=== PATIENT | male | born 1940 | race Caucasian/White ===

== ENCOUNTER 2017-10-05 03:00 | Observation (INO) ==
--- NOTE | 2017-10-05 03:25 | Emergency Department Note ---
Disposition Clinical Impression: Delirium due to general medical condition UTI (urinary tract infection) Qualifiers: Urinary tract infection type: site unspecified Hematuria presence: without hematuria Qualified Code(s): N39.0 - Urinary tract infection, site not specified Disposition: Still a Patient Condition: Fair Referrals: Andres Jensen MD [Primary Care Provider] - Forms: ED Satisfaction Letter Time of Disposition: 05:19 Altered Mental Status HPI - General Chief Complaint: ED Altered Mental Status Stated Complaint: Altered Mental Status Time Seen by Provider: 10/05/17 03:07 Source: EMS Limitations: no limitations Nursing Notes Reviewed: Yes Vital Signs Reviewed: Yes - History of Present Illness HPI Narrative: Mr. Jones, 77-year-old male, presents from scene via EMS. He was attempting to get into the apartment of a neighbor where she called police for suspected burglary. Patient was found walking in the parking lot of the power complex with a T-shirt, underwear, his stocking feet. Per EMS, he was verbally combative in route. Patient does not know what medications he takes. He denies any blood thinners stating he stopped taking them approximate 6 months ago. ROS: Positive: As above Negative: Fever, chills, confusion, nausea, vomiting, chest pain, palpitations, dyspnea, diaphoresis, unusual back pain, confusion, headache, trauma. - Related Data Home Medications Medication Instructions Recorded Confirmed Lisinopril [Zestril] 5 mg PO DAILY 12/06/14 04/13/16 Simvastatin [Zocor] 40 mg PO HS 12/06/14 04/13/16 Aspirin Enteric Coated [Aspirin EC] 81 mg PO DAILY #0 12/07/14 04/13/16 Metoprolol XL (24 HR) Succ [Toprol 50 mg PO DAILY #0 12/07/14 04/13/16 Xl] Citalopram Hydrobromide [Celexa] 20 mg PO DAILY 10/28/15 04/13/16 LORazepam [Ativan] 0.5 mg PO TID 10/28/15 04/13/16 Omeprazole [PriLOSEC] 20 mg PO DAILY 10/28/15 04/13/16 Previous Rx's Medication Instructions Recorded Ipratropium/Albuterol Neb [Duoneb] 3 ml IH [id number] #30 inhsol 08/04/15 Nitroglycerin 0.4 mg SL Q5MIN PRN #0 tab.subl 08/04/15 Spironolactone [Aldactone] 12.5 mg PO DAILY #30 tablet 08/04/15 traZODone [TraZODone] 50 mg PO HS PRN #10 tablet 08/04/15 Docusate [Colace] 100 mg PO BID #60 capsule 10/28/15 Oxycodone HCl/Acetaminophen 1 each PO Q4H PRN #20 tablet 10/28/15 [Percocet 5-325 mg Tablet] HYDROcodone/Acet 5/325 mg [[place] 1 tab PO Q4H PRN #10 tab 04/13/16 5-325 mg] Allergies Allergy/AdvReac Type Severity Reaction Status Date / Time No Known Allergies Allergy Verified 04/13/16 12:48 All systems ED: reviewed and negative except as stated. Review of Systems: As Per HPI Past Medical History - Past Medical History Medical history: Reports: cancer, cardiomyopathy, CHF, COPD, coronary artery disease, hepatitis, hyperlipidemia, liver disease, other Surgical history: Reports: pacemaker/AICD Psychiatric history: Reports: anxiety, depression, prior suicide attempt - Social History Smoking Status: Current every day smoker Smokeless Tobacco Status: No Alcohol use: Reports: none Drug use: Reports: none Physical Exam Vital Signs Reviewed General: Patient is alert, oriented, and in no acute distress. Head: atraumatic, normocephalic Eye: normal appearance, no scleral icterus, no conjunctival injection ENT: mucous membranes moist, normal external ear exam Neck: normal inspection, trachea midline, full ROM Chest: normal inspection, symmetric chest rise Respiratory: Good respiratory effort. Bilateral breath sounds are clear without wheezing, crackles, or rhonchi. Cardiovascular: Regular rate and rhythm. No clicks, rubs, gallops, or murmors. Normal heart sounds. Abdomen: Scaphoid. Bowel sounds present normoactive x-4 quadrants. Abdomen is soft, nondistended, and nontender. No guarding or rebound. No organomegaly noted. Musculoskeletal: Spontaneously moving all extremities. Skin: warm, dry, intact. Neuro: Alert and oriented x4. Sensation light touch intact. Psych: Patient's affect is appropriate for situation. - General Limitations: no limitations General appearance: alert, in no apparent distress Course Course Narrative: Patient agrees that is not normal 3 walking around outside in your underwear. He agrees to allow me to do a medical workup to see how we can help him. He was to make sure that, "I am not a shrink." He repeatedly states that he is not crazy. Patient's lab work is concerning for urinary tract infection. We will begin IV Rocephin. I discussed in detail with the patient my concern for him and his safety given that he was recently running around in his underwear. He agrees that is not normal. Initially he insisted on going home however, with much convincing, he agreed to stay for IV antibiotics. He will be asking to leave as soon as feasible. Vital Signs Temperature 97.6 F 10/05/17 03:06 Pulse Rate 83 10/05/17 03:06 Respiratory Rate 18 10/05/17 03:06 Blood Pressure 162/92 10/05/17 03:06 O2 Sat by Pulse Oximetry 92 10/05/17 03:06 Temperature 97.6 F 10/05/17 03:06 Pulse Rate 83 10/05/17 03:06 Respiratory Rate 18 10/05/17 03:06 Blood Pressure 162/92 10/05/17 03:06 O2 Sat by Pulse Oximetry 92 10/05/17 03:06 Oxygen Delivery Oxygen Delivery Room Air Altered Mental Status - Lab Data Result diagrams: 10/05/17 03:35 10/05/17 03:35 Lab Results 10/05/17 10/05/17 10/05/17 Range/Units 03:30 03:30 03:35 WBC 11.5 H (4.3-11.1) K/mcL RBC 4.55 (4.19-5.50) M/mcL Hgb 13.9 (12.9-16.9) g/dL Hct 44.3 (37.5-50.1) % MCV 97.4 (83.0-100.0) fL MCH 30.5 (28.0-33.3) pg MCHC 31.4 L (31.6-35.5) g/dL RDW 13.1 (11.5-14.5) % Plt Count 383 (140-400) K/mcL MPV 9.4 (9.4-12.4) fL Immature Gran % 0.5 (0-4) % Seg Neutrophils % 80.4 % Lymphocytes % 11.4 % Monocytes % 5.6 % Eosinophils % 1.3 % Basophils % 0.8 % Neutrophils # 9.3 H (1.6-8.9) K/mcL Lymphocytes # 1.3 (0.6-4.6) K/mcL Monocytes # 0.7 (0.0-1.3) K/mcL Eosinophils # 0.2 (0.0-0.6) K/mcL Basophils # 0.1 (0.0-0.2) K/mcL Sodium (136-145) mEq/L Potassium (3.5-5.1) mEq/L Chloride (98-107) mEq/L Carbon Dioxide (23-29) mEq/L BUN (8-23) mg/dL Creatinine (0.70-1.30) mg/dL Est GFR ( Amer) (> 60) Est GFR (Non-Af Amer) (> 60) BUN/Creatinine Ratio (6-26) Glucose (70-105) mg/dL Calculated Osmolality (280-300) Calcium (8.6-10.3) mg/dL Total Bilirubin (0.3-1.0) mg/dL Direct Bilirubin (0.0-0.2) mg/dL Indirect Bilirubin (0.0-1.2) mg/dL AST (13-39) Units/L ALT (7-52) Units/L Alkaline Phosphatase (34-104) Units/L Ammonia (16-53) mcmol/L Troponin I (< 0.04) ng/mL Serum Total Protein (6.4-8.9) g/dL Albumin (3.5-5.7) g/dL Globulin (2.4-3.5) g/dL Albumin/Globulin Ratio (1.1-2.2) Urine Color Yellow (Yellow) Urine Clarity Cloudy A (Clear) Urine pH 7.0 (5.0-8.0) pH Units Ur Specific [place] 1.020 (1.010-1.025) Urine Protein Trace (Neg-Trace) mg/dL Urine Glucose (UA) Normal (Normal) mg/dL Urine Ketones 40 H (Negative) mg/dL Urine Blood Negative (Negative) Urine Nitrite Negative (Negative) Urine Bilirubin Small H (Negative) Urine Urobilinogen Normal (Normal) mg/dL Ur Leukocyte Esterase Large H (Negative) Urine Microscopic RBC 0-3 (0-3) per hpf Urine Microscopic WBC 50-100 H (0-3) per hpf Ur Squamous Epith Cells Many H (None-Few) per lpf Urine Bacteria Many H (None-Few) per hpf Hyaline Casts Few (None-Few) per lpf Ur Culture Indicated? NO. A (NO) Urine Opiates Screen Negative (Axihqk=990) ng/mL Ur Barbiturates Screen Positive H (Ognxti=188) ng/mL Ur Phencyclidine Scrn Negative (Cutoff=25) ng/mL Ur Amphetamines Screen Negative (Ybqjge=9840) ng/mL U Benzodiazepines Scrn Negative (Xarlmr=234) ng/mL Urine Cocaine Screen Negative (Cutoff= 300) ng/mL U Marijuana (THC) Screen Negative (Cutoff = 50) ng/mL Ethyl Alcohol (Less than 10) mg/dL 10/05/17 10/05/17 Range/Units 03:35 03:35 WBC (4.3-11.1) K/mcL RBC (4.19-5.50) M/mcL Hgb (12.9-16.9) g/dL Hct (37.5-50.1) % MCV (83.0-100.0) fL MCH (28.0-33.3) pg MCHC (31.6-35.5) g/dL RDW (11.5-14.5) % Plt Count (140-400) K/mcL MPV (9.4-12.4) fL Immature Gran % (0-4) % Seg Neutrophils % % Lymphocytes % % Monocytes % % Eosinophils % % Basophils % % Neutrophils # (1.6-8.9) K/mcL Lymphocytes # (0.6-4.6) K/mcL Monocytes # (0.0-1.3) K/mcL Eosinophils # (0.0-0.6) K/mcL Basophils # (0.0-0.2) K/mcL Sodium 143 (136-145) mEq/L Potassium 3.8 (3.5-5.1) mEq/L Chloride 101 (98-107) mEq/L Carbon Dioxide 25 (23-29) mEq/L BUN 20 (8-23) mg/dL Creatinine 0.83 (0.70-1.30) mg/dL Est GFR ( Amer) > 60 (> 60) Est GFR (Non-Af Amer) > 60 (> 60) BUN/Creatinine Ratio 24 (6-26) Glucose 98 (70-105) mg/dL Calculated Osmolality 299 (280-300) Calcium 9.7 (8.6-10.3) mg/dL Total Bilirubin 0.5 (0.3-1.0) mg/dL Direct Bilirubin 0.3 H (0.0-0.2) mg/dL Indirect Bilirubin 0.2 (0.0-1.2) mg/dL AST 21 (13-39) Units/L ALT 17 (7-52) Units/L Alkaline Phosphatase 86 (34-104) Units/L Ammonia 31 (16-53) mcmol/L Troponin I < 0.03 (< 0.04) ng/mL Serum Total Protein 8.2 (6.4-8.9) g/dL Albumin 4.0 (3.5-5.7) g/dL Globulin 4.2 H (2.4-3.5) g/dL Albumin/Globulin Ratio 1.0 L (1.1-2.2) Urine Color (Yellow) Urine Clarity (Clear) Urine pH (5.0-8.0) pH Units Ur Specific [place] (1.010-1.025) Urine Protein (Neg-Trace) mg/dL Urine Glucose (UA) (Normal) mg/dL Urine Ketones (Negative) mg/dL Urine Blood (Negative) Urine Nitrite (Negative) Urine Bilirubin (Negative) Urine Urobilinogen (Normal) mg/dL Ur Leukocyte Esterase (Negative) Urine Microscopic RBC (0-3) per hpf Urine Microscopic WBC (0-3) per hpf Ur Squamous Epith Cells (None-Few) per lpf Urine Bacteria (None-Few) per hpf Hyaline Casts (None-Few) per lpf Ur Culture Indicated? (NO) Urine Opiates Screen (Mtalkm=659) ng/mL Ur Barbiturates Screen (Zlfqns=188) ng/mL Ur Phencyclidine Scrn (Cutoff=25) ng/mL Ur Amphetamines Screen (Cjzapz=9895) ng/mL U Benzodiazepines Scrn (Yixcev=138) ng/mL Urine Cocaine Screen (Cutoff= 300) ng/mL U Marijuana (THC) Screen (Cutoff = 50) ng/mL Ethyl Alcohol < 10 (Less than 10) mg/dL TPA Checklist - LKW: 3-4.5 hrs Add. Warnings/Precautions Patient/family understanding: The patient/family members have been counseled and understood the risk, benefit , and alternatives of treatment.
--- NOTE | 2017-10-05 03:30 | Emergency Department Note ---
Disposition Clinical Impression: Delirium due to general medical condition Disposition: Still a Patient Referrals: Andres Jensen MD [Primary Care Provider] - Forms: ED Satisfaction Letter General Adult HPI - General Chief complaint: ED Altered Mental Status Stated complaint: Altered Mental Status Time Seen by Provider: 10/05/17 03:07 Source: EMS Limitations: no limitations - History of Present Illness Pain Scale: 0 - Related Data Home Medications Medication Instructions Recorded Confirmed Lisinopril [Zestril] 5 mg PO DAILY 12/06/14 04/13/16 Simvastatin [Zocor] 40 mg PO HS 12/06/14 04/13/16 Aspirin Enteric Coated [Aspirin EC] 81 mg PO DAILY #0 12/07/14 04/13/16 Metoprolol XL (24 HR) Succ [Toprol 50 mg PO DAILY #0 12/07/14 04/13/16 Xl] Citalopram Hydrobromide [Celexa] 20 mg PO DAILY 10/28/15 04/13/16 LORazepam [Ativan] 0.5 mg PO TID 10/28/15 04/13/16 Omeprazole [PriLOSEC] 20 mg PO DAILY 10/28/15 04/13/16 Previous Rx's Medication Instructions Recorded Ipratropium/Albuterol Neb [Duoneb] 3 ml IH [id number] #30 inhsol 08/04/15 Nitroglycerin 0.4 mg SL Q5MIN PRN #0 tab.subl 08/04/15 Spironolactone [Aldactone] 12.5 mg PO DAILY #30 tablet 08/04/15 traZODone [TraZODone] 50 mg PO HS PRN #10 tablet 08/04/15 Docusate [Colace] 100 mg PO BID #60 capsule 10/28/15 Oxycodone HCl/Acetaminophen 1 each PO Q4H PRN #20 tablet 10/28/15 [Percocet 5-325 mg Tablet] HYDROcodone/Acet 5/325 mg [[place] 1 tab PO Q4H PRN #10 tab 04/13/16 5-325 mg] Allergies Allergy/AdvReac Type Severity Reaction Status Date / Time No Known Allergies Allergy Verified 04/13/16 12:48 Past Medical History - Past Medical History Medical history: Reports: cancer, cardiomyopathy, CHF, COPD, coronary artery disease, hepatitis, hyperlipidemia, liver disease, other Surgical history: Reports: pacemaker/AICD Psychiatric history: Reports: anxiety, depression, prior suicide attempt - Social History Smoking Status: Current every day smoker Smokeless Tobacco Status: No Alcohol use: Reports: none Drug use: Reports: none Physical Exam - General Limitations: no limitations General appearance: alert, in no apparent distress Course - Reevaluation(s) Reevaluation #1: Attestation note I examined this patient and my medical decision-making was reviewed with the emergency medicine resident. I agree with the documented findings, disposition and treatment plan as described except to the extent set forth below. Patient seen with emergency medicine resident Dustin Thomas, Please see a copy of his note for details of the H&P, ED evaluation, management and disposition. I have independently evaluated the patient and confirmed appropriate portions of the history and physical exam. Briefly: 77-year-old male by EMS looking around underwear and socks disoriented. He will try to get some feels his apartment. Police name is called patient became argumentative patient is no no mental health illness this does say that his urine is burning. No external signs of trauma patient will get a medical workup and evaluation with likely admission. Disposition pending. Time: 03:29 Vital Signs Temperature 97.6 F 10/05/17 03:06 Pulse Rate 83 10/05/17 03:06 Respiratory Rate 18 10/05/17 03:06 Blood Pressure 162/92 10/05/17 03:06 O2 Sat by Pulse Oximetry 92 10/05/17 03:06 Temperature 97.6 F 10/05/17 03:06 Pulse Rate 83 10/05/17 03:06 Respiratory Rate 18 10/05/17 03:06 Blood Pressure 162/92 10/05/17 03:06 O2 Sat by Pulse Oximetry 92 10/05/17 03:06 Oxygen Delivery Oxygen Delivery Room Air
[2017-10-05 03:52] LABS: Basophils # 0.1 K/mcL (0.0-0.2); Basophils % 0.8 %; Eosinophils # 0.2 K/mcL (0.0-0.6); Eosinophils % 1.3 %; Hematocrit 44.3 % (37.5-50.1); Hemoglobin 13.9 g/dL (12.9-16.9); Immature Granulocytes % 0.5 % (0-4); Lymphocytes # 1.3 K/mcL (0.6-4.6); Lymphocytes % 11.4 %; Mean Corpuscular HGB Conc 31.4 g/dL (31.6-35.5); Mean Corpuscular Hemoglobin 30.5 pg (28.0-33.3); Mean Corpuscular Volume 97.4 fL (83.0-100.0); Mean Platelet Volume 9.4 fL (9.4-12.4); Monocytes # 0.7 K/mcL (0.0-1.3); Monocytes % 5.6 %; Neutrophils # 9.3 K/mcL (1.6-8.9); Platelet Count 383 K/mcL (140-400); Red Blood Count 4.55 M/mcL (4.19-5.50); Red Cell Distribution Width 13.1 % (11.5-14.5); Segmented Neutrophils % 80.4 %
[2017-10-05 03:52] LABS: Bilirubin,Urine Small (Negative); Blood,Urine Negative (Negative); Clarity,Urine Cloudy (Clear); Color,Urine Yellow (Yellow); Glucose,Urine (UA) Normal (Normal); Ketones,Urine 40 mg/dL (Negative); Leukocyte Esterase,Urine Large (Negative); Nitrite,Urine Negative (Negative); Protein,Urine Trace mg/dL (Neg-Trace); Urobilinogen,Urine Normal (Normal)
[2017-10-05 03:55] LABS: Bacteria,Urine Many per hpf (None-Few); Hyaline Casts,Urine Few per lpf (None-Few); Squamous Epithelial Cell,Urine Many per lpf (None-Few); WBC,Urine 50-100 per hpf (0-3)
[2017-10-05 04:09] LABS: RBC,Urine 0-3 per hpf (0-3)
[2017-10-05 04:15] LABS: Alanine Aminotransferase 17 Units/L (7-52); Alkaline Phosphatase 86 Units/L (34-104); Aspartate Amino Transferase 21 Units/L (13-39); BUN/Creatinine Ratio 24 (6-26); Bilirubin,Direct 0.3 mg/dL (0.0-0.2); Bilirubin,Indirect 0.2 mg/dL (0.0-1.2); Bilirubin,Total 0.5 mg/dL (0.3-1.0); Blood Urea Nitrogen 20 mg/dL (8-23); Calcium 9.7 mg/dL (8.6-10.3); Carbon Dioxide 25 mEq/L (23-29); Chloride 101 mEq/L (98-107); Ethanol < 10 mg/dL (Less than 10); Globulin 4.2 g/dL (2.4-3.5); Glucose 98 mg/dL (70-105); Osmolality,Calculated 299 (280-300); Potassium 3.8 mEq/L (3.5-5.1); Sodium 143 mEq/L (136-145); Total Protein 8.2 g/dL (6.4-8.9); Troponin I < 0.03 ng/mL (< 0.04); eGFR For African Americans > 60 (> 60); eGFR For Non-African Americans > 60 (> 60)
[2017-10-05 04:19] LABS: Amphetamine Screen,Urine Negative ng/mL (Cutoff=1000); Barbiturate Screen,Urine Positive ng/mL (Cutoff=200); Benzodiazepines Screen,Urine Negative ng/mL (Cutoff=200); Cannabinoid Screen,Urine Negative ng/mL (Cutoff = 50); Cocaine Screen,Urine Negative ng/mL (Cutoff= 300); Opiate Screen,Urine Negative ng/mL (Cutoff=300); Phencyclidine Screen,Urine Negative ng/mL (Cutoff=25)
[2017-10-05] MEDS ORDERED: cefTRIAXone 2,000 MG in Water for inj. (sterile) 20 ML 20 ML IVP ONE (04:53)
[2017-10-05] MEDS ORDERED: Albuterol 2.5 MG/3 ML NEBULIZER IH PRN (08:44)
[2017-10-05] MEDS ORDERED: *HR* LORazepam 2 MG/ML VIAL IVP STA (08:50)
[2017-10-05] MEDS ORDERED: Ipratropium/Albuterol Neb 3 ML IH PRN (08:50)
[2017-10-05] MEDS ORDERED: Acetaminophen 325 MG TABLET PO PRN (08:51)
[2017-10-05] MEDS ORDERED: Naloxone 0.4 MG/ML INJ IVP PRN (08:51)
[2017-10-05] MEDS ORDERED: *HR* HYDROcodone/Acet 5/325 mg TABLET PO PRN (08:51)
--- NOTE | 2017-10-05 08:57 | Internal Med History&Physical ---
Date of Encounter: 10/05/17 Time of Encounter: 08:27 Internal Medicine - H&P: HPI Chief complaint: "My neighbor called the bulk sealer operator" Admitted From: Emergency Dept Plans for Post Hospital Care: Home History of present illness: Mr. Jones is a 77 year old male who presented to ED by EMS for altered mental status. Patient states "that neighbor ru Omer called the bulk sealer operator." Per review of ED records, patient was found walking around the neighborhood in his underwear. Patient seems mildly agitated, but I am able to redirect him and calm him down by listening to his story. He states "I want to go home and my son is on his way to pick me up." In the ED, he was found to have a UTI. Patient states "I already knew that I had a UTI." We discussed short course of IV antibiotics with likely discharge on PO antibiotics to complete course. I advised him that we will only keep him here as long as we need to treat infection. He is alert and oriented x 3. He is agitated, but not confused on my examination. He has a history of depression and anxiety per chart review. He is tremulous and seems anxious, which may in part be due to not having his TID ativan this AM. I advised him that I will speak to his son when he gets here. For now, he is agreeable to staying. Urine culture is pending. He was give one dose of IV rocephin in the ED. At this time, he denies fever, chills, chest pain, SOB, nausea, vomiting, abdominal pain, or changes in bowels. He does have some dysuria per his own account. Past Med Surg Social Fam HX - Past Medical History Attestation: Yes The following information was validated with the patient. Source: patient Medical history: cancer, cardiomyopathy, CHF, COPD, coronary artery disease, hepatitis, hyperlipidemia, liver disease, other Additional medical history: pt unable to provide accurate medical history. Psychiatric history: anxiety, depression, prior suicide attempt - Past Surgical History Surgical History: pacemaker/AICD - Social History Smoking Status: Current every day smoker Smokeless Tobacco Status: No Alcohol use: none Drug use: none - Family History Mother Living Status: Hx Family Cardiac Disorders: Yes ( FROM HEART ATTACK,) Hx Family Neurologic Disorders: Yes (STROKES) - Additional Family History Additional family history: Family history reviewed with patient. Internal Medicine - H&P: Meds Lisinopril [Zestril] 5 mg PO DAILY 12/06/14 [History] Simvastatin [Zocor] 40 mg PO HS 12/06/14 [History] Aspirin Enteric Coated [Aspirin EC] 81 mg PO DAILY #0 12/07/14 [History] Metoprolol XL (24 HR) Succ [Toprol Xl] 50 mg PO DAILY #0 12/07/14 [History] Ipratropium/Albuterol Neb [Duoneb] 3 ml IH [id number] #30 inhsol 08/04/15 [Rx] Nitroglycerin 0.4 mg SL Q5MIN PRN #0 tab.subl 08/04/15 [Rx] Spironolactone [Aldactone] 12.5 mg PO DAILY #30 tablet 08/04/15 [Rx] traZODone [TraZODone] 50 mg PO HS PRN #10 tablet 08/04/15 [Rx] Citalopram Hydrobromide [Celexa] 20 mg PO DAILY 10/28/15 [History] Docusate [Colace] 100 mg PO BID #60 capsule 10/28/15 [Rx] LORazepam [Ativan] 0.5 mg PO TID 10/28/15 [History] Omeprazole [PriLOSEC] 20 mg PO DAILY 10/28/15 [History] Oxycodone HCl/Acetaminophen [Percocet 5-325 mg Tablet] 1 each PO Q4H PRN #20 tablet 10/28/15 [Rx] HYDROcodone/Acet 5/325 mg [[place] 5-325 mg] 1 tab PO Q4H PRN #10 tab 04/13/16 [Rx ] 3 Allergy/AdvReac Type Severity Reaction Status Date / Time No Known Allergies Allergy Verified 04/13/16 12:48 All Systems PM: A 10-system review of systems was performed and is negative for pertinent findings except as documented above in the HPI. - Constitutional Vitals: Temp Pulse Resp BP Pulse Ox 98.1 F 67 14 168/90 100 10/05/17 08:06 10/05/17 08:06 10/05/17 08:06 10/05/17 08:06 10/05/17 08:06 General appearance: Present: cooperative, mild distress (Anxiety), A&O X 3, answers questions appropriately. Absent: pleasant - Head Head exam: Present: atraumatic, normal inspection, normocephalic - Eye Eye exam: Present: EOMI, PERRL. Absent: conjunctival injection, nystagmus, scleral icterus - ENT ENT exam: Present: mucous membranes moist, normal external ear exam, normal oropharynx - Neck Neck exam general surgery: Present: supple, trachea midline. Absent: lymphadenopathy, tenderness, thyromegaly - Respiratory Respiratory exam: Present: CTAB. Absent: accessory muscle use, rales, rhonchi, wheezes Additional comments: Normal WOB - Cardiovascular Cardiovascular exam: Present: RRR, +S1, +S2. Absent: diastolic murmur, gallop, rubs, systolic murmur Additional comments: No BLE edema - GI/Abdominal GI/Abdominal exam: Present: normal bowel sounds, soft. Absent: distended, hepatomegaly, mass, splenomegaly, tenderness - Neurological Exam Neurological exam: Present: alert, CN II-XII intact, oriented X3, no focal deficits, strengths equal and symetr throughout. Absent: motor sensory deficit , facial droop, speech deficit - Psychiatric Psychiatric exam: Present: agitated, anxious. Absent: depressed - Skin Skin exam: Present: dry, intact, warm. Absent: cyanosis, rash Internal Med - H&P Results - Labs CBC & Chem 7: 10/05/17 03:35 10/05/17 03:35 - Assessment and plan (1) Acute encephalopathy Current Visit: Yes Status: Acute Assessment and plan: Likely secondary to UTI. Treat UTI as per below. Has history of depression and anxiety. Will resume home medications. Patient agreeable for time being to staying for treatment. He is high risk to leave AMA. He is A&O x 3, and does not seem confused at this time. He is capable of making his own medical decisions; however, I will speak with son when he gets here. (2) Acute cystitis without hematuria Current Visit: Yes Status: Acute Assessment and plan: Continue IV rocephin. Follow up on urine culture. (3) Anxiety Current Visit: Yes Status: Chronic Assessment and plan: Continue home medications. (4) CHF (congestive heart failure), NYHA class III Current Visit: Yes Status: Chronic Assessment and plan: Continue home medications. Qualifiers: Congestive heart failure type: unspecified Qualified Code(s): I50.9 - Heart failure, unspecified (5) Depression Current Visit: Yes Status: Chronic Assessment and plan: Continue home medications. Past history of SI. No SI or signs of depression at this time. Qualifiers: Depression Type: major depressive disorder Major depression recurrence: recurrent Active/Remission status: currently active Major depression episode severity: severe Psychotic features: without psychotic features Qualified Code(s): F33.2 - Major depressive disorder, recurrent severe without psychotic features (6) COPD (chronic obstructive pulmonary disease) Current Visit: Yes Status: Chronic Assessment and plan: Duonebs PRN SOB. Qualifiers: COPD type: emphysema Emphysema type: panlobular Qualified Code(s): J43.1 - Panlobular emphysema (7) DVT prophylaxis Current Visit: Yes Status: Acute Assessment and plan: Start lovenox 40 mg SQ QD and SCDs. - Time Spent With Patient Total time spent is greater than 50% in coordination of care (as documented) at patient's floor/unit and/or counseling patient: less than 15 minutes
[2017-10-05] MEDS ORDERED: *HR* Enoxaparin 40 MG/0.4 ML SYRINGE SQ SCH (09:00)
[2017-10-05] MEDS ORDERED: Nitroglycerin 0.4 MG TAB.SUBL SL PRN (12:04)
[2017-10-05] MEDS: Nicotine 21 MG PATCH.TD24 TD SCH (15:28)
[2017-10-05] MEDS: Metoprolol XL (24 HR) Succ 25 MG TAB.ER.24H PO SCH (17:45)
[2017-10-05] MEDS: Spironolactone 25 MG TABLET PO SCH (17:45)
[2017-10-05] MEDS: Aspirin Enteric Coated 81 MG Tablet PO SCH (17:45)
[2017-10-05] MEDS ORDERED: Primidone 50 MG TABLET PO SCH (21:00)
[2017-10-05] MEDS ORDERED: Mirtazapine 15 MG TABLET PO SCH (21:00)
[2017-10-06 05:21] LABS: Basophils # 0.1 K/mcL (0.0-0.2); Basophils % 0.5 %; Eosinophils # 0.3 K/mcL (0.0-0.6); Eosinophils % 2.9 %; Hematocrit 34.6 % (37.5-50.1); Immature Granulocytes % 0.4 % (0-4); Lymphocytes # 1.5 K/mcL (0.6-4.6); Lymphocytes % 12.7 %; Mean Corpuscular HGB Conc 31.5 g/dL (31.6-35.5); Mean Corpuscular Hemoglobin 30.7 pg (28.0-33.3); Mean Corpuscular Volume 97.5 fL (83.0-100.0); Mean Platelet Volume 9.8 fL (9.4-12.4); Monocytes # 1.2 K/mcL (0.0-1.3); Monocytes % 10.7 %; Neutrophils # 8.4 K/mcL (1.6-8.9); Platelet Count 308 K/mcL (140-400); Red Blood Count 3.55 M/mcL (4.19-5.50); Red Cell Distribution Width 13.2 % (11.5-14.5); Segmented Neutrophils % 72.8 %
[2017-10-06 05:30] LABS: Hemoglobin 10.9 g/dL (12.9-16.9)
[2017-10-06 05:41] LABS: BUN/Creatinine Ratio 19 (6-26); Blood Urea Nitrogen 20 mg/dL (8-23); Calcium 8.5 mg/dL (8.6-10.3); Carbon Dioxide 32 mEq/L (23-29); Chloride 105 mEq/L (98-107); Glucose 115 mg/dL (70-105); Osmolality,Calculated 298 (280-300); Sodium 142 mEq/L (136-145); eGFR For African Americans > 60 (> 60); eGFR For Non-African Americans > 60 (> 60)
[2017-10-06] MEDS ORDERED: *HR* Enoxaparin 40 MG/0.4 ML SYRINGE SQ SCH (06:00)
[2017-10-06] MEDS ORDERED: cefTRIAXone 1,000 MG in 0.9 % Sodium Chloride Mini Bag 100 ML IVPB SCH (06:00)
[2017-10-06] MEDS ORDERED: 0.9 % Sodium Chloride Mini Bag 100 ML ONE (06:06)
[2017-10-06] MEDS ORDERED: cefTRIAXone 1,000 MG in Water for inj. (sterile) 20 ML 10 ML IVPB SCH (06:15)
[2017-10-06] MEDS: Nicotine 21 MG PATCH.TD24 TD SCH (09:47)
[2017-10-06] MEDS: Spironolactone 25 MG TABLET PO SCH (09:47)
[2017-10-06] MEDS: Metoprolol XL (24 HR) Succ 25 MG TAB.ER.24H PO SCH (09:47)
[2017-10-06] MEDS: Aspirin Enteric Coated 81 MG Tablet PO SCH (09:47)
[2017-10-06 11:21] VITALS: BP 116/73
--- NOTE | 2017-10-06 11:54 | Discharge Summary ---
- NOTES TO OUTPATIENT PROVIDER Notes to Outpatient Provider: Recommend routine hospital follow-up within one week Date of Encounter: 10/06/17 Time of Encounter: 11:54 - Discharge Diagnosis (1) Acute encephalopathy Priority: Primary Status: Acute (2) Acute cystitis without hematuria Priority: Primary Status: Acute (3) CHF (congestive heart failure), NYHA class III Priority: Secondary Status: Chronic Qualifiers: Congestive heart failure type: unspecified Qualified Code(s): I50.9 - Heart failure, unspecified (4) Depression Priority: Secondary Status: Chronic Qualifiers: Depression Type: major depressive disorder Major depression recurrence: recurrent Active/Remission status: currently active Major depression episode severity: severe Psychotic features: without psychotic features Qualified Code(s): F33.2 - Major depressive disorder, recurrent severe without psychotic features (5) COPD (chronic obstructive pulmonary disease) Priority: Secondary Status: Chronic Qualifiers: COPD type: emphysema Emphysema type: panlobular Qualified Code(s): J43.1 - Panlobular emphysema (6) Anxiety Priority: Secondary Status: Chronic Hospital course: Mr. Jones is a 77 year old male with PMH COPD, retention, BPH, hyperlipidemia and depression presented to [facility] on 10/05/2017 after he was found confused and walking around his neighborhood and only his underwear. His was admitted for further workup and treatment. Per chart review, mentation returned to baseline in ED. Head CT in ED was unremarkable. UA indicative of UTI however urine culture was negative. However he remained symptomatic with complaints of frequency and dysuria. He was treated with 2 doses of IV ceftriaxone while in the hospital and discharge home on Cipro. Of note, urine drug screen was positive for barbiturates. Patient adamantly denied taking any illegal/recreational substances. On my exam he is alert and oriented 4, neurologically intact. He requested discharge home. He was advised to return to ER if confusion or changes in mental status recur. He verbalizes understanding. Discharge discussed with: patient - Time Spent with Patient Total time spent providing and/or coordinating discharge services: - Discharge Medications Prescriptions: Ciprofloxacin HCl [Cipro] 250 mg PO BID #6 tab Home Medications: Simvastatin [Zocor] 40 mg PO HS 12/06/14 [History] Aspirin Enteric Coated [Aspirin EC] 81 mg PO DAILY #0 12/07/14 [History] Ipratropium/Albuterol Neb [Duoneb] 3 ml IH [id number] #30 inhsol 08/04/15 [Rx] Nitroglycerin 0.4 mg SL Q5MIN PRN #0 tab.subl 08/04/15 [Rx] Spironolactone [Aldactone] 12.5 mg PO DAILY #30 tablet 08/04/15 [Rx] Omeprazole [PriLOSEC] 20 mg PO DAILY 10/28/15 [History] Losartan [Cozaar] 25 mg PO DAILY 10/05/17 [History] Metoprolol Succinate [Toprol Xl] 25 mg PO DAILY 10/05/17 [History] Mirtazapine [Remeron] 30 mg PO HS 10/05/17 [History] Paroxetine HCl [Paxil] 20 mg PO DAILY 10/05/17 [History] Primidone [Mysoline] 50 mg PO HS 10/05/17 [History] Tamsulosin [Flomax] 0.4 mg PO DAILY 10/05/17 [History] Ciprofloxacin HCl [Cipro] 250 mg PO BID #6 tab 10/06/17 [Rx] Allergies/Adverse Reactions: 3 Allergy/AdvReac Type Severity Reaction Status Date / Time No Known Allergies Allergy Verified 04/13/16 12:48 Date of admission: 10/05/17 05:35 Primary care physician: Andres Jensen MD Consults: 10/05/17 08:47 Consult to [employer] [CONS] Routine Reason for SW Consult: Discharge planning. Home situation. 10/05/17 08:51 Consult for Pharmacy Education [CONS] Stat Reason for Consult: Please verify home medications. Thanks. Call Completed: Yes Discharging clinician: Yesica Sun Anticipated date of discharge: 10/06/17 - Constitutional Vitals: Temp Pulse Resp BP Pulse Ox 98.0 F 79 17 116/73 90 10/06/17 11:20 10/06/17 11:20 10/06/17 11:20 10/06/17 11:20 10/06/17 11:20 General appearance: Present: cooperative, disheveled, A&O X 3, answers questions appropriately. Absent: pleasant - Head Head exam: Present: atraumatic, normocephalic - Eye Eye exam: Present: PERRL, conjuntiva pink, sclera anicteric Pupils: Present: PERRL - Neck Neck exam general surgery: Present: supple, trachea midline. Absent: lymphadenopathy - Respiratory Respiratory exam: Present: CTAB. Absent: accessory muscle use, rales, rhonchi, wheezes - Cardiovascular Cardiovascular exam: Present: RRR, +S1, +S2. Absent: diastolic murmur, gallop, rubs, systolic murmur - GI/Abdominal GI/Abdominal exam: Present: normal bowel sounds, soft, no peritoneal signs. Absent: distended, tenderness - Extremities Exam Extremities exam: Present: warm, radial pulses palpable and symmetrical. Absent : calf tenderness, cyanotic, pedal edema - Neurological Exam Neurological exam: Present: CN II-XII intact, oriented X3, no focal deficits. Absent: pronater drift, facial droop, speech deficit - Skin Skin exam: Present: dry, intact - Patient Status Disposition: Home, Self-Care Condition: Good Functional capacity at discharge: independent ambulation Overall status at discharge: patient is back to baseline - Discharge Instructions Instructions: Urinary Tract Infection in Men (DC), Ciprofloxacin (By mouth), Acute Delirium (DC) Follow Up With: Andres Jensen MD [Primary Care Provider] - (Please call for follow-up appt within 1 week ) - Diet and Activity Activity: increase activity as tolerated Diet: advance to your usual diet
--- NOTE | 2017-10-07 09:39 | Electrocardiograph Report ---
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
== END 2017-10-06 13:34 | disposition home or self-care (01) ==
LOC: 3BNU 03:00 → EMEROO 03:00 → 3BNU 06:50
PROVIDERS: ADMIT Family Medicine; ATTEND Pediatrics

== ENCOUNTER 2018-02-03 19:08 | Inpatient (IN) ==
[2018-02-03] MEDS ORDERED: methylPREDNISolone 125 MG/2 ML VIAL IVP ONE (19:17)
[2018-02-03] MEDS ORDERED: Ipratropium/Albuterol Neb 3 ML IH ONE (19:17)
--- NOTE | 2018-02-03 19:22 | Emergency Department Note ---
Disposition Clinical Impression: Acute exacerbation of chronic obstructive airways disease, Community acquired pneumonia, Hypoxia Disposition: Admitted As Inpatient Condition: Fair General Adult HPI - General Chief complaint: ED Shortness of Breath/Dyspnea Stated complaint: Morgan Time Seen by Provider: 02/03/18 19:22 Source: patient Mode of arrival: ambulatory Limitations: no limitations Nursing Notes Reviewed: Yes Vital Signs Reviewed: Yes - Related Data Home Medications Medication Instructions Recorded Confirmed Aspirin Enteric Coated [Aspirin EC] 81 mg PO DAILY #0 12/07/14 10/05/17 Omeprazole [PriLOSEC] 20 mg PO DAILY 10/28/15 02/03/18 Losartan [Cozaar] 25 mg PO DAILY 10/05/17 02/03/18 Metoprolol Succinate [Toprol Xl] 25 mg PO DAILY 10/05/17 02/03/18 Mirtazapine [Remeron] 30 mg PO HS 10/05/17 02/03/18 Paroxetine HCl [Paxil] 20 mg PO DAILY 10/05/17 02/03/18 Primidone [Mysoline] 50 mg PO HS 10/05/17 02/03/18 Tamsulosin [Flomax] 0.4 mg PO DAILY 10/05/17 02/03/18 LORazepam [Ativan] 1 mg PO TID PRN 02/03/18 02/03/18 Megestrol Acetate mg PO 02/03/18 Simvastatin [Zocor] 40 mg PO DAILY 02/03/18 02/03/18 traZODone [TraZODone] 50 mg PO HS 02/03/18 02/03/18 Previous Rx's Medication Instructions Recorded Ipratropium/Albuterol Neb [Duoneb] 3 ml IH [id number] #30 inhsol 08/04/15 Nitroglycerin 0.4 mg SL Q5MIN PRN #0 tab.subl 08/04/15 Spironolactone [Aldactone] 12.5 mg PO DAILY #30 tablet 08/04/15 Ciprofloxacin HCl [Cipro] 250 mg PO BID #6 tab 10/06/17 Allergies Allergy/AdvReac Type Severity Reaction Status Date / Time No Known Allergies Allergy Verified 02/03/18 19:21 Past Medical History - Past Medical History Medical history: Reports: cancer, cardiomyopathy, CHF, COPD, coronary artery disease, hepatitis, hyperlipidemia, liver disease, other Surgical history: Reports: pacemaker/AICD Psychiatric history: Reports: anxiety, depression, prior suicide attempt - Social History Smoking Status: Current every day smoker Smokeless Tobacco Status: No Alcohol use: Reports: none Drug use: Reports: none Course Vital Signs Temperature 98.2 F 02/03/18 19:13 Pulse Rate 112 02/03/18 19:13 Respiratory Rate 26 02/03/18 19:13 Blood Pressure 126/70 02/03/18 19:13 O2 Sat by Pulse Oximetry 91 02/03/18 19:13 Temperature 98.6 F 02/04/18 00:23 Pulse Rate 93 02/04/18 00:23 Respiratory Rate 25 02/04/18 00:23 Blood Pressure 101/56 02/04/18 00:23 O2 Sat by Pulse Oximetry 100 02/04/18 00:23 Oxygen Delivery Oxygen Delivery Non Rebreather Mask Medical Decision Making - Lab Data Result diagrams: 02/03/18 19:20 02/03/18 19:20 Lab Results 02/03/18 02/03/18 02/03/18 Range/Units 19:20 19:20 19:20 WBC 18.4 H (4.3-11.1) K/mcL RBC 4.10 L (4.19-5.50) M/mcL Hgb 12.2 L (12.9-16.9) g/dL Hct 39.4 (37.5-50.1) % MCV 96.1 (83.0-100.0) fL MCH 29.8 (28.0-33.3) pg MCHC 31.0 L (31.6-35.5) g/dL RDW 13.3 (11.5-14.5) % Plt Count 240 (140-400) K/mcL MPV 9.7 (9.4-12.4) fL Immature Gran % 0.5 (0-4) % Seg Neutrophils % 81.6 % Lymphocytes % 9.7 % Monocytes % 7.0 % Eosinophils % 0.8 % Basophils % 0.4 % Neutrophils # 15.0 H (1.6-8.9) K/mcL Lymphocytes # 1.8 (0.6-4.6) K/mcL Monocytes # 1.3 (0.0-1.3) K/mcL Eosinophils # 0.2 (0.0-0.6) K/mcL Basophils # 0.1 (0.0-0.2) K/mcL Sodium 144 (136-145) mEq/L Potassium 3.7 (3.5-5.1) mEq/L Chloride 99 (98-107) mEq/L Carbon Dioxide 37 H (23-29) mEq/L BUN 21 (8-23) mg/dL Creatinine 0.76 (0.70-1.30) mg/dL Est GFR ( Amer) > 60 (> 60) Est GFR (Non-Af Amer) > 60 (> 60) BUN/Creatinine Ratio 28 H (6-26) Glucose 124 H (70-105) mg/dL Calculated Osmolality 302 H (280-300) Calcium 9.5 (8.6-10.3) mg/dL Total Bilirubin (0.3-1.0) mg/dL Direct Bilirubin (0.0-0.2) mg/dL Indirect Bilirubin (0.0-1.2) mg/dL AST (13-39) Units/L ALT (7-52) Units/L Alkaline Phosphatase (34-104) Units/L Troponin I < 0.03 (< 0.04) ng/mL B-Natriuretic Peptide 65 (Less than 100) pg/mL Serum Total Protein (6.4-8.9) g/dL Albumin (3.5-5.7) g/dL Globulin (2.4-3.5) g/dL Albumin/Globulin Ratio (1.1-2.2) Lipase (11-82) Units/L /15/18 Range/Units 19:20 WBC (4.3-11.1) K/mcL RBC (4.19-5.50) M/mcL Hgb (12.9-16.9) g/dL Hct (37.5-50.1) % MCV (83.0-100.0) fL MCH (28.0-33.3) pg MCHC (31.6-35.5) g/dL RDW (11.5-14.5) % Plt Count (140-400) K/mcL MPV (9.4-12.4) fL Immature Gran % (0-4) % Seg Neutrophils % % Lymphocytes % % Monocytes % % Eosinophils % % Basophils % % Neutrophils # (1.6-8.9) K/mcL Lymphocytes # (0.6-4.6) K/mcL Monocytes # (0.0-1.3) K/mcL Eosinophils # (0.0-0.6) K/mcL Basophils # (0.0-0.2) K/mcL Sodium (136-145) mEq/L Potassium (3.5-5.1) mEq/L Chloride (98-107) mEq/L Carbon Dioxide (23-29) mEq/L BUN (8-23) mg/dL Creatinine (0.70-1.30) mg/dL Est GFR ( Amer) (> 60) Est GFR (Non-Af Amer) (> 60) BUN/Creatinine Ratio (6-26) Glucose (70-105) mg/dL Calculated Osmolality (280-300) Calcium (8.6-10.3) mg/dL Total Bilirubin 0.5 (0.3-1.0) mg/dL Direct Bilirubin 0.0 (0.0-0.2) mg/dL Indirect Bilirubin 0.5 (0.0-1.2) mg/dL AST 13 (13-39) Units/L ALT 8 (7-52) Units/L Alkaline Phosphatase 75 (34-104) Units/L Troponin I (< 0.04) ng/mL B-Natriuretic Peptide (Less than 100) pg/mL Serum Total Protein 7.1 (6.4-8.9) g/dL Albumin 3.5 (3.5-5.7) g/dL Globulin 3.6 H (2.4-3.5) g/dL Albumin/Globulin Ratio 1.0 L (1.1-2.2) Lipase < 3 L (11-82) Units/L Attestation Statement - Attestation Attestation: Resident Attestation: I examined this patient and my medical decision making was reviewed with the Resident Physician. I agree with the documented findings, disposition and treatment plan as described except to the extent set forth below. We independently had [id number] contact with the patient. Resident Kevin Wakefield The patient with significant COPD history including 3 L oxygen requirement at home. Presents today for evaluation of dyspnea. Initially worse earlier today. Patient has had associated productive sputum. He unfortunately does not use his inhalers for breathing treatments as prescribed. He continues to smoke on a regular basis. The patient states that he does not want to be intubated. He is rather reluctant to stay in the hospital but secondary to his dyspnea he knows that he will require admission. Awake alert and oriented, in moderate respiratory distress, generalized shaking of the upper extremities which she states is chronic. Abdomen with mild left lower and umbilical tenderness. No significant swelling of the lower extremities. Lungs with wheezing at the left upper lobe and otherwise decreased to minimal air movement throughout. X-ray radiology read is not significant for pneumonia however when comparing his x-ray to previous x-ray does appear that he has concern for a right lower lobe infiltrate is why as well as a left middle lobe infiltrate. CT scan of the abdomen and pelvis show peribronchial thickening concerning for bronchopneumonia. Patient has not had hospitalizations in the last 3 months. Given ceftriaxone and azithromycin. Steroids and triple DuoNeb. Please see resident note for further details and disposition.
[2018-02-03] MEDS ORDERED: 0.9 % Sodium Chloride 500 ML IVC ONE (19:31)
--- NOTE | 2018-02-03 19:32 | Emergency Department Note ---
Disposition Clinical Impression: Acute exacerbation of chronic obstructive airways disease, Hypoxia Community acquired pneumonia Qualifiers: Laterality: unspecified laterality Qualified Code(s): J18.9 - Pneumonia, unspecified organism Disposition: Admitted As Inpatient Condition: Fair Referrals: Andres Jensen MD [Primary Care Provider] - Forms: ED Satisfaction Letter General Adult HPI - General Chief complaint: ED Shortness of Breath/Dyspnea Stated complaint: Morgan Time Seen by Provider: 02/03/18 19:22 Source: patient, EMS Mode of arrival: EMS Limitations: no limitations Nursing Notes Reviewed: Yes Vital Signs Reviewed: Yes - History of Present Illness HPI Narrative: 77-year-old male with significant past medical history of COPD currently on 3 L nasal cannula at home presenting to the emergency department chief complaint shortness of breath. According to home health nurse today patient was sitting at home when he started having increasing shortness of breath and oxygen desaturations to 88%. He place the patient on 4 L nasal cannula but healing got up to 90% therefore they called EMS. Patient denies any chest pain, dizziness, headache during this time. Patient does state he has a chronic abdominal pain for the past 2-3 months that is currently being worked up as an outpatient. Patient denies any nausea, vomiting or diarrhea. Patient does state he has an issue of constipation and currently takes a daily stool softener. - Related Data Home Medications Medication Instructions Recorded Confirmed Aspirin Enteric Coated [Aspirin EC] 81 mg PO DAILY #0 12/07/14 10/05/17 Omeprazole [PriLOSEC] 20 mg PO DAILY 10/28/15 10/05/17 Losartan [Cozaar] 25 mg PO DAILY 10/05/17 10/05/17 Metoprolol Succinate [Toprol Xl] 25 mg PO DAILY 10/05/17 10/05/17 Mirtazapine [Remeron] 30 mg PO HS 10/05/17 10/05/17 Paroxetine HCl [Paxil] 20 mg PO DAILY 10/05/17 10/05/17 Primidone [Mysoline] 50 mg PO HS 10/05/17 10/05/17 Tamsulosin [Flomax] 0.4 mg PO DAILY 10/05/17 10/05/17 LORazepam [Ativan] 02/03/18 Megestrol Acetate 20 mg PO 02/03/18 02/03/18 Simvastatin [Zocor] 02/03/18 traZODone [TraZODone] 50 mg PO 02/03/18 Previous Rx's Medication Instructions Recorded Ipratropium/Albuterol Neb [Duoneb] 3 ml IH [id number] #30 inhsol 08/04/15 Nitroglycerin 0.4 mg SL Q5MIN PRN #0 tab.subl 08/04/15 Spironolactone [Aldactone] 12.5 mg PO DAILY #30 tablet 08/04/15 Ciprofloxacin HCl [Cipro] 250 mg PO BID #6 tab 10/06/17 Allergies Allergy/AdvReac Type Severity Reaction Status Date / Time No Known Allergies Allergy Verified 02/03/18 19:21 All systems ED: reviewed and negative except as stated. Constitutional: Denies: fever, weakness Eyes: Reports: as per HPI ENT ED: Reports: as per HPI Cardiovascular: Reports: dyspnea on exertion. Denies: chest pain, palpitations Respiratory: Reports: cough, dyspnea, wheezes. Denies: hemoptysis, stridor Gastrointestinal: Reports: abdominal pain, constipation. Denies: nausea, vomiting, diarrhea Genitourinary: Reports: as per HPI Musculoskeletal: Reports: as per HPI Integumentary: Reports: as per HPI Neurological: Denies: weakness, numbness, paresthesias Psychiatric: Reports: as per HPI Endocrine: Reports: as per HPI Hematological/Lymphatic: Reports: as per HPI Allergic/Immunologic: Reports: as per HPI Past Medical History - Past Medical History Attestation: Yes The following information was validated with the patient. Medical history: Reports: cancer, cardiomyopathy, CHF, COPD, coronary artery disease, hepatitis, hyperlipidemia, liver disease, other Surgical history: Reports: pacemaker/AICD Psychiatric history: Reports: anxiety, depression, prior suicide attempt - Social History Smoking Status: Current every day smoker Smokeless Tobacco Status: No Alcohol use: Reports: none Drug use: Reports: none Physical Exam - General Limitations: no limitations General appearance: alert, in no apparent distress - Head Head exam: atraumatic, normocephalic, normal inspection - Eye Eye exam: Present: normal appearance. Absent: scleral icterus, conjunctival injection - ENT ENT exam: mucous membranes dry - Neck Neck exam: Present: normal inspection, full ROM. Absent: tenderness, meningismus - Chest Chest inspection: Present: normal inspection, symmetric chest wall rise. Absent : tenderness, rash - Respiratory Respiratory exam: Present: other (Coarse breath sounds, decreased breath sounds in the bilateral bases, expiratory wheezing) - Cardiovascular Cardiovascular exam: Present: normal rhythm, tachycardia, normal heart sounds - Abdominal Exam Abdominal exam: Present: soft, tenderness. Absent: distention, guarding, rebound, rigidity Abdominal tenderness: Present: diffuse, mild - Extremities Exam Extremities exam: Present: normal inspection, full ROM - Neurological Exam Neurological exam: Present: alert, oriented X3 - Psychiatric Psychiatric exam: Present: normal affect, normal mood - Skin Skin exam: Present: warm, intact Course Course Narrative: 77-year-old male presenting for shortness of breath. On physical exam patient is tachycardic and has inspiratory next Ettore wheezing. Otherwise hemodynamically stable. He is alert and oriented 3. Patient's abdomen is diffusely mildly tender. Patient states he is currently being worked up as an outpatient for this issue. At this time will team basic laboratory analysis provide him 3 [id number] DuoNeb, steroids, chest x-ray and a CT of the abdomen and pelvis. Disposition most likely admission pending results. Patient agrees with this plan. - Reevaluation(s) Reevaluation #1: Patient's laboratory analysis as come back and shows leukocytosis otherwise unchanged from baseline. Patient had multiple episodes of desaturations in the room therefore BiPAP was started. Chest x-ray does show infiltrate on the right side mostly in the lower lobe. We will start the patient on ceftriaxone and azithromycin. Patient CT of the abdomen and pelvis does not show any acute abnormality. Due to patient's hypoxia and difficulty in breathing will plan to admit him for further treatment on BiPAP. I spoke with the hospitalist on-call who agrees to accept the patient at this time. Patient remains alert and oriented 3 in the room and hemodynamically stable. Patient agrees with this plan. Vital Signs Temperature 98.2 F 02/03/18 19:13 Pulse Rate 112 02/03/18 19:13 Respiratory Rate 26 02/03/18 19:13 Blood Pressure 126/70 02/03/18 19:13 O2 Sat by Pulse Oximetry 91 02/03/18 19:13 Temperature 98.2 F 02/03/18 19:13 Pulse Rate 118 02/03/18 19:50 Respiratory Rate 32 02/03/18 19:50 Blood Pressure 148/113 02/03/18 19:50 O2 Sat by Pulse Oximetry 93 02/03/18 19:50 Oxygen Delivery Oxygen Delivery Non Rebreather Mask Medical Decision Making - Lab Data Result diagrams: 02/03/18 19:20 02/03/18 19:20 Lab Results 02/03/18 02/03/18 02/03/18 Range/Units 19:20 19:20 19:20 WBC 18.4 H (4.3-11.1) K/mcL RBC 4.10 L (4.19-5.50) M/mcL Hgb 12.2 L (12.9-16.9) g/dL Hct 39.4 (37.5-50.1) % MCV 96.1 (83.0-100.0) fL MCH 29.8 (28.0-33.3) pg MCHC 31.0 L (31.6-35.5) g/dL RDW 13.3 (11.5-14.5) % Plt Count 240 (140-400) K/mcL MPV 9.7 (9.4-12.4) fL Immature Gran % 0.5 (0-4) % Seg Neutrophils % 81.6 % Lymphocytes % 9.7 % Monocytes % 7.0 % Eosinophils % 0.8 % Basophils % 0.4 % Neutrophils # 15.0 H (1.6-8.9) K/mcL Lymphocytes # 1.8 (0.6-4.6) K/mcL Monocytes # 1.3 (0.0-1.3) K/mcL Eosinophils # 0.2 (0.0-0.6) K/mcL Basophils # 0.1 (0.0-0.2) K/mcL Sodium 144 (136-145) mEq/L Potassium 3.7 (3.5-5.1) mEq/L Chloride 99 (98-107) mEq/L Carbon Dioxide 37 H (23-29) mEq/L BUN 21 (8-23) mg/dL Creatinine 0.76 (0.70-1.30) mg/dL Est GFR ( Amer) > 60 (> 60) Est GFR (Non-Af Amer) > 60 (> 60) BUN/Creatinine Ratio 28 H (6-26) Glucose 124 H (70-105) mg/dL Calculated Osmolality 302 H (280-300) Calcium 9.5 (8.6-10.3) mg/dL Total Bilirubin (0.3-1.0) mg/dL Direct Bilirubin (0.0-0.2) mg/dL Indirect Bilirubin (0.0-1.2) mg/dL AST (13-39) Units/L ALT (7-52) Units/L Alkaline Phosphatase (34-104) Units/L Troponin I < 0.03 (< 0.04) ng/mL B-Natriuretic Peptide 65 (Less than 100) pg/mL Serum Total Protein (6.4-8.9) g/dL Albumin (3.5-5.7) g/dL Globulin (2.4-3.5) g/dL Albumin/Globulin Ratio (1.1-2.2) Lipase (11-82) Units/L /15/18 Range/Units 19:20 WBC (4.3-11.1) K/mcL RBC (4.19-5.50) M/mcL Hgb (12.9-16.9) g/dL Hct (37.5-50.1) % MCV (83.0-100.0) fL MCH (28.0-33.3) pg MCHC (31.6-35.5) g/dL RDW (11.5-14.5) % Plt Count (140-400) K/mcL MPV (9.4-12.4) fL Immature Gran % (0-4) % Seg Neutrophils % % Lymphocytes % % Monocytes % % Eosinophils % % Basophils % % Neutrophils # (1.6-8.9) K/mcL Lymphocytes # (0.6-4.6) K/mcL Monocytes # (0.0-1.3) K/mcL Eosinophils # (0.0-0.6) K/mcL Basophils # (0.0-0.2) K/mcL Sodium (136-145) mEq/L Potassium (3.5-5.1) mEq/L Chloride (98-107) mEq/L Carbon Dioxide (23-29) mEq/L BUN (8-23) mg/dL Creatinine (0.70-1.30) mg/dL Est GFR ( Amer) (> 60) Est GFR (Non-Af Amer) (> 60) BUN/Creatinine Ratio (6-26) Glucose (70-105) mg/dL Calculated Osmolality (280-300) Calcium (8.6-10.3) mg/dL Total Bilirubin 0.5 (0.3-1.0) mg/dL Direct Bilirubin 0.0 (0.0-0.2) mg/dL Indirect Bilirubin 0.5 (0.0-1.2) mg/dL AST 13 (13-39) Units/L ALT 8 (7-52) Units/L Alkaline Phosphatase 75 (34-104) Units/L Troponin I (< 0.04) ng/mL B-Natriuretic Peptide (Less than 100) pg/mL Serum Total Protein 7.1 (6.4-8.9) g/dL Albumin 3.5 (3.5-5.7) g/dL Globulin 3.6 H (2.4-3.5) g/dL Albumin/Globulin Ratio 1.0 L (1.1-2.2) Lipase < 3 L (11-82) Units/L - EKG Data EKG #1 EKG attestation: Yes I reviewed and interpreted this EKG. EKG results narrative: Ventricularly paced. 115 bpm. QRS 119, QTC 469. Significant artifact but no sign of acute ST segment elevation or ischemia. Compared to previous EKG completed on 12/20/2017 no significant changes.
[2018-02-03 19:34] LABS: Basophils # 0.1 K/mcL (0.0-0.2); Basophils % 0.4 %; Eosinophils # 0.2 K/mcL (0.0-0.6); Eosinophils % 0.8 %; Hematocrit 39.4 % (37.5-50.1); Hemoglobin 12.2 g/dL (12.9-16.9); Immature Granulocytes % 0.5 % (0-4); Lymphocytes # 1.8 K/mcL (0.6-4.6); Lymphocytes % 9.7 %; Mean Corpuscular Hemoglobin 29.8 pg (28.0-33.3); Mean Corpuscular Volume 96.1 fL (83.0-100.0); Mean Platelet Volume 9.7 fL (9.4-12.4); Monocytes # 1.3 K/mcL (0.0-1.3); Platelet Count 240 K/mcL (140-400); Red Cell Distribution Width 13.3 % (11.5-14.5); Segmented Neutrophils % 81.6 %
[2018-02-03 19:54] LABS: BUN/Creatinine Ratio 28 (6-26); Blood Urea Nitrogen 21 mg/dL (8-23); Calcium 9.5 mg/dL (8.6-10.3); Carbon Dioxide 37 mEq/L (23-29); Chloride 99 mEq/L (98-107); Glucose 124 mg/dL (70-105); Osmolality,Calculated 302 (280-300); Potassium 3.7 mEq/L (3.5-5.1); Sodium 144 mEq/L (136-145); eGFR For Non-African Americans > 60 (> 60)
[2018-02-03 19:55] LABS: Troponin I < 0.03 ng/mL (< 0.04)
[2018-02-03] MEDS ORDERED: cefTRIAXone 1,000 MG in Water for inj. (sterile) 20 ML 10 ML IVP ONE (20:02)
[2018-02-03] MEDS ORDERED: Azithromycin 500 MG in D5% in Water 250 ML IVPB ONE (20:02)
[2018-02-03 20:09] LABS: Alanine Aminotransferase 8 Units/L (7-52); Albumin 3.5 g/dL (3.5-5.7); Alkaline Phosphatase 75 Units/L (34-104); Aspartate Amino Transferase 13 Units/L (13-39); Bilirubin,Indirect 0.5 mg/dL (0.0-1.2); Bilirubin,Total 0.5 mg/dL (0.3-1.0); Globulin 3.6 g/dL (2.4-3.5); Lipase < 3 Units/L (11-82); Total Protein 7.1 g/dL (6.4-8.9)
[2018-02-03] MEDS ORDERED: *HR* LORazepam 2 MG/ML VIAL IVP ONE (20:19)
[2018-02-03] MEDS ORDERED: *HR* Metoprolol 5 MG/5 ML VIAL IVP ONE (21:33)
[2018-02-03] MEDS ORDERED: Naloxone 0.4 MG/ML INJ IVP PRN (21:33)
--- NOTE | 2018-02-03 21:35 | Internal Med History&Physical ---
<Mary AnnOli - Last Filed: 02/03/18 21:54> Date of Encounter: 02/03/18 Internal Medicine - H&P: Meds Aspirin Enteric Coated [Aspirin EC] 81 mg PO DAILY #0 12/07/14 [History] Ipratropium/Albuterol Neb [Duoneb] 3 ml IH [id number] #30 inhsol 08/04/15 [Rx] Nitroglycerin 0.4 mg SL Q5MIN PRN #0 tab.subl 08/04/15 [Rx] Spironolactone [Aldactone] 12.5 mg PO DAILY #30 tablet 08/04/15 [Rx] Omeprazole [PriLOSEC] 20 mg PO DAILY 10/28/15 [History] Losartan [Cozaar] 25 mg PO DAILY 10/05/17 [History] Metoprolol Succinate [Toprol Xl] 25 mg PO DAILY 10/05/17 [History] Mirtazapine [Remeron] 30 mg PO HS 10/05/17 [History] Paroxetine HCl [Paxil] 20 mg PO DAILY 10/05/17 [History] Primidone [Mysoline] 50 mg PO HS 10/05/17 [History] Tamsulosin [Flomax] 0.4 mg PO DAILY 10/05/17 [History] Ciprofloxacin HCl [Cipro] 250 mg PO BID #6 tab 10/06/17 [Rx] LORazepam [Ativan] 1 mg PO TID PRN 02/03/18 [History] Megestrol Acetate mg PO 02/03/18 [History] Simvastatin [Zocor] 40 mg PO DAILY 02/03/18 [History] traZODone [TraZODone] 50 mg PO HS 02/03/18 [History] 3 Allergy/AdvReac Type Severity Reaction Status Date / Time No Known Allergies Allergy Verified 02/03/18 19:21 All Systems PM: A 10-system review of systems was performed and is negative for pertinent findings except as documented above in the HPI. - Constitutional Vitals: Temp Pulse Resp BP Pulse Ox 98.2 F 135 32 151/134 100 02/03/18 19:13 02/03/18 20:57 02/03/18 20:57 02/03/18 20:57 02/03/18 20:57 Internal Med - H&P Results - Labs CBC & Chem 7: 02/03/18 19:20 02/03/18 19:20 - Time Spent With Patient Total time spent is greater than 50% in coordination of care (as documented) at patient's floor/unit and/or counseling patient: - Attending Attestation Kristian Jones is a 77 year old man with severe COPD on 3L home O2 who is brought in to the ER w/ the c/o SOB after being seen by his [employer] in significant respiratory distress and desaturation to 88%. With an increase to 4L he peg up to 90% prior to EMS arrival. While here it is reported to me by nursing staff that he had significantly poor air movements. He has been tachycardic since arrival. He received nebulizer, steroids and imaging studies. On my assessment he was sitting up in bed on Bipap. He denied having chest pain and stated that he felt better than at the time of arrival. He does complain of lower abdominal pain which on review of old records seems to be a chronic issue and is noted that he is being evaluated in the outpatient. He did get a CT abdomen which showed severe diverticulosis but no acute inflammation. CXR reviewed independently by me showed hyper-inflated lung mcmanus and bilateral interstitial markings which have been present from before but a bit more notable on the left. Family history is non-contributory. Physical exam remarkable for a cachectic white man with coarse tremors, pale, thin skin, dry mucous membranes, diminished breath sounds bilaterally, tachycardic, packemaker in situ, non-distended abdomen and no peritoneal reaction on palpation, no peripheral cyanosis or edema, awake and alert. Oriented to person and situation. Affect appropriate. Labs remarkable for wbc 18.4. BMP parameters wnl. Will admit for acute on chronic hypoxic respiratory failure secondary to COPD exacerbation. Possible confounding heart failure as well and will need to check a BNP; clinically though appears more fluid-behind rather than overloaded and seems may actually need fluids at a low rate. Obtain ABG and monitor on NIPPV w / continuous oximetry. Control heart rate. Continue IV steroids for now and abx. Monitor on telemetry. Resume home meds. DVT prophylaxis w/ heparin subQ. JUAN CARLOS PIÑA. <Claudy Diggs - Last Filed: 02/03/18 23:05> Date of Encounter: 02/03/18 Time of Encounter: 21:35 Internal Medicine - H&P: HPI Chief complaint: Shortness of Breath Admitted From: Emergency Dept Plans for Post Hospital Care: Home History of present illness: Mr. Jones is a 77 year old male with past medical history of prostate cancer, cardiomyopathy, CHF, COPD, CAD, hepatitis, HLD, pacemaker/AICD. He presented to the emergency department with the chief complaint of shortness of breath. He normally uses 3 L of oxygen at home all the time and he was feeling short of breath regardless. He also complains of increased sputum production recently. Of note he does not appear to be compliant with his bronchodilator therapy at home and continues to smoke a half pack per day. In the emergency department he was found to be slightly hypoxic and was started on methylprednisolone and DuoNeb's with improvement in his shortness of breath and hypoxia. Chest x-ray demonstrated findings of chronic pulmonary disease however CT demonstrated bronchial wall thickening that could demonstrate impending bronchopneumonia. For that reason he was also started on Rocephin and azithromycin. He denied fever or chills, chest pain. He did admit to left lower quadrant abdominal pain that appears to be chronic. He denies alcohol or drug use. Past Med Surg Social Fam HX - Past Medical History Medical history: cancer, cardiomyopathy, CHF, COPD, coronary artery disease, hepatitis, hyperlipidemia, liver disease, other Additional medical history: pt unable to provide accurate medical history. Psychiatric history: anxiety, depression, prior suicide attempt - Past Surgical History Surgical History: pacemaker/AICD - Social History Smoking Status: Current every day smoker Smokeless Tobacco Status: No Alcohol use: none Drug use: none - Family History Mother Living Status: Hx Family Cardiac Disorders: Yes ( FROM HEART ATTACK,) Hx Family Neurologic Disorders: Yes (STROKES) - Additional Family History Additional family history: Family History otherwise non-contributory All Systems PM: A 10-system review of systems was performed and is negative for pertinent findings except as documented above in the HPI. - Constitutional Vitals: Temp Pulse Resp BP Pulse Ox 98.2 F 135 32 151/134 100 02/03/18 19:13 02/03/18 20:57 02/03/18 20:57 02/03/18 20:57 02/03/18 20:57 Exam: Patient in mild distress Alert and oriented 3 Normal affect Cranial nerves II through XII intact Mucous membranes slightly dry Heart tachycardic, rhythm difficult to auscultate secondary to CPAP and tremor Lung sounds difficult to auscultate secondary to CPAP, no obvious wheeze or rhonchi auscultated, lung sounds diminished in bilateral bases Abdomen soft and nontender, normal bowel sounds present All 4 extremities significantly tremulous, worse with exertion, better with rest Skin warm and dry Internal Med - H&P Results - Labs CBC & Chem 7: 02/03/18 19:20 02/03/18 19:20 - Assessment and plan (1) Acute and chronic respiratory failure with hypoxia Current Visit: Yes Status: Acute Assessment and plan: Patient was found to be hypoxic at home on 3 L by his home health nurse On presentation to the emergency department patient was still slightly hypoxic but improved with high flow oxygen and CPAP Patient also improved secondary to DuoNeb's and methylprednisolone Acute respiratory failure likely secondary to COPD exacerbation Patient is known to have poor compliance bronchodilator therapy at home and also continues to smoke Differential includes heart failure exacerbation and community-acquired pneumonia BNP within normal range and patient actually appears dry White count elevated at 18.4 with possible correlation on lung imaging Plan Supplemental oxygen/CPAP/BiPAP Continuous cardiac monitoring and pulse oximetry DuoNeb's and methylprednisolone Ceftriaxone and azithromycin Gentle hydration with 75 mL/HR MIVF NS (2) Acute exacerbation of chronic obstructive airways disease Current Visit: Yes Status: Acute Assessment and plan: Plan as seen above (3) Community acquired pneumonia Current Visit: Yes Status: Suspected Assessment and plan: CT imaging of lung concerning for impending bronchopneumonia Patient does have elevated white count Patient is afebrile and does not appear septic Patient is tachycardic but that appears to be secondary to arrhythmia and not sepsis Azithromycin and ceftriaxone started in the ED and continuing Lactic acid and blood cultures pending We will continue to monitor Qualifiers: Laterality: right Lung location: lower lobe of lung Qualified Code(s): J18.1 - Lobar pneumonia, unspecified organism (4) Tachycardia Current Visit: Yes Status: Acute Assessment and plan: Patient tachycardic on presentation to emergency department and continues to have elevated heart rate Likely secondary to not receiving home metoprolol today secondary to shortness of breath Cardiac monitoring demonstrates paced rhythm Patient is not having active chest pain 5 mg IV Lopressor given in the emergency department Home dose of metoprolol continued Patient on continuous cardiac monitoring (5) UTI (urinary tract infection) Current Visit: Yes Status: Suspected Assessment and plan: Patient is having difficulty urinating and complaining of abdominal pain Abdominal CT demonstrated diverticulosis which could be source of abdominal pain UTI is also a possibility and could explain elevated white count UA with reflex culture pending, patient has already been started on ceftriaxone and azithromycin We will continue monitor Qualifiers: Urinary tract infection type: site unspecified Hematuria presence: without hematuria Qualified Code(s): N39.0 - Urinary tract infection, site not specified (6) Systolic and diastolic CHF, chronic Current Visit: No Status: Chronic Assessment and plan: Patient has history of systolic and diastolic heart failure Last echocardiogram performed in July 2015 demonstrated ejection fraction of 35 -40% Patient does not appear to be in acute exacerbation in fact he appears dry BNP 69, we will continue to monitor (7) History of pacemaker Current Visit: No Status: Chronic Assessment and plan: History of cardiac pacemaker, evidence seen on cardiac monitoring We are attempting to control heart rate medically Patient currently hemodynamically stable and without chest pain Patient on continuous cardiac monitoring (8) Tremor Current Visit: No Status: Chronic Assessment and plan: Patient has significant tremor in all 4 extremities on exam He does not appear to know the etiology for his tremor He states he has had approximately 2 years but does not know the cause This appears to be his baseline and no focal deficits were noted (9) History of prostate cancer Current Visit: No Status: Chronic Assessment and plan: History of prostate cancer, not currently active or undergoing treatment (10) Tobacco abuse Current Visit: Yes Status: Chronic Assessment and plan: Patient has extensive smoking history and continues to smoke a half pack per day Patient has been counseled on tobacco cessation and we will continue to discuss it - Time Spent With Patient Total time spent is greater than 50% in coordination of care (as documented) at patient's floor/unit and/or counseling patient:
[2018-02-03] MEDS ORDERED: *HR* LORazepam 1 MG TABLET PO PRN (21:38)
[2018-02-03] MEDS ORDERED: 0.9 % Sodium Chloride 1,000 ML IVC SCH (22:00)
[2018-02-03 22:15] LABS: ABG Base Excess 6 mEq/L (-2 to 3); ABG HCO3 34 mEq/L (21-27); ABG Oxygen Saturation 100 % (95-98); ABG PCO2 66 mmHg (35-45); ABG PH 7.32 pH Units (7.32-7.45); ABG PO2 355 mmHg (85-104); ABG TCO2 36 mEq/L (20-26)
[2018-02-03] MEDS ORDERED: Acetaminophen 325 MG TABLET PO PRN (22:53)
[2018-02-03 23:29] LABS: Bilirubin,Urine Small (Negative); Blood,Urine Negative (Negative); Clarity,Urine Clear (Clear); Color,Urine Dark Yellow (Yellow); Glucose,Urine (UA) Normal (Normal); Ketones,Urine Negative (Negative); Leukocyte Esterase,Urine Negative (Negative); Nitrite,Urine Negative (Negative); Protein,Urine 30 mg/dL (Neg-Trace); Specific Gravity,Urine 1.021 (1.010-1.025); Urobilinogen,Urine Normal (Normal)
[2018-02-03 23:34] LABS: Bacteria,Urine None Seen per hpf (None-Few); Hyaline Casts,Urine None Seen per lpf (None-Few); RBC,Urine 0-3 per hpf (0-3); Squamous Epithelial Cell,Urine Many per lpf (None-Few); WBC,Urine 0-3 per hpf (0-3)
[2018-02-03] MEDS: Ipratropium/Albuterol Neb 3 ML IH SCH (23:55)
[2018-02-04 03:22] LABS: Basophils % 0.1 %; Hematocrit 35.5 % (37.5-50.1); Hemoglobin 10.9 g/dL (12.9-16.9); Immature Granulocytes % 0.5 % (0-4); Lymphocytes # 0.7 K/mcL (0.6-4.6); Lymphocytes % 3.9 %; Mean Corpuscular HGB Conc 30.7 g/dL (31.6-35.5); Mean Corpuscular Hemoglobin 30.2 pg (28.0-33.3); Mean Corpuscular Volume 98.3 fL (83.0-100.0); Mean Platelet Volume 9.9 fL (9.4-12.4); Monocytes # 0.2 K/mcL (0.0-1.3); Monocytes % 0.8 %; Neutrophils # 16.9 K/mcL (1.6-8.9); Platelet Count 208 K/mcL (140-400); Red Blood Count 3.61 M/mcL (4.19-5.50); Red Cell Distribution Width 13.2 % (11.5-14.5); Segmented Neutrophils % 94.7 %
[2018-02-04 03:41] LABS: BUN/Creatinine Ratio 31 (6-26); Blood Urea Nitrogen 25 mg/dL (8-23); Calcium 8.9 mg/dL (8.6-10.3); Carbon Dioxide 30 mEq/L (23-29); Chloride 102 mEq/L (98-107); Glucose 159 mg/dL (70-105); Osmolality,Calculated 298 (280-300); Potassium 4.4 mEq/L (3.5-5.1); Sodium 140 mEq/L (136-145); eGFR For Non-African Americans > 60 (> 60)
[2018-02-04] MEDS: Ipratropium/Albuterol Neb 3 ML IH SCH ×6 (03:41→23:46)
[2018-02-04] MEDS ORDERED: MethylPREDNISolone 40 MG/ML VIAL IVP SCH (06:00)
[2018-02-04] MEDS: *HR* Heparin 5,000 UNIT/ML VIAL SQ SCH ×3 (06:00→21:23)
[2018-02-04 08:09] LABS: ABG Base Excess 8 mEq/L (-2 to 3); ABG HCO3 35 mEq/L (21-27); ABG Oxygen Saturation 94 % (95-98); ABG PCO2 58 mmHg (35-45); ABG PH 7.39 pH Units (7.32-7.45); ABG PO2 75 mmHg (85-104); ABG TCO2 36 mEq/L (20-26)
[2018-02-04] MEDS: MethylPREDNISolone 40 MG/ML VIAL IVP SCH ×2 (08:40→16:51)
[2018-02-04] MEDS: cefTRIAXone 2,000 MG in Water for inj. (sterile) 20 ML 20 ML IVPB SCH (08:40)
--- NOTE | 2018-02-04 08:40 | Internal Med Progress Note ---
<Gabriela Norman - Last Filed: 02/04/18 14:11> Hospitalist Progress Note - Encounter Date of Encounter: 02/04/18 - Exam Vitals: Temp Pulse Resp BP Pulse Ox 98.4 F 98 20 108/61 98 02/04/18 11:45 02/04/18 13:00 02/04/18 13:00 02/04/18 11:45 02/04/18 13:00 - Assessment and Plan (1) Acute exacerbation of chronic obstructive airways disease Current Visit: Yes Status: Acute (2) Community acquired pneumonia Current Visit: Yes Status: Suspected (3) Acute and chronic respiratory failure with hypoxia Current Visit: Yes Status: Acute (4) Systolic and diastolic CHF, chronic Current Visit: No Status: Chronic (5) History of pacemaker Current Visit: No Status: Chronic (6) Tachycardia Current Visit: Yes Status: Acute (7) Tremor Current Visit: No Status: Chronic (8) History of prostate cancer Current Visit: No Status: Chronic (9) Tobacco abuse Current Visit: Yes Status: Chronic (10) Lactic acidosis Current Visit: Yes Status: Acute - Time Spent with Patient Total time spent is greater than 50% in coordination of care (as documented) at patient's floor/unit and/or counseling patient: Internal Medicine: Result - Labs CBC & Chem 7: 02/04/18 03:10 02/04/18 03:10 Labs: Short CBC 02/04/18 Range/Units 03:10 WBC 17.8 H (4.3-11.1) K/mcL Hgb 10.9 L (12.9-16.9) g/dL Hct 35.5 L (37.5-50.1) % Plt Count 208 (140-400) K/mcL Neutrophils # 16.9 H (1.6-8.9) K/mcL BMP 02/04/18 03:10 Sodium 140 Potassium 4.4 Chloride 102 Carbon Dioxide 30 H BUN 25 H Creatinine 0.80 Glucose 159 H Calcium 8.9 Urine 02/03/18 Range/Units 23:09 Urine Color Dark Yellow (Yellow) Urine Clarity Clear (Clear) Urine pH 7.0 (5.0-8.0) pH Units Ur Specific [place] 1.021 (1.010-1.025) Urine Protein 30 H (Neg-Trace) mg/dL Urine Glucose (UA) Normal (Normal) mg/dL - ABG Interpretation ABG results: ABG ABG pH 7.39 pH Units (7.32-7.45) 02/04/18 08:05 ABG pCO2 58 mmHg (35-45) H 02/04/18 08:05 ABG pO2 75 mmHg (85-104) L 02/04/18 08:05 ABG O2 Saturation 94 % (95-98) L 02/04/18 08:05 Consult Discharge Plan - Plan Referrals: Andres Jensen MD [Primary Care Provider] - 02/14/18 3:00 pm - Attending Attestation I examined this patient and my medical decision-making was reviewed with the Resident Physician Dr Ellis. I agree with the documented findings, disposition and treatment plan as described except to the extent set forth below/addl details below. Mr Jones was admitted with acute on chronic resp failure as witnessed by his HH aide and is being treated for COPD exacerbation. He has pmhx of systolic CHF with most recent echo EF 35-40%, CAD, anxiety, depression and history of prostate Ca with urinary retention. Awake, sitting upright in bed. Has fine tremor sitting there and notes that he has that always and for years. He denies chills, rigors, fevers. He is sitting with O2 nc off and denies sob at this time, + chest tightness/wheezing. + cough and unable to clear sputum. Previously green sputum at home. Dnies calf pain, swelling or chest pain or pressure. Admits to cont to smoking. gen- alert, awake,appears stated age eyes- pupils equal round cv- reg rate and rhythm, normal s1,s2, no murmurs appreciated, no le edema lungs- diminished throughout all lung mcmanus with poor air movement, no accessory muscle use or resp distress on ra currently abd- soft, non tender, non distended, + bs msk- equal calf size bl, negative navneet neuro- AAOx3, fine trunk, ext tremors that he notes are at baseline Acute on Chronic Resp Failure as evidenced by O2 NC requirement greater than home baseline O2, O2 sat 88% on home O2 NC as witnessed by home health staff -suspect 2/2 COPD exacerbation given increased sputum production and sob at home , cont daily smoking and non compliance with home inhalers, not at this time c/ w ACS with neg trop and ekg without acute ischemic changes or changes from prior , although he had tachycardia, tachypnea and hypoxia yesterday he had missed his BB dose with tachycardia now resolved and has had no le edema/calf pain and denies immobilization, bnp not elevated and clinically euvolemic, not suggestive of chf exacerbation -if not improving or tachycardia returns will check d dimer Sepsis with tachycardia, elevated RR, suspected source pulmonary, lactate 3.1- 3.5 -given gentle IVFs given chf hx, cont and cont to trend lactate -given his abd pain ct a/p obtained and negative, ua neg, bl cxs pending -copd exacerbation treatment as below COPD Exacerbation with CXR unremarkable and CT a/p findings c/w developing bronchopneumonia -cont supplemental o2, bipap prn, nebs, IV steroids, rocephin + azithro Hx Prostate cancer and urinary retention- check bladder scan, straight cath if > 250 cc urine as he is noting hesitancy and concern for retention, cont flomax Abd PAin, appears chronic in nature, outpt work up is in progress -ct a/p here negative for acute etiology of pain, cont to monitor Chronic combined CHF, stable- cont home meds, may have to hold spironolactone and give further ivfs pending repeat lactate, i/os, held BB today for low normotensive bps <Jessica Ellis - Last Filed: 02/04/18 16:57> Hospitalist Progress Note - Encounter Date of Encounter: 02/04/18 Time of Encounter: 08:30 - Subjective Interval History: Patient seen and examined. No acute events overnight. Patient is resting comfortably in bed eating breakfast. He does not have his nasal cannula on. He says he doesnt need it. Denies any difficulty breathing. States he feels much better than when he came in. Denies chest pain. Denies cough and sputum production. Denies abdominal pain at this time. Denies urinary symptoms. Denies bowel changes. Denies swelling. - Exam Vitals: Temp Pulse Resp BP Pulse Ox 99.2 F 93 20 89/69 97 02/04/18 03:16 02/04/18 03:16 02/04/18 03:41 02/04/18 03:16 02/04/18 03:41 Exam: General: Cachetic. Alert and oriented x3. No acute distress. Head: atraumatic, normocephalic. Eye: pupils equal and round. Sclera anicteric. EOMI. Mouth: oral mucosa moist. Normal oropharynx. Neck: supple. Trachea midline. Lungs: CTAB. No rhonchi, rales, or wheezing. No respiratory distress. No accessory muscle use. Cardiovascular: Normal S1 & S2. No rubs or gallops. No JVD. Pulse regular. Abdomen: Normal bowel sounds. Nontender. No guarding, no rigidity, no rebound. Extremities: No joint swelling, edema, or clubbing. Nontender. Skin: warm, dry, and intact. - Assessment and Plan (1) Acute and chronic respiratory failure with hypoxia Current Visit: Yes Status: Acute Assessment and Plan: Patient was found to be hypoxic at home on 3L by his home health nurse On presentation to ED, patient was still slightly hypoxic but improved with high flow oxygen and CPAP. Patient also improved secondary to DuoNebs and methylprednisolone. Acute respiratory failure likely secondary to COPD exacerbation. Patient is known to have poor compliance with bronchodilator therapy at home and continues to smoke. Differential includes heart failure exacerbation and community-acquired pneumonia. BNP within normal range and patient actually appears dry. White count elevated at 18.4 with possible correlation on lung imaging Plan Supplemental oxygen/CPAP/BiPAP Continuous cardiac monitoring and pulse oximetry DuoNeb's and methylprednisolone Ceftriaxone and azithromycin Gentle hydration with 75 mL/HR MIVF NS (2) Acute exacerbation of chronic obstructive airways disease Current Visit: Yes Status: Acute Assessment and Plan: Plan as seen above (3) Community acquired pneumonia Current Visit: Yes Status: Suspected Assessment and Plan: CT abd/pelvis concerning for developing bronchopneumonia. On admission, patient had leukocytosis and lactic acidosis. Patient is afebrile and does not appear septic. Patient was tachycardic, but appears to be secondary to arrhythmia and not sepsis. Azithromycin and ceftriaxone started in the ED and continuing (Day 1). Blood cultures drawn 02/04 x2 sets are NGTD. We will continue to monitor (4) Tachycardia Current Visit: Yes Status: Acute Assessment and Plan: Patient was tachycardic on presentation to emergency department. Likely secondary to not receiving home metoprolol secondary to shortness of breath. Cardiac monitoring demonstrates paced rhythm. Patient is not having active chest pain. 5 mg IV Lopressor given in the emergency department. Home dose of metoprolol continued. Tachycardia resolved. Patient on continuous cardiac monitoring. (5) Lactic acidosis Current Visit: Yes Status: Acute Assessment and Plan: Possibly secondary to bronchopneumonia. On admission, lactic acid was elevated at 3.6. Was downtrending. Now, elevated again at 3.5. Continue IVF. Repeat lactic in afternoon. (6) Systolic and diastolic CHF, chronic Current Visit: No Status: Chronic Assessment and Plan: Patient has history of systolic and diastolic heart failure Last echocardiogram performed in July 2015 demonstrated ejection fraction of 35 -40% Patient does not appear to be in acute exacerbation in fact he appears dry BNP 69, we will continue to monitor (7) History of pacemaker Current Visit: No Status: Chronic Assessment and Plan: History of cardiac pacemaker, evidence seen on cardiac monitoring We are attempting to control heart rate medically Patient currently hemodynamically stable and without chest pain Patient on continuous cardiac monitoring (8) Tremor Current Visit: No Status: Chronic Assessment and Plan: Patient has significant tremor in all 4 extremities on exam He does not appear to know the etiology for his tremor He states he has had approximately 2 years but does not know the cause This appears to be his baseline and no focal deficits were noted (9) History of prostate cancer Current Visit: No Status: Chronic Assessment and Plan: History of prostate cancer, not currently active or undergoing treatment (10) Tobacco abuse Current Visit: Yes Status: Chronic Assessment and Plan: Patient has extensive smoking history and continues to smoke a half pack per day Patient has been counseled on tobacco cessation and we will continue to discuss it DVT Prophylaxis: Heparin SQ - Time Spent with Patient Total time spent is greater than 50% in coordination of care (as documented) at patient's floor/unit and/or counseling patient: Internal Medicine: Result - Labs CBC & Chem 7: 02/04/18 03:10 02/04/18 03:10 Labs: Short CBC 02/04/18 Range/Units 03:10 WBC 17.8 H (4.3-11.1) K/mcL Hgb 10.9 L (12.9-16.9) g/dL Hct 35.5 L (37.5-50.1) % Plt Count 208 (140-400) K/mcL Neutrophils # 16.9 H (1.6-8.9) K/mcL BMP 02/04/18 03:10 Sodium 140 Potassium 4.4 Chloride 102 Carbon Dioxide 30 H BUN 25 H Creatinine 0.80 Glucose 159 H Calcium 8.9 Urine 02/03/18 Range/Units 23:09 Urine Color Dark Yellow (Yellow) Urine Clarity Clear (Clear) Urine pH 7.0 (5.0-8.0) pH Units Ur Specific [place] 1.021 (1.010-1.025) Urine Protein 30 H (Neg-Trace) mg/dL Urine Glucose (UA) Normal (Normal) mg/dL - ABG Interpretation ABG results: ABG ABG pH 7.39 pH Units (7.32-7.45) 02/04/18 08:05 ABG pCO2 58 mmHg (35-45) H 02/04/18 08:05 ABG pO2 75 mmHg (85-104) L 02/04/18 08:05 ABG O2 Saturation 94 % (95-98) L 02/04/18 08:05 <Gabriela Norman - Last Filed: 02/04/18 14:11> (2) Community acquired pneumonia Qualifiers: Laterality: right Lung location: lower lobe of lung Qualified Code(s): J18.1 - Lobar pneumonia, unspecified organism <Jessica Ellis - Last Filed: 02/04/18 16:57> (3) Community acquired pneumonia Qualifiers: Laterality: right Lung location: lower lobe of lung Qualified Code(s): J18.1 - Lobar pneumonia, unspecified organism
[2018-02-04] MEDS: Azithromycin 500 MG in D5% in Water 250 ML IVPB SCH (08:41)
[2018-02-04] MEDS: Metoprolol XL (24 HR) Succ 25 MG TAB.ER.24H PO SCH (08:43)
[2018-02-04] MEDS: Nicotine 7 MG PATCH.TD24 TD SCH (08:48)
[2018-02-04] MEDS ORDERED: Spironolactone 25 MG TABLET PO SCH (09:00)
[2018-02-04] MEDS ORDERED: predniSONE 20 MG TABLET PO SCH (09:00)
[2018-02-04] MEDS ORDERED: 0.9 % Sodium Chloride 1,000 ML IVC SCH (16:30)
[2018-02-04] MEDS: Primidone 50 MG TABLET PO SCH (21:23)
[2018-02-04] MEDS: traZODone 50 MG TABLET PO SCH (21:23)
[2018-02-05] MEDS: MethylPREDNISolone 40 MG/ML VIAL IVP SCH ×2 (00:22→18:52)
[2018-02-05] MEDS: Ipratropium/Albuterol Neb 3 ML IH SCH ×6 (03:18→23:42)
[2018-02-05 04:35] LABS: Basophils % 0.1 %; Hematocrit 28.8 % (37.5-50.1); Immature Granulocytes % 0.5 % (0-4); Lymphocytes # 0.7 K/mcL (0.6-4.6); Lymphocytes % 4.7 %; Mean Corpuscular HGB Conc 30.9 g/dL (31.6-35.5); Mean Corpuscular Hemoglobin 29.5 pg (28.0-33.3); Mean Corpuscular Volume 95.4 fL (83.0-100.0); Mean Platelet Volume 10.2 fL (9.4-12.4); Monocytes # 0.3 K/mcL (0.0-1.3); Monocytes % 2.2 %; Neutrophils # 14.4 K/mcL (1.6-8.9); Platelet Count 201 K/mcL (140-400); Red Blood Count 3.02 M/mcL (4.19-5.50); Red Cell Distribution Width 13.5 % (11.5-14.5); Segmented Neutrophils % 92.5 %
[2018-02-05 04:36] LABS: Hemoglobin 8.9 g/dL (12.9-16.9)
[2018-02-05 04:43] LABS: ABG Base Excess 6 mEq/L (-2 to 3); ABG HCO3 32 mEq/L (21-27); ABG Oxygen Saturation 92 % (95-98); ABG PCO2 50 mmHg (35-45); ABG PH 7.41 pH Units (7.32-7.45); ABG PO2 64 mmHg (85-104); ABG TCO2 33 mEq/L (20-26)
[2018-02-05 04:54] LABS: BUN/Creatinine Ratio 47 (6-26); Blood Urea Nitrogen 36 mg/dL (8-23); Calcium 8.8 mg/dL (8.6-10.3); Carbon Dioxide 30 mEq/L (23-29); Chloride 103 mEq/L (98-107); Glucose 163 mg/dL (70-105); Osmolality,Calculated 304 (280-300); Potassium 4.3 mEq/L (3.5-5.1); Sodium 141 mEq/L (136-145); eGFR For Non-African Americans > 60 (> 60)
[2018-02-05] MEDS: *HR* Heparin 5,000 UNIT/ML VIAL SQ SCH (05:34)
--- NOTE | 2018-02-05 06:50 | Electrocardiograph Report ---
[place] [facility] 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
[2018-02-05] MEDS: cefTRIAXone 2,000 MG in Water for inj. (sterile) 20 ML 20 ML IVPB SCH (07:53)
[2018-02-05] MEDS: Azithromycin 500 MG in D5% in Water 250 ML IVPB SCH (07:55)
[2018-02-05] MEDS: Nicotine 7 MG PATCH.TD24 TD SCH (07:56)
--- NOTE | 2018-02-05 08:27 | Internal Med Progress Note ---
<Gabriela Norman - Last Filed: 02/05/18 13:13> Hospitalist Progress Note - Encounter Date of Encounter: 02/05/18 - Exam Vitals: Temp Pulse Resp BP Pulse Ox 98.3 F 88 20 107/59 94 02/05/18 10:56 02/05/18 11:00 02/05/18 11:00 02/05/18 10:56 02/05/18 11:00 - Assessment and Plan (1) Abdominal pain Current Visit: No Status: Resolved (2) Acute exacerbation of chronic obstructive airways disease Current Visit: Yes Status: Acute (3) Community acquired pneumonia Current Visit: Yes Status: Suspected (4) Acute and chronic respiratory failure with hypoxia Current Visit: Yes Status: Acute (5) Systolic and diastolic CHF, chronic Current Visit: No Status: Chronic (6) History of pacemaker Current Visit: No Status: Chronic (7) Tachycardia Current Visit: Yes Status: Resolved (8) Tremor Current Visit: No Status: Chronic (9) History of prostate cancer Current Visit: No Status: Chronic (10) Tobacco abuse Current Visit: Yes Status: Chronic (11) Lactic acidosis Current Visit: Yes Status: Resolved - Time Spent with Patient Total time spent is greater than 50% in coordination of care (as documented) at patient's floor/unit and/or counseling patient: Internal Medicine: Result - Labs CBC & Chem 7: 02/05/18 11:05 02/05/18 04:22 Labs: Short CBC 02/05/18 02/05/18 Range/Units 04:22 11:05 WBC 15.5 H (4.3-11.1) K/mcL Hgb 8.9 L D 9.1 L (12.9-16.9) g/dL Hct 28.8 L 29.2 L (37.5-50.1) % Plt Count 201 (140-400) K/mcL Neutrophils # 14.4 H (1.6-8.9) K/mcL BMP 02/05/18 04:22 Sodium 141 Potassium 4.3 Chloride 103 Carbon Dioxide 30 H BUN 36 H Creatinine 0.76 Glucose 163 H Calcium 8.8 Urine 02/05/18 Range/Units 08:42 Urine Color Yellow (Yellow) Urine Clarity Clear (Clear) Urine pH 6.0 (5.0-8.0) pH Units Ur Specific [place] > 1.030 H (1.010-1.025) Urine Protein Trace (Neg-Trace) mg/dL Urine Glucose (UA) Normal (Normal) mg/dL - ABG Interpretation ABG results: ABG ABG pH 7.41 pH Units (7.32-7.45) 02/05/18 04:40 ABG pCO2 50 mmHg (35-45) H 02/05/18 04:40 ABG pO2 64 mmHg (85-104) L 02/05/18 04:40 ABG O2 Saturation 92 % (95-98) L 02/05/18 04:40 Consult Discharge Plan - Plan Referrals: Andres Jensen MD [Primary Care Provider] - 02/14/18 3:00 pm - Attending Attestation I examined this patient and my medical decision-making was reviewed with the Resident Physician Dr Ellis. I agree with the documented findings, disposition and treatment plan as described except to the extent set forth below/addl details below. Mr Jones was admitted with acute on chronic resp failure as witnessed by his HH aide and is being treated for COPD exacerbation. He has pmhx of systolic CHF with most recent echo EF 35-40%, CAD, anxiety, depression and history of prostate Ca. Awake, o2 off, sitting in bed, comfortable appearing. Sob is improving, easier to take big breaths. + dry hacking cough, can't clear sputum. Denies wheezing or orthopnea. Denies fevers or chills. Whiel conversing on room air o2 sat dropped to 87% nd he placed 3L NC on and o2 sat to mid 90s%. Discussed hgb drop. Denies melena, hematochezia, brbpr. Notes he ate oreos a few weeks ago and had dark stool once. Has had cscopes in past. Denies any history of gi bleeding or anemia. Denies hematuria. No cp, pressure, palpitations, or presyncope. gen- alert, awake,appears stated age eyes- pupils equal round , no conjunctival pallor cv- reg rate and rhythm, normal s1,s2, no murmurs appreciated, no le edema, no jvd lungs- diminished throughout all lung mcmanus with improved aeration upper posterior lobes and anteriorly, no accessory muscle use or resp distress on o2 nc abd- soft, non tender, non distended, + bs neuro- AAOx3, fine trunk, ext tremors that he notes are at baseline Acute on Chronic Resp Failure as evidenced by O2 NC requirement greater than home baseline O2, O2 sat 88% on home O2 NC as witnessed by home health staff, improved -suspect 2/2 COPD exacerbation given increased sputum production and sob at home , cont daily smoking and non compliance with home inhalers, not at this time c/ w ACS with neg trop and ekg without acute ischemic changes or changes from prior , tachycardia, tachypnea and hypoxia from baseline have all resolved withtreatment and do not suspect PE, bnp not elevated and clinically euvolemic, not suggestive of chf exacerbation -cont home O2 Sepsis with tachycardia, elevated RR, suspected source pulmonary, lactate 3.1- 3.5 now wnl, resolved -given his abd pain ct a/p obtained and negative, ua neg, bl cxs ngtd -copd exacerbation treatment as below COPD Exacerbation with CXR unremarkable and CT a/p findings c/w developing bronchopneumonia -cont supplemental o2, bipap prn, nebs, IV steroids and taper, rocephin + azithro, mucinex,legionella/strep/rapid flu negative, send sputum sample if pt able Acute on Chronic Anemia, hgb baseline appears about 11-13, hgb 12.2 on admit and now 8.9, asx and no overt bleeding -check ua for blood and fobt -repeat hgb uptrended into 9s -hold hep sq and scds in place -cont to monitor Hx Prostate cancer and urinary retention- pvr normal, cont flomax Abd PAin, appears chronic in nature, outpt work up is in progress, resolved and eating without difficulty here -ct a/p here negative for acute etiology of pain, cont to monitor Chronic combined CHF, stable- hold spironolactone today given required ivfs as appeared hypovolemic, likely resume tomorrow HTN, low normal bps here- holding BB and arb, cont to monitor dispo - when dc's need [facility] referral for RN and aide transfer to [facility]/tele <Jessica Ellis - Last Filed: 02/05/18 15:27> Hospitalist Progress Note - Encounter Date of Encounter: 02/05/18 Time of Encounter: 08:15 - Subjective Interval History: Patient seen and examined. No acute events overnight. Patient is resting comfortably in bed. He states he feels better than yesterday. States his breathing is better and he doesnt have any abdominal pain with eating. Denies chest pain. Denies cough and sputum production. Denies abdominal pain at this time. Denies urinary symptoms. Denies bowel changes. Denies swelling. Denies blood in stool. Denies black tarry stools. - Exam Vitals: Temp Pulse Resp BP Pulse Ox 98.7 F 82 16 118/73 98 02/05/18 06:43 02/05/18 06:43 02/05/18 07:37 02/05/18 06:43 02/05/18 07:37 Exam: General: Cachetic. Alert and oriented x3. No acute distress. Head: atraumatic, normocephalic. Eye: pupils equal and round. Sclera anicteric. EOMI. Mouth: oral mucosa moist. Normal oropharynx. Neck: supple. Trachea midline. Lungs: Mild diffuse rhonchi in right lung with expiration. Left lung clear. No rales or wheezing. No respiratory distress. No accessory muscle use. Cardiovascular: Normal S1 & S2. No rubs or gallops. No JVD. Pulse regular. Abdomen: Normal bowel sounds. Nontender. No guarding, no rigidity, no rebound. Extremities: No joint swelling, edema, or clubbing. Nontender. Tremor in upper extremities. Skin: warm, dry, and intact. - Assessment and Plan (1) Acute and chronic respiratory failure with hypoxia Current Visit: Yes Status: Acute Assessment and Plan: Patient was found to be hypoxic at home on 3L by his home health nurse On presentation to ED, patient was still slightly hypoxic but improved with high flow oxygen and CPAP. Patient also improved secondary to DuoNebs and methylprednisolone. Acute respiratory failure likely secondary to COPD exacerbation. Patient is known to have poor compliance with bronchodilator therapy at home and continues to smoke. Differential includes heart failure exacerbation and community-acquired pneumonia. BNP within normal range and patient actually appears dry. White count elevated at 18.4 with possible correlation on lung imaging Plan Supplemental oxygen/CPAP/BiPAP Continuous cardiac monitoring and pulse oximetry DuoNeb's and methylprednisolone. Methylprednisolone titrated down today from 40mg q8h to q12h. Day 2 of ceftriaxone and azithromycin. Discontinued gentle hydration with 75 mL/HR MIVF NS. (2) Acute exacerbation of chronic obstructive airways disease Current Visit: Yes Status: Acute Assessment and Plan: Plan as seen above (3) Community acquired pneumonia Current Visit: Yes Status: Suspected Assessment and Plan: CT abd/pelvis concerning for developing bronchopneumonia. On admission, patient had leukocytosis and lactic acidosis. Patient is afebrile and does not appear septic. Patient was tachycardic, but appears to be secondary to arrhythmia and not sepsis. Rapid flu was negative. Legionella and Strep pneumoniae antigens pending. Blood cultures drawn 02/04 x2 sets are NGTD. Azithromycin and ceftriaxone started in the ED and continuing (Day 2). We will continue to monitor (4) Lactic acidosis Current Visit: Yes Status: Resolved Assessment and Plan: Possibly secondary to bronchopneumonia. On admission, lactic acid was elevated at 3.6. Received gentle hydration. Today, lactic acid normal. Resolved. Discontinued IVF. (5) Tachycardia Current Visit: Yes Status: Resolved Assessment and Plan: Patient was tachycardic on presentation to emergency department. Likely secondary to not receiving home metoprolol secondary to shortness of breath. Cardiac monitoring demonstrates paced rhythm. Patient is not having active chest pain. 5 mg IV Lopressor given in the emergency department. Tachycardia resolved. Patient on continuous cardiac monitoring. (6) Abdominal pain Current Visit: No Status: Resolved Assessment and Plan: Patient complaining of abdominal pain. Chronic. Abdominal CT demonstrated diverticulosis which could be source of abdominal pain. Abdominal pain resolved. We will continue monitor. (7) Normocytic anemia Current Visit: Yes Status: Acute Assessment and Plan: On admission, Hb of 12.2. Next day, Hb of 10.9. Today, Hb of 8.9. No hematochezia or melena. Check hemoccult. Repeat UA showed no urine blood. Discontinued heparin SQ. Repeat Hb is stable at 9.1. Continue to monitor H&H. If remain stable, patient to followup with PCP. (8) Systolic and diastolic CHF, chronic Current Visit: No Status: Chronic Assessment and Plan: Patient has history of systolic and diastolic heart failure Last echocardiogram performed in July 2015 demonstrated ejection fraction of 35 -40% Patient does not appear to be in acute exacerbation, in fact he appears dry. BNP 69. (9) History of pacemaker Current Visit: No Status: Chronic Assessment and Plan: History of cardiac pacemaker, evidence seen on cardiac monitoring We are attempting to control heart rate medically Patient currently hemodynamically stable and without chest pain Patient on continuous cardiac monitoring (10) Tremor Current Visit: No Status: Chronic Assessment and Plan: Patient has significant tremor in upper extremities on exam He does not appear to know the etiology for his tremor He states he has had approximately 2 years but does not know the cause This appears to be his baseline and no focal deficits were noted (11) History of prostate cancer Current Visit: No Status: Chronic Assessment and Plan: History of prostate cancer, not currently active or undergoing treatment. Patient complaining of difficulty urinating. History of difficulty urinating ever since prostate cancer. UA is negative for UTI. Bladder scan showed residual volume of 111cc. Straight cath not necessary. (12) Tobacco abuse Current Visit: Yes Status: Chronic Assessment and Plan: Patient has extensive smoking history and continues to smoke a half pack per day Patient has been counseled on tobacco cessation and we will continue to discuss it DVT Prophylaxis: heparin SQ - Time Spent with Patient Total time spent is greater than 50% in coordination of care (as documented) at patient's floor/unit and/or counseling patient: Internal Medicine: Result - Labs CBC & Chem 7: 02/05/18 11:05 02/05/18 04:22 Labs: Short CBC 02/05/18 Range/Units 04:22 WBC 15.5 H (4.3-11.1) K/mcL Hgb 8.9 L D (12.9-16.9) g/dL Hct 28.8 L (37.5-50.1) % Plt Count 201 (140-400) K/mcL Neutrophils # 14.4 H (1.6-8.9) K/mcL BMP 02/05/18 04:22 Sodium 141 Potassium 4.3 Chloride 103 Carbon Dioxide 30 H BUN 36 H Creatinine 0.76 Glucose 163 H Calcium 8.8 - ABG Interpretation ABG results: ABG ABG pH 7.41 pH Units (7.32-7.45) 02/05/18 04:40 ABG pCO2 50 mmHg (35-45) H 02/05/18 04:40 ABG pO2 64 mmHg (85-104) L 02/05/18 04:40 ABG O2 Saturation 92 % (95-98) L 02/05/18 04:40 <Gabriela Norman - Last Filed: 02/05/18 13:13> (1) Abdominal pain Qualifiers: Abdominal location: generalized Qualified Code(s): R10.84 - Generalized abdominal pain (3) Community acquired pneumonia Qualifiers: Laterality: right Lung location: lower lobe of lung Qualified Code(s): J18.1 - Lobar pneumonia, unspecified organism <Jessica Ellis - Last Filed: 02/05/18 15:27> (3) Community acquired pneumonia Qualifiers: Laterality: right Lung location: lower lobe of lung Qualified Code(s): J18.1 - Lobar pneumonia, unspecified organism (6) Abdominal pain Qualifiers: Abdominal location: generalized Qualified Code(s): R10.84 - Generalized abdominal pain
[2018-02-05 08:50] LABS: Bilirubin,Urine Negative (Negative); Blood,Urine Negative (Negative); Clarity,Urine Clear (Clear); Color,Urine Yellow (Yellow); Glucose,Urine (UA) Normal (Normal); Ketones,Urine Negative (Negative); Leukocyte Esterase,Urine Small (Negative); Nitrite,Urine Negative (Negative); Protein,Urine Trace mg/dL (Neg-Trace); Specific Gravity,Urine > 1.030 (1.010-1.025); Urobilinogen,Urine Normal (Normal)
[2018-02-05] MEDS: Metoprolol XL (24 HR) Succ 25 MG TAB.ER.24H PO SCH (09:07)
[2018-02-05] MEDS ORDERED: MOM Conc 10 ML UD.LIQ PO PRN (11:07)
[2018-02-05 11:29] LABS: Hematocrit 29.2 % (37.5-50.1); Hemoglobin 9.1 g/dL (12.9-16.9)
[2018-02-05] MEDS: traZODone 50 MG TABLET PO SCH (20:32)
[2018-02-05] MEDS: Primidone 50 MG TABLET PO SCH (20:32)
[2018-02-06] MEDS: Ipratropium/Albuterol Neb 3 ML IH SCH ×6 (07:33→23:11)
[2018-02-06 11:29] LABS: Basophils % 0.1 %; Hematocrit 29.8 % (37.5-50.1); Immature Granulocytes % 1.2 % (0-4); Immature Platelets 5.3 % (1.1-6.1); Lymphocytes # 1.1 K/mcL (0.6-4.6); Mean Corpuscular HGB Conc 30.2 g/dL (31.6-35.5); Mean Corpuscular Hemoglobin 29.3 pg (28.0-33.3); Mean Corpuscular Volume 97.1 fL (83.0-100.0); Mean Platelet Volume 10.5 fL (9.4-12.4); Monocytes # 0.7 K/mcL (0.0-1.3); Monocytes % 5.6 %; Neutrophils # 9.9 K/mcL (1.6-8.9); Platelet Count 207 K/mcL (140-400); Red Blood Count 3.07 M/mcL (4.19-5.50); Red Cell Distribution Width 13.8 % (11.5-14.5); Segmented Neutrophils % 84.1 %
--- NOTE | 2018-02-06 12:05 | Discharge Summary ---
<Jessica Ellis - Last Filed: 02/06/18 13:03> - NOTES TO OUTPATIENT PROVIDER Notes to Outpatient Provider: Developed normocytic anemia during hospitalization. Hemoccult negative. UA negative for urine blood. Hb has remained stable at ~9.0. Please followup. Orders not resulted at time of discharge: Pending orders 02/03/18 22:43 Culture,Blood [BC] Stat Date of Encounter: 02/06/18 Time of Encounter: 08:15 - Discharge Diagnosis (1) Abdominal pain Priority: Secondary Status: Resolved Qualifiers: Abdominal location: generalized Qualified Code(s): R10.84 - Generalized abdominal pain (2) Acute exacerbation of chronic obstructive airways disease Priority: Primary Status: Acute (3) Community acquired pneumonia Priority: Primary Status: Suspected Qualifiers: Laterality: right Lung location: lower lobe of lung Qualified Code(s): J18.1 - Lobar pneumonia, unspecified organism (4) Acute and chronic respiratory failure with hypoxia Priority: Primary Status: Acute (5) Systolic and diastolic CHF, chronic Priority: Secondary Status: Chronic (6) History of pacemaker Priority: Secondary Status: Chronic (7) Tachycardia Priority: Primary Status: Resolved (8) Tremor Priority: Secondary Status: Chronic (9) History of prostate cancer Priority: Secondary Status: Chronic (10) Tobacco abuse Priority: Secondary Status: Chronic (11) Lactic acidosis Priority: Primary Status: Resolved Hospital course: He presented to the emergency department with the chief complaint of shortness of breath. He normally uses 3 L of oxygen at home all the time and he was feeling short of breath regardless. He also complained of increased sputum production. Of note he is not compliant with his bronchodilator therapy at home and continues to smoke a half pack per day. In the emergency department he was found to be slightly hypoxic and was started on methylprednisolone and DuoNeb's with improvement in his shortness of breath and hypoxia. Chest x-ray demonstrated findings of chronic pulmonary disease however CT demonstrated bronchial wall thickening that could demonstrate impending bronchopneumonia. For that reason he was also started on Rocephin and azithromycin. He denied fever or chills, chest pain. He did admit to left lower quadrant abdominal pain that appears to be chronic. He denied alcohol or drug use. Other lab results included leukocytosis and lactic acidosis. ABG showed elevated pCO2. BMP and hepatic panel were unremarkable. Troponin and BNP were WNL. Lipase was normal. Influenza was negative. Legionella and Strep pneumonia were negative. CT abd/pelvis found no acute cause of abdominal pain. Patient continued to receive breathing treatments, IV steroids, antibiotics, and supplemental oxygen for COPD exacerbation and bronchopneumonia with improvement of symptoms. Abdominal pain resolved. Lactic acidosis resolved. Leukocytosis resolved. Patient did develop normocytic anemia while admitted. Hb was 12.2 on admission, and next day, dropped to 8.9. Hemoccult was negative. UA was negative for urine blood. Heparin SQ was discontinued. Hb has remained stable. Blood pressure was on low side, and home BB, losartan, and aldactone were held. He states he feels better and ready to go home. Denies any complaints. Denies difficulty breathing. Denies abdominal pain. Denies chest pain. Denies cough and sputum production. Denies urinary symptoms. Denies bowel changes. Denies swelling. Denies blood in stool. Denies black tarry stools. States he will use his bronchodilators at home. - Time Spent with Patient Total time spent providing and/or coordinating discharge services: Greater than 30 minutes (42 minutes) - Discharge Medications Prescriptions: Levofloxacin [Levaquin] 500 mg PO DAILY 7 Days #7 tablet methylPREDNISolone [Medrol] 4 mg PO DAILY #21 tablet Home Medications: Aspirin Enteric Coated [Aspirin EC] 81 mg PO DAILY #0 12/07/14 [History] Ipratropium/Albuterol Neb [Duoneb] 3 ml IH [id number] #30 inhsol 08/04/15 [Rx] Nitroglycerin 0.4 mg SL Q5MIN PRN #0 tab.subl 08/04/15 [Rx] Spironolactone [Aldactone] 12.5 mg PO DAILY #30 tablet 08/04/15 [Rx] Omeprazole [PriLOSEC] 20 mg PO DAILY 10/28/15 [History] Losartan [Cozaar] 25 mg PO DAILY 10/05/17 [History] Metoprolol Succinate [Toprol Xl] 25 mg PO DAILY 10/05/17 [History] Mirtazapine [Remeron] 30 mg PO HS 10/05/17 [History] Paroxetine HCl [Paxil] 20 mg PO DAILY 10/05/17 [History] Primidone [Mysoline] 50 mg PO HS 10/05/17 [History] Tamsulosin [Flomax] 0.4 mg PO DAILY 10/05/17 [History] LORazepam [Ativan] 1 mg PO TID PRN 02/03/18 [History] Megestrol Acetate mg PO 02/03/18 [History] Simvastatin [Zocor] 40 mg PO DAILY 02/03/18 [History] traZODone [TraZODone] 50 mg PO HS 02/03/18 [History] Levofloxacin [Levaquin] 500 mg PO DAILY 7 Days #7 tablet 02/06/18 [Rx] methylPREDNISolone [Medrol] 4 mg PO DAILY #21 tablet 02/06/18 [Rx] Allergies/Adverse Reactions: Allergy/AdvReac Type Severity Reaction Status Date / Time No Known Allergies Allergy Verified 02/03/18 19:21 Date of admission: 02/03/18 21:05 Primary care physician: Andres Jensen MD Consults: 02/03/18 22:36 Consult to Nutrition [CONS] Routine Comment: Consulting Provider: NUTRITION Reason for Dietary Consult: MST Score Consult to Ply Splicer [CONS] Routine Reason for SW Consult: Home health follow up Discharging clinician: Jessica Ellis Anticipated date of discharge: 02/06/18 - Constitutional Vitals: Temp Pulse Resp BP Pulse Ox 98.5 F 89 16 143/78 91 02/05/18 23:33 02/05/18 23:33 02/05/18 23:42 02/05/18 23:33 02/06/18 01:13 Exam: General: Cachetic. Alert and oriented x3. No acute distress. Head: atraumatic, normocephalic. Eye: pupils equal and round. Sclera anicteric. EOMI. Mouth: oral mucosa moist. Normal oropharynx. Neck: supple. Trachea midline. Lungs: CTAB. No rhonchi, rales or wheezing. No respiratory distress. No accessory muscle use. Cardiovascular: Normal S1 & S2. No rubs or gallops. No JVD. Pulse regular. Abdomen: Normal bowel sounds. Nontender. No guarding, no rigidity, no rebound. Extremities: No joint swelling, edema, or clubbing. Nontender. Tremor in upper extremities. Skin: warm, dry, and intact. - Patient Status Disposition: Home Health Service Condition: Fair - Discharge Instructions Follow Up With: Andres Jensen MD [Primary Care Provider] - 02/14/18 3:00 pm - Diet and Activity Activity: increase activity as tolerated Diet: low fat, low cholesterol, low salt diet <Gabriela Norman - Last Filed: 02/06/18 13:52> - NOTES TO OUTPATIENT PROVIDER Notes to Outpatient Provider: acute on chronic anemia this admission, please obtain cbc in next 3-5 days and further outpt work up/monitoring of anemia recommended Orders not resulted at time of discharge: Pending orders 02/03/18 22:43 Culture,Blood [BC] Stat 02/07/18 04:00 Basic Metabolic Panel AM 0400 Complete Blood Count [HEME] AM 0400 02/08/18 04:00 Basic Metabolic Panel AM 0400 Complete Blood Count [HEME] AM 0400 02/09/18 04:00 Basic Metabolic Panel AM 0400 Complete Blood Count [HEME] AM 0400 02/10/18 04:00 Basic Metabolic Panel AM 0400 Complete Blood Count [HEME] AM 0400 - Discharge Diagnosis (1) Abdominal pain Status: Resolved Qualifiers: Abdominal location: generalized Qualified Code(s): R10.84 - Generalized abdominal pain (2) Acute exacerbation of chronic obstructive airways disease Status: Acute (3) Community acquired pneumonia Status: Suspected Qualifiers: Laterality: right Lung location: lower lobe of lung Qualified Code(s): J18.1 - Lobar pneumonia, unspecified organism (4) Acute and chronic respiratory failure with hypoxia Status: Acute (5) Systolic and diastolic CHF, chronic Status: Chronic (6) History of pacemaker Status: Chronic (7) Tachycardia Status: Resolved (8) Tremor Status: Chronic (9) History of prostate cancer Status: Chronic (10) Tobacco abuse Status: Chronic (11) Lactic acidosis Status: Resolved Hospital course: Mr. Jones is a 77 year old male - Time Spent with Patient Total time spent providing and/or coordinating discharge services: Date of admission: 02/03/18 21:05 Primary care physician: Andres Jensen MD Consults: 02/03/18 22:36 Consult to Nutrition [CONS] Routine Comment: Consulting Provider: NUTRITION Reason for Dietary Consult: MST Score Consult to Ply Splicer [CONS] Routine Reason for SW Consult: Home health follow up - Constitutional Vitals: Temp Pulse Resp BP Pulse Ox 97.8 F 87 28 141/90 100 02/06/18 11:00 02/06/18 11:00 02/06/18 11:00 02/06/18 11:00 02/06/18 11:00 - Attending Attestation I examined this patient and my medical decision-making was reviewed with the Resident Physician Dr Ellis. I agree with the documented findings, disposition and treatment plan as described except to the extent set forth below/addl details below. Mr Jones was admitted with acute on chronic resp failure as witnessed by his HH aide and is being treated for COPD exacerbation. He has pmhx of systolic CHF with most recent echo EF 35-40%, CAD, anxiety, depression and history of prostate Ca. Awake, alert, feeling overall greatly improved and back to baseline. No sob at rest or with exertion. Cont cough but no sputum, no fevers, chills, wheezing or orthopnea. No fatigue, presyncope, signs of bleeding. Happy to dc to home today. Discussed dc plan and answered all questions. gen- alert, awake,appears stated age eyes- pupils equal round , no conjunctival pallor cv- reg rate and rhythm, normal s1,s2, no murmurs appreciated, no le edema, no jvd lungs- diminished throughout all lung mcmanus with improved aeration anteriorly and posteriorly today, no wheezing, rhonchi or crackles, no accessory muscle use or resp distress on o2 nc abd- soft, non tender, non distended, + bs neuro- AAOx3 Acute on Chronic Resp Failure as evidenced by O2 NC requirement greater than home baseline O2, O2 sat 88% on home O2 NC as witnessed by home health staff,resolved -suspect 2/2 COPD exacerbation given increased sputum production and sob at home, cont daily smoking and non compliance with home inhalers,ruled out ACS with neg trop and ekg without acute ischemic changes or changes from prior; tachycardia, tachypnea and hypoxia from baseline have all resolved with treatment and do not suspect PE; bnp not elevated and clinically hypovolemic to euvolemic this admit, not suggestive of chf exacerbation -cont home O2 on dc Sepsis with tachycardia, elevated RR, suspected source pulmonary, lactate 3.1- 3.5 now wnl, resolved -given his abd pain ct a/p obtained and negative, ua neg, bl cxs ngtd -copd exacerbation treatment as below COPD Exacerbation with CXR unremarkable and CT a/p findings c/w developing bronchopneumonia, no causative organism identified -rocephin + azitho inpt--> complete course with levaquin on dc and medrol dose pack, encouraged use of home inhalers/nebs on dc/tobacco cessation, declined need for patch Acute on Chronic Anemia, hgb baseline appears about 11-13, hgb 12.2 on admit and dropped to 8.9, asx and no overt bleeding, uptrending and stable -fobt and ua were negative for blood -repeat hgb uptrended into 9s and reminaed stable off hep sq for vte ppx -rec ofr pcp to repeat cbc in next 5 days further work up outpt, as he is currently undergoing a gi work up outpt Abd PAin, appears chronic in nature, outpt work up is in progress, resolved and eating without difficulty here -ct a/p here negative for acute etiology of pain, cont to monitor Chronic combined CHF, stable- held spironolactone tand received IVFS as appeared hypovolemic, now appears euvolemic, may resume on dc HTN, low normal bps here- held BB and arb, BP began to uptrend and he may resume home meds on dc and fu with pcp for further management dc to home in stable condition with pcp fu Addendum entered and electronically signed by Gabriela Norman DO 02/06/18 13:54: time spent facilitating discharge less than 30 minutes
[2018-02-06 12:21] LABS: BUN/Creatinine Ratio 42 (6-26); Blood Urea Nitrogen 31 mg/dL (8-23); Calcium 8.8 mg/dL (8.6-10.3); Carbon Dioxide 32 mEq/L (23-29); Chloride 103 mEq/L (98-107); Glucose 138 mg/dL (70-105); Osmolality,Calculated 297 (280-300); Potassium 4.8 mEq/L (3.5-5.1); Sodium 139 mEq/L (136-145); eGFR For Non-African Americans > 60 (> 60)
[2018-02-06] MEDS: MethylPREDNISolone 40 MG/ML VIAL IVP SCH (12:34)
[2018-02-06] MEDS: cefTRIAXone 2,000 MG in Water for inj. (sterile) 20 ML 20 ML IVPB SCH (12:36)
[2018-02-06] MEDS: Nicotine 7 MG PATCH.TD24 TD SCH (12:40)
[2018-02-06 12:57] VITALS: BP 141/90
--- NOTE | 2018-02-06 13:39 | Physician Discharge Referral ---
<Jessica Ellis - Last Filed: 02/06/18 13:38> Home Health/Hosp Referral Info Transfer to: Home Health Attending Provider: Dr. Norman Provider in Charge Post Discharge: PCP - Diagnosis (1) Abdominal pain Priority: Secondary Status: Resolved (2) Acute exacerbation of chronic obstructive airways disease Priority: Primary Status: Acute (3) Community acquired pneumonia Priority: Primary Status: Suspected (4) Acute and chronic respiratory failure with hypoxia Priority: Primary Status: Acute (5) Systolic and diastolic CHF, chronic Priority: Secondary Status: Chronic (6) History of pacemaker Priority: Secondary Status: Chronic (7) Tachycardia Priority: Primary Status: Resolved (8) Tremor Priority: Secondary Status: Chronic (9) History of prostate cancer Priority: Secondary Status: Chronic (10) Tobacco abuse Priority: Secondary Status: Chronic (11) Lactic acidosis Priority: Primary Status: Resolved - Respiratory Orders Smoking Cessation: Smoking cessation has been advised. For more information, call the [place] Tobacco Quit Line at 3-501-XFCV-NOW. - Services Needed Following services are medically necessary services: Nursing, Home Health Aide - Transfer Medications Prescriptions: Levofloxacin [Levaquin] 500 mg PO DAILY 7 Days #7 tablet methylPREDNISolone [Medrol] 4 mg PO DAILY #21 tablet Home Medications: Aspirin Enteric Coated [Aspirin EC] 81 mg PO DAILY #0 12/07/14 [History] Ipratropium/Albuterol Neb [Duoneb] 3 ml IH [id number] #30 inhsol 08/04/15 [Rx] Nitroglycerin 0.4 mg SL Q5MIN PRN #0 tab.subl 08/04/15 [Rx] Spironolactone [Aldactone] 12.5 mg PO DAILY #30 tablet 08/04/15 [Rx] Omeprazole [PriLOSEC] 20 mg PO DAILY 10/28/15 [History] Losartan [Cozaar] 25 mg PO DAILY 10/05/17 [History] Metoprolol Succinate [Toprol Xl] 25 mg PO DAILY 10/05/17 [History] Mirtazapine [Remeron] 30 mg PO HS 10/05/17 [History] Paroxetine HCl [Paxil] 20 mg PO DAILY 10/05/17 [History] Primidone [Mysoline] 50 mg PO HS 10/05/17 [History] Tamsulosin [Flomax] 0.4 mg PO DAILY 10/05/17 [History] LORazepam [Ativan] 1 mg PO TID PRN 02/03/18 [History] Megestrol Acetate mg PO 02/03/18 [History] Simvastatin [Zocor] 40 mg PO DAILY 02/03/18 [History] traZODone [TraZODone] 50 mg PO HS 02/03/18 [History] Levofloxacin [Levaquin] 500 mg PO DAILY 7 Days #7 tablet 02/06/18 [Rx] methylPREDNISolone [Medrol] 4 mg PO DAILY #21 tablet 02/06/18 [Rx] Allergies/Adverse Reactions: Allergy/AdvReac Type Severity Reaction Status Date / Time No Known Allergies Allergy Verified 02/03/18 19:21 Certification: Further, I certify that my clinical findings support that this patient is homebound (i.e. absences from home require considerable and taxing effort and are for medical reasons or anglican services or infrequently or short duration when for other reasons) because: Homebound Reason: Patient requires assistance of a person or device to safely leave home Attestation: My signature below is to certify that this patient is under my care and that I, or nurse practitioner, or a physician's high school assistant principal working with me, has a [id number] encounter with this patient. <Gabriela Norman - Last Filed: 02/06/18 13:42> - Diagnosis (1) Abdominal pain Status: Resolved (2) Acute exacerbation of chronic obstructive airways disease Status: Acute (3) Community acquired pneumonia Status: Suspected (4) Acute and chronic respiratory failure with hypoxia Status: Acute (5) Systolic and diastolic CHF, chronic Status: Chronic (6) History of pacemaker Status: Chronic (7) Tachycardia Status: Resolved (8) Tremor Status: Chronic (9) History of prostate cancer Status: Chronic (10) Tobacco abuse Status: Chronic (11) Lactic acidosis Status: Resolved - Respiratory Orders Oxygen / L per min Smoking Cessation: Smoking cessation has been advised. For more information, call the [place] Tobacco Quit Line at 6-697-KRVO-NOW. - Diet/Nutrition Diet/Nutrition Orders: No Added Salt (DAVID), Cardiac - Activity Activity Orders: Up ad hanna Certification: Further, I certify that my clinical findings support that this patient is homebound (i.e. absences from home require considerable and taxing effort and are for medical reasons or anglican services or infrequently or short duration when for other reasons) because: Attestation: My signature below is to certify that this patient is under my care and that I, or nurse practitioner, or a physician's high school assistant principal working with me, has a [id number] encounter with this patient.
[2018-02-06] MEDS ORDERED: MethylPREDNISolone 40 MG/ML VIAL IVP ONE (15:14)
[2018-02-06] MEDS ORDERED: Nicotine 7 MG PATCH.TD24 TD ONE (15:14)
[2018-02-06] MEDS ORDERED: Ipratropium/Albuterol Neb 3 ML IH ONE ×3 (15:14)
[2018-02-06] MEDS ORDERED: *HR* Water for inj. (Sterile) 20 ML VIAL IV ONE (15:14)
[2018-02-06] MEDS ORDERED: CefTRIAXone 2,000 MG VIAL IVP ONE (15:14)
--- NOTE | 2018-02-06 16:15 | Electrocardiograph Report ---
[place] [id number] Test Date: 2018-02-03 Pat Name: Kristian Jones Department: [id number] Room: 08 Gender: M Staffing Assistant: : [id number] Requested By: Denise Wakefield Order Number: [id number] Reading MD: Martita Fernando Measurements Intervals [place] Rate: 115 P: NC: QRS: 72 QRSD: 119 T: 84 QT: 339 QTc: 469 Interpretive Statements Probably V-paced rhythm Baseline artifact Electronically Signed On 02-06-2018 16:13:26 EDT by Martita Fernando
== END 2018-02-06 15:15 | disposition home health service (06) | DRG 189 ==
LOC: 2NNU 19:08 → EMEROOARM 19:08 → SUATTDRO 21:05 → 2NNU 21:41
PROVIDERS: ADMIT Internal Medicine; ATTEND Internal Medicine

== ENCOUNTER 2018-02-11 12:46 | Inpatient (IN) ==
[2018-02-11] MEDS ORDERED: Ipratropium/Albuterol Neb 3 ML IH ONE (12:53)
[2018-02-11] MEDS ORDERED: methylPREDNISolone 125 MG/2 ML VIAL IVP ONE (12:53)
--- NOTE | 2018-02-11 12:59 | Emergency Department Note ---
Disposition Clinical Impression: COPD exacerbation Rib fracture Qualifiers: Encounter type: subsequent encounter Rib fracture type: single rib Fracture typ e: closed Laterality: right Fracture healing: with routine healing Qualified Code(s): S22.31XD - Fracture of one rib, right side, subsequent encounter for fracture with routine healing Pneumonia Qualifiers: Pneumonia type: due to unspecified organism Laterality: unspecified laterality Lung location: unspecified part of lung Qualified Code(s): J18.9 - Pneumonia, unspecified organism Disposition: Admitted As Inpatient Condition: Fair General Adult HPI - General Chief complaint: ED Shortness of Breath/Dyspnea Stated complaint: SOB Time Seen by Provider: 02/11/18 12:52 Source: EMS Limitations: no limitations Nursing Notes Reviewed: Yes Vital Signs Reviewed: Yes - History of Present Illness HPI Narrative: Patient with history of cardio myopathy, CHF, COPD, pacemaker, history of t remor, history of prostate cancer presenting today for evaluation of shortness of breath. Patient had a fall yesterday and was evaluated in the emergency department. He was diagnosed with rib fractures. Squad returned him to his house where he was sat on the couch. The patient was unable to leave the couch secondary to the amount of pain that he was in in order to get up. Patient did try to get between the couch in the coffee table but still was unable to raise himself. He remained here until his test lab technician evaluated him earlier in the day. Patient has been short of breath with inability to take deep breaths. He will undergo further evaluation for pneumothorax versus other etiology. Patient likely has COPD exacerbation complicated by rib fracture. Patient unable to return home at this point. Patient will undergo admission for further treatment and evaluation. Pain Scale: 0 - Related Data Home Medications Medication Instructions Recorded Confirmed RX: Aspirin Enteric Coated 81 mg PO DAILY #0 12/07/14 02/11/18 [Aspirin EC] RX: Omeprazole [PriLOSEC] 20 mg PO DAILY 10/28/15 02/11/18 RX: Losartan [Cozaar] 25 mg PO DAILY 10/05/17 02/11/18 RX: Metoprolol Succinate [Toprol 25 mg PO DAILY 10/05/17 02/11/18 Xl] RX: Mirtazapine [Remeron] 30 mg PO HS 10/05/17 02/11/18 RX: Paroxetine HCl [Paxil] 20 mg PO DAILY 10/05/17 02/11/18 RX: Primidone [Mysoline] 50 mg PO HS 10/05/17 02/11/18 RX: Tamsulosin [Flomax] 0.4 mg PO DAILY 10/05/17 02/11/18 RX: LORazepam [Ativan] 1 mg PO TID PRN 02/03/18 02/11/18 RX: Megestrol Acetate 20 mg PO BID 02/03/18 02/11/18 RX: Simvastatin [Zocor] 40 mg PO DAILY 02/03/18 02/11/18 RX: traZODone [TraZODone] 50 mg PO HS 02/03/18 02/11/18 Previous Rx's Medication Instructions Recorded RX: Nitroglycerin 0.4 mg SL Q5MIN PRN #0 tab.subl 08/04/15 RX: Spironolactone [Aldactone] 12.5 mg PO DAILY #30 tablet 08/04/15 OxyCODONE/APAP 5/325 [Percocet 1 each PO Q6HR PRN 3 Days #12 02/09/18 5/325 MG] tablet Allergies Allergy/AdvReac Type Severity Reaction Status Date / Time No Known Allergies Allergy Verified 02/09/18 10:02 All systems ED: reviewed and negative except as stated. Review of Systems: As Per HPI Constitutional: Denies: fever, chills ENT ED: Denies: congestion Cardiovascular: Reports: chest pain, dyspnea on exertion Respiratory: Reports: cough, dyspnea, wheezes Gastrointestinal: Reports: abdominal pain (RUQ). Denies: nausea Musculoskeletal: Reports: back pain Integumentary: Denies: rash, abrasion Neurological: Reports: weakness (generalized). Denies: headache Psychiatric: Reports: anxiety Past Medical History - Past Medical History Medical history: Reports: cancer, cardiomyopathy, CHF, COPD, coronary artery d isease, hepatitis, hyperlipidemia, liver disease, other Surgical history: Reports: pacemaker/AICD Psychiatric history: Reports: anxiety, depression, prior suicide attempt - Social History Smoking Status: Current every day smoker Smokeless Tobacco Status: No Alcohol use: Reports: none Drug use: Reports: none Physical Exam General: moderate pain with inspiration and mild dyspnea. Head: Normocephalic Atraumatic Eyes: PERRL ENT: Airway patent, no stridor Neck: supple Chest: Diffuse wheezing with decreased breath sounds at the bases. Cardiac: Regular rhythm Abdomen: soft, nontender, nondistended; no guarding, rebound, or tenderness to percussion Musculoskeletal: Calves symmetric, nontender, Skin: No rash, normal skin tone Neuro: Awake alert and oriented and answers questions apropriatley; No focal deficit - General Limitations: no limitations General appearance: alert Course - Reevaluation(s) Reevaluation #1: Patient playing a pain. Pain medication ordered. The patient had a chest CT which shows concern for chronic aspiration. Given his long symptoms and stress we will cover the patient for possible aspiration pneumonia. Patient has not had any recent hospital stays. The patient's CT scan of the chest did not show any rib fractures. He does have a CT scan from 2 days ago showing transverse process fractures as well as a lower rib fracture. Patient is artery filled outpatient management. Will admit to the hospitalist service. Reevaluation #2: Patient had runs of V. tach. Discussed with cardiology as below. Patient was placed on increased oxygen requirement and has no longer had further episodes. - Consultations Consultation #1: Discussed with cardiology, Dr. Lorenzo, patient has a history of nonsustained V. tach. He states there is no other needs or recommendations at this time. He has no further recommendations. Consultation #2: Patient discussed with hospitalist. Patient accepted for admission. Vital Signs Temperature 98.2 F 02/11/18 12:54 Pulse Rate 74 02/11/18 12:54 Respiratory Rate 18 02/11/18 12:54 Blood Pressure 144/117 02/11/18 12:54 O2 Sat by Pulse Oximetry 90 02/11/18 12:54 Temperature 97.5 F L 02/11/18 18:15 Pulse Rate 89 02/11/18 18:15 Respiratory Rate 14 02/11/18 18:15 Blood Pressure 129/72 02/11/18 18:15 O2 Sat by Pulse Oximetry 95 02/11/18 18:15 Oxygen Delivery Oxygen Delivery Nasal Cannula Medical Decision Making - Lab Data Result diagrams: 02/11/18 13:13 02/11/18 13:13 Lab Results 02/11/18 02/11/18 02/11/18 Range/Units 13:13 13:13 13:13 WBC 15.1 H (4.3-11.1) K/mcL RBC 3.89 L (4.19-5.50) M/mcL Hgb 11.4 L (12.9-16.9) g/dL Hct 37.4 L (37.5-50.1) % MCV 96.1 (83.0-100.0) fL MCH 29.3 (28.0-33.3) pg MCHC 30.5 L (31.6-35.5) g/dL RDW 13.9 (11.5-14.5) % Plt Count 265 (140-400) K/mcL MPV 9.8 (9.4-12.4) fL Immature Gran % 0.5 (0-4) % Seg Neutrophils % 80.8 % Lymphocytes % 10.2 % Monocytes % 7.6 % Eosinophils % 0.7 % Basophils % 0.2 % Neutrophils # 12.2 H (1.6-8.9) K/mcL Lymphocytes # 1.6 (0.6-4.6) K/mcL Monocytes # 1.2 (0.0-1.3) K/mcL Eosinophils # 0.1 (0.0-0.6) K/mcL Basophils # 0.0 (0.0-0.2) K/mcL Sodium 145 (136-145) mEq/L Potassium 3.3 L (3.5-5.1) mEq/L Chloride 105 (98-107) mEq/L Carbon Dioxide 30 H (23-29) mEq/L BUN 33 H (8-23) mg/dL Creatinine 0.82 (0.70-1.30) mg/dL Est GFR ( Amer) > 60 (> 60) Est GFR (Non-Af Amer) > 60 (> 60) BUN/Creatinine Ratio 40 H (6-26) Glucose 139 H (70-105) mg/dL Calculated Osmolality 310 H (280-300) Lactic Acid 2.8 H (0.5-2.2) mmol/L Calcium 9.0 (8.6-10.3) mg/dL Creatine Kinase 76 (30-223) Units/L Troponin I < 0.03 (< 0.04) ng/mL B-Natriuretic Peptide (Less than 100) pg/mL 02/11/18 02/11/18 02/11/18 Range/Units 13:13 15:32 17:06 WBC (4.3-11.1) K/mcL RBC (4.19-5.50) M/mcL Hgb (12.9-16.9) g/dL Hct (37.5-50.1) % MCV (83.0-100.0) fL MCH (28.0-33.3) pg MCHC (31.6-35.5) g/dL RDW (11.5-14.5) % Plt Count (140-400) K/mcL MPV (9.4-12.4) fL Immature Gran % (0-4) % Seg Neutrophils % % Lymphocytes % % Monocytes % % Eosinophils % % Basophils % % Neutrophils # (1.6-8.9) K/mcL Lymphocytes # (0.6-4.6) K/mcL Monocytes # (0.0-1.3) K/mcL Eosinophils # (0.0-0.6) K/mcL Basophils # (0.0-0.2) K/mcL Sodium (136-145) mEq/L Potassium (3.5-5.1) mEq/L Chloride (98-107) mEq/L Carbon Dioxide (23-29) mEq/L BUN (8-23) mg/dL Creatinine (0.70-1.30) mg/dL Est GFR ( Amer) (> 60) Est GFR (Non-Af Amer) (> 60) BUN/Creatinine Ratio (6-26) Glucose (70-105) mg/dL Calculated Osmolality (280-300) Lactic Acid 1.8 1.5 (0.5-2.2) mmol/L Calcium (8.6-10.3) mg/dL Creatine Kinase (30-223) Units/L Troponin I (< 0.04) ng/mL B-Natriuretic Peptide 60 (Less than 100) pg/mL
[2018-02-11 13:34] LABS: Basophils % 0.2 %; Eosinophils # 0.1 K/mcL (0.0-0.6); Eosinophils % 0.7 %; Hematocrit 37.4 % (37.5-50.1); Hemoglobin 11.4 g/dL (12.9-16.9); Immature Granulocytes % 0.5 % (0-4); Lymphocytes # 1.6 K/mcL (0.6-4.6); Lymphocytes % 10.2 %; Mean Corpuscular HGB Conc 30.5 g/dL (31.6-35.5); Mean Corpuscular Hemoglobin 29.3 pg (28.0-33.3); Mean Corpuscular Volume 96.1 fL (83.0-100.0); Mean Platelet Volume 9.8 fL (9.4-12.4); Monocytes # 1.2 K/mcL (0.0-1.3); Monocytes % 7.6 %; Neutrophils # 12.2 K/mcL (1.6-8.9); Platelet Count 265 K/mcL (140-400); Red Blood Count 3.89 M/mcL (4.19-5.50); Red Cell Distribution Width 13.9 % (11.5-14.5); Segmented Neutrophils % 80.8 %
[2018-02-11 13:48] LABS: Troponin I < 0.03 ng/mL (< 0.04)
[2018-02-11] MEDS ORDERED: *HR* FentaNYL (PF) 100 MCG/2 ML VIAL IVP ONE (14:01)
[2018-02-11] MEDS ORDERED: 0.9 % Sodium Chloride 1,000 ML IVC ONE (14:01)
[2018-02-11] MEDS ORDERED: Ondansetron 4 MG/2 ML VIAL IVP ONE (14:01)
[2018-02-11] MEDS ORDERED: *HR* OxyCODONE Immed Rel 5 MG TABLET PO STA (14:01)
[2018-02-11 14:03] LABS: BUN/Creatinine Ratio 40 (6-26); Blood Urea Nitrogen 33 mg/dL (8-23); Carbon Dioxide 30 mEq/L (23-29); Chloride 105 mEq/L (98-107); Creatine Kinase 76 Units/L (30-223); Glucose 139 mg/dL (70-105); Osmolality,Calculated 310 (280-300); Potassium 3.3 mEq/L (3.5-5.1); Sodium 145 mEq/L (136-145); eGFR For Non-African Americans > 60 (> 60)
[2018-02-11] MEDS ORDERED: Ampicillin/Sulbactam 3,000 MG in 0.9 % Sodium Chloride Mini Bag 100 ML IVPB STA (14:40)
[2018-02-11] MEDS ORDERED: Naloxone 0.4 MG/ML INJ IVP PRN (15:12)
[2018-02-11] MEDS ORDERED: Acetaminophen 325 MG TABLET PO PRN (15:12)
[2018-02-11] MEDS ORDERED: Albuterol 2.5 MG/3 ML NEBULIZER IH PRN (15:17)
--- NOTE | 2018-02-11 17:50 | Internal Med History&Physical ---
Date of Encounter: 02/11/18 Time of Encounter: 17:40 Internal Medicine - H&P: HPI Chief complaint: Short of breath Admitted From: Emergency Dept Plans for Post Hospital Care: Home History of present illness: Mr. Jones is a 77 year old male with hx of CHF, COPD and tremor presented to ED with complaints of worsening dyspnea. Pt was just discharged from here last week. He had a fall in the last 1-2 days and was seen in ED and discharged with presumed fracture of ribs. He has been unable to move due to pain and had worsening dypnea. No fever or chills. He was evaluated and is being admitted. Mr Jones stated he has had progressive dyspnea since discharge but has been worse after the fall. He has increased pain with breathing and was sharp in nature. No fever. No diarrhea or other GI issues. He has not been able to move due to pain and has not taken some meds. He couldn't stand it today and came in. Nothing made it better and moving made it worse. At this time he is comfortable resting on cart in ED. Past Med Surg Social Fam HX - Past Medical History Source: patient, old records reviewed Medical history: cancer, cardiomyopathy, CHF, COPD, coronary artery disease, hepatitis, hyperlipidemia, liver disease, other Additional medical history: pt unable to provide accurate medical history. Psychiatric history: anxiety, depression, prior suicide attempt - Past Surgical History Surgical History: pacemaker/AICD - Social History Smoking Status: Current every day smoker Smokeless Tobacco Status: No Alcohol use: none Drug use: none Current living situation: Home - Family History Mother Living Status: Hx Family Cardiac Disorders: Yes ( FROM HEART ATTACK,) Hx Family Neurologic Disorders: Yes (STROKES) Internal Medicine - H&P: Meds Aspirin Enteric Coated [Aspirin EC] 81 mg PO DAILY #0 12/07/14 [History] Nitroglycerin 0.4 mg SL Q5MIN PRN #0 tab.subl 08/04/15 [Rx] Spironolactone [Aldactone] 12.5 mg PO DAILY #30 tablet 08/04/15 [Rx] Omeprazole [PriLOSEC] 20 mg PO DAILY 10/28/15 [History] Losartan [Cozaar] 25 mg PO DAILY 10/05/17 [History] Metoprolol Succinate [Toprol Xl] 25 mg PO DAILY 10/05/17 [History] Mirtazapine [Remeron] 30 mg PO HS 10/05/17 [History] Paroxetine HCl [Paxil] 20 mg PO DAILY 10/05/17 [History] Primidone [Mysoline] 50 mg PO HS 10/05/17 [History] Tamsulosin [Flomax] 0.4 mg PO DAILY 10/05/17 [History] LORazepam [Ativan] 1 mg PO TID PRN 02/03/18 [History] Megestrol Acetate 20 mg PO BID 02/03/18 [History] Simvastatin [Zocor] 40 mg PO DAILY 02/03/18 [History] traZODone [TraZODone] 50 mg PO HS 02/03/18 [History] OxyCODONE/APAP 5/325 [Percocet 5/325 MG] 1 each PO Q6HR PRN 3 Days #12 tablet 02/09/18 [Rx] Allergy/AdvReac Type Severity Reaction Status Date / Time No Known Allergies Allergy Verified 02/09/18 10:02 All Systems PM: A 10-system review of systems was performed and is negative for pertinent findings except as documented above in the HPI. - Constitutional Constitutional: anorexia, fatigue, lethargy, malaise, weight loss - EENT Eyes: no change in vision, no pain Ears: no decreased hearing Nose, mouth and throat: no dry mouth, no mouth pain, no nasal discharge - Cardiovascular Cardiovascular ROS IM: chest pain (Due to fall), dyspnea, dyspnea on exertion, no edema, no palpitations - Respiratory Respiratory: cough, dyspnea, dyspnea on exertion, pain on inspiration, chest congestion - Gastrointestinal Gastrointestinal: no abdominal pain, no diarrhea, no loose stools, no melena - Genitourinary Genitourinary ROS male: no difficulty urinating, no nocturia - Musculoskeletal Musculoskeletal ROS IM: back pain, other (Rib pain) - Integumentary Integumentary IM: no erythema, no rash - Neurological Neurological ROS: tremor(s), no abnormal hearing, no convulsions, no numbness - Endocrine Endocrine IM: no excessive sweating, no flushing - Hematologic/Lymphatic Hematologic/Lymphatic: no easy bleeding - Allergic/Immunologic Allergic/Immunologic: no throat swelling - Constitutional Vitals: Temp Pulse Resp BP Pulse Ox 98.2 F 74 26 144/117 91 02/11/18 12:54 02/11/18 12:54 02/11/18 13:13 02/11/18 12:54 02/11/18 13:13 General appearance: Present: cachectic, cooperative, A&O X 3, underweight Exam: See below - Head Head exam: Present: atraumatic, normocephalic - Eye Eye exam: Present: EOMI, conjuntiva pink - ENT ENT exam: Present: mucous membranes dry - Respiratory Respiratory exam: Present: decreased breath sounds. Absent: rhonchi, wheezes - Cardiovascular Cardiovascular exam: Present: irregular rhythm, +S4, tachycardia - GI/Abdominal GI/Abdominal exam: Present: soft. Absent: mass, tenderness - Extremities Exam Extremities exam: Present: warm. Absent: tenderness - Neurological Exam Neurological exam: Present: alert, oriented X3 Additional comments: Significant resting tremor when awake. - Skin Skin exam: Present: dry, warm. Absent: rash Internal Med - H&P Results - Labs CBC & Chem 7: 02/11/18 13:13 02/11/18 13:13 Labs: Short CBC 02/11/18 Range/Units 13:13 WBC 15.1 H (4.3-11.1) K/mcL Hgb 11.4 L (12.9-16.9) g/dL Hct 37.4 L (37.5-50.1) % Plt Count 265 (140-400) K/mcL Neutrophils # 12.2 H (1.6-8.9) K/mcL BMP 02/11/18 13:13 Sodium 145 Potassium 3.3 L Chloride 105 Carbon Dioxide 30 H BUN 33 H Creatinine 0.82 Glucose 139 H Calcium 9.0 Cardiac Enzymes 02/11/18 Range/Units 13:13 Troponin I < 0.03 (< 0.04) ng/mL - Impressions ITS Impressions Chest CT 02/11/18 12:57 IMPRESSION: Features of chronic recurrent aspiration when compared with prior exam given somewhat similar pattern of basilar predominant tree-in-bud opacity with small airway mucoid impaction, tracheobronchial secretions and esophageal features suggesting dysmotility and reflux. No rib fracture, spinal compression deformity or chest wall soft tissue contusion. D/ / Misha Candelaria / Misha Candelaria Interpreting Provider: Misha Candelaria - Assessment and plan (1) Acute exacerbation of chronic obstructive airways disease Current Visit: No Status: Acute Assessment and plan: Pt with worsening dyspnea at home. Recently discharged following stay for COPD exac. Admit. Oxygen, IV steroids, abx to cover aspiration, aerosols. Will ask PT/OT to see patient prior to discharge. (2) Pneumonia Current Visit: No Status: Suspected Assessment and plan: Pt has CT evidence of significant secretions consistent with acute and/or chronic aspiration. Will continue Unasyn to cover aspiration pneumonia Speech eval to assess swallowing. 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 Qualifiers: Heart failure type: systolic Heart failure chronicity: chronic Qualified Code(s): I50.22 - Chronic systolic (congestive) heart failure (4) Rib fracture Current Visit: No Status: Acute Assessment and plan: Pt recently fell and was diagnosed with rib fractures. He has had significant pain related to this at home. Continue pain management here. Qualifiers: Encounter type: subsequent encounter Rib fracture type: single rib Fracture type: closed Laterality: right Fracture healing: with routine he aling Qualified Code(s): S22.31XD - Fracture of one rib, right side, subs equent encounter for fracture with routine healing (5) Hypokalemia Current Visit: No Status: Acute Assessment and plan: Replace on admission. Recheck tomorrow with magnesium. (6) History of pacemaker Current Visit: No Status: Chronic Assessment and plan: Chronic issue (7) Depression Current Visit: No Status: Chronic Assessment and plan: Supportive care. Qualifiers: Depression Type: major depressive disorder Major depression recurrence: recurrent Active/Remission status: currently active Major depression episode severity: severe Psychotic features: without psychotic features Qualified Code(s): F33.2 - Major depressive disorder, recurrent severe without psychotic features (8) Protein-calorie malnutrition, severe Current Visit: Yes Status: Suspected Assessment and plan: Pt appears significantly malnourished. He is on appetite stimulant which we will continue. (9) Anemia Current Visit: Yes Status: Chronic Assessment and plan: Pt has chronic anemia that appears related to chronic disease (normocytic normochromic). Qualifiers: Anemia type: other cause Other causes of anemia: chronic disease, other Qualified Code(s): D63.8 - Anemia in other chronic diseases classified elsewhere (10) Chronic respiratory failure with hypoxia and hypercapnia Current Visit: Yes Status: Chronic Assessment and plan: On oxygen supplementation. (11) Essential tremor Current Visit: Yes Status: Chronic Assessment and plan: Continue home medications. (12) Tobacco abuse Current Visit: No Status: Chronic Assessment and plan: Continues to smoke. - Time Spent With Patient Total time spent is greater than 50% in coordination of care (as documented) at patient's floor/unit and/or counseling patient:
[2018-02-11] MEDS: Ipratropium/Albuterol Neb 3 ML IH SCH ×2 (18:06→20:30)
[2018-02-11] MEDS: *HR* Heparin 5,000 UNIT/ML VIAL SQ SCH (20:50)
[2018-02-11] MEDS: Ampicillin/Sulbactam 3,000 MG in 0.9 % Sodium Chloride Mini Bag 100 ML IVPB SCH (21:05)
[2018-02-11] MEDS: MethylPREDNISolone 40 MG/ML VIAL IVP SCH (21:05)
[2018-02-12] MEDS: *HR* Heparin 5,000 UNIT/ML VIAL SQ SCH ×4 (00:01→23:25)
[2018-02-12] MEDS: Ampicillin/Sulbactam 3,000 MG in 0.9 % Sodium Chloride Mini Bag 100 ML IVPB SCH ×5 (00:01→23:25)
[2018-02-12] MEDS ORDERED: Potassium Chloride Elixir 20 MEQ/15 ML UDC PO ONE (00:09)
[2018-02-12] MEDS: MethylPREDNISolone 40 MG/ML VIAL IVP SCH ×5 (01:14→23:25)
[2018-02-12] MEDS: Ipratropium/Albuterol Neb 3 ML IH SCH ×4 (04:57→21:57)
[2018-02-12 06:12] LABS: Hematocrit 32.4 % (37.5-50.1); Hemoglobin 9.9 g/dL (12.9-16.9); Mean Corpuscular HGB Conc 30.6 g/dL (31.6-35.5); Mean Corpuscular Hemoglobin 29.8 pg (28.0-33.3); Mean Corpuscular Volume 97.6 fL (83.0-100.0); Mean Platelet Volume 9.9 fL (9.4-12.4); Platelet Count 218 K/mcL (140-400); Red Blood Count 3.32 M/mcL (4.19-5.50)
[2018-02-12 06:49] LABS: BUN/Creatinine Ratio 38 (6-26); Blood Urea Nitrogen 28 mg/dL (8-23); Carbon Dioxide 32 mEq/L (23-29); Chloride 107 mEq/L (98-107); Glucose 160 mg/dL (70-105); Magnesium 2.5 mg/dL (1.6-2.6); Osmolality,Calculated 307 (280-300); Potassium 5.3 mEq/L (3.5-5.1); Sodium 144 mEq/L (136-145); eGFR For Non-African Americans > 60 (> 60)
--- NOTE | 2018-02-12 09:15 | Electrocardiograph Report ---
[employer] Test Date: 2018-02-11 Pat Name: Kristian Jones Department: [id number] Room: [id number] Gender: M [employer]: : [id number] Requested By: Claudy Crowder Order Number: [id number] Reading MD: Jean Palmer Measurements Intervals [place] Rate: 108 P: 58 [place]: 128 QRS: -90 QRSD: 144 T: 20 QT: 378 QTc: 483 Interpretive Statements Atrial-sensed ventricular-paced complexes No further analysis attempted due to paced rhythm Electronically Signed On 02-12-2018 9:14:04 EDT by Jean Palmer
--- NOTE | 2018-02-12 11:29 | Internal Med Progress Note ---
<Nj Dickerson - Last Filed: 02/12/18 16:33> Hospitalist Progress Note - Exam Vitals: Temp Pulse Resp BP Pulse Ox 98.5 F 87 16 108/58 97 02/12/18 11:03 02/12/18 11:03 02/12/18 16:27 02/12/18 11:03 02/12/18 16:27 - Assessment and Plan (1) Acute exacerbation of chronic obstructive airways disease Current Visit: No Status: Acute (2) Pneumonia Current Visit: No Status: Suspected (3) CHF (congestive heart failure) Current Visit: No Status: Chronic (4) Rib fracture Current Visit: Yes Status: Acute (5) Hypokalemia Current Visit: No Status: Resolved (6) History of pacemaker Current Visit: No Status: Chronic (7) Depression Current Visit: No Status: Chronic (8) Protein-calorie malnutrition, severe Current Visit: Yes Status: Chronic (9) Anemia Current Visit: Yes Status: Chronic (10) Chronic respiratory failure with hypoxia and hypercapnia Current Visit: Yes Status: Chronic (11) Essential tremor Current Visit: Yes Status: Chronic (12) Tobacco abuse Current Visit: No Status: Chronic - Time Spent with Patient Total time spent is greater than 50% in coordination of care (as documented) at patient's floor/unit and/or counseling patient: Internal Medicine: Result - Labs CBC & Chem 7: 02/12/18 05:55 02/12/18 05:55 Labs: Short CBC 02/12/18 Range/Units 05:55 WBC 14.9 H (4.3-11.1) K/mcL Hgb 9.9 L D (12.9-16.9) g/dL Hct 32.4 L (37.5-50.1) % Plt Count 218 (140-400) K/mcL BMP 02/12/18 05:55 Sodium 144 Potassium 5.3 H D Chloride 107 Carbon Dioxide 32 H BUN 28 H Creatinine 0.74 Glucose 160 H Calcium 9.0 Consult Discharge Plan - Plan Referrals: NONE,PCP [Primary Care Provider] - - Attending Attestation I examined this patient and my medical decision-making was reviewed with the Resident Physician on 02/12/18. I agree with the documented findings, disposition and treatment plan as described except to the extent set forth below. Mr Jones is currently admitted for acute exac COPD. He remains moderate to high risk due to potential for worsening clinical status. Mr Jones is having some back and hip pain. No fever or chills. Feels he is breathing somewhat better just has some pain. No GI issues. Exam alert Comfortable in bed Mucus membranes dry Heart reg Scattered end exp wheeze noted Abd soft and nontender Tremor present No edema I/P 1. Exac COPD 2. Tremor Further diagnoses and plan as above. <Evgeny Jerez - Last Filed: 02/12/18 18:44> Hospitalist Progress Note - Encounter Date of Encounter: 02/12/18 Time of Encounter: 09:00 - Subjective Interval History: Mr. Jones is a pleasant 77-year-old male with a past medical history of CHF, COPD and essential tremor who presented to the ED with complaints of shortness of breath. Patient had a fall a few days ago and was seen in the ED. CT of the abdomen showed advanced centrilobular and paraseptal emphysema. There were also evidence of scattered tree-in-bud opacities in the right greater than left mid and lower lung zones. acute minimally displaced fracture of the right 11th rib. CT also showed mildly displaced fractures involving the tips of the right L1, L3 and L2 transverse processes. Patient was in no acute distress when I met him this morning. He had some hip pain and was given Tylenol for pain control and felt better. - Exam Vitals: Temp Pulse Resp BP Pulse Ox 98.5 F 87 16 108/58 99 02/12/18 11:03 02/12/18 11:03 02/12/18 11:03 02/12/18 11:03 02/12/18 11:03 Exam: Gen: A&O*3, no acute distress Resp:decreased breath sound b/l Card:RRR, no gallops, murmurs or rubs Abdomen: soft, non-tender, non-distended , no guarding Neuro: tremulous Extremities: no clubbing, cyanosis or edema - Assessment and Plan (1) Chronic respiratory failure with hypoxia and hypercapnia Current Visit: Yes Status: Chronic Assessment and Plan: -likely due to his history of COPD. Patient's most recent chest CT showed evidence of extreme emphysema. Continues to be a smoker. - Physical exam he had decreased breath sounds. No wheezing rales or rhonchi appreciated. - Currently on DuoNeb, supplemental oxygen - Continue to use spirometry to rectify the VQ mismatch secondary to atelectasis. - (2) Acute exacerbation of chronic obstructive airways disease Current Visit: No Status: Acute Assessment and Plan: - Patient has a history of COPD. He is on 3 L of oxygen. endorses he takes albuterol as rescue inhaler. - On physical exam I did not appreciate any bilateral wheezing. He had decreased breath sounds. - Supplemental Oxygen, solumedrol. Titrate oxygen for SPO2 between 80-90%. (3) Pneumonia Current Visit: No Status: Suspected Assessment and Plan: -Agent such chest CT showed features of chronic recurrent aspiration when compared with prior exam -on physical exam patient had some decreased breath sounds bilaterally. WBC tending down 15.1-> 14.9 . No wheezing was appreciated. On speech evaluation patient had no difficulty swallowing thin liquids and regular textured breakfast -Currently on Unasyn for aspiration pneumonia (4) Depression Current Visit: No Status: Chronic Assessment and Plan: -Patient has a history of depression. -Continue home meds. (5) CHF (congestive heart failure) Current Visit: No Status: Chronic Assessment and Plan: Has a history of CHF. His last echocardiogram was done in 2016 which showed an EF of 35-40%. Patient has a pacemaker in place -On physical exam, does not seem to be in CHF exacerbation during his admission. on physical exam, no rales - no evidence of S3 or JVD. -Patient currently on Cozaar and metoprolol (6) Tobacco abuse Current Visit: No Status: Chronic Assessment and Plan: Patient has a history of tobacco abuse. He continues to smoke. -Discussed cessation. (7) Rib fracture Current Visit: Yes Status: Acute Assessment and Plan: Pt recently fell and was diagnosed with rib fractures. CT of the abdomen showed acute minimally displaced fracture of the 11th rib He has had significant pain related to this at home. Pain control PRN. (8) Protein-calorie malnutrition, severe Current Visit: Yes Status: Chronic Assessment and Plan: -Patient has a BMI of 15.5. Patient appears to be significantly malnourished . Curently patient is on Megasterol Acetate to help with appetite stimulation. (9) Anemia Current Visit: Yes Status: Chronic Assessment and Plan: -She has a history of anemia. Likely anemia of chronic disease. - Transfuse packed RBCs if hemoglobin drops down below 7. (10) Essential tremor Current Visit: Yes Status: Chronic Assessment and Plan: Patient has a history of essential tremor. - Continue home medications. (11) Hypokalemia Current Visit: No Status: Resolved Assessment and Plan: -Resolved.. - Time Spent with Patient Total time spent is greater than 50% in coordination of care (as documented) at patient's floor/unit and/or counseling patient: Internal Medicine: Result - Labs CBC & Chem 7: 02/12/18 05:55 02/12/18 05:55 Labs: Short CBC 02/11/18 02/12/18 Range/Units 13:13 05:55 WBC 15.1 H 14.9 H (4.3-11.1) K/mcL Hgb 11.4 L 9.9 L D (12.9-16.9) g/dL Hct 37.4 L 32.4 L (37.5-50.1) % Plt Count 265 218 (140-400) K/mcL Neutrophils # 12.2 H (1.6-8.9) K/mcL BMP 02/11/18 02/12/18 13:13 05:55 Sodium 145 144 Potassium 3.3 L 5.3 H D Chloride 105 107 Carbon Dioxide 30 H 32 H BUN 33 H 28 H Creatinine 0.82 0.74 Glucose 139 H 160 H Calcium 9.0 9.0 Cardiac Enzymes 02/11/18 Range/Units 13:13 Troponin I < 0.03 (< 0.04) ng/mL - Impressions Impressions Chest CT 02/11/18 12:57 IMPRESSION: Features of chronic recurrent aspiration when compared with prior exam given somewhat similar pattern of basilar predominant tree-in-bud opacity with small airway mucoid impaction, tracheobronchial secretions and esophageal features suggesting dysmotility and reflux. No rib fracture, spinal compression deformity or chest wall soft tissue contusion. D/ / Misha Candelaria / Misha Candelaria Interpreting Provider: Misha Candelaria <Nj Dickerson - Last Filed: 02/12/18 16:33> (2) Pneumonia Qualifiers: Pneumonia type: aspiration pneumonia Aspiration pneumonia type: due to gastric secretions Laterality: bilateral Lung location: lower lobe of lung Qualified Code(s): J69.0 - Pneumonitis due to inhalation of food and vomit (3) CHF (congestive heart failure) Qualifiers: Heart failure type: systolic Heart failure chronicity: chronic Qualified Code(s): I50.22 - Chronic systolic (congestive) heart failure (4) Rib fracture Qualifiers: Encounter type: subsequent encounter Rib fracture type: single rib Fracture type: closed Laterality: right Fracture healing: with routine healing Qualified Code(s): S22.31XD - Fracture of one rib, right side, subsequent encounter for fracture with routine healing (7) Depression Qualifiers: Depression Type: major depressive disorder Major depression recurrence: recurrent Active/Remission status: currently active Major depression episode severity: severe Psychotic features: without psychotic features Qualified Code(s): F33.2 - Major depressive disorder, recurrent severe without psychotic features (9) Anemia Qualifiers: Anemia type: other cause Other causes of anemia: chronic disease, other Qualified Code(s): D63.8 - Anemia in other chronic diseases classified elsewhere <Evgeny Jerez - Last Filed: 02/12/18 18:44> (3) Pneumonia Qualifiers: Pneumonia type: aspiration pneumonia Aspiration pneumonia type: due to gastric secretions Laterality: bilateral Lung location: lower lobe of lung Qualified Code(s): J69.0 - Pneumonitis due to inhalation of food and vomit (4) Depression Qualifiers: Depression Type: major depressive disorder Major depression recurrence: recurrent Active/Remission status: currently active Major depression episode severity: severe Psychotic features: without psychotic features Qualified Code(s): F33.2 - Major depressive disorder, recurrent severe without psychotic features (5) CHF (congestive heart failure) Qualifiers: Heart failure type: systolic Heart failure chronicity: chronic Qualified Code(s): I50.22 - Chronic systolic (congestive) heart failure (7) Rib fracture Qualifiers: Encounter type: subsequent encounter Rib fracture type: single rib Fracture type: closed Laterality: right Fracture healing: with routine healing Qualified Code(s): S22.31XD - Fracture of one rib, right side, subsequent encounter for fracture with routine healing (9) Anemia Qualifiers: Anemia type: other cause Other causes of anemia: chronic disease, other Qualified Code(s): D63.8 - Anemia in other chronic diseases classified elsewhere
[2018-02-12] MEDS ORDERED: *HR* LORazepam 1 MG TABLET PO PRN (13:54)
[2018-02-12] MEDS ORDERED: Nitroglycerin 0.4 MG TAB.SUBL SL PRN (13:54)
[2018-02-12] MEDS: *HR* HYDROcodone/Acet 5/325 mg TABLET PO PRN (16:38)
[2018-02-12] MEDS: traZODone 50 MG TABLET PO SCH (20:12)
[2018-02-12] MEDS: *HR* OxyCODONE Immed Rel 5 MG TABLET PO PRN (20:12)
[2018-02-12] MEDS: Primidone 50 MG TABLET PO SCH (20:12)
[2018-02-12] MEDS: Mirtazapine 15 MG TABLET PO SCH (20:12)
[2018-02-12] MEDS: Melatonin 3 MG TABLET PO PRN (23:25)
[2018-02-13] MEDS: Ipratropium/Albuterol Neb 3 ML IH SCH ×4 (03:49→22:02)
[2018-02-13 04:10] LABS: Basophils % 0.1 %; Hematocrit 27.4 % (37.5-50.1); Hemoglobin 8.4 g/dL (12.9-16.9); Immature Granulocytes % 0.6 % (0-4); Lymphocytes # 0.5 K/mcL (0.6-4.6); Lymphocytes % 2.9 %; Mean Corpuscular HGB Conc 30.7 g/dL (31.6-35.5); Mean Corpuscular Hemoglobin 29.5 pg (28.0-33.3); Mean Corpuscular Volume 96.1 fL (83.0-100.0); Mean Platelet Volume 10.5 fL (9.4-12.4); Monocytes # 0.4 K/mcL (0.0-1.3); Monocytes % 2.3 %; Neutrophils # 17.4 K/mcL (1.6-8.9); Platelet Count 212 K/mcL (140-400); Red Blood Count 2.85 M/mcL (4.19-5.50); Segmented Neutrophils % 94.1 %
[2018-02-13 04:28] LABS: BUN/Creatinine Ratio 38 (6-26); Blood Urea Nitrogen 33 mg/dL (8-23); Calcium 8.6 mg/dL (8.6-10.3); Carbon Dioxide 33 mEq/L (23-29); Chloride 102 mEq/L (98-107); Glucose 183 mg/dL (70-105); Osmolality,Calculated 300 (280-300); Potassium 4.4 mEq/L (3.5-5.1); Sodium 139 mEq/L (136-145); eGFR For Non-African Americans > 60 (> 60)
[2018-02-13] MEDS: Ampicillin/Sulbactam 3,000 MG in 0.9 % Sodium Chloride Mini Bag 100 ML IVPB SCH ×3 (05:49→16:59)
[2018-02-13] MEDS: MethylPREDNISolone 40 MG/ML VIAL IVP SCH ×2 (05:49→13:35)
[2018-02-13] MEDS: Metoprolol XL (24 HR) Succ 25 MG TAB.ER.24H PO SCH (09:59)
[2018-02-13] MEDS: *HR* Heparin 5,000 UNIT/ML VIAL SQ SCH ×2 (09:59→16:59)
[2018-02-13] MEDS: Spironolactone 25 MG TABLET PO SCH (09:59)
[2018-02-13] MEDS: Aspirin Enteric Coated 81 MG Tablet PO SCH (09:59)
[2018-02-13] MEDS: Nicotine 21 MG PATCH.TD24 TD SCH (10:00)
--- NOTE | 2018-02-13 10:43 | Internal Med Progress Note ---
<Nj Dickerson - Last Filed: 02/13/18 14:13> Hospitalist Progress Note - Exam Vitals: Temp Pulse Resp BP Pulse Ox 98.3 F 82 16 109/60 98 02/13/18 07:08 02/13/18 07:08 02/13/18 10:48 02/13/18 07:08 02/13/18 10:48 - Assessment and Plan (1) Depression Current Visit: No Status: Chronic (2) Hypokalemia Current Visit: No Status: Resolved (3) Pneumonia Current Visit: No Status: Suspected (4) CHF (congestive heart failure) Current Visit: No Status: Chronic (5) Acute exacerbation of chronic obstructive airways disease Current Visit: No Status: Acute (6) Tobacco abuse Current Visit: No Status: Chronic (7) Rib fracture Current Visit: Yes Status: Acute (8) Protein-calorie malnutrition, severe Current Visit: Yes Status: Chronic (9) Anemia Current Visit: Yes Status: Chronic (10) Chronic respiratory failure with hypoxia and hypercapnia Current Visit: Yes Status: Chronic (11) Essential tremor Current Visit: Yes Status: Chronic - Time Spent with Patient Total time spent is greater than 50% in coordination of care (as documented) at patient's floor/unit and/or counseling patient: Internal Medicine: Result - Labs CBC & Chem 7: 02/13/18 03:15 02/13/18 03:15 Labs: Short CBC 02/13/18 Range/Units 03:15 WBC 18.5 H (4.3-11.1) K/mcL Hgb 8.4 L D (12.9-16.9) g/dL Hct 27.4 L (37.5-50.1) % Plt Count 212 (140-400) K/mcL Neutrophils # 17.4 H (1.6-8.9) K/mcL BMP 02/13/18 03:15 Sodium 139 Potassium 4.4 Chloride 102 Carbon Dioxide 33 H BUN 33 H Creatinine 0.87 Glucose 183 H Calcium 8.6 - Impressions Impressions Hip X-Ray 02/12/18 20:23 IMPRESSION: No acute fracture or dislocation. D/ / Parmjit Camarillo MD / Parmjit Camarillo MD Interpreting Provider: Parmjit Camarillo MD Consult Discharge Plan - Plan Referrals: NONE,PCP [Primary Care Provider] - - Attending Attestation I examined this patient and my medical decision-making was reviewed with the Resident Physician on 02/13/18. I agree with the documented findings, disposition and treatment plan as described except to the extent set forth below. Mr Jones is currently admitted for acute exac COPD. He remains moderate to high risk due to potential for worsening clinical status. Mr Jones was very upset last night. He was talking about a gun. He then said he was just mad. No fever or chills. No CP. Breathing about the same. No GI issues. Working on discharge arrangements Exam Alert Mod resp distress but seems to be chronic Mucus membranes dry Heart not tachy Scant wheeze heard Abd soft No edema Moves all extremities I/P 1. Acute exac COPD 2. Rib fracture Further diagnoses and plan as above. Discharge planning. <Evgeny Jerez - Last Filed: 02/13/18 17:15> Hospitalist Progress Note - Encounter Date of Encounter: 02/13/18 Time of Encounter: 08:30 - Subjective Interval History: 02/13/18 I saw Mr. Jones at the bedside this morning. He was eating his breakfast and endorses no acute distress. Denies any chest pain or worsening shortness of breath, productive cough or sputum. He continues to be on 3 L of home oxygen satting at 98%. Denies any episodes of dysuria. He did endorse constipation and I ordered some Colace and Miralax PRN. Patient is back on his home medications right now. From the nurses I learnt that patient was endorsing signs of suicidality and mentioned that he would commit one if he had the gun. 02/12/18 Mr. Jones is a pleasant 77-year-old male with a past medical history of CHF, COPD and essential tremor who presented to the ED with complaints of shortness of breath. Patient had a fall a few days ago and was seen in the ED. CT of the abdomen showed advanced centrilobular and paraseptal emphysema. There were also evidence of scattered tree-in-bud opacities in the right greater than left mid and lower lung zones. acute minimally displaced fracture of the right 11th rib. CT also showed mildly displaced fractures involving the tips of the right L1, L3 and L2 transverse processes. Patient was in no acute distress when I met him this morning. He had some hip pain and was given Tylenol for pain control a nd felt better. - Exam Vitals: Temp Pulse Resp BP Pulse Ox 98.3 F 82 18 109/60 98 02/13/18 07:08 02/13/18 07:08 02/13/18 07:08 02/13/18 07:08 02/13/18 07:08 Exam: Gen: A&O*3, no acute distress Resp:decreased breath sound b/l , no wheezing Card:RRR, no gallops, murmurs or rubs Abdomen: soft, non-tender, non-distended , no guarding Neuro: tremulous Extremities: no clubbing, cyanosis or edema - Assessment and Plan (1) Chronic respiratory failure with hypoxia and hypercapnia Current Visit: Yes Status: Chronic Assessment and Plan: -likely due to his history of COPD. Patient's most recent chest CT showed evidence of extreme emphysema. Continues to be a smoker. - Physical exam he had decreased breath sounds. No wheezing rales or rhonchi appreciated. - Currently on DuoNeb, supplemental oxygen, currently on 20 mg PO prednisone. - Continue to use spirometry to rectify the VQ mismatch secondary to atelectasis. - (2) Acute exacerbation of chronic obstructive airways disease Current Visit: No Status: Acute Assessment and Plan: - Patient has a history of COPD. He is on 3 L of oxygen. endorses he takes albuterol as rescue inhaler. - On physical exam I did not appreciate any bilateral wheezing. He had decreased breath sounds. - Supplemental Oxygen, solumedrol transitioned to 20 mg prednisone Titrate oxygen for SPO2 between 88-90%. (3) Goals of care, counseling/discussion Current Visit: Yes Status: Acute Assessment and Plan: Patient has a history of chronic COPD with extensive emphysema, BMI of 15.5, essential tremor. Has history of depression and was endorsing some suicidal ideations yesterday thoughts of harming himself if he had a gun. Palliative team had a discussion with him at length about goals of care and patient endorses that if he had a cardiac arrest, he would like to comfortably and denied any intervention like chest compressions or intubation. (4) Pneumonia Current Visit: No Status: Suspected Assessment and Plan: -Patient's chest CT showed features of chronic recurrent aspiration when compared with prior exam. -on physical exam patient had some decreased breath sounds bilaterally. Continues to be leukocytotic with a WBC of 18.5. No wheezing was appreciated. On speech evaluation patient had no difficulty swallowing thin liquids and regular textured breakfast -Currently on Unasyn day 3 for aspiration pneumonia (5) Depression Current Visit: No Status: Chronic Assessment and Plan: -Patient has a history of depression. Was endorsing some suicidal thoughts overnight. -Continue home meds. (6) CHF (congestive heart failure) Current Visit: No Status: Chronic Assessment and Plan: Has a history of CHF. His last echocardiogram was done in 2016 which showed an EF of 35-40%. Patient has a pacemaker in place -On physical exam, does not seem to be in CHF exacerbation during his admission. on physical exam, no rales - no evidence of S3 or JVD. -Patient currently on Cozaar and metoprolol (7) Tobacco abuse Current Visit: No Status: Chronic Assessment and Plan: Patient has a history of tobacco abuse. He continues to smoke. -Discussed cessation. (8) Rib fracture Current Visit: Yes Status: Acute Assessment and Plan: Pt recently fell and was diagnosed with rib fractures. CT of the abdomen showed acute minimally displaced fracture of the 11th rib He has had significant pain related to this at home. Pain control PRN. (9) Protein-calorie malnutrition, severe Current Visit: Yes Status: Chronic Assessment and Plan: -Patient has a BMI of 15.5. Patient appears to be significantly malnourished . Curently patient is on Megasterol Acetate to help with appetite stimulation. (10) Anemia Current Visit: Yes Status: Chronic Assessment and Plan: -He has a history of anemia. Likely anemia of chronic disease. Current hemoglobin is 8.4 - Transfuse packed RBCs if hemoglobin drops down below 7. (11) Essential tremor Current Visit: Yes Status: Chronic Assessment and Plan: Patient has a history of essential tremor. - Continue home medications. (12) Hypokalemia Current Visit: No Status: Resolved Assessment and Plan: -Resolved.. - Time Spent with Patient Total time spent is greater than 50% in coordination of care (as documented) at patient's floor/unit and/or counseling patient: Internal Medicine: Result - Labs CBC & Chem 7: 02/13/18 03:15 02/13/18 03:15 Labs: Short CBC 02/13/18 Range/Units 03:15 WBC 18.5 H (4.3-11.1) K/mcL Hgb 8.4 L D (12.9-16.9) g/dL Hct 27.4 L (37.5-50.1) % Plt Count 212 (140-400) K/mcL Neutrophils # 17.4 H (1.6-8.9) K/mcL BMP 02/13/18 03:15 Sodium 139 Potassium 4.4 Chloride 102 Carbon Dioxide 33 H BUN 33 H Creatinine 0.87 Glucose 183 H Calcium 8.6 - Impressions Impressions Hip X-Ray 02/12/18 20:23 IMPRESSION: No acute fracture or dislocation. D/ / Parmjit Camarillo MD / Parmjit Camarillo MD Interpreting Provider: Parmjit Camarillo MD <Nj Dickerson - Last Filed: 02/13/18 14:13> (1) Depression Qualifiers: Depression Type: major depressive disorder Major depression recurrence: recurrent Active/Remission status: currently active Major depression episode severity: severe Psychotic features: without psychotic features Qualified Code(s): F33.2 - Major depressive disorder, recurrent severe without psychotic features (3) Pneumonia Qualifiers: Pneumonia type: aspiration pneumonia Aspiration pneumonia type: due to gastric secretions Laterality: bilateral Lung location: lower lobe of lung Qualified Code(s): J69.0 - Pneumonitis due to inhalation of food and vomit (4) CHF (congestive heart failure) Qualifiers: Heart failure type: systolic Heart failure chronicity: chronic Qualified Code(s): I50.22 - Chronic systolic (congestive) heart failure (7) Rib fracture Qualifiers: Encounter type: subsequent encounter Rib fracture type: single rib Fracture type: closed Laterality: right Fracture healing: with routine healing Qualified Code(s): S22.31XD - Fracture of one rib, right side, subsequent encounter for fracture with routine healing (9) Anemia Qualifiers: Anemia type: other cause Other causes of anemia: chronic disease, other Qualified Code(s): D63.8 - Anemia in other chronic diseases classified elsewhere <Evgeny Jerez - Last Filed: 02/13/18 17:15> (4) Pneumonia Qualifiers: Pneumonia type: aspiration pneumonia Aspiration pneumonia type: due to gastric secretions Laterality: bilateral Lung location: lower lobe of lung Qualified Code(s): J69.0 - Pneumonitis due to inhalation of food and vomit (5) Depression Qualifiers: Depression Type: major depressive disorder Major depression recurrence: recurrent Active/Remission status: currently active Major depression episode severity: severe Psychotic features: without psychotic features Qualified Code(s): F33.2 - Major depressive disorder, recurrent severe without psychotic features (6) CHF (congestive heart failure) Qualifiers: Heart failure type: systolic Heart failure chronicity: chronic Qualified Code(s): I50.22 - Chronic systolic (congestive) heart failure (8) Rib fracture Qualifiers: Encounter type: subsequent encounter Rib fracture type: single rib Fracture type: closed Laterality: right Fracture healing: with routine healing Qualified Code(s): S22.31XD - Fracture of one rib, right side, subsequent encounter for fracture with routine healing (10) Anemia Qualifiers: Anemia type: other cause Other causes of anemia: chronic disease, other Qualified Code(s): D63.8 - Anemia in other chronic diseases classified elsewhere
--- NOTE | 2018-02-13 16:00 | Palliative - Consult Note ---
<Elizabeth Morgan - Last Filed: 02/13/18 16:21> Date of Encounter: 02/13/18 Time of Encounter: 13:00 - Assessment and Plan (1) Goals of care, counseling/discussion Current Visit: Yes Status: Acute Assessment and plan: Had a discussion with Mr. Jones about goals of care. First he was asked how he currently feels with his health and what his expectations are. He noted he understands that he has presented to the hospital twice recently and feels he is able to take care of himself with the help of home aids. He stated because he likes to smoke he would have a difficult time at a facility and would be more comfortable if he can rather go home with more help. We also discussed that if that does not happen as he may still require more assistance than he currently has, would be be agreeable to going to a facility. He stated that for a short term period he would be open to a facility but his end goal would be to return home where he is most comfortable. He would like to have his pneumonia treated and stay comfortable. We also discussed in case of a cardiac arrest what he would want as resuscitation measures and he stated to let him comfortable. He does not want chest compressions or intubation. (2) Protein-calorie malnutrition, severe Current Visit: Yes Status: Acute Assessment and plan: His BMI 15.5. Likely low weight due to unable to take care of himself at home. He noted he goes a corner store for cookies, milk and bread. His BMI is likely low due to chronic poor nutrition intake. Primary team has megace ordered and he is intaking all of his meals. (3) Depression Current Visit: Yes Status: Acute Assessment and plan: He noted history of hopelessness. Today he denied any current depressive episodes. He stated his mood is stable and he understands his current social situations as he is unable to take care of himself at home. He mentioned the aids help him and he is comfortable at home. He has no current plans of hurting himself. Currently on trazadone, mirtazapine and paroxetine. Qualifiers: Depression Type: unspecified Qualified Code(s): F32.9 - Major depressive disorder, single episode, unspecified (4) COPD (chronic obstructive pulmonary disease) Current Visit: Yes Status: Acute Assessment and plan: History of centrilobular and parasptal emphysema. Currently on 3 liters of oxygen and is also on 3 liters of oxygen. Being managed by primary team. Qualifiers: COPD type: emphysema Emphysema type: centrilobular Qualified Code(s): J43.2 - Centrilobular emphysema (5) Rib fracture Current Visit: Yes Status: Acute Assessment and plan: On 02/09 he was note to have rib fracture of his right 11th rib after he sustained a fall at home. Currently on pain regimen, receiving roxicodone. He is comfortable in bed today, not complaining of any pain. Continue pain management. Qualifiers: Rib fracture type: single rib Laterality: right Fracture healing: with nonunion Qualified Code(s): S22.31XK - Fracture of one rib, right side, subsequent encounter for fracture with nonunion (6) Tobacco abuse Current Visit: Yes Status: Acute Assessment and plan: He is a current smoker and is on home oxygen. Discussed the danger of continuing to smoke. Currently on a nicotine patch. Palliative-CN HPI - Data of Consult Patient: new to practice Requesting Physician: Nj Dickerson DO Primary Care Provider: PCP NONE - Consult Narrative Palliative Care/Comfort Measures: Palliative care History of present illness: Mr. Jones is a 77 year old male who was presented to the hospital for worsening dyspnea. He has history of COPD on home 3 liters of oxygen. He also has history of CHF with EF of 35 to 40% 2 years ago, and tremors. He had recently presented to the ED on 02/09 due to a fall in his bathroom and his vp home health found him. He required assistance at that time to get up from the floor; EMS was called and he was brought to the ED. In the ED he was noted to have sustained a displaced rib fracture to the 11th rib. He was discharged home after that ED presentation. On 02/11 he noted more difficulty with breathing at home even on his home oxygen. He continues to have difficulty with mobility and noted several episodes of urinary accidents on his couch due to lack of mobility. He also stated that he has an aid that comes to work for him but noted one of the aid is not reliable and does not always show up. Today he is comfortable in bed and not complaining of anything. He asked when he could be discharged home and we discussed goals of care. He denied any symptoms of suicide ideation. He denied having a plan to hurt himself. He stated he understands his prognosis and just wants to be comfortable, preferrably at home. He denied worsening shortness of breath, f ever, chills, nausea, emesis, chest pain or abdominal pain. CC: Nj Dickerson, DO - Time Spent with Patient Time: Total time spent is greater than 50% in coordination of care (as documented) at patient's floor/unit and/or counseling patient: 25 - 35 minutes Past Med Surg Social Fam HX - Past Medical History Medical history: cancer, cardiomyopathy, CHF, COPD, coronary artery disease, h epatitis, hyperlipidemia, liver disease, other Additional medical history: pt unable to provide accurate medical history. Psychiatric history: anxiety, depression, prior suicide attempt - Past Surgical History Surgical History: pacemaker/AICD - Social History Smoking Status: Current every day smoker Smokeless Tobacco Status: No Alcohol use: none Drug use: none - Family History Mother Living Status: Hx Family Cardiac Disorders: Yes ( FROM HEART ATTACK,) Hx Family Neurologic Disorders: Yes (STROKES) Medications and Allergies Aspirin Enteric Coated [Aspirin EC] 81 mg PO DAILY #0 12/07/14 [History] Nitroglycerin 0.4 mg SL Q5MIN PRN #0 tab.subl 08/04/15 [Rx] Spironolactone [Aldactone] 12.5 mg PO DAILY #30 tablet 08/04/15 [Rx] Omeprazole [PriLOSEC] 20 mg PO DAILY 10/28/15 [History] Losartan [Cozaar] 25 mg PO DAILY 10/05/17 [History] Metoprolol Succinate [Toprol Xl] 25 mg PO DAILY 10/05/17 [History] Mirtazapine [Remeron] 30 mg PO HS 10/05/17 [History] Paroxetine HCl [Paxil] 20 mg PO DAILY 10/05/17 [History] Primidone [Mysoline] 50 mg PO HS 10/05/17 [History] Tamsulosin [Flomax] 0.4 mg PO DAILY 10/05/17 [History] LORazepam [Ativan] 1 mg PO TID PRN 02/03/18 [History] Megestrol Acetate 20 mg PO BID 02/03/18 [History] Simvastatin [Zocor] 40 mg PO DAILY 02/03/18 [History] traZODone [TraZODone] 50 mg PO HS 02/03/18 [History] Allergy/AdvReac Type Severity Reaction Status Date / Time No Known Allergies Allergy Verified 02/09/18 10:02 - Constitutional Constitutional ROS PAL: no chills, no fever(s) - EENT Eyes: no change in vision, no loss of vision Ears, nose, mouth, throat: no dysphagia - Cardiovascular Cardiovascular ROS: no chest pain, no diaphoresis, no edema - Respiratory Respiratory: dyspnea (chronic and unchaged today, comfortable on 3 liters of oxygen), no cough, no wheezing, no stridor, no pain on inspiration - Gastrointestinal Gastrointestinal: no abdominal pain, no diarrhea, no nausea, no vomiting - Musculoskeletal Musculoskeletal ROS IM: no muscle weakness - Integumentary ROS Integumentary: no dry skin, no erythema - Neurological Neurological ROS: frequent falls, tremor(s), no abnormal speech - Psychiatric Psychiatric general PM: no behavioral changes, no depression, no hopelessness Palliative Care-Exam - Constitutional Vitals: Temp Pulse Resp BP Pulse Ox 98.3 F 82 16 109/60 98 02/13/18 07:08 02/13/18 07:08 02/13/18 10:48 02/13/18 07:08 02/13/18 10:48 General appearance: Present: no acute distress - Head Head Exam: Present: atraumatic, normocephalic - Eye Eye exam: Present: sclera anicteric. Absent: conjunctival injection - ENT ENT exam: Present: mucous membranes moist - Neck Neck exam: Present: full ROM, normal inspection. Absent: tenderness - Respiratory Respiratory exam: Present: CTAB. Absent: rhonchi, stridor, wheezes - Cardiovascular Cardiovascular exam: Present: RRR, +S1, +S2 - GI/Abdominal Exam GI/Abdominal exam: Present: normal bowel sounds, soft. Absent: firm, mass, te nderness - Extremities Exam Extremities exam: Present: normal inspection. Absent: calf tenderness, pedal edema, tenderness Additional comments: pulses 2/4 bilateral lower extremities - Neurological Exam Neurological exam: Present: alert, oriented X3. Absent: speech deficit Additional comments: resting tremors - Psychiatric Psychiatric exam: Present: normal affect, normal mood. Absent: agitated - Skin Skin exam: Present: dry, warm. Absent: diaphoretic, erythema - Expanded Skin Exam Type of lesion: Absent: rash Internal Medicine - CN: Reslt - Labs CBC & Chem 7: 02/13/18 03:15 02/13/18 03:15 Labs: Short CBC 02/13/18 Range/Units 03:15 WBC 18.5 H (4.3-11.1) K/mcL Hgb 8.4 L D (12.9-16.9) g/dL Hct 27.4 L (37.5-50.1) % Plt Count 212 (140-400) K/mcL Neutrophils # 17.4 H (1.6-8.9) K/mcL BMP 02/13/18 03:15 Sodium 139 Potassium 4.4 Chloride 102 Carbon Dioxide 33 H BUN 33 H Creatinine 0.87 Glucose 183 H Calcium 8.6 - Impressions Impressions Hip X-Ray 02/12/18 20:23 IMPRESSION: No acute fracture or dislocation. D/ / Parmjit Camarillo MD / Parmjit Camarillo MD Interpreting Provider: Parmjit Camarillo MD Consult Discharge Plan - Plan Referrals: NONE,PCP [Primary Care Provider] - Palliative Quality Palliative Quality: Screen for Code Status: Yes, Screen for Goals of Care: Yes, Screen for Pain: Yes, If Pain Regimen Started, Initiate Bowel Regimen: Yes, Screen for Nausea/Vomitting: Yes Code Status: 02/11/18 15:12 Resuscitation Status: Active [RES] Routine Comment: Resuscitation Status: Full Code Resuscitation Status: Active [RES] Routine Comment: From recent admission Resuscitation Status: [id number] <Abby Fregoso - Last Filed: 02/14/18 09:54> Palliative-CN HPI - Data of Consult Requesting Physician: Nj Dickerson DO Primary Care Provider: PCP NONE - Consult Narrative History of present illness: Mr. Jones is a 77 year old male CC: Nj Dickerson DO - Time Spent with Patient Time: Total time spent is greater than 50% in coordination of care (as documented) at patient's floor/unit and/or counseling patient: Palliative Care-Exam - Constitutional Vitals: Temp Pulse Resp BP Pulse Ox 98.0 F 84 24 111/58 97 02/14/18 08:31 02/14/18 08:31 02/14/18 08:31 02/14/18 08:31 02/14/18 08:31 Internal Medicine - CN: Reslt - Labs CBC & Chem 7: 02/14/18 04:22 02/13/18 03:15 Labs: Short CBC 02/14/18 Range/Units 04:22 WBC 15.3 H (4.3-11.1) K/mcL Hgb 8.8 L (12.9-16.9) g/dL Hct 28.5 L (37.5-50.1) % Plt Count 216 (140-400) K/mcL Neutrophils # 12.7 H (1.6-8.9) K/mcL - Attending Attestation I performed a history and physical examination of the patient and discussed his management with the resident. I reviewed the residents note and agree with the documented findings and plan of care, except as follow: Pt at the time of exam stated to be comfortable, on oxygen, but notice a drop in saturation with movement. Discussed with pt his current medical conditions, trajectory of illness, overall poor prognosis and treatment option. Pt is aware that he has been declining, and that it has been increasingly harder for him to care for himself at home. Patient stated that the most important things for him at this time are to go home, and to be allowed to smoke. discussed that he may not be able to improve enough and that it is unsafe for him to return home. Pt stated that he is still hopeful that with short term rehab he will improve enough to return home on his previous level of care. When asked about suicidal ideation, pt states he does feel sad that he is sick and that he does not have any family left, but denies any suicidal ideation. Pt has no social support, and relies heavily on his home care associate, even for management of his finances. Palliative care will follow. Palliative Quality Code Status: 02/11/18 15:12 Resuscitation Status: Active [RES] Routine Comment: Resuscitation Status: Full Code Resuscitation Status: Active [RES] Routine Comment: From recent admission Resuscitation Status: [id number]
[2018-02-13] MEDS: Mirtazapine 15 MG TABLET PO SCH (20:31)
[2018-02-13] MEDS: traZODone 50 MG TABLET PO SCH (20:31)
[2018-02-13] MEDS: Primidone 50 MG TABLET PO SCH (20:31)
[2018-02-14] MEDS: Ampicillin/Sulbactam 3,000 MG in 0.9 % Sodium Chloride Mini Bag 100 ML IVPB SCH ×4 (01:08→18:00)
[2018-02-14] MEDS: *HR* Heparin 5,000 UNIT/ML VIAL SQ SCH ×3 (01:09→16:13)
[2018-02-14] MEDS: Ipratropium/Albuterol Neb 3 ML IH SCH ×2 (04:26→11:06)
[2018-02-14 05:14] LABS: Basophils % 0.1 %; Hematocrit 28.5 % (37.5-50.1); Hemoglobin 8.8 g/dL (12.9-16.9); Immature Granulocytes % 0.7 % (0-4); Lymphocytes # 1.3 K/mcL (0.6-4.6); Lymphocytes % 8.8 %; Mean Corpuscular HGB Conc 30.9 g/dL (31.6-35.5); Mean Corpuscular Hemoglobin 29.6 pg (28.0-33.3); Mean Platelet Volume 10.4 fL (9.4-12.4); Monocytes # 1.2 K/mcL (0.0-1.3); Monocytes % 7.7 %; Neutrophils # 12.7 K/mcL (1.6-8.9); Platelet Count 216 K/mcL (140-400); Red Blood Count 2.97 M/mcL (4.19-5.50); Red Cell Distribution Width 14.4 % (11.5-14.5); Segmented Neutrophils % 82.7 %
[2018-02-14] MEDS: Aspirin Enteric Coated 81 MG Tablet PO SCH (08:33)
[2018-02-14] MEDS: predniSONE 20 MG TABLET PO SCH (08:34)
[2018-02-14] MEDS: Metoprolol XL (24 HR) Succ 25 MG TAB.ER.24H PO SCH (08:34)
[2018-02-14] MEDS: Spironolactone 25 MG TABLET PO SCH (08:34)
[2018-02-14] MEDS: Nicotine 21 MG PATCH.TD24 TD SCH (08:35)
--- NOTE | 2018-02-14 10:12 | Palliative Progress Note ---
<Elizabeth Morgan - Last Filed: 02/14/18 11:44> Date of Encounter: 02/14/18 Time of Encounter: 09:15 - Assessment and plan (1) Goals of care, counseling/discussion Current Visit: Yes Status: Acute Assessment and plan: Goals of care are more clear today. He still only want symptomatic management. He does not want any extensive medical treatment other than necessary to make him comfortable. We had a long discussion about goals of care and what he expects from his current health and his hospital stay. We also discussed where we go from here in terms of rn long term care care. Initially he stated he would like to go home because he has lived in his apartment for a long time and feels comfortable. But then I discussed with him the risk of living home alone as he recently fell and is unable to provide for himself. He also noted that he is sometimes unsteady on his feet and is at risk of falling again. He realizes that he is unable to take care of himself at home without assistance. I also discussed with him his current health. He realizes that his health is not improving. He is afraid of because of all the people he has lost in his life and recently lost a who he was to for 36 years last May. But he is finally starting to understand that he is not going to fully recover from his worsening health. He is now looking forward going to a facility as he may be able to make friends as currently he has no body at home and no visitors except his aid. He also understands he is not strong enough to be active but states that he wants to work towards regaining his strength. (2) Protein-calorie malnutrition, severe Current Visit: Yes Status: Acute Assessment and plan: His BMI was 15.5 yesterday and improved today to 15.7. Likely low weight due to unable to take care of himself at home. He noted he goes a corner store for cookies, milk and bread. His BMI is likely low due to chronic poor nutrition intake. Primary team has redce ordered and he is consuming all of his meals. (3) Depression Current Visit: Yes Status: Acute Assessment and plan: He noted history of hopelessness yesterday. Today he is was able to open up more and talk. He continues to deny any current depressive episodes. His mood is affected by his inability to care for himself at home. Additionally he has no one as all his loved ones have passed and that saddens him. He has no current plans of hurting himself. He continues to have difficulty sleeping. Currently on trazadone, mirtazapine and paroxetine. (4) COPD (chronic obstructive pulmonary disease) Current Visit: Yes Status: Acute Assessment and plan: History of centrilobular and parasptal emphysema. Currently on 3 liters of oxygen and is also on 3 liters of oxygen. Being managed by primary team. (5) Rib fracture Current Visit: Yes Status: Acute Assessment and plan: On 02/09 he was note to have rib fracture of his right 11th rib after he sustained a fall at home. Currently on pain regimen, receiving roxicodone. He is comfortable in bed today, not complaining of any pain. Continue pain management. (6) Tobacco abuse Current Visit: Yes Status: Acute Assessment and plan: He is a current smoker and is on home oxygen. Discussed the danger of continuing to smoke. Currently on a nicotine patch. - Time Spent With Patient Total time spent is greater than 50% in coordination of care (as documented) at patient's floor/unit and/or counseling patient: - Subjective Interval history: Mr. Jones was seen at bedside this morning. He was comfortable in bed and had just finished his breakfast. He had no complaints this morning. He noted he was unable to sleep last night but is unsure why as it is not usual for him. He denied fever, chills, nausea, emesis, shortness of breath, chest pain or abdominal pain. - Constitutional Vitals: Abnormal lab results WBC 15.3 K/mcL (4.3-11.1) H 02/14/18 04:22 RBC 2.97 M/mcL (4.19-5.50) L 02/14/18 04:22 Hgb 8.8 g/dL (12.9-16.9) L 02/14/18 04:22 Hct 28.5 % (37.5-50.1) L 02/14/18 04:22 MCHC 30.9 g/dL (31.6-35.5) L 02/14/18 04:22 Neutrophils # 12.7 K/mcL (1.6-8.9) H 02/14/18 04:22 Carbon Dioxide 33 mEq/L (23-29) H 02/13/18 03:15 BUN 33 mg/dL (8-23) H 02/13/18 03:15 BUN/Creatinine Ratio 38 (6-26) H 02/13/18 03:15 Glucose 183 mg/dL (70-105) H 02/13/18 03:15 General appearance: Present: no acute distress - Head Head exam: Present: atraumatic, normocephalic - Eye Eye exam: Present: conjunctival injection, EOMI, sclera anicteric - ENT ENT exam: Present: mucous membranes moist - Neck Neck exam: Present: full ROM - Respiratory Respiratory exam: Absent: rales, stridor, wheezes Additional comments: diminished breath sounds at bilateral lower lobes - Cardiovascular Cardiovascular exam: Present: RRR, +S1, +S2. Absent: clicks - GI/Abdominal GI/Abdominal exam: Present: normal bowel sounds, soft. Absent: firm, tenderness - Extremities Exam Extremities exam: Present: normal inspection. Absent: pedal edema, tenderness - Neurological Exam Neurological exam: Present: alert, oriented X3. Absent: speech deficit - Psychiatric Psychiatric exam: Present: normal affect, normal mood - Skin Skin exam: Present: dry, intact, warm Palliative Quality Palliative Quality: Screen for Code Status: Yes, Screen for Goals of Care: Yes, Screen for Pain: Yes, If Pain Regimen Started, Initiate Bowel Regimen: Yes, Scr een for Nausea/Vomitting: Yes Code Status: 02/11/18 15:12 Resuscitation Status: Active [RES] Routine Comment: Resuscitation Status: Full Code Resuscitation Status: Active [RES] Routine Comment: From recent admission Resuscitation Status: [id number] - Labs CBC & Chem 7: 02/14/18 04:22 02/13/18 03:15 Labs: Laboratory Results - last 24 hr 02/14/18 04:22 WBC 15.3 H RBC 2.97 L Hgb 8.8 L Hct 28.5 L MCV 96.0 MCH 29.6 MCHC 30.9 L RDW 14.4 Plt Count 216 MPV 10.4 Immature Gran % 0.7 Seg Neutrophils % 82.7 Lymphocytes % 8.8 Monocytes % 7.7 Eosinophils % 0.0 Basophils % 0.1 Neutrophils # 12.7 H Lymphocytes # 1.3 Monocytes # 1.2 Eosinophils # 0.0 Basophils # 0.0 Consult Discharge Plan - Plan Referrals: NONE,PCP [Primary Care Provider] - Prescriptions: Albuterol Sulfate [Ventolin Hfa] 18 gm IH PRN PRN #1 [email or web address] PRN Reason: COPD <NgalAbby mirza - Last Filed: 02/14/18 12:23> - Time Spent With Patient Total time spent is greater than 50% in coordination of care (as documented) at patient's floor/unit and/or counseling patient: Greater than 35 minutes - Constitutional Vitals: Abnormal lab results WBC 15.3 K/mcL (4.3-11.1) H 02/14/18 04:22 RBC 2.97 M/mcL (4.19-5.50) L 02/14/18 04:22 Hgb 8.8 g/dL (12.9-16.9) L 02/14/18 04:22 Hct 28.5 % (37.5-50.1) L 02/14/18 04:22 MCHC 30.9 g/dL (31.6-35.5) L 02/14/18 04:22 Neutrophils # 12.7 K/mcL (1.6-8.9) H 02/14/18 04:22 Carbon Dioxide 33 mEq/L (23-29) H 02/13/18 03:15 BUN 33 mg/dL (8-23) H 02/13/18 03:15 BUN/Creatinine Ratio 38 (6-26) H 02/13/18 03:15 Glucose 183 mg/dL (70-105) H 02/13/18 03:15 - Attending Attestation I performed a history and physical examination of the patient and discussed his management with the resident. I reviewed the residents note and agree with the documented findings and plan of care 40 minutes goals of care discussion with patient as documented in resident's note, patient is now more understanding of the fact that he is unsafe to be discharged home, and that he is hospice eligible. He would be agreeable to discharge to SNF as a skilled pt, with transition to hospice later on. Discussed with HALIE Kuhn, he states because of pt's mental health history and financial reasons, there may be some difficulties. Process will be started. Palliative Quality Code Status: 02/11/18 15:12 Resuscitation Status: Active [RES] Routine Comment: Resuscitation Status: Full Code Resuscitation Status: Active [RES] Routine Comment: From recent admission Resuscitation Status: [id number] - Labs CBC & Chem 7: 02/14/18 04:22 02/13/18 03:15 Labs: Laboratory Results - last 24 hr 02/14/18 04:22 WBC 15.3 H RBC 2.97 L Hgb 8.8 L Hct 28.5 L MCV 96.0 MCH 29.6 MCHC 30.9 L RDW 14.4 Plt Count 216 MPV 10.4 Immature Gran % 0.7 Seg Neutrophils % 82.7 Lymphocytes % 8.8 Monocytes % 7.7 Eosinophils % 0.0 Basophils % 0.1 Neutrophils # 12.7 H Lymphocytes # 1.3 Monocytes # 1.2 Eosinophils # 0.0 Basophils # 0.0
--- NOTE | 2018-02-14 10:23 | Internal Med Progress Note ---
Addendum entered and electronically signed by Nj Dickerson DO 02/16/18 12:39: Original Note: <Nj Dickerson - Last Filed: 02/14/18 14:31> Hospitalist Progress Note - Exam Vitals: Temp Pulse Resp BP Pulse Ox 98.0 F 77 18 123/70 97 02/14/18 08:31 02/14/18 12:06 02/14/18 12:06 02/14/18 12:06 02/14/18 12:06 - Assessment and Plan (1) Depression Current Visit: No Status: Chronic (2) Hypokalemia Current Visit: No Status: Resolved (3) Pneumonia Current Visit: No Status: Suspected (4) CHF (congestive heart failure) Current Visit: No Status: Chronic (5) Acute exacerbation of chronic obstructive airways disease Current Visit: No Status: Acute (6) Tobacco abuse Current Visit: No Status: Chronic (7) Rib fracture Current Visit: Yes Status: Acute (8) Protein-calorie malnutrition, severe Current Visit: Yes Status: Chronic (9) Anemia Current Visit: Yes Status: Chronic (10) Chronic respiratory failure with hypoxia and hypercapnia Current Visit: Yes Status: Chronic (11) Essential tremor Current Visit: Yes Status: Chronic (12) Goals of care, counseling/discussion Current Visit: Yes Status: Acute - Time Spent with Patient Total time spent is greater than 50% in coordination of care (as documented) at patient's floor/unit and/or counseling patient: Internal Medicine: Result - Labs CBC & Chem 7: 02/14/18 04:22 02/13/18 03:15 Labs: Short CBC 02/14/18 Range/Units 04:22 WBC 15.3 H (4.3-11.1) K/mcL Hgb 8.8 L (12.9-16.9) g/dL Hct 28.5 L (37.5-50.1) % Plt Count 216 (140-400) K/mcL Neutrophils # 12.7 H (1.6-8.9) K/mcL Consult Discharge Plan - Plan Referrals: NONE,PCP [Primary Care Provider] - Prescriptions: Albuterol Sulfate [Ventolin Hfa] 18 gm IH PRN PRN #1 [email or web address] PRN Reason: COPD - Attending Attestation I examined this patient and my medical decision-making was reviewed with the Resident Physician on 02/14/18. I agree with the documented findings, disposition and treatment plan as described except to the extent set forth below. Mr Jones is currently admitted for respiratory distress/COPD. We are working on discharge planning. He remains moderate to high risk due to potential for worsening clinical status. Mr Jones is doing about the same. No fever or chills. Breathing about the same. No CP. Working on d/c planning with social work and palliative. Exam alert Comfortable Mucus membranes dry Heart reg No wheeze at this time. Abd soft No edema I/P 1. Exac COPD 2. Malnutrition Further diagnoses and plan as above Working on d/c <Evgeny Jerez - Last Filed: 02/14/18 15:01> Hospitalist Progress Note - Encounter Date of Encounter: 02/14/18 Time of Encounter: 09:00 - Subjective Interval History: 02/14/18 Saw Mr Jones at the bedside. He endorses no acute distress. Continues to be on unasyn for his aspiration pneumonia. Patient does not qualify for a geratric psych facility because he is currently not endorsing active suicidal ideation. Palliative team is on board trying to help him make decision about hospice. It sounds like patient is in agreement with it and social work is on board trying to facilitate the process. 02/13/18 I saw Mr. Jones at the bedside this morning. He was eating his breakfast and endorses no acute distress. Denies any chest pain or worsening shortness of breath, productive cough or sputum. He continues to be on 3 L of home oxygen satting at 98%. Denies any episodes of dysuria. He did endorse constipation and I ordered some Colace and Miralax PRN. Patient is back on his home medications right now. From the nurses I learnt that patient was endorsing signs of suicidality and mentioned that he would commit one if he had the gun. 02/12/18 Mr. Jones is a pleasant 77-year-old male with a past medical history of CHF, COPD and essential tremor who presented to the ED with complaints of shortness of breath. Patient had a fall a few days ago and was seen in the ED. CT of the abdomen showed advanced centrilobular and paraseptal emphysema. There were also evidence of scattered tree-in-bud opacities in the right greater than left mid and lower lung zones. acute minimally displaced fracture of the right 11th rib. CT also showed mildly displaced fractures involving the tips of the right L1, L3 and L2 transverse processes. Patient was in no acute distress when I met him this morning. He had some hip pain and was given Tylenol for pain control and felt better. - Exam Vitals: Temp Pulse Resp BP Pulse Ox 98.0 F 84 24 111/58 97 02/14/18 08:31 02/14/18 08:31 02/14/18 08:31 02/14/18 08:31 02/14/18 08:31 Exam: Gen: A&O*3, no acute distress Resp:decreased breath sound b/l , no wheezing Card:RRR, no gallops, murmurs or rubs Abdomen: soft, non-tender, non-distended , no guarding Neuro: tremulous Extremities: no clubbing, cyanosis or edema - Assessment and Plan (1) Chronic respiratory failure with hypoxia and hypercapnia Current Visit: Yes Status: Chronic Assessment and Plan: -likely due to his history of COPD. Patient's most recent chest CT showed evidence of extreme emphysema. Continues to be a smoker. - Physical exam he had decreased breath sounds. No wheezing rales or rhonchi appreciated. - Currently on DuoNeb, supplemental oxygen, currently on 20 mg PO prednisone. - Continue to use spirometry to rectify the VQ mismatch secondary to atelectasis. - (2) Acute exacerbation of chronic obstructive airways disease Current Visit: No Status: Acute Assessment and Plan: - Patient has a history of COPD. He is on 3 L of oxygen. endorses he takes albuterol as rescue inhaler. - On physical exam I did not appreciate any bilateral wheezing. He had decreased breath sounds. - Supplemental Oxygen, solumedrol transitioned to 20 mg prednisone Titrate oxygen for SPO2 between 88-90%. (3) Goals of care, counseling/discussion Current Visit: Yes Status: Acute Assessment and Plan: Patient has a history of chronic COPD with extensive emphysema, BMI of 15.5, essential tremor. Has history of depression and was endorsing some suicidal ideations yesterday thoughts of harming himself if he had a gun. Palliative team had a discussion with him at length about goals of care and patient endorses that if he had a cardiac arrest, he would like to comfortably and denied any intervention like chest compressions or intubation. They also discuss about the possibility of his goinf to home hospice and sounds like patient is in agreement with it. (4) Pneumonia Current Visit: No Status: Suspected Assessment and Plan: -Patient's chest CT showed features of chronic recurrent aspiration when compared with prior exam. -on physical exam patient had some decreased breath sounds bilaterally. Continues to be leukocytotic with a WBC of 18.5. No wheezing was appreciated. On speech evaluation patient had no difficulty swallowing thin liquids and regular textured breakfast -Currently on Unasyn day 4 for aspiration pneumonia (5) Depression Current Visit: No Status: Chronic Assessment and Plan: -Patient has a history of depression. -Continue home meds. (6) CHF (congestive heart failure) Current Visit: No Status: Chronic Assessment and Plan: Has a history of CHF. His last echocardiogram was done in 2015 which showed an EF of 35-40%. Patient has a pacemaker in place -On physical exam, does not seem to be in CHF exacerbation during his admission. on physical exam, no rales - no evidence of S3 or JVD. -Patient currently on Cozaar and metoprolol (7) Tobacco abuse Current Visit: No Status: Chronic Assessment and Plan: Patient has a history of tobacco abuse. He continues to smoke. -Discussed cessation. (8) Rib fracture Current Visit: Yes Status: Acute Assessment and Plan: Pt recently fell and was diagnosed with rib fractures. CT of the abdomen showed acute minimally displaced fracture of the 11th rib He has had significant pain related to this at home. Pain control PRN. (9) Protein-calorie malnutrition, severe Current Visit: Yes Status: Chronic Assessment and Plan: -Patient has a BMI of 15.5. Patient appears to be significantly malnourished . Curently patient is on Megasterol Acetate to help with appetite stimulation. (10) Anemia Current Visit: Yes Status: Chronic Assessment and Plan: -He has a history of anemia. Likely anemia of chronic disease. Current hemoglobin is 8.4 - Transfuse packed RBCs if hemoglobin drops down below 7. (11) Essential tremor Current Visit: Yes Status: Chronic (12) Hypokalemia Current Visit: No Status: Resolved Assessment and Plan: -Resolved.. - Time Spent with Patient Total time spent is greater than 50% in coordination of care (as documented) at patient's floor/unit and/or counseling patient: Internal Medicine: Result - Labs CBC & Chem 7: 02/14/18 04:22 02/13/18 03:15 Labs: Short CBC 02/14/18 Range/Units 04:22 WBC 15.3 H (4.3-11.1) K/mcL Hgb 8.8 L (12.9-16.9) g/dL Hct 28.5 L (37.5-50.1) % Plt Count 216 (140-400) K/mcL Neutrophils # 12.7 H (1.6-8.9) K/mcL <Nj Dickerson - Last Filed: 02/14/18 14:31> (1) Depression Qualifiers: Depression Type: major depressive disorder Major depression recurrence: recurrent Active/Remission status: currently active Major depression episode severity: severe Psychotic features: without psychotic features Qualified Code(s): F33.2 - Major depressive disorder, recurrent severe without psychotic features (3) Pneumonia Qualifiers: Pneumonia type: aspiration pneumonia Aspiration pneumonia type: due to gastric secretions Laterality: bilateral Lung location: lower lobe of lung Qualified Code(s): J69.0 - Pneumonitis due to inhalation of food and vomit (4) CHF (congestive heart failure) Qualifiers: Heart failure type: systolic Heart failure chronicity: chronic Qualified Code(s): I50.22 - Chronic systolic (congestive) heart failure (7) Rib fracture Qualifiers: Encounter type: subsequent encounter Rib fracture type: single rib Fracture type: closed Laterality: right Fracture healing: with routine healing Qualified Code(s): S22.31XD - Fracture of one rib, right side, subsequent encounter for fracture with routine healing (9) Anemia Qualifiers: Anemia type: other cause Other causes of anemia: chronic disease, other Qualified Code(s): D63.8 - Anemia in other chronic diseases classified elsewhere <JerezEvgeny - Last Filed: 02/14/18 15:01> (4) Pneumonia Qualifiers: Pneumonia type: aspiration pneumonia Aspiration pneumonia type: due to gastric secretions Laterality: bilateral Lung location: lower lobe of lung Qualified Code(s): J69.0 - Pneumonitis due to inhalation of food and vomit (5) Depression Qualifiers: Depression Type: major depressive disorder Major depression recurrence: recurrent Active/Remission status: currently active Major depression episode severity: severe Psychotic features: without psychotic features Qualified Code(s): F33.2 - Major depressive disorder, recurrent severe without psychotic f eatures (6) CHF (congestive heart failure) Qualifiers: Heart failure type: systolic Heart failure chronicity: chronic Qualified C ode(s): I50.22 - Chronic systolic (congestive) heart failure (8) Rib fracture Qualifiers: Encounter type: subsequent encounter Rib fracture type: single rib Fracture type: closed Laterality: right Fracture healing: with routine healing [place]ley lified Code(s): S22.31XD - Fracture of one rib, right side, subsequent encounter for fracture with routine healing (10) Anemia Qualifiers: Anemia type: other cause Other causes of anemia: chronic disease, other Qualified Code(s): D63.8 - Anemia in other chronic diseases classified elsewhere
[2018-02-14] MEDS: *HR* OxyCODONE Immed Rel 5 MG TABLET PO PRN (12:54)
[2018-02-14] MEDS: traZODone 50 MG TABLET PO SCH (20:38)
[2018-02-14] MEDS: Primidone 50 MG TABLET PO SCH (20:38)
[2018-02-14] MEDS: Mirtazapine 15 MG TABLET PO SCH (20:38)
[2018-02-15] MEDS: Ampicillin/Sulbactam 3,000 MG in 0.9 % Sodium Chloride Mini Bag 100 ML IVPB SCH ×5 (00:36→23:38)
[2018-02-15] MEDS: *HR* Heparin 5,000 UNIT/ML VIAL SQ SCH ×4 (00:37→23:38)
[2018-02-15 03:26] LABS: Basophils % 0.2 %; Eosinophils % 0.1 %; Hematocrit 30.5 % (37.5-50.1); Hemoglobin 9.4 g/dL (12.9-16.9); Immature Granulocytes % 1.1 % (0-4); Lymphocytes # 1.4 K/mcL (0.6-4.6); Lymphocytes % 11.4 %; Mean Corpuscular HGB Conc 30.8 g/dL (31.6-35.5); Mean Corpuscular Hemoglobin 29.7 pg (28.0-33.3); Mean Corpuscular Volume 96.2 fL (83.0-100.0); Mean Platelet Volume 10.1 fL (9.4-12.4); Monocytes # 0.9 K/mcL (0.0-1.3); Monocytes % 7.1 %; Neutrophils # 9.9 K/mcL (1.6-8.9); Platelet Count 228 K/mcL (140-400); Red Blood Count 3.17 M/mcL (4.19-5.50); Red Cell Distribution Width 14.4 % (11.5-14.5); Segmented Neutrophils % 80.1 %
[2018-02-15 03:45] LABS: BUN/Creatinine Ratio 36 (6-26); Blood Urea Nitrogen 36 mg/dL (8-23); Calcium 8.4 mg/dL (8.6-10.3); Carbon Dioxide 37 mEq/L (23-29); Chloride 102 mEq/L (98-107); Glucose 106 mg/dL (70-105); Osmolality,Calculated 303 (280-300); Potassium 4.7 mEq/L (3.5-5.1); Sodium 142 mEq/L (136-145); eGFR For Non-African Americans > 60 (> 60)
[2018-02-15] MEDS: Metoprolol XL (24 HR) Succ 25 MG TAB.ER.24H PO SCH (08:23)
[2018-02-15] MEDS: Aspirin Enteric Coated 81 MG Tablet PO SCH (08:23)
[2018-02-15] MEDS: predniSONE 20 MG TABLET PO SCH (08:24)
[2018-02-15] MEDS: Nicotine 21 MG PATCH.TD24 TD SCH (08:24)
[2018-02-15] MEDS: Spironolactone 25 MG TABLET PO SCH (08:24)
[2018-02-15] MEDS: *HR* OxyCODONE Immed Rel 5 MG TABLET PO PRN (09:08)
--- NOTE | 2018-02-15 19:11 | Internal Med Progress Note ---
Hospitalist Progress Note - Encounter Date of Encounter: 02/15/18 Time of Encounter: 11:00 - Subjective Interval History: Mr Jones is currently admitted for acute exac COPD. He remains moderate to high risk due to potential for worsening clinical status. Mr Jones is breathing OK at this time. No fever or chills. He is frustrated because he can't do things for himself due to weakness. He is OK with going to rehab and knows this may happen on Saturday. No CP. No GI issues. - Exam Vitals: Temp Pulse Resp BP Pulse Ox 98.1 F 82 19 104/62 94 02/15/18 14:40 02/15/18 14:40 02/15/18 14:40 02/15/18 14:40 02/15/18 14:40 Exam: General: Alert and oriented. Comfortable at this time. Cachetic. Skin: Normal color, no rash, no lesions. H: Normocephalic. EENT: EOMI. Mucus membranes moist. No lesion. Cardiovascular: Normal S1 & S2, no rubs, murmurs or gallops. No JVD. Pulse regular. Distant heart sounds. Lungs: Diminished breath sounds. No wheeze. Abdomen: Soft, non-tender, no rigidity. Normal bowel sounds. Extremities: No deformity, no edema or tenderness, no joint swelling or clubbing. OA noted. Neurological: Normal cognition and motor skills. Significant tremor. Pulses: Carotid and radial pulses normal +2. Rest of the physical exam is non contributory - Assessment and Plan (1) Pneumonia Current Visit: No Status: Suspected Assessment and Plan: -Has CT evidence of secretions consistent with recurrent aspiration. Currently on IV Unasyn. (2) Acute exacerbation of chronic obstructive airways disease Current Visit: No Status: Acute Assessment and Plan: - Seems to be approaching chronic state at this time. Currently on aerosols and PO steroids. (3) Depression Current Visit: No Status: Chronic Assessment and Plan: -Not actively suicidal at this time. He is controlled. (4) Hypokalemia Current Visit: No Status: Resolved Assessment and Plan: -Resolved.. (5) CHF (congestive heart failure) Current Visit: No Status: Chronic Assessment and Plan: Has a history of CHF. His last echocardiogram was done in 2016 which showed an EF of 35-40%. Patient has a pacemaker in place -On physical exam, does not seem to be in CHF exacerbation during his admission. on physical exam, no rales - no evidence of S3 or JVD. -Patient currently on Cozaar and metoprolol No acute symptoms at this time. (6) Tobacco abuse Current Visit: No Status: Chronic Assessment and Plan: Patient has a history of tobacco abuse. He continues to smoke. -Discussed cessation. (7) Rib fracture Current Visit: Yes Status: Acute Assessment and Plan: Pt recently fell and was diagnosed with rib fractures. CT of the abdomen showed acute minimally displaced fracture of the 11th rib He has had significant pain related to this at home. Pain control PRN. (8) Protein-calorie malnutrition, severe Current Visit: Yes Status: Chronic Assessment and Plan: -Patient has a BMI of 15.5. Patient appears to be significantly malnourished . Curently patient is on Megasterol Acetate to help with appetite stimulation. (9) Anemia Current Visit: Yes Status: Chronic Assessment and Plan: -He has a history of anemia. Likely anemia of chronic disease. Current hem oglobin is 8.4 - Transfuse packed RBCs if hemoglobin drops down below 7. (10) Chronic respiratory failure with hypoxia and hypercapnia Current Visit: Yes Status: Chronic Assessment and Plan: -likely due to his history of COPD. Patient's most recent chest CT showed evidence of extreme emphysema. Continues to be a smoker. - Physical exam he had decreased breath sounds. No wheezing rales or rhonchi appreciated. - Currently on DuoNeb, supplemental oxygen, currently on 20 mg PO prednisone. - Continue to use spirometry to rectify the VQ mismatch secondary to atelectasis. - (11) Essential tremor Current Visit: Yes Status: Chronic Assessment and Plan: Patient has a history of essential tremor. - Continue home medications. - Time Spent with Patient Total time spent is greater than 50% in coordination of care (as documented) at patient's floor/unit and/or counseling patient: Internal Medicine: Result - Labs CBC & Chem 7: 02/15/18 02:52 02/15/18 02:52 Labs: Short CBC 02/15/18 Range/Units 02:52 WBC 12.4 H (4.3-11.1) K/mcL Hgb 9.4 L (12.9-16.9) g/dL Hct 30.5 L (37.5-50.1) % Plt Count 228 (140-400) K/mcL Neutrophils # 9.9 H (1.6-8.9) K/mcL BMP 02/15/18 02:52 Sodium 142 Potassium 4.7 Chloride 102 Carbon Dioxide 37 H BUN 36 H Creatinine 1.00 Glucose 106 H Calcium 8.4 L Consult Discharge Plan - Plan Referrals: NONE,PCP [Primary Care Provider] - Prescriptions: Albuterol Sulfate [Ventolin Hfa] 18 gm IH PRN PRN #1 [email or web address] PRN Reason: COPD _ (1) Pneumonia Qualifiers: Pneumonia type: aspiration pneumonia Aspiration pneumonia type: due to gastric secretions Laterality: bilateral Lung location: lower lobe of lung Qualified Code(s): J69.0 - Pneumonitis due to inhalation of food and vomit (3) Depression Qualifiers: Depression Type: major depressive disorder Major depression recurrence: recurrent Active/Remission status: currently active Major depression episode severity: severe Psychotic features: without psychotic features Qualified Code(s): F33.2 - Major depressive disorder, recurrent severe without psychotic features (5) CHF (congestive heart failure) Qualifiers: Heart failure type: systolic Heart failure chronicity: chronic Qualified Code(s): I50.22 - Chronic systolic (congestive) heart failure (7) Rib fracture Qualifiers: Encounter type: subsequent encounter Rib fracture type: single rib Fracture type: closed Laterality: right Fracture healing: with routine healing Qualified Code(s): S22.31XD - Fracture of one rib, right side, subsequent encounter for fracture with routine healing (9) Anemia Qualifiers: Anemia type: other cause Other causes of anemia: chronic disease, other Qualified Code(s): D63.8 - Anemia in other chronic diseases classified elsewhere
[2018-02-15] MEDS: Mirtazapine 15 MG TABLET PO SCH (20:10)
[2018-02-15] MEDS: traZODone 50 MG TABLET PO SCH (20:10)
[2018-02-15] MEDS: Primidone 50 MG TABLET PO SCH (20:10)
[2018-02-16 03:20] LABS: Hematocrit 29.9 % (37.5-50.1); Mean Corpuscular HGB Conc 30.1 g/dL (31.6-35.5); Mean Corpuscular Volume 96.5 fL (83.0-100.0); Platelet Count 228 K/mcL (140-400); Red Cell Distribution Width 14.6 % (11.5-14.5)
[2018-02-16 03:39] LABS: BUN/Creatinine Ratio 37 (6-26); Blood Urea Nitrogen 32 mg/dL (8-23); Calcium 8.1 mg/dL (8.6-10.3); Carbon Dioxide 38 mEq/L (23-29); Chloride 102 mEq/L (98-107); Glucose 98 mg/dL (70-105); Osmolality,Calculated 299 (280-300); Potassium 4.2 mEq/L (3.5-5.1); Sodium 141 mEq/L (136-145); eGFR For Non-African Americans > 60 (> 60)
[2018-02-16] MEDS: Ampicillin/Sulbactam 3,000 MG in 0.9 % Sodium Chloride Mini Bag 100 ML IVPB SCH ×4 (06:04→23:46)
--- NOTE | 2018-02-16 08:07 | Internal Med Progress Note ---
Hospitalist Progress Note - Encounter Date of Encounter: 02/16/18 Time of Encounter: 10:15 - Subjective Interval History: Mr Jones is currently admitted for acute exac COPD. He remains moderate to high risk due to potential for worsening clinical status. Mr Jones is more dyspneic at this time. No fever or chills. Not eating much. No appetite. Feels more tired at this time. No other acute issues. Hopefully will be able to go to SNF tomorrow. - Exam Vitals: Temp Pulse Resp BP Pulse Ox 98.1 F 64 18 132/74 98 02/16/18 07:02 02/16/18 07:02 02/16/18 07:02 02/16/18 07:02 02/16/18 07:02 Exam: General: Alert and oriented. Comfortable at this time. Cachetic. Seems more fatigued today. Skin: Normal color, no rash, no lesions. H: Normocephalic. EENT: EOMI. Mucus membranes dry. No lesion. Cardiovascular: Normal S1 & S2, no rubs, murmurs or gallops. No JVD. Distant. Not tachy. Lungs: Diminished breath sounds. No wheeze. Few rhonchi noted. Abdomen: Soft, non-tender, no rigidity. Normal bowel sounds. Extremities: No deformity, no edema or tenderness, no joint swelling or clubbing. OA noted. Neurological: Normal cognition and motor skills. Significant tremor noted. Pulses: radial pulses normal +2. Rest of the physical exam is non contributory - Assessment and Plan (1) Anorexia Current Visit: Yes Status: Chronic Assessment and Plan: Megace changed to Marinol. (2) Pneumonia Current Visit: No Status: Suspected Assessment and Plan: -Will complete a course of abx (7 days). Continue supportive care. Upright for meals. (3) Acute exacerbation of chronic obstructive airways disease Current Visit: No Status: Acute Assessment and Plan: - Respiratory up and down. Continue steroids, aerosols and abx. (4) Depression Current Visit: No Status: Chronic Assessment and Plan: -Not actively suicidal at this time. (5) CHF (congestive heart failure) Current Visit: No Status: Chronic Assessment and Plan: Has a history of CHF. His last echocardiogram was done in 2016 which showed an EF of 35-40%. Patient has a pacemaker in place -On physical exam, does not seem to be in CHF exacerbation during his admission. on physical exam, no rales - no evidence of S3 or JVD. -Patient currently on Cozaar and metoprolol Does not appear to be in acute exacerbation at this time. (6) Tobacco abuse Current Visit: No Status: Chronic Assessment and Plan: Patient has a history of tobacco abuse. He continues to smoke. -Discussed cessation. (7) Rib fracture Current Visit: Yes Status: Acute Assessment and Plan: Pt recently fell and was diagnosed with rib fractures. CT of the abdomen showed acute minimally displaced fracture of the 11th rib He has had significant pain related to this at home. Pain control PRN. (8) Protein-calorie malnutrition, severe Current Visit: Yes Status: Chronic Assessment and Plan: -Patient has a BMI of 15.5. Patient appears to be significantly malnourished . Still not eating. Will change Megace to Marinol. (9) Anemia Current Visit: Yes Status: Chronic Assessment and Plan: -He has a history of anemia. Likely anemia of chronic disease. Current hemoglobin is 8.4 - Transfuse packed RBCs if hemoglobin drops down below 7. No acute issues at this time. (10) Chronic respiratory failure with hypoxia and hypercapnia Current Visit: Yes Status: Chronic Assessment and Plan: -likely due to his history of COPD. Patient's most recent chest CT showed evidence of extreme emphysema. Continues to be a smoker. - Physical exam he had decreased breath sounds. No wheezing rales or rhonchi appreciated. - Currently on DuoNeb, supplemental oxygen, currently on 20 mg PO prednisone. - Continue to use spirometry to rectify the VQ mismatch secondary to atelectasis. - (11) Essential tremor Current Visit: Yes Status: Chronic Assessment and Plan: Patient has a history of essential tremor. - Continue home medications. - Time Spent with Patient Total time spent is greater than 50% in coordination of care (as documented) at patient's floor/unit and/or counseling patient: Internal Medicine: Result - Labs CBC & Chem 7: 02/16/18 02:59 02/16/18 02:59 Labs: Short CBC 02/16/18 Range/Units 02:59 WBC 14.4 H (4.3-11.1) K/mcL Hgb 9.0 L (12.9-16.9) g/dL Hct 29.9 L (37.5-50.1) % Plt Count 228 (140-400) K/mcL BMP 02/16/18 02:59 Sodium 141 Potassium 4.2 Chloride 102 Carbon Dioxide 38 H BUN 32 H Creatinine 0.86 Glucose 98 Calcium 8.1 L Consult Discharge Plan - Plan Referrals: NONE,PCP [Primary Care Provider] - Prescriptions: Albuterol Sulfate [Ventolin Hfa] 18 gm IH PRN PRN #1 [email or web address] PRN Reason: COPD (2) Pneumonia Qualifiers: Pneumonia type: aspiration pneumonia Aspiration pneumonia type: due to gastric secretions Laterality: bilateral Lung location: lower lobe of lung Qualified Code(s): J69.0 - Pneumonitis due to inhalation of food and vomit (4) Depression Qualifiers: Depression Type: major depressive disorder Major depression recurrence: recurrent Active/Remission status: currently active Major depression episode severity: severe Psychotic features: without psychotic features Qualified Code(s): F33.2 - Major depressive disorder, recurrent severe without psychotic features (5) CHF (congestive heart failure) Qualifiers: Heart failure type: systolic Heart failure chronicity: chronic Qualified Code(s): I50.22 - Chronic systolic (congestive) heart failure (7) Rib fracture Qualifiers: Encounter type: subsequent encounter Rib fracture type: single rib Fracture type: closed Laterality: right Fracture healing: with routine healing Qualified Code(s): S22.31XD - Fracture of one rib, right side, subsequent encounter for fracture with routine healing (9) Anemia Qualifiers: Anemia type: other cause Other causes of anemia: chronic disease, other Qualified Code(s): D63.8 - Anemia in other chronic diseases classified elsewhere
[2018-02-16] MEDS: Nicotine 21 MG PATCH.TD24 TD SCH (08:15)
[2018-02-16] MEDS: *HR* Heparin 5,000 UNIT/ML VIAL SQ SCH ×3 (08:15→23:46)
[2018-02-16] MEDS: Spironolactone 25 MG TABLET PO SCH (08:16)
[2018-02-16] MEDS: Aspirin Enteric Coated 81 MG Tablet PO SCH (08:17)
[2018-02-16] MEDS: predniSONE 20 MG TABLET PO SCH (08:17)
[2018-02-16] MEDS: Metoprolol XL (24 HR) Succ 25 MG TAB.ER.24H PO SCH (08:17)
[2018-02-16] MEDS: *HR* OxyCODONE Immed Rel 5 MG TABLET PO PRN (12:43)
[2018-02-16] MEDS: Primidone 50 MG TABLET PO SCH (21:17)
[2018-02-16] MEDS: Mirtazapine 15 MG TABLET PO SCH (21:17)
[2018-02-16] MEDS: traZODone 50 MG TABLET PO SCH (21:17)
[2018-02-17 04:12] LABS: Basophils % 0.3 %; Eosinophils # 0.2 K/mcL (0.0-0.6); Eosinophils % 1.3 %; Hematocrit 28.8 % (37.5-50.1); Hemoglobin 9.1 g/dL (12.9-16.9); Immature Granulocytes % 1.9 % (0-4); Lymphocytes % 17.1 %; Mean Corpuscular HGB Conc 31.6 g/dL (31.6-35.5); Mean Corpuscular Hemoglobin 29.5 pg (28.0-33.3); Mean Corpuscular Volume 93.5 fL (83.0-100.0); Mean Platelet Volume 9.8 fL (9.4-12.4); Monocytes # 0.8 K/mcL (0.0-1.3); Monocytes % 6.8 %; Neutrophils # 8.6 K/mcL (1.6-8.9); Platelet Count 227 K/mcL (140-400); Red Blood Count 3.08 M/mcL (4.19-5.50); Red Cell Distribution Width 14.6 % (11.5-14.5); Segmented Neutrophils % 72.6 %
[2018-02-17 04:30] LABS: Alanine Aminotransferase 22 Units/L (7-52); Albumin 2.4 g/dL (3.5-5.7); Alkaline Phosphatase 54 Units/L (34-104); Aspartate Amino Transferase 15 Units/L (13-39); BUN/Creatinine Ratio 46 (6-26); Bilirubin,Total 0.2 mg/dL (0.3-1.0); Blood Urea Nitrogen 39 mg/dL (8-23); Calcium 8.2 mg/dL (8.6-10.3); Carbon Dioxide 35 mEq/L (23-29); Chloride 100 mEq/L (98-107); Globulin 2.3 g/dL (2.4-3.5); Glucose 101 mg/dL (70-105); Osmolality,Calculated 298 (280-300); Potassium 4.3 mEq/L (3.5-5.1); Sodium 139 mEq/L (136-145); Total Protein 4.7 g/dL (6.4-8.9); eGFR For Non-African Americans > 60 (> 60)
[2018-02-17] MEDS: *HR* HYDROcodone/Acet 5/325 mg TABLET PO PRN ×2 (05:34→09:17)
[2018-02-17] MEDS: Ampicillin/Sulbactam 3,000 MG in 0.9 % Sodium Chloride Mini Bag 100 ML IVPB SCH ×3 (05:35→18:41)
[2018-02-17] MEDS: *HR* Heparin 5,000 UNIT/ML VIAL SQ SCH ×2 (09:15→16:15)
[2018-02-17] MEDS: Nicotine 21 MG PATCH.TD24 TD SCH (09:16)
[2018-02-17] MEDS: Spironolactone 25 MG TABLET PO SCH (09:16)
[2018-02-17] MEDS: Aspirin Enteric Coated 81 MG Tablet PO SCH (09:17)
[2018-02-17] MEDS: predniSONE 20 MG TABLET PO SCH (09:17)
[2018-02-17] MEDS: Metoprolol XL (24 HR) Succ 25 MG TAB.ER.24H PO SCH (09:17)
--- NOTE | 2018-02-17 09:39 | Palliative Progress Note ---
Date of Encounter: 02/17/18 Time of Encounter: 09:00 - Assessment and plan (1) Goals of care, counseling/discussion Current Visit: Yes Status: Acute Assessment and plan: Goals of care are more clear today as of last 02/14. He still only wants symptomatic management. He does not want any extensive medical treatment other than necessary to make him comfortable. Today he is asking when he can go to his new facility as he is bored of staying at the hospital. We had a long discussion about goals of care on 02/14 and what he expects from his current health and his hospital stay. We also discussed where we go from here in terms of retirement care. Initially he stated he would like to go home because he has lived in his apartment for a long time and feels comfortable. But then I discussed with him the risk of living home alone as he recently fell and is unable to provide for himself. He also noted that he is sometimes unsteady on his feet and is at risk of falling again. He realizes that he is unable to take care of himself at home without assistance. I also discussed with him his current health. He realizes that his health is not improving. He is afraid of because of all the people he has lost in his life and recently lost a who he was to for 36 years last May. But he is finally starting to understand that he is not going to fully recover from his worsening health. He is now looking forward going to a facility as he may be able to make friends as currently he has no body at home and no visitors except his aid. He also understands he is not strong enough to be active but states that he wants to work towards regaining his strength. (2) Protein-calorie malnutrition, severe Current Visit: Yes Status: Acute Assessment and plan: His BMI was 15.5 on 02/13 and improved today to 15.8. Likely low weight due to unable to take care of himself at home. He noted he goes a corner store for cook ies, milk and bread. His BMI is likely low due to chronic poor nutrition intake. Primary team has megace ordered and he is consuming all of his meals. (3) Depression Current Visit: Yes Status: Acute Assessment and plan: Mood significantly improved since admission. Today he is was able to open up more and talk. He is excited about going to the outside facility. He continues to deny any current depressive episodes. His mood is affected by his inability to care for himself at home. He has no current plans of hurting himself. He continues to have difficulty sleeping. Currently on trazadone, mirtazapine and paroxetine. Qualifiers: Depression Type: unspecified Qualified Code(s): F32.9 - Major depressive disorder, single episode, unspecified (4) COPD (chronic obstructive pulmonary disease) Current Visit: Yes Status: Acute Qualifiers: COPD type: emphysema Emphysema type: centrilobular Qualified Code(s): J43.2 - Centrilobular emphysema (5) Rib fracture Current Visit: Yes Status: Acute Qualifiers: Rib fracture type: single rib Laterality: right Fracture healing: with nonunion Qualified Code(s): S22.31XK - Fracture of one rib, right side, subsequent encounter for fracture with nonunion (6) Tobacco abuse Current Visit: Yes Status: Acute - Time Spent With Patient Total time spent is greater than 50% in coordination of care (as documented) at patient's floor/unit and/or counseling patient: - Subjective Interval history: Mr. Jones was seen at bedside this morning. He was comfortable in bed. He was getting ready to eat his breakfast. He also asked about when he could go to the outside facility as he was bored of being in the hospital. He had no complaints this morning. He denied fever, chills, nausea, emesis, shortness of breath, chest pain or abdominal pain. - Constitutional Vitals: Abnormal lab results WBC 11.9 K/mcL (4.3-11.1) H 02/17/18 03:58 RBC 3.08 M/mcL (4.19-5.50) L 02/17/18 03:58 Hgb 9.1 g/dL (12.9-16.9) L 02/17/18 03:58 Hct 28.8 % (37.5-50.1) L 02/17/18 03:58 RDW 14.6 % (11.5-14.5) H 02/17/18 03:58 Carbon Dioxide 35 mEq/L (23-29) H 02/17/18 03:58 BUN 39 mg/dL (8-23) H 02/17/18 03:58 BUN/Creatinine Ratio 46 (6-26) H 02/17/18 03:58 POC Glucose 180 mg/dL (70-99) H 02/14/18 16:18 Calcium 8.2 mg/dL (8.6-10.3) L 02/17/18 03:58 Total Bilirubin 0.2 mg/dL (0.3-1.0) L 02/17/18 03:58 Serum Total Protein 4.7 g/dL (6.4-8.9) L 02/17/18 03:58 Albumin 2.4 g/dL (3.5-5.7) L 02/17/18 03:58 Globulin 2.3 g/dL (2.4-3.5) L 02/17/18 03:58 Albumin/Globulin Ratio 1.0 (1.1-2.2) L 02/17/18 03:58 - Head Head exam: Present: atraumatic, normocephalic - Eye Eye exam: Present: EOMI, normal appearance, sclera anicteric - ENT ENT exam: Present: mucous membranes moist, normal exam - Neck Neck exam: Present: full ROM, normal inspection - Respiratory Respiratory exam: Present: CTAB. Absent: rales, stridor, wheezes - Cardiovascular Cardiovascular exam: Present: RRR, +S1, +S2 - GI/Abdominal GI/Abdominal exam: Present: normal bowel sounds, soft. Absent: firm, guarding, tenderness - Extremities Exam Extremities exam: Present: full ROM, normal inspection. Absent: pedal edema, tenderness - Neurological Exam Neurological exam: Present: alert, oriented X3 - Psychiatric Psychiatric exam: Present: normal affect, normal mood - Skin Skin exam: Present: dry, intact, warm. Absent: rash Palliative Quality Palliative Quality: Screen for Code Status: Yes, Screen for Goals of Care: Yes, Screen for Pain: Yes, If Pain Regimen Started, Initiate Bowel Regimen: Yes, Screen for Nausea/Vomitting: Yes Code Status: 02/11/18 15:12 Resuscitation Status: Active [RES] Routine Comment: Resuscitation Status: Full Code Resuscitation Status: Active [RES] Routine Comment: From recent admission Resuscitation Status: [id number] - Labs CBC & Chem 7: 02/17/18 03:58 02/17/18 03:58 Labs: Laboratory Results - last 24 hr 02/16/18 02/17/18 02/17/18 22:56 03:58 03:58 WBC 11.9 H RBC 3.08 L Hgb 9.1 L Hct 28.8 L MCV 93.5 MCH 29.5 MCHC 31.6 RDW 14.6 H Plt Count 227 MPV 9.8 Immature Gran % 1.9 Seg Neutrophils % 72.6 Lymphocytes % 17.1 Monocytes % 6.8 Eosinophils % 1.3 Basophils % 0.3 Neutrophils # 8.6 Lymphocytes # 2.0 Monocytes # 0.8 Eosinophils # 0.2 Basophils # 0.0 Sodium 139 Potassium 4.3 Chloride 100 Carbon Dioxide 35 H BUN 39 H Creatinine 0.84 Est GFR ( Amer) > 60 Est GFR (Non-Af Amer) > 60 BUN/Creatinine Ratio 46 H Glucose 101 Calculated Osmolality 298 Lactic Acid 1.1 Calcium 8.2 L Total Bilirubin 0.2 L AST 15 ALT 22 Alkaline Phosphatase 54 Serum Total Protein 4.7 L Albumin 2.4 L Globulin 2.3 L Albumin/Globulin Ratio 1.0 L 02/17/18 03:58 WBC RBC Hgb Hct MCV MCH MCHC RDW Plt Count MPV Immature Gran % Seg Neutrophils % Lymphocytes % Monocytes % Eosinophils % Basophils % Neutrophils # Lymphocytes # Monocytes # Eosinophils # Basophils # Sodium Potassium Chloride Carbon Dioxide BUN Creatinine Est GFR ( Amer) Est GFR (Non-Af Amer) BUN/Creatinine Ratio Glucose Calculated Osmolality Lactic Acid 0.6 Calcium Total Bilirubin AST ALT Alkaline Phosphatase Serum Total Protein Albumin Globulin Albumin/Globulin Ratio Consult Discharge Plan - Plan Referrals: NONE,PCP [Primary Care Provider] - Prescriptions: Albuterol Sulfate [Ventolin Hfa] 18 gm IH PRN PRN #1 hfa.aer.ad PRN Reason: COPD
--- NOTE | 2018-02-17 11:23 | Discharge Summary ---
<Nj Dickerson - Last Filed: 02/17/18 16:53> Orders not resulted at time of discharge: Pending orders 02/18/18 04:00 CBC [Complete Blood Count] [HEME] AM 0400 CMP [Comprehensive Metabolic Panel] AM 0400 02/19/18 04:00 CBC [Complete Blood Count] [HEME] AM 0400 CMP [Comprehensive Metabolic Panel] AM 0400 - Discharge Diagnosis (1) Depression Status: Chronic Qualifiers: Depression Type: major depressive disorder Major depression recurrence: recurrent Active/Remission status: currently active Major depression episode severity: severe Psychotic features: without psychotic features Qualified Code(s): F33.2 - Major depressive disorder, recurrent severe without psychotic features (2) Pneumonia Status: Resolved Qualifiers: Pneumonia type: aspiration pneumonia Aspiration pneumonia type: due to gastric secretions Laterality: bilateral Lung location: lower lobe of lung Qualified Code(s): J69.0 - Pneumonitis due to inhalation of food and vomit (3) CHF (congestive heart failure) Status: Chronic Qualifiers: Heart failure type: systolic Heart failure chronicity: chronic Qualified Code(s): I50.22 - Chronic systolic (congestive) heart failure (4) Acute exacerbation of chronic obstructive airways disease Priority: Primary Status: Acute (5) Tobacco abuse Status: Chronic (6) Rib fracture Status: Acute Qualifiers: Encounter type: subsequent encounter Rib fracture type: single rib Fracture type: closed Laterality: right Fracture healing: with routine healing Qualified Code(s): S22.31XD - Fracture of one rib, right side, subsequent encounter for fracture with routine healing (7) Protein-calorie malnutrition, severe Status: Chronic (8) Anemia Status: Chronic Qualifiers: Anemia type: other cause Other causes of anemia: chronic disease, other Qualified Code(s): D63.8 - Anemia in other chronic diseases classified elsewhere (9) Chronic respiratory failure with hypoxia and hypercapnia Status: Chronic (10) Essential tremor Status: Chronic (11) Anorexia Status: Chronic Hospital course: Mr. Jones is a 77 year old male - Time Spent with Patient Total time spent providing and/or coordinating discharge services: 37min - Discharge Medications Prescriptions: Albuterol Sulfate [Ventolin Hfa] 18 gm IH PRN PRN #1 hfa.aer.ad PRN Reason: COPD Budesonide/Formoterol 160/4.5 [Symbicort 160/4.5] 2 puff IH BIDR 30 Days #1 hfa.aer.ad predniSONE [PredniSONE] See Taper PO DAILY #9 tablet Home Medications: Aspirin Enteric Coated [Aspirin EC] 81 mg PO DAILY #0 12/07/14 [History] Nitroglycerin 0.4 mg SL Q5MIN PRN #0 tab.subl 08/04/15 [Rx] Spironolactone [Aldactone] 12.5 mg PO DAILY #30 tablet 08/04/15 [Rx] Omeprazole [PriLOSEC] 20 mg PO DAILY 10/28/15 [History] Losartan [Cozaar] 25 mg PO DAILY 10/05/17 [History] Metoprolol Succinate [Toprol Xl] 25 mg PO DAILY 10/05/17 [History] Mirtazapine [Remeron] 30 mg PO HS 10/05/17 [History] Paroxetine HCl [Paxil] 20 mg PO DAILY 10/05/17 [History] Primidone [Mysoline] 50 mg PO HS 10/05/17 [History] Tamsulosin [Flomax] 0.4 mg PO DAILY 10/05/17 [History] LORazepam [Ativan] 1 mg PO TID PRN 02/03/18 [History] Megestrol Acetate 20 mg PO BID 02/03/18 [History] Simvastatin [Zocor] 40 mg PO DAILY 02/03/18 [History] traZODone [TraZODone] 50 mg PO HS 02/03/18 [History] Albuterol Sulfate [Ventolin Hfa] 18 gm IH PRN PRN #1 hfa.aer.ad 02/14/18 [Rx] Budesonide/Formoterol 160/4.5 [Symbicort 160/4.5] 2 puff IH BIDR 30 Days #1 hfa.aer.ad 02/17/18 [Rx] predniSONE [PredniSONE] See Taper PO DAILY #9 tablet 02/17/18 [Rx] Allergies/Adverse Reactions: Allergy/AdvReac Type Severity Reaction Status Date / Time No Known Allergies Allergy Verified 02/09/18 10:02 Date of admission: 02/11/18 17:32 Primary care physician: PCP NONE Consults: 02/11/18 15:15 Consult to Speech Therapy [CONS] Routine Comment: Evaluate, develop and implement POC Reason for Consult: Possible aspiration Call Completed: No 10/23/18 15:17 Consult to Nurse Navigator [CONS] Routine Comment: 02/11/18 18:17 PT [Consult to Physical Therapy] [CONS] Routine Comment: Evaluate, develop and implement POC Reason for Consult: Discharge planning. Weakness Does patient have active BEDREST order?: No Is patient medically & hemodynamically stable?: Yes Patient assessed for mobility or mobilized this visit?: Yes consult to grinder [Consult to Nutrition] [CONS] Routine Comment: Consulting Provider: NUTRITION Reason for Dietary Consult: Other Other:: malnutrition 02/11/18 18:18 OT [Consult to Occupational Therapy] [CONS] Routine Comment: Evaluate, develop and implement POC Reason for Consult: Discharge planning Does patient have active BEDREST order?: No Is patient medically & hemodynamically stable?: Yes Patient assessed for mobility or mobilized this visit?: Yes 02/13/18 12:54 Consult to Palliative Care [CONS] Routine Comment: Consulting Provider: [facility] [place] Reason for Consult: goals of care Call Completed: Yes - Constitutional Vitals: Temp Pulse Resp BP Pulse Ox 97.8 F 93 19 111/74 98 02/17/18 06:42 02/17/18 06:42 02/17/18 06:42 02/17/18 06:42 02/17/18 06:42 - Patient Status Disposition: Transfer SNF Condition: Fair - Discharge Instructions Follow Up With: NONE,PCP [Primary Care Provider] - Additional Instructions: - Cessation to prevent flareup of COPD symptoms and recurrent admissions to the hospital because for dyspnea. -Finish the 6 day course of prednisone taper starting at 20 mg for 3 days and then 10 mg for the next 3 days. - Take Symbicort 2 puffs twice a day. -Use incentive spirometry every day to rectify the VQ mismatch secondary to atelectasis of the lung tissue. - To the ED immediately if the symptoms worsen or if requiring more amount of home oxygen. - Attending Attestation I examined this patient and my medical decision-making was reviewed with the Resident Physician on 02/16/18. I agree with the documented findings, disposition and treatment plan as described except to the extent set forth below. Mr Jones has been admitted for acute exac COPD. He has improved with current treatment. He is now afebrile and ready for discharge to SNF. Exam alert Comfortable Mucus membranes dry Heart reg Scant wheeze Abd soft No edema Plan D/C to SNF today. <Evgeny Jerez - Last Filed: 02/17/18 17:43> - NOTES TO OUTPATIENT PROVIDER Notes to Outpatient Provider: - Follow up with PCP as an outpatient. - Smoking cessation for rolling COPD symptoms and preventing admissions for dyspnea. Orders not resulted at time of discharge: Pending orders 02/18/18 04:00 CBC [Complete Blood Count] [HEME] AM 0400 CMP [Comprehensive Metabolic Panel] AM 0400 02/19/18 04:00 CBC [Complete Blood Count] [HEME] AM 0400 CMP [Comprehensive Metabolic Panel] AM 0400 Date of Encounter: 02/17/18 Time of Encounter: 08:30 - Discharge Diagnosis (1) Chronic respiratory failure with hypoxia and hypercapnia Priority: Primary Status: Chronic (2) Depression Priority: Secondary Status: Chronic Qualifiers: Depression Type: major depressive disorder Major depression recurrence: recurrent Active/Remission status: currently active Major depression episode severity: severe Psychotic features: without psychotic features Qualified Code(s): F33.2 - Major depressive disorder, recurrent severe without psychotic features (3) Pneumonia Priority: Secondary Status: Resolved Qualifiers: Pneumonia type: aspiration pneumonia Aspiration pneumonia type: due to gastric secretions Laterality: bilateral Lung location: lower lobe of lung Qualified Code(s): J69.0 - Pneumonitis due to inhalation of food and vomit (4) CHF (congestive heart failure) Priority: Secondary Status: Chronic Qualifiers: Heart failure type: systolic Heart failure chronicity: chronic Qualified Code(s): I50.22 - Chronic systolic (congestive) heart failure (5) Acute exacerbation of chronic obstructive airways disease Priority: Secondary Status: Resolved (6) Tobacco abuse Priority: Secondary Status: Chronic (7) Rib fracture Priority: Secondary Status: Acute Qualifiers: Encounter type: subsequent encounter Rib fracture type: single rib Fracture type: closed Laterality: right Fracture healing: with routine healing Qualified Code(s): S22.31XD - Fracture of one rib, right side, subsequent encounter for fracture with routine healing (8) Protein-calorie malnutrition, severe Priority: Secondary Status: Chronic (9) Anemia Priority: Secondary Status: Chronic Qualifiers: Anemia type: other cause Other causes of anemia: chronic disease, other Qualified Code(s): D63.8 - Anemia in other chronic diseases classified elsewhere (10) Essential tremor Priority: Secondary Status: Chronic (11) Anorexia Priority: Secondary Status: Chronic Hospital course: Mr. Jones is a pleasant 77-year-old male with a past medical history of CHF, COPD and essential tremor who presented to the ED with complaints of shortness of breath was found to be acute on chronic hypoxic hypercapnic respiratory failure. Patient had a fall a few days ago and was seen in the ED was diagnosed with fracture of ribs. CT of the abdomen during this admission showed advanced centrilobular and paraseptal emphysema. There were also evidence of scattered tree-in-bud opacities in the right greater than left mid and lower lung zones. during the course of the hospital stay, patient competed a seven-day course off unasyn for concerns for aspiration PNA. Patient was also on duoneb, and steroids. During the third day of the hospital stay, patient was endorsing some suicidal ideation with the thoughts of hurting if he had a gun with him. This led to his discharge deposition a little more complicated. She is going to be discharged on 20 mg of prednisone taper along with Symbicort for his end-stage COPD. - Time Spent with Patient Total time spent providing and/or coordinating discharge services: Date of admission: 02/11/18 17:32 Primary care physician: PCP NONE Consults: 02/11/18 15:15 Consult to Speech Therapy [CONS] Routine Comment: Evaluate, develop and implement POC Reason for Consult: Possible aspiration Call Completed: No 02/11/18 15:17 Consult to Nurse Navigator [CONS] Routine Comment: 02/11/18 18:17 PT [Consult to Physical Therapy] [CONS] Routine Comment: Evaluate, develop and implement POC Reason for Consult: Discharge planning. Weakness Does patient have active BEDREST order?: No Is patient medically & hemodynamically stable?: Yes Patient assessed for mobility or mobilized this visit?: Yes consult to grinder [Consult to Nutrition] [CONS] Routine Comment: Consulting Provider: NUTRITION Reason for Dietary Consult: Other Other:: malnutrition 02/11/18 18:18 OT [Consult to Occupational Therapy] [CONS] Routine Comment: Evaluate, develop and implement POC Reason for Consult: Discharge planning Does patient have active BEDREST order?: No Is patient medically & hemodynamically stable?: Yes Patient assessed for mobility or mobilized this visit?: Yes 02/13/18 12:54 Consult to Palliative Care [CONS] Routine Comment: Consulting Provider: [facility] Reason for Consult: goals of care Call Completed: Yes - Constitutional Vitals: Temp Pulse Resp BP Pulse Ox 97.8 F 93 19 111/74 98 02/17/18 06:42 02/17/18 06:42 02/17/18 06:42 02/17/18 06:42 02/17/18 06:42 General appearance: Present: cachectic, cooperative, A&O X 3, underweight Exam: General: Alert and oriented. Comfortable at this time. Cachetic. Somnolent Skin: Normal color, no rash, no lesions. H: Normocephalic. EENT: EOMI. Mucus membranes dry. No lesion. Cardiovascular: Normal S1 & S2, no rubs, murmurs or gallops. No JVD. Distant. Not tachy. Lungs: Diminished breath sounds. No wheeze. Few rhonchi noted. Abdomen: Soft, non-tender, no rigidity. Normal bowel sounds. Extremities: No deformity, no edema or tenderness, no joint swelling or clubbing. OA noted. Neurological: Normal cognition and motor skills. Significant tremor noted. Pulses: radial pulses normal +2. Rest of the physical exam is non contributory - Patient Status Overall status at discharge: patient is progressing back to baseline - Diet and Activity Activity: increase activity as tolerated Diet: low fat, low cholesterol Addendum entered and electronically signed by Gabriela Norman DO 02/18/18 12:54: Mr Jones did not discharge 02/17 due to insurance issues. He remains medically stable for discharge to snf when insurance approval comes through. His hpi, physical exam remain unchanged. He has demonstrated lower than goal BPs on home antihypertensive regimen which includes losartan and metoprolol. These medications are now held and may be re introduced outpt as BP permits.
--- NOTE | 2018-02-17 11:39 | Event Note ---
<Elizabeth Morgan - Last Filed: 02/17/18 14:42> Date of Encounter: 02/17/18 Time of Encounter: 09:30 Mr. Jones was seen at bedside this morning. He was comfortable in bed. He was getting ready to eat his breakfast. He also asked about when he could go to the outside facility as he was bored of being in the hospital. He had no complaints this morning. He denied fever, chills, nausea, emesis, shortness of breath, chest pain or abdominal pain. He is looking forward to being discharged and continues to be agreeable to being discharged to an outside facility. His mood is much better today since his admission. He is having good oral intake and having bowel movements. No changes made today. Signing off, pending placement <Abby Fregoso - Last Filed: 02/17/18 15:29> Pt's GOC are clear, pending placement. Thank you for allowing palliative care to participate in the care of this patient.
--- NOTE | 2018-02-17 16:58 | Physician Discharge Referral ---
Addendum entered and electronically signed by Gabriela Norman DO 02/18/18 12:53: Mr Jones BPs were lower than goal on his home losartan and metoprolol. These medications should be held on discharge and re introduced as BP permits outpt. Original Note: [facility] Referral Info Transfer To: [facility] Provider in Charge after Transfer: PCP Institutional Level of Care: Skilled - Diagnosis (1) Depression Priority: Secondary Status: Chronic (2) Pneumonia Priority: Secondary Status: Resolved (3) CHF (congestive heart failure) Priority: Secondary Status: Chronic (4) Acute exacerbation of chronic obstructive airways disease Priority: Primary Status: Resolved (5) Tobacco abuse Priority: Secondary Status: Chronic (6) Rib fracture Priority: Secondary Status: Acute (7) Protein-calorie malnutrition, severe Priority: Secondary Status: Chronic (8) Anemia Priority: Secondary Status: Chronic (9) Chronic respiratory failure with hypoxia and hypercapnia Priority: Secondary Status: Chronic (10) Essential tremor Priority: Secondary Status: Chronic (11) Anorexia Priority: Secondary Status: Chronic Expected Duration of Placement: Less than 30 days Prognosis: Fair Aware of Diagnosis: Patient Aware of Prognosis: Patient - Transfer Medications Prescriptions: Albuterol Sulfate [Ventolin Hfa] 18 gm IH PRN PRN #1 hfa.[email or web address] PRN Reason: COPD Budesonide/Formoterol 160/4.5 [Symbicort 160/4.5] 2 puff IH BIDR 30 Days #1 hfa.aer.ad predniSONE [PredniSONE] See Taper PO DAILY #9 tablet Home Medications: Aspirin Enteric Coated [Aspirin EC] 81 mg PO DAILY #0 12/07/14 [History] Nitroglycerin 0.4 mg SL Q5MIN PRN #0 tab.subl 08/04/15 [Rx] Spironolactone [Aldactone] 12.5 mg PO DAILY #30 tablet 08/04/15 [Rx] Omeprazole [PriLOSEC] 20 mg PO DAILY 10/28/15 [History] Losartan [Cozaar] 25 mg PO DAILY 10/05/17 [History] Metoprolol Succinate [Toprol Xl] 25 mg PO DAILY 10/05/17 [History] Mirtazapine [Remeron] 30 mg PO HS 10/05/17 [History] Paroxetine HCl [Paxil] 20 mg PO DAILY 10/05/17 [History] Primidone [Mysoline] 50 mg PO HS 10/05/17 [History] Tamsulosin [Flomax] 0.4 mg PO DAILY 10/05/17 [History] LORazepam [Ativan] 1 mg PO TID PRN 02/03/18 [History] Megestrol Acetate 20 mg PO BID 02/03/18 [History] Simvastatin [Zocor] 40 mg PO DAILY 02/03/18 [History] traZODone [TraZODone] 50 mg PO HS 02/03/18 [History] Albuterol Sulfate [Ventolin Hfa] 18 gm IH PRN PRN #1 hfa.aer.ad 02/14/18 [Rx] Budesonide/Formoterol 160/4.5 [Symbicort 160/4.5] 2 puff IH BIDR 30 Days #1 hfa.aer.ad 02/17/18 [Rx] predniSONE [PredniSONE] See Taper PO DAILY #9 tablet 02/17/18 [Rx] Allergies/Adverse Reactions: Allergy/AdvReac Type Severity Reaction Status Date / Time No Known Allergies Allergy Verified 02/09/18 10:02 - Respiratory Orders Oxygen / L per min (Maintain saturation greater than 90%) Smoking Cessation: Smoking cessation has been advised. For more information, call the [place] Tobacco Quit Line at 0-380-KRAO-NOW. - Lab Orders Lab Orders: 2 Step Mantoux Test per State regulation, CBC, Rufino 17 - Ancillary Orders May use pressure relief devices daily prn, May consult with Dentist, Surveillance Officer, Pumper Helper PRN - Advance Directives Code Status: DNR-Arrest/Don't Intubate - Mobility Orders Chair, Ambulate - Rehabiliation Orders Rehab Potential: Fair Rehab Orders: Evaluation for Physical Therapy, Evaluation for Occupational Therapy - Treatments Skin tear care topically daily PRN per policy, May check for fecal impaction rectally daily PRN, Fleet enema rectally every other day PRN cleansing purposes - Diet Orders No Added Salt (DAVID), Cardiac CERTIFICATION: I certify that the transfer of the above named patient to an Extended Care Facility is necessary for the continuing treatment of the diagnosis listed. The above information is true and accurate reflection of patient's current condition. Confidential - Redisclosure prohibited without a patient's written consent.
[2018-02-17] MEDS: Mirtazapine 15 MG TABLET PO SCH (20:42)
[2018-02-17] MEDS: Primidone 50 MG TABLET PO SCH (20:42)
[2018-02-17] MEDS: traZODone 50 MG TABLET PO SCH (20:42)
[2018-02-17] MEDS ORDERED: 0.9 % Sodium Chloride 500 ML IVC ONE (23:59)
[2018-02-18] MEDS ORDERED: 0.9 % Sodium Chloride 500 ML ONE (00:06)
[2018-02-18] MEDS: *HR* Heparin 5,000 UNIT/ML VIAL SQ SCH ×3 (00:12→18:14)
[2018-02-18 05:25] LABS: Basophils % 0.1 %; Eosinophils # 0.1 K/mcL (0.0-0.6); Eosinophils % 0.8 %; Hematocrit 30.2 % (37.5-50.1); Hemoglobin 9.3 g/dL (12.9-16.9); Immature Granulocytes % 2.2 % (0-4); Lymphocytes % 14.2 %; Mean Corpuscular HGB Conc 30.8 g/dL (31.6-35.5); Mean Corpuscular Hemoglobin 29.1 pg (28.0-33.3); Mean Corpuscular Volume 94.4 fL (83.0-100.0); Mean Platelet Volume 10.2 fL (9.4-12.4); Monocytes % 7.1 %; Neutrophils # 10.9 K/mcL (1.6-8.9); Platelet Count 254 K/mcL (140-400); Red Cell Distribution Width 14.6 % (11.5-14.5); Segmented Neutrophils % 75.6 %
[2018-02-18 05:28] LABS: Alanine Aminotransferase 24 Units/L (7-52); Albumin 2.3 g/dL (3.5-5.7); Alkaline Phosphatase 54 Units/L (34-104); Aspartate Amino Transferase 17 Units/L (13-39); BUN/Creatinine Ratio 46 (6-26); Bilirubin,Total 0.2 mg/dL (0.3-1.0); Blood Urea Nitrogen 42 mg/dL (8-23); Calcium 8.1 mg/dL (8.6-10.3); Carbon Dioxide 34 mEq/L (23-29); Chloride 101 mEq/L (98-107); Globulin 2.3 g/dL (2.4-3.5); Glucose 100 mg/dL (70-105); Osmolality,Calculated 299 (280-300); Potassium 4.3 mEq/L (3.5-5.1); Sodium 139 mEq/L (136-145); Total Protein 4.6 g/dL (6.4-8.9); eGFR For Non-African Americans > 60 (> 60)
[2018-02-18] MEDS: Spironolactone 25 MG TABLET PO SCH (09:32)
[2018-02-18] MEDS: Aspirin Enteric Coated 81 MG Tablet PO SCH (09:33)
[2018-02-18] MEDS: Nicotine 21 MG PATCH.TD24 TD SCH (09:34)
[2018-02-18] MEDS: predniSONE 20 MG TABLET PO SCH (09:34)
[2018-02-18] MEDS: Metoprolol XL (24 HR) Succ 25 MG TAB.ER.24H PO SCH (11:57)
--- NOTE | 2018-02-18 15:01 | Internal Med Progress Note ---
<Gabriela Norman - Last Filed: 02/18/18 15:57> Hospitalist Progress Note - Exam Vitals: Temp Pulse Resp BP Pulse Ox 97.6 F 81 18 100/61 92 02/18/18 11:37 02/18/18 11:37 02/18/18 11:37 02/18/18 11:37 02/18/18 11:37 - Assessment and Plan (1) Depression Current Visit: No Status: Chronic (2) Pneumonia Current Visit: No Status: Resolved (3) CHF (congestive heart failure) Current Visit: No Status: Chronic (4) Acute exacerbation of chronic obstructive airways disease Current Visit: No Status: Resolved (5) Tobacco abuse Current Visit: No Status: Chronic (6) Rib fracture Current Visit: Yes Status: Acute (7) Protein-calorie malnutrition, severe Current Visit: Yes Status: Chronic (8) Anemia Current Visit: Yes Status: Chronic (9) Chronic respiratory failure with hypoxia and hypercapnia Current Visit: Yes Status: Chronic (10) Essential tremor Current Visit: Yes Status: Chronic (11) Anorexia Current Visit: Yes Status: Chronic - Time Spent with Patient Total time spent is greater than 50% in coordination of care (as documented) at patient's floor/unit and/or counseling patient: Internal Medicine: Result - Labs CBC & Chem 7: 02/18/18 04:14 02/18/18 04:14 Labs: Short CBC 02/18/18 Range/Units 04:14 WBC 14.4 H (4.3-11.1) K/mcL Hgb 9.3 L (12.9-16.9) g/dL Hct 30.2 L (37.5-50.1) % Plt Count 254 (140-400) K/mcL Neutrophils # 10.9 H (1.6-8.9) K/mcL BMP 02/18/18 04:14 Sodium 139 Potassium 4.3 Chloride 101 Carbon Dioxide 34 H BUN 42 H Creatinine 0.91 Glucose 100 Calcium 8.1 L Liver Function 02/18/18 Range/Units 04:14 Total Bilirubin 0.2 L (0.3-1.0) mg/dL AST 17 (13-39) Units/L ALT 24 (7-52) Units/L Alkaline Phosphatase 54 (34-104) Units/L Albumin 2.3 L (3.5-5.7) g/dL Consult Discharge Plan - Plan Instructions: Albuterol (By breathing), Prednisone (By mouth), Budesonide (By breathing), Heart Failure (DC), Chronic Obstructive Pulmonary Disease (DC), Anemia (GEN), Fall Prevention (DC), Pneumonia (DC), Cigarette Smoking and Your Health, 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 -Finish the 6 day course of prednisone taper starting at 20 mg for 3 days and then 10 mg for the next 3 days. - Take Symbicort 2 puffs twice a day. -Use incentive spirometry every day to rectify the VQ mismatch secondary to atelectasis of the lung tissue. - To the ED immediately if the symptoms worsen or if requiring more amount of home oxygen. Referrals: NONE,PCP [Primary Care Provider] - Prescriptions: Albuterol Sulfate [Ventolin Hfa] 18 gm IH PRN PRN #1 hfa.aer.ad PRN Reason: COPD Budesonide/Formoterol 160/4.5 [Symbicort 160/4.5] 2 puff IH BIDR 30 Days #1 hfa.aer.ad predniSONE [PredniSONE] See Taper PO DAILY #9 tablet - Attending Attestation I examined this patient and my medical decision-making was reviewed with the Resident Physician Dr Jerez. I agree with the documented findings, disposition and treatment plan as described except to the extent set forth below/addl details below Mr Jones was admitted for acute exac COPD and pna. He has improved with current treatment. During this admission he did note thoughts of self harm which since resolved. He was medically cleared for dc to snf and remains awaiting insurance authorization. In an update since last note/dc summary, he had low bps overnight and home metoprolol and losartan are being held with now normotensive bps. He remains clinically improved, afebrile, with leukocytosis that has been variable this admit, overall stable and decreased from admit. asleep, awakes to name. denies any complaints, just wants "to go home now". Denies sob, chest pain, fevers or chills, thoughts of self harm. 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 He endorses no acute distress. He finished his 7 day course of Unasyn for aspiration pneumonia. Currently waiting on corporate clearance from a [facility] facility so patient can be safely transferred there from the hospital. 02/13/18 I saw Mr. Jones at the bedside this morning. He was eating his breakfast and endorses no acute distress. Denies any chest pain or worsening shortness of breath, productive cough or sputum. He continues to be on 3 L of home oxygen satting at 98%. Denies any episodes of dysuria. He did endorse constipation and I ordered some Colace and Miralax PRN. Patient is back on his home medications right now. From the nurses I learnt that patient was endorsing signs of suicidality and mentioned that he would commit one if he had the gun. 02/12/18 Mr. Jones is a pleasant 77-year-old male with a past medical history of CHF, COPD and essential tremor who presented to the ED with complaints of shortness of breath. Patient had a fall a few days ago and was seen in the ED. CT of the abdomen showed advanced centrilobular and paraseptal emphysema. There were also evidence of scattered tree-in-bud opacities in the right greater than left mid and lower lung zones. acute minimally displaced fracture of the right 11th rib. CT also showed mildly displaced fractures involving the tips of the right L1, L3 and L2 transverse processes. Patient was in no acute distress when I met him this morning. He had some hip pain and was given Tylenol for pain control and felt better. - Exam Vitals: Temp Pulse Resp BP Pulse Ox 97.6 F 81 18 100/61 92 02/18/18 11:37 02/18/18 11:37 02/18/18 11:37 02/18/18 11:37 02/18/18 11:37 Exam: General: Alert and oriented. Comfortable at this time. Cachetic. Somnolent Skin: Normal color, no rash, no lesions. H: Normocephalic. EENT: EOMI. Mucus membranes dry. No lesion. Cardiovascular: Normal S1 & S2, no rubs, murmurs or gallops. No JVD. Distant. Not tachy. Lungs: Diminished breath sounds. No wheeze. Few rhonchi noted. Abdomen: Soft, non-tender, no rigidity. Normal bowel sounds. Extremities: No deformity, no edema or tenderness, no joint swelling or clubbing. OA noted. Neurological: Normal cognition and motor skills. Significant tremor noted. Pulses: radial pulses normal +2. Rest of the physical exam is non contributory - Assessment and Plan (1) Chronic respiratory failure with hypoxia and hypercapnia Current Visit: Yes Status: Chronic Assessment and Plan: -likely due to his history of COPD. Patient's most recent chest CT showed evidence of extreme emphysema. Continues to be a smoker. - Physical exam he had decreased breath sounds. No wheezing rales or rhonchi appreciated. - Currently on DuoNeb, supplemental oxygen, currently on 20 mg PO prednisone. Requiring 4 L of oxygen this am. - Continue to use spirometry to rectify the VQ mismatch secondary to atelectasis. - (2) Depression Current Visit: No Status: Chronic Assessment and Plan: -Has a history of depression. He is on his home medication mirtazapine 30 mg. However on today's evaluation patient was not endorsing any suicidal or homicidal ideation. (3) Pneumonia Current Visit: No Status: Resolved Assessment and Plan: -Recently completed 7 day course of Unasyn concerns for aspiration pneumonia. -On physical exam today patient clear to auscultation bilaterally, no diminished breath sounds. -He should continue to use incentive spirometry even when he is discharged to rectify the VQ mismatch secondary to atelectasis. -Refrain from smoking and continue using his bronchodilators for COPD or else he runs the risk of developing pneumonia in the future because of history of COPD. (4) CHF (congestive heart failure) Current Visit: No Status: Chronic Assessment and Plan: -Has a history of CHF. His last echocardiogram was done in 2016 which showed an EF of 35-40%. Patient has a pacemaker in place -On physical exam, does not seem to be in CHF exacerbation during his admission. on physical exam, no rales - no evidence of S3 or JVD. -Patient currently on Cozaar . Patient's metoprolol XL was held this morning because of his hypotensive state last night. (5) Acute exacerbation of chronic obstructive airways disease Current Visit: No Status: Resolved Assessment and Plan: - Patient has a history of COPD. He is currently on 4 L of oxygen. endorses he takes albuterol as rescue inhaler. - On physical exam I did not appreciate any bilateral wheezing. He had decreased breath sounds. - Supplemental Oxygen, solumedrol transitioned to 20 mg prednisone Titrate oxygen for SPO2 between 88-92%. (6) Tobacco abuse Current Visit: No Status: Chronic Assessment and Plan: Patient has a history of tobacco abuse. He continues to smoke. -Discussed cessation. (7) Rib fracture Current Visit: Yes Status: Acute Assessment and Plan: Pt recently fell and was diagnosed with rib fractures. CT of the abdomen showed acute minimally displaced fracture of the 11th rib He has had significant pain related to this at home. However the pain continues to better now. Pain control PRN. (8) Protein-calorie malnutrition, severe Current Visit: Yes Status: Chronic Assessment and Plan: -Patient has a BMI of 15.5. Patient appears to be significantly malnourished . - Might need some appetite stimulant what is discharged from the facility to help with his appetite. (9) Anemia Current Visit: Yes Status: Chronic Assessment and Plan: -He has a history of anemia, which is likely anemia of chronic disease. Likely anemia of chronic disease. Current hemoglobin is 9.3 - Transfuse packed RBCs if hemoglobin drops down below 7. (10) Essential tremor Current Visit: Yes Status: Chronic Assessment and Plan: Patient has a history of essential tremor. - Continue home medications. (11) Anorexia Current Visit: Yes Status: Chronic Assessment and Plan: -Patient is anorexic because of his low by mouth intake. BMI 15.7 kg/m. -Consider incorporating appetite stimulant into his dialy regimen - Time Spent with Patient Total time spent is greater than 50% in coordination of care (as documented) at patient's floor/unit and/or counseling patient: Internal Medicine: Result - Labs CBC & Chem 7: 02/18/18 04:14 02/18/18 04:14 Labs: Short CBC 02/18/18 Range/Units 04:14 WBC 14.4 H (4.3-11.1) K/mcL Hgb 9.3 L (12.9-16.9) g/dL Hct 30.2 L (37.5-50.1) % Plt Count 254 (140-400) K/mcL Neutrophils # 10.9 H (1.6-8.9) K/mcL BMP 02/18/18 04:14 Sodium 139 Potassium 4.3 Chloride 101 Carbon Dioxide 34 H BUN 42 H Creatinine 0.91 Glucose 100 Calcium 8.1 L Liver Function 02/18/18 Range/Units 04:14 Total Bilirubin 0.2 L (0.3-1.0) mg/dL AST 17 (13-39) Units/L ALT 24 (7-52) Units/L Alkaline Phosphatase 54 (34-104) Units/L Albumin 2.3 L (3.5-5.7) g/dL <Gabriela Norman M - Last Filed: 02/18/18 15:57> (1) Depression Qualifiers: Depression Type: major depressive disorder Major depression recurrence: recurrent Active/Remission status: currently active Major depression episode severity: severe Psychotic features: without psychotic features Qualified Code(s): F33.2 - Major depressive disorder, recurrent severe without psychotic features (2) Pneumonia Qualifiers: Pneumonia type: aspiration pneumonia Aspiration pneumonia type: due to gastric secretions Laterality: bilateral Lung location: lower lobe of lung Qualified Code(s): J69.0 - Pneumonitis due to inhalation of food and vomit (3) CHF (congestive heart failure) Qualifiers: Heart failure type: systolic Heart failure chronicity: chronic Qualified Code(s): I50.22 - Chronic systolic (congestive) heart failure (6) Rib fracture Qualifiers: Encounter type: subsequent encounter Rib fracture type: single rib Fracture type: closed Laterality: right Fracture healing: with routine healing Qualified Code(s): S22.31XD - Fracture of one rib, right side, subsequent encounter for fracture with routine healing (8) Anemia Qualifiers: Anemia type: other cause Other causes of anemia: chronic disease, other Qualified Code(s): D63.8 - Anemia in other chronic diseases classified elsewhere <Evgeny Jerez - Last Filed: 02/18/18 17:41> (2) Depression Qualifiers: Depression Type: major depressive disorder Major depression recurrence: recurrent Active/Remission status: currently active Major depression episode severity: severe Psychotic features: without psychotic features Qualified Code(s): F33.2 - Major depressive disorder, recurrent severe without psychotic features (3) Pneumonia Qualifiers: Pneumonia type: aspiration pneumonia Aspiration pneumonia type: due to gastric secretions Laterality: bilateral Lung location: lower lobe of lung Qualified Code(s): J69.0 - Pneumonitis due to inhalation of food and vomit (4) CHF (congestive heart failure) Qualifiers: Heart failure type: systolic Heart failure chronicity: chronic Qualified Code(s): I50.22 - Chronic systolic (congestive) heart failure (7) Rib fracture Qualifiers: Encounter type: subsequent encounter Rib fracture type: single rib Fracture type: closed Laterality: right Fracture healing: with routine healing Qualified Code(s): S22.31XD - Fracture of one rib, right side, subsequent encounter for fracture with routine healing (9) Anemia Qualifiers: Anemia type: other cause Other causes of anemia: chronic disease, other Qualified Code(s): D63.8 - Anemia in other chronic diseases classified elsewhere
[2018-02-18] MEDS: Mirtazapine 15 MG TABLET PO SCH (20:53)
[2018-02-18] MEDS: Melatonin 3 MG TABLET PO PRN (20:53)
[2018-02-18] MEDS: Primidone 50 MG TABLET PO SCH (20:53)
[2018-02-18] MEDS: traZODone 50 MG TABLET PO SCH (20:53)
[2018-02-19] MEDS: *HR* Heparin 5,000 UNIT/ML VIAL SQ SCH ×3 (00:57→16:13)
[2018-02-19 03:53] LABS: Basophils % 0.1 %; Eosinophils # 0.1 K/mcL (0.0-0.6); Eosinophils % 0.8 %; Hematocrit 28.8 % (37.5-50.1); Hemoglobin 9.2 g/dL (12.9-16.9); Lymphocytes % 15.1 %; Mean Corpuscular HGB Conc 31.9 g/dL (31.6-35.5); Mean Corpuscular Hemoglobin 30.2 pg (28.0-33.3); Mean Corpuscular Volume 94.4 fL (83.0-100.0); Mean Platelet Volume 10.2 fL (9.4-12.4); Monocytes # 0.9 K/mcL (0.0-1.3); Monocytes % 6.9 %; Platelet Count 238 K/mcL (140-400); Red Blood Count 3.05 M/mcL (4.19-5.50); Red Cell Distribution Width 14.9 % (11.5-14.5); Segmented Neutrophils % 75.1 %
[2018-02-19 03:57] LABS: Alanine Aminotransferase 23 Units/L (7-52); Albumin 2.3 g/dL (3.5-5.7); Albumin/Globulin Ratio 0.9 (1.1-2.2); Alkaline Phosphatase 57 Units/L (34-104); Aspartate Amino Transferase 17 Units/L (13-39); BUN/Creatinine Ratio 41 (6-26); Bilirubin,Total 0.3 mg/dL (0.3-1.0); Blood Urea Nitrogen 36 mg/dL (8-23); Calcium 7.9 mg/dL (8.6-10.3); Carbon Dioxide 33 mEq/L (23-29); Chloride 103 mEq/L (98-107); Globulin 2.5 g/dL (2.4-3.5); Glucose 124 mg/dL (70-105); Osmolality,Calculated 300 (280-300); Potassium 4.2 mEq/L (3.5-5.1); Sodium 140 mEq/L (136-145); Total Protein 4.8 g/dL (6.4-8.9); eGFR For Non-African Americans > 60 (> 60)
[2018-02-19] MEDS ORDERED: Metoprolol XL (24 HR) Succ 25 MG TAB.ER.24H PO SCH (09:00)
[2018-02-19] MEDS: Aspirin Enteric Coated 81 MG Tablet PO SCH (09:26)
[2018-02-19] MEDS: Spironolactone 25 MG TABLET PO SCH (09:26)
[2018-02-19] MEDS: predniSONE 20 MG TABLET PO SCH (09:28)
[2018-02-19] MEDS: Nicotine 21 MG PATCH.TD24 TD SCH (09:28)
--- NOTE | 2018-02-19 14:00 | Internal Med Progress Note ---
Hospitalist Progress Note - Subjective Interval History: 02/19/18 No acute events overnight. Patient is stable to be discharged to the Nursing facility pending Insurance approval. Patient endorses no chest pain, SOB, or palpitations. His most recent BP is 107/68. 02/18/2018 Saw Mr Jones at the bedside. He endorses no acute distress. He finished his 7 day course of Unasyn for aspiration pneumonia. Currently waiting on corporate clearance from a [facility] facility so patient can be safely transferr ed there from the hospital. 02/13/18 I saw Mr. Jones at the bedside this morning. He was eating his breakfast and endorses no acute distress. Denies any chest pain or worsening shortness of maral ath, productive cough or sputum. He continues to be on 3 L of home oxygen satting at 98%. Denies any episodes of dysuria. He did endorse constipation and I ordered some Colace and Miralax PRN. Patient is back on his home medications right now. From the nurses I learnt that patient was endorsing signs of suicidality and mentioned that he would commit one if he had the gun. 02/12/18 Mr. Jones is a pleasant 77-year-old male with a past medical history of CHF, COPD and essential tremor who presented to the ED with complaints of shortness of breath. Patient had a fall a few days ago and was seen in the ED. CT of the abdomen showed advanced centrilobular and paraseptal emphysema. There were also evidence of scattered tree-in-bud opacities in the right greater than left mid and lower lung zones. acute minimally displaced fracture of the right 11th rib. CT also showed mildly displaced fractures involving the tips of the right L1, L3 and L2 transverse processes. Patient was in no acute distress when I met him this morning. He had some hip pain and was given Tylenol for pain control and felt better. - Exam Vitals: Temp Pulse Resp BP Pulse Ox 98.2 F 69 15 136/79 94 02/19/18 06:57 02/19/18 06:57 02/19/18 06:57 02/19/18 06:57 02/19/18 05:00 Exam: General: Alert and oriented. Comfortable at this time. Cachetic. Somnolent Skin: Normal color, no rash, no lesions. H: Normocephalic. EENT: EOMI. Mucus membranes dry. No lesion. Cardiovascular: Normal S1 & S2, no rubs, murmurs or gallops. No JVD. Distant. Not tachy. Lungs: CTAB. No wheeze. Few rhonchi noted. Abdomen: Soft, non-tender, no rigidity. Normal bowel sounds. Extremities: No deformity, no edema or tenderness, no joint swelling or clubbing. OA noted. Neurological: Normal cognition and motor skills. Significant tremor noted. Pulses: radial pulses normal +2. Rest of the physical exam is non contributory - Assessment and Plan (1) Chronic respiratory failure with hypoxia and hypercapnia Current Visit: Yes Status: Chronic Assessment and Plan: -likely due to his history of COPD. Patient's most recent chest CT showed evidence of extreme emphysema. Continues to be a smoker. - Physical exam he had decreased breath sounds. No wheezing rales or rhonchi appreciated. - Currently on DuoNeb, supplemental oxygen, currently on 20 mg PO prednisone. Requiring 2 L of oxygen this am. - Continue to use spirometry to rectify the VQ mismatch secondary to atelectasis. - (2) CHF (congestive heart failure) Current Visit: No Status: Chronic Assessment and Plan: -Has a history of CHF. His last echocardiogram was done in 2016 which showed an EF of 35-40%. Patient has a pacemaker in place -On physical exam, does not seem to be in CHF exacerbation during his admission. on physical exam, no rales - no evidence of S3 or JVD. -Patient currently on Cozaar . Patient's metoprolol XL was held this morning because of his hypotensive state last night. (3) Protein-calorie malnutrition, severe Current Visit: Yes Status: Chronic Assessment and Plan: -Patient has a BMI of 17.6. Likely due to insufficient energy intake in conjunction with weight loss. Patient also has loss of subcutaneous fat - Might need some appetite stimulant what is discharged from the facility to help with his appetite. (4) Anemia Current Visit: Yes Status: Chronic Assessment and Plan: -He has a history of anemia, which is likely anemia of chronic disease. Likely anemia of chronic disease. Current hemoglobin is 9.2 - Transfuse packed RBCs if hemoglobin drops down below 7. (5) Essential tremor Current Visit: Yes Status: Chronic Assessment and Plan: Patient has a history of essential tremor. - Continue home medications. (6) Anorexia Current Visit: Yes Status: Chronic Assessment and Plan: -Patient is anorexic because of his low PO intake. BMI 17.6 kg/m. -Consider incorporating appetite stimulant into his daily regimen (7) Depression Current Visit: No Status: Chronic Assessment and Plan: -Has a history of depression. He is on his home medication mirtazapine 30 mg. However on today's evaluation patient was not endorsing any suicidal or homicidal ideation. (8) Tobacco abuse Current Visit: No Status: Chronic Assessment and Plan: Patient has a history of tobacco abuse. He continues to smoke. -Discussed cessation. (9) Rib fracture Current Visit: Yes Status: Acute Assessment and Plan: Pt recently fell and was diagnosed with rib fractures. CT of the abdomen showed acute minimally displaced fracture of the 11th rib He has had significant pain related to this at home. However the pain continues to better now. Pain control PRN. - Time Spent with Patient Total time spent is greater than 50% in coordination of care (as documented) at patient's floor/unit and/or counseling patient: Internal Medicine: Result - Labs CBC & Chem 7: 02/19/18 02:56 02/19/18 02:56 Labs: Short CBC 02/19/18 Range/Units 02:56 WBC 13.3 H (4.3-11.1) K/mcL Hgb 9.2 L (12.9-16.9) g/dL Hct 28.8 L (37.5-50.1) % Plt Count 238 (140-400) K/mcL Neutrophils # 10.0 H (1.6-8.9) K/mcL BMP 02/19/18 02:56 Sodium 140 Potassium 4.2 Chloride 103 Carbon Dioxide 33 H BUN 36 H Creatinine 0.87 Glucose 124 H Calcium 7.9 L Liver Function 02/19/18 Range/Units 02:56 Total Bilirubin 0.3 (0.3-1.0) mg/dL AST 17 (13-39) Units/L ALT 23 (7-52) Units/L Alkaline Phosphatase 57 (34-104) Units/L Albumin 2.3 L (3.5-5.7) g/dL Consult Discharge Plan - Plan Instructions: Albuterol (By breathing), Prednisone (By mouth), Budesonide (By breathing), Heart Failure (DC), Chronic Obstructive Pulmonary Disease (DC), Anemia (GEN), Fall Prevention (DC), Pneumonia (DC), Cigarette Smoking and Your Health, Hydrology Professor (GEN) Additional Instructions: - Smoking cessation to prevent flareup of COPD symptoms and recurrent admissions to the hospital because for dyspnea. -Finish the 6 day course of prednisone taper starting at 20 mg for 3 days and then 10 mg for the next 3 days. - Take Symbicort 2 puffs twice a day. -Use incentive spirometry every day to rectify the VQ mismatch secondary to atelectasis of the lung tissue. - Go to the ED immediately if the symptoms worsen or if requiring more amount of home oxygen. Referrals: NONE,PCP [Primary Care Provider] - Prescriptions: Albuterol Sulfate [Ventolin Hfa] 18 gm IH PRN PRN #1 [email or web address] PRN Reason: COPD Budesonide/Formoterol 160/4.5 [Symbicort 160/4.5] 2 puff IH BIDR 30 Days #1 hfa.[email or web address] predniSONE [PredniSONE] See Taper PO DAILY #9 tablet (2) CHF (congestive heart failure) Qualifiers: Heart failure type: systolic Heart failure chronicity: chronic Qualified Code(s): I50.22 - Chronic systolic (congestive) heart failure (4) Anemia Qualifiers: Anemia type: other cause Other causes of anemia: chronic disease, other Qualified Code(s): D63.8 - Anemia in other chronic diseases classified elsewhere (7) Depression Qualifiers: Depression Type: major depressive disorder Major depression recurrence: recurrent Active/Remission status: currently active Major depression episode severity: severe Psychotic features: without psychotic features Qualified Code(s): F33.2 - Major depressive disorder, recurrent severe without psychotic features (9) Rib fracture Qualifiers: Encounter type: subsequent encounter Rib fracture type: single rib Fracture type: closed Laterality: right Fracture healing: with routine healing Qualified Code(s): S22.31XD - Fracture of one rib, right side, subsequent encounter for fracture with routine healing
--- NOTE | 2018-02-19 14:58 | Discharge Summary ---
<Evgeny Jerez - Last Filed: 02/19/18 15:45> Date of Encounter: 02/19/18 Time of Encounter: 09:00 - Discharge Diagnosis (1) Depression Priority: Secondary Status: Chronic Qualifiers: Depression Type: major depressive disorder Major depression recurrence: recurrent Active/Remission status: currently active Major depression episode severity: severe Psychotic features: without psychotic features Qualified Code(s): F33.2 - Major depressive disorder, recurrent severe without psychotic features (2) CHF (congestive heart failure) Priority: Secondary Status: Chronic Qualifiers: Heart failure type: systolic Heart failure chronicity: chronic Qualified Code(s): I50.22 - Chronic systolic (congestive) heart failure (3) Tobacco abuse Priority: Secondary Status: Chronic (4) Rib fracture Priority: Secondary Status: Acute Qualifiers: Encounter type: subsequent encounter Rib fracture type: single rib Fracture type: closed Laterality: right Fracture healing: with routine healing Qualified Code(s): S22.31XD - Fracture of one rib, right side, subsequent encounter for fracture with routine healing (5) Protein-calorie malnutrition, severe Priority: Secondary Status: Chronic (6) Anemia Priority: Secondary Status: Chronic Qualifiers: Anemia type: other cause Other causes of anemia: chronic disease, other Qualified Code(s): D63.8 - Anemia in other chronic diseases classified elsewhere (7) Chronic respiratory failure with hypoxia and hypercapnia Priority: Primary Status: Chronic (8) Essential tremor Priority: Secondary Status: Chronic (9) Anorexia Priority: Secondary Status: Chronic Hospital course: Mr. Jones is a pleasant 77-year-old male with a past medical history of CHF, COPD and essential tremor who presented to the ED with complaints of shortness of breath was found to be acute on chronic hypoxic hypercapnic respiratory failure. Patient had a fall a few days ago and was seen in the ED was diagnosed with fracture of ribs. CT of the abdomen during this admission showed advanced centrilobular and paraseptal emphysema. There were also evidence of scattered tree-in-bud opacities in the right greater than left mid and lower lung zones. during the course of the hospital stay, patient competed a seven-day course off unasyn for concerns for aspiration PNA. Patient was also on duoneb, and steroids, IV and then transitioned to PO. During the third day of the hospital stay, patient was endorsing some suicidal ideation with the thoughts of hurting if he had a gun with him. This led to his discharge deposition a little more com plicated. He is going to be discharged on 20 mg of prednisone taper along with Symbicort for his end-stage COPD. Mr. Jones remains medically stable to be discharged to SNF. Waiting on corporate clearance from the facility and insurance approval. 2 days ago, he had hypotensive episodes on his antihypertensives : metoprolol and losartan. We stopped his losartan and reduced his home dose of metoprolol from a 25 mg to 12.5 mg. His most recent BP is 107/68. If patient gets hypertensive in the future, home medications/dose can be reintroduced. - Time Spent with Patient Total time spent providing and/or coordinating discharge services: - Discharge Medications Prescriptions: Albuterol Sulfate [Ventolin Hfa] 18 gm IH PRN PRN #1 hfa.[email or web address] PRN Reason: COPD Budesonide/Formoterol 160/4.5 [Symbicort 160/4.5] 2 puff IH BIDR 30 Days #1 hfa.aer.ad LORazepam [Ativan] 1 mg PO TID PRN 1 Days #3 tablet PRN Reason: Anxiety predniSONE [PredniSONE] See Taper PO DAILY #9 tablet Home Medications: Aspirin Enteric Coated [Aspirin EC] 81 mg PO DAILY #0 12/07/14 [History] Nitroglycerin 0.4 mg SL Q5MIN PRN #0 tab.subl 08/04/15 [Rx] Spironolactone [Aldactone] 12.5 mg PO DAILY #30 tablet 08/04/15 [Rx] Omeprazole [PriLOSEC] 20 mg PO DAILY 10/28/15 [History] Losartan [Cozaar] 25 mg PO DAILY 10/05/17 [History] Metoprolol Succinate [Toprol Xl] 25 mg PO DAILY 10/05/17 [History] Mirtazapine [Remeron] 30 mg PO HS 10/05/17 [History] Paroxetine HCl [Paxil] 20 mg PO DAILY 10/05/17 [History] Primidone [Mysoline] 50 mg PO HS 10/05/17 [History] Tamsulosin [Flomax] 0.4 mg PO DAILY 10/05/17 [History] Megestrol Acetate 20 mg PO BID 02/03/18 [History] Simvastatin [Zocor] 40 mg PO DAILY 02/03/18 [History] traZODone [TraZODone] 50 mg PO HS 02/03/18 [History] Albuterol Sulfate [Ventolin Hfa] 18 gm IH PRN PRN #1 hfa.aer.ad 02/14/18 [Rx] Budesonide/Formoterol 160/4.5 [Symbicort 160/4.5] 2 puff IH BIDR 30 Days #1 hf a.aer.ad 02/17/18 [Rx] predniSONE [PredniSONE] See Taper PO DAILY #9 tablet 02/17/18 [Rx] LORazepam [Ativan] 1 mg PO TID PRN 1 Days #3 tablet 02/19/18 [Rx] Allergies/Adverse Reactions: Allergy/AdvReac Type Severity Reaction Status Date / Time No Known Allergies Allergy Verified 02/09/18 10:02 Date of admission: 02/11/18 17:32 Primary care physician: PCP NONE Consults: 02/11/18 15:15 Consult to Speech Therapy [CONS] Routine Comment: Evaluate, develop and implement POC Reason for Consult: Possible aspiration Call Completed: No 02/11/18 15:17 Consult to Nurse Navigator [CONS] Routine Comment: 02/11/18 18:17 PT [Consult to Physical Therapy] [CONS] Routine Comment: Evaluate, develop and implement POC Reason for Consult: Discharge planning. Weakness Does patient have active BEDREST order?: No Is patient medically & hemodynamically stable?: Yes Patient assessed for mobility or mobilized this visit?: Yes consult to environmental inspector [Consult to Nutrition] [CONS] Routine Comment: Consulting Provider: NUTRITION Reason for Dietary Consult: Other Other:: malnutrition 02/11/18 18:18 OT [Consult to Occupational Therapy] [CONS] Routine Comment: Evaluate, develop and implement POC Reason for Consult: Discharge planning Does patient have active BEDREST order?: No Is patient medically & hemodynamically stable?: Yes Patient assessed for mobility or mobilized this visit?: Yes 02/13/18 12:54 Consult to Palliative Care [CONS] Routine Comment: Consulting Provider: Palliative Care [place] Reason for Consult: goals of care Call Completed: Yes - Constitutional Vitals: Temp Pulse Resp BP Pulse Ox 98.2 F 69 15 136/79 94 02/19/18 06:57 02/19/18 06:57 02/19/18 06:57 02/19/18 06:57 02/19/18 05:00 General appearance: Present: cachectic, cooperative, A&O X 3, underweight Exam: General: Alert and oriented. Comfortable at this time. Cachetic. Somnolent Skin: Normal color, no rash, no lesions. H: Normocephalic. EENT: EOMI. Mucus membranes dry. No lesion. Cardiovascular: Normal S1 & S2, no rubs, murmurs or gallops. No JVD. Distant. Not tachy. Lungs: CTAB. No wheeze. Few rhonchi noted. Abdomen: Soft, non-tender, no rigidity. Normal bowel sounds. Extremities: No deformity, no edema or tenderness, no joint swelling or clubbing. OA noted. Neurological: Normal cognition and motor skills. Significant tremor noted. Pulses: radial pulses normal +2. Rest of the physical exam is non contributory - Patient Status Disposition: Transfer SNF Condition: Fair Overall status at discharge: patient is progressing back to baseline - Discharge Instructions Instructions: Albuterol (By breathing), Prednisone (By mouth), Budesonide (By breathing), Heart Failure (DC), Chronic Obstructive Pulmonary Disease (DC), Anemia (GEN), Fall Prevention (DC), Pneumonia (DC), Cigarette Smoking and Your Health, Surgical Attendant (GEN) Follow Up With: NONE,PCP [Primary Care Provider] - Additional Instructions: - Smoking cessation to prevent flareup of COPD symptoms and recurrent admissions to the hospital because for dyspnea. -Finish the 6 day course of prednisone taper starting at 20 mg for 3 days and then 10 mg for the next 3 days. - Take Symbicort 2 puffs twice a day. -Use incentive spirometry every day to rectify the VQ mismatch secondary to atelectasis of the lung tissue. - Go to the ED immediately if the symptoms worsen or if requiring more amount of home oxygen. - Diet and Activity Activity: increase activity as tolerated Diet: low salt diet <Gabriela Norman - Last Filed: 02/19/18 19:03> - Discharge Diagnosis (1) Depression Status: Chronic Qualifiers: Depression Type: major depressive disorder Major depression recurrence: recurrent Active/Remission status: currently active Major depression episode severity: severe Psychotic features: without psychotic features Qualified Code(s): F33.2 - Major depressive disorder, recurrent severe without psychotic features (2) CHF (congestive heart failure) Status: Chronic Qualifiers: Heart failure type: systolic Heart failure chronicity: chronic Qualified Code(s): I50.22 - Chronic systolic (congestive) heart failure (3) Tobacco abuse Status: Chronic (4) Rib fracture Status: Acute Qualifiers: Encounter type: subsequent encounter Rib fracture type: single rib Fracture type: closed Laterality: right Fracture healing: with routine healing Qualified Code(s): S22.31XD - Fracture of one rib, right side, subsequent encounter for fracture with routine healing (5) Protein-calorie malnutrition, severe Status: Chronic (6) Anemia Status: Chronic Qualifiers: Anemia type: other cause Other causes of anemia: chronic disease, other Qualified Code(s): D63.8 - Anemia in other chronic diseases classified elsewhere (7) Chronic respiratory failure with hypoxia and hypercapnia Status: Chronic (8) Essential tremor Status: Chronic (9) Anorexia Status: Chronic Hospital course: Mr. Jones is a 77 year old male - Time Spent with Patient Total time spent providing and/or coordinating discharge services: Date of admission: 02/11/18 17:32 Primary care physician: PCP NONE Consults: 02/11/18 15:15 Consult to Speech Therapy [CONS] Routine Comment: Evaluate, develop and implement POC Reason for Consult: Possible aspiration Call Completed: No 02/11/18 15:17 Consult to Nurse Navigator [CONS] Routine Comment: 02/11/18 18:17 PT [Consult to Physical Therapy] [CONS] Routine Comment: Evaluate, develop and implement POC Reason for Consult: Discharge planning. Weakness Does patient have active BEDREST order?: No Is patient medically & hemodynamically stable?: Yes Patient assessed for mobility or mobilized this visit?: Yes consult to environmental inspector [Consult to Nutrition] [CONS] Routine Comment: Consulting Provider: NUTRITION Reason for Dietary Consult: Other Other:: malnutrition 02/11/18 18:18 OT [Consult to Occupational Therapy] [CONS] Routine Comment: Evaluate, develop and implement POC Reason for Consult: Discharge planning Does patient have active BEDREST order?: No Is patient medically & hemodynamically stable?: Yes Patient assessed for mobility or mobilized this visit?: Yes 02/13/18 12:54 Consult to Palliative Care [CONS] Routine Comment: Consulting Provider: Palliative [facility] [place] Reason for Consult: goals of care Call Completed: Yes - Constitutional Vitals: Temp Pulse Resp BP Pulse Ox 97.9 F 96 17 107/68 94 02/19/18 15:22 02/19/18 15:22 02/19/18 15:22 02/19/18 15:22 02/19/18 05:00 - Attending Attestation I examined this patient and my medical decision-making was reviewed with the Resident Physician Dr Jerez. I agree with the documented findings, disposition and treatment plan as described except to the extent set forth below/addl details below Mr Jones was admitted for acute exac COPD and pna. He has improved with current treatment. During this admission he did note thoughts of self harm which since resolved. He was medically cleared for dc to snf and remained awaiting insurance authorization. In an update since last note/dc summary, he had low bps overnight and home metoprolol and losartan are being held with now normotensive bps. He remains clinically improved, afebrile, with leukocytosis that has been variable this admit, overall stable and decreased from admit. awake, alert and no complaints. Denies sob, chest pain, fevers or chills, thoughts of self harm. Pleasant and eager for dc gen- alert, awake,appears stated age cv- reg rate and rhythm, normal s1,s2, no murmurs appreciated, no le edema lungs- ctabl, no wheezing, rhonchi or crackles, normal resp effort neuro- AAOx3 A/P COPD Exacerbation / Asp Pna, organism unknown- clinically improved,completed abx course, prednisone taper, FITTER / WELDER eval this admit Hypotension with low normal BPs throughout admit, now normotensive with home losartan held adn BB started at lower dose, he will need Bp assessed at snf and addition of home meds as bp permits outpt dc to snf
[2018-02-19 15:25] VITALS: BP 107/68
== END 2018-02-19 18:49 | DRG 177 ==
LOC: EMEROOARM 12:46 → 2NENU 12:46 → SUATTDRO 17:32 → 2NENU 18:33
PROVIDERS: ADMIT Internal Medicine; ATTEND Internal Medicine

== ENCOUNTER 2018-07-24 12:56 | Observation (INO) ==
[2018-07-24] MEDS ORDERED: methylPREDNISolone 125 MG/2 ML VIAL IVP ONE (13:22)
[2018-07-24] MEDS ORDERED: Ipratropium/Albuterol Neb 3 ML IH ONE (13:22)
--- NOTE | 2018-07-24 13:59 | Emergency Department Note ---
Disposition Clinical Impression: COPD exacerbation, Hypoxia CHF (congestive heart failure), NYHA class III Qualifiers: Congestive heart failure type: combined Congestive heart failure chronicity: chronic Qualified Code(s): I50.42 - Chronic combined systolic (congestive) and diastolic (congestive) heart failure Disposition: Admitted As Inpatient Condition: Fair Time of Disposition: 16:00 General Adult HPI - General Chief complaint: ED Shortness of Breath/Dyspnea Stated complaint: SHEA Time Seen by Provider: 07/24/18 13:04 Source: patient, EMS Mode of arrival: EMS Limitations: no limitations Nursing Notes Reviewed: Yes Vital Signs Reviewed: Yes - History of Present Illness HPI Narrative: 77 yo male with past medical history of COPD, CHF, cancer presents to the emergency department via EMS because his home health aide noticed his oxygen saturations were low. The patient has been having increased difficulty in breathing for "a while" and has not been taking his medications or doing his breathing treatments at home. He denies any fevers, chest pain, abdominal pain, nausea or vomiting. He is unsure if he has had any sick contacts. He wears 4 L of oxygen at all times. He has not had any increased cough from his baseline and denies any sputum production. He received 1 DuoNeb via EMS prior to arrival. Pain Scale: 0 - Related Data Home Medications Medication Instructions Recorded Confirmed Aspirin Enteric Coated [Aspirin EC] 81 mg PO DAILY #0 12/07/14 02/11/18 Omeprazole [PriLOSEC] 20 mg PO DAILY 10/28/15 02/11/18 Losartan [Cozaar] 25 mg PO DAILY 10/05/17 02/11/18 Metoprolol Succinate [Toprol Xl] 25 mg PO DAILY 10/05/17 02/11/18 Mirtazapine [Remeron] 30 mg PO HS 10/05/17 02/11/18 Paroxetine HCl [Paxil] 20 mg PO DAILY 10/05/17 02/11/18 Primidone [Mysoline] 50 mg PO HS 10/05/17 02/11/18 Tamsulosin [Flomax] 0.4 mg PO DAILY 10/05/17 02/11/18 Megestrol Acetate 20 mg PO BID 02/03/18 02/11/18 Simvastatin [Zocor] 40 mg PO DAILY 02/03/18 02/11/18 traZODone [TraZODone] 50 mg PO HS 02/03/18 02/11/18 Previous Rx's Medication Instructions Recorded Nitroglycerin 0.4 mg SL Q5MIN PRN #0 tab.subl 08/04/15 Spironolactone [Aldactone] 12.5 mg PO DAILY #30 tablet 08/04/15 Albuterol Sulfate [Ventolin Hfa] 18 gm IH PRN PRN #1 hfa.aer.ad 02/14/18 predniSONE [PredniSONE] See Taper PO DAILY #9 tablet 02/17/18 Allergies Allergy/AdvReac Type Severity Reaction Status Date / Time No Known Allergies Allergy Verified 02/09/18 10:02 All systems ED: reviewed and negative except as stated. Review of Systems: As Per HPI Constitutional: Denies: fever, weakness Cardiovascular: Reports: dyspnea on exertion. Denies: chest pain, palpitations, orthopnea, edema Respiratory: Reports: cough, dyspnea. Denies: wheezes, hemoptysis, sputum production Gastrointestinal: Denies: abdominal pain, nausea, vomiting, diarrhea Integumentary: Denies: rash Neurological: Denies: headache Endocrine: Reports: fatigue Past Medical History - Past Medical History Attestation: Yes The following information was validated with the patient. Source: patient Medical history: Reports: cancer, cardiomyopathy, CHF, COPD, coronary artery disease, hepatitis, hyperlipidemia, liver disease, other Surgical history: Reports: pacemaker/AICD Psychiatric history: Reports: anxiety, depression, prior suicide attempt - Social History Smoking Status: Current every day smoker Smokeless Tobacco Status: No Alcohol use: Reports: none Drug use: Reports: none Physical Exam - General Limitations: no limitations General appearance: alert, in no apparent distress - Head Head exam: atraumatic, normocephalic - Eye Eye exam: Present: normal appearance, PERRL, EOMI - ENT ENT exam: normal exam - Neck Neck exam: Present: normal inspection. Absent: tenderness, lymphadenopathy - Chest Chest inspection: Present: normal inspection. Absent: tenderness - Respiratory Respiratory exam: Present: other (Course breath sounds throughout, with more movement heard in left lung when compared to right) - Cardiovascular Cardiovascular exam: Present: regular rate, normal rhythm - Abdominal Exam Abdominal exam: Present: soft, Non-Tender. Absent: distention, guarding, rebound, rigidity - Extremities Exam Extremities exam: Present: normal inspection. Absent: tenderness, pedal edema - Neurological Exam Neurological exam: Present: alert, oriented X3 - Psychiatric Psychiatric exam: Present: normal affect - Skin Skin exam: Present: warm, dry, intact Course Vital Signs Temperature 97.6 F 07/24/18 13:09 Pulse Rate 87 07/24/18 13:09 Respiratory Rate 15 07/24/18 13:09 Blood Pressure 131/89 07/24/18 13:09 O2 Sat by Pulse Oximetry 95 07/24/18 13:09 Temperature 97.6 F 07/24/18 13:27 Pulse Rate 91 07/24/18 13:59 Respiratory Rate 28 07/24/18 13:59 Blood Pressure 107/59 07/24/18 13:59 O2 Sat by Pulse Oximetry 93 07/24/18 13:59 Oxygen Delivery Oxygen Delivery Nasal Cannula Medical Decision Making - MDM Narrative Medical decision making narrative: Patient presents with signs and symptoms concerning for COPD exacerbation versus CHF exacerbation versus pneumonia. We will obtain EKG, chest x-ray, basic lab work to further evaluate. Pt will be given 2 Duonebs and a dose of steroids for presumed COPD exacerbation. 1430 - WBC slightly elevated at 12.8 with normal lactic and troponin. Chest x- ray shows chronic stable COPD. Spoke with patient about admission as when he ambulated with 2 L of oxygen on his pulse ox dropped to 81%. Patient is agreeable with admission at this time and states that he feels much better after getting the breathing treatments here. He states that his machine at home is broken and that is the reason he has not been getting them for the past week. He will be admitted to the hospital for a COPD exacerbation. Hospitalist has been paged at this time. 1600 - Pt has been accepted for admission. - Medical Records Medical records reviewed: Yes I reviewed the patient's medical records. - Lab Data Lab results reviewed: Yes I reviewed the patient's lab results. Result diagrams: 07/24/18 13:29 07/24/18 13:29 Lab Results 07/24/18 07/24/18 07/24/18 Range/Units 13:29 13:29 13:29 WBC 12.9 H (4.3-11.1) K/mcL RBC 3.81 L (4.19-5.50) M/mcL Hgb 11.7 L (12.9-16.9) g/dL Hct 38.2 (37.5-50.1) % MCV 100.3 H (83.0-100.0) fL MCH 30.7 (28.0-33.3) pg MCHC 30.6 L (31.6-35.5) g/dL RDW 13.2 (11.5-14.5) % Plt Count 280 (140-400) K/mcL MPV 10.3 (9.4-12.4) fL Immature Gran % 0.4 (0-4) % Seg Neutrophils % 73.8 % Lymphocytes % 15.8 % Monocytes % 9.0 % Eosinophils % 0.5 % Basophils % 0.5 % Neutrophils # 9.6 H (1.6-8.9) K/mcL Lymphocytes # 2.0 (0.6-4.6) K/mcL Monocytes # 1.2 (0.0-1.3) K/mcL Eosinophils # 0.1 (0.0-0.6) K/mcL Basophils # 0.1 (0.0-0.2) K/mcL Sodium 144 (136-145) mEq/L Potassium 4.1 (3.5-5.1) mEq/L Chloride 100 (98-107) mEq/L Carbon Dioxide 34 H (23-29) mEq/L BUN 22 (8-23) mg/dL Creatinine 0.78 (0.70-1.30) mg/dL Est GFR ( Amer) > 60 (> 60) Est GFR (Non-Af Amer) > 60 (> 60) BUN/Creatinine Ratio 28 H (6-26) Glucose 117 H (70-105) mg/dL Calculated Osmolality 302 H (280-300) Lactic Acid 1.4 (0.5-2.2) mmol/L Calcium 9.3 (8.6-10.3) mg/dL Troponin I < 0.03 (< 0.04) ng/mL B-Natriuretic Peptide (Less than 100) pg/mL 07/24/18 Range/Units 13:29 WBC (4.3-11.1) K/mcL RBC (4.19-5.50) M/mcL Hgb (12.9-16.9) g/dL Hct (37.5-50.1) % MCV (83.0-100.0) fL MCH (28.0-33.3) pg MCHC (31.6-35.5) g/dL RDW (11.5-14.5) % Plt Count (140-400) K/mcL MPV (9.4-12.4) fL Immature Gran % (0-4) % Seg Neutrophils % % Lymphocytes % % Monocytes % % Eosinophils % % Basophils % % Neutrophils # (1.6-8.9) K/mcL Lymphocytes # (0.6-4.6) K/mcL Monocytes # (0.0-1.3) K/mcL Eosinophils # (0.0-0.6) K/mcL Basophils # (0.0-0.2) K/mcL Sodium (136-145) mEq/L Potassium (3.5-5.1) mEq/L Chloride (98-107) mEq/L Carbon Dioxide (23-29) mEq/L BUN (8-23) mg/dL Creatinine (0.70-1.30) mg/dL Est GFR ( Amer) (> 60) Est GFR (Non-Af Amer) (> 60) BUN/Creatinine Ratio (6-26) Glucose (70-105) mg/dL Calculated Osmolality (280-300) Lactic Acid (0.5-2.2) mmol/L Calcium (8.6-10.3) mg/dL Troponin I (< 0.04) ng/mL B-Natriuretic Peptide 69 (Less than 100) pg/mL - Radiology Data Radiology results reviewed: Yes I reviewed the patient's radiology results. - EKG Data EKG #1 EKG attestation: Yes I reviewed and interpreted this EKG. EKG results narrative: EKG obtained at 13:21 on 07/24/2018 Heart rate 88 bpm, QRS duration 125, QT 392, QTC 475 A. fib with a ventricular paced rhythm. No signs of ST segment elevation meeting sgarbossa criteria for STEMI. No other abnormalities when compared to previous EKG dated 02/11/2018. Attestation Statement - Attestation Attestation: I, Kristian Diaz, examined this patient and my medical decision-making was reviewed with the [employer]PA/Advanced Practice Nurse/Resident Physician. I agree with the documented findings, disposition and treatment plan as described except to the extent set forth below. 77-year-old female presents emergency Department with concerns of difficulty breathing. Patient has not been taking his albuterol medications over the past week. Patient was found to be hypoxic by his nursing informatics clinical analyst. During evaluation emergency department he has increased work of breathing but does not look to be in distress. Patient initially was refusing admission to the hospital. We tried to ambulate him in the emergency department and he desaturated to 81%. Patient is now willing to be admitted to the hospital for further care and evaluation.
[2018-07-24 14:06] LABS: Basophils # 0.1 K/mcL (0.0-0.2); Basophils % 0.5 %; Eosinophils # 0.1 K/mcL (0.0-0.6); Eosinophils % 0.5 %; Hematocrit 38.2 % (37.5-50.1); Hemoglobin 11.7 g/dL (12.9-16.9); Immature Granulocytes % 0.4 % (0-4); Lymphocytes % 15.8 %; Mean Corpuscular HGB Conc 30.6 g/dL (31.6-35.5); Mean Corpuscular Hemoglobin 30.7 pg (28.0-33.3); Mean Corpuscular Volume 100.3 fL (83.0-100.0); Mean Platelet Volume 10.3 fL (9.4-12.4); Monocytes # 1.2 K/mcL (0.0-1.3); Neutrophils # 9.6 K/mcL (1.6-8.9); Platelet Count 280 K/mcL (140-400); Red Blood Count 3.81 M/mcL (4.19-5.50); Red Cell Distribution Width 13.2 % (11.5-14.5); Segmented Neutrophils % 73.8 %
[2018-07-24 14:17] LABS: BUN/Creatinine Ratio 28 (6-26); Blood Urea Nitrogen 22 mg/dL (8-23); Calcium 9.3 mg/dL (8.6-10.3); Carbon Dioxide 34 mEq/L (23-29); Chloride 100 mEq/L (98-107); Glucose 117 mg/dL (70-105); Osmolality,Calculated 302 (280-300); Potassium 4.1 mEq/L (3.5-5.1); Sodium 144 mEq/L (136-145); Troponin I < 0.03 ng/mL (< 0.04); eGFR For Non-African Americans > 60 (> 60)
[2018-07-24] MEDS ORDERED: Azithromycin 500 MG in D5% in Water 250 ML IVPB ONE (15:23)
[2018-07-24] MEDS ORDERED: Acetaminophen 325 MG TABLET PO PRN (16:40)
[2018-07-24] MEDS ORDERED: Naloxone 0.4 MG/ML INJ IVP PRN (16:40)
--- NOTE | 2018-07-24 17:06 | Internal Med History&Physical ---
Date of Encounter: 07/24/18 Time of Encounter: 16:50 Internal Medicine - H&P: HPI Chief complaint: Shortness of breath, flulike symptoms Admitted From: Emergency Dept Plans for Post Hospital Care: Home History of present illness: Mr. Jones is a 77 year old male patient with a history of COPD, CHF, coronary artery disease, hyperlipidemia who presented to the ER with complaints of worsening shortness of breath and low oxygen saturation at home. Patient has chronic respiratory failure and is on 4 L O2 supplementation at baseline. According to ED records, home health aide had noted that his saturation was low. Patient has been having a lot of cough which has been dry. He has had hoarseness of voice as a result of repeated coughing. Denies any chest pain. He denies any fevers but he does have chronic intolerance to cold. Denies any pedal edema. No nausea or vomiting. Past Med Surg Social Fam HX - Past Medical History Attestation: Yes The following information was validated with the patient. Source: patient Medical history: cancer, cardiomyopathy, CHF, COPD, coronary artery disease, he patitis, hyperlipidemia, liver disease, other Additional medical history: pt unable to provide accurate medical history. Psychiatric history: anxiety, depression, prior suicide attempt - Past Surgical History Surgical History: pacemaker/AICD - Social History Smoking Status: Current every day smoker Smokeless Tobacco Status: No Alcohol use: none Drug use: none - Family History Mother Living Status: Hx Family Cardiac Disorders: Yes ( FROM HEART ATTACK,) Hx Family Neurologic Disorders: Yes (STROKES) Internal Medicine - H&P: Meds Aspirin Enteric Coated [Aspirin EC] 81 mg PO DAILY #0 12/07/14 [History] Nitroglycerin 0.4 mg SL Q5MIN PRN #0 tab.subl 08/04/15 [Rx] Spironolactone [Aldactone] 12.5 mg PO DAILY #30 tablet 08/04/15 [Rx] Omeprazole [PriLOSEC] 20 mg PO DAILY 10/28/15 [History] Losartan [Cozaar] 25 mg PO DAILY 10/05/17 [History] Metoprolol Succinate [Toprol Xl] 25 mg PO DAILY 10/05/17 [History] Mirtazapine [Remeron] 30 mg PO HS 10/05/17 [History] Paroxetine HCl [Paxil] 20 mg PO DAILY 10/05/17 [History] Primidone [Mysoline] 50 mg PO HS 10/05/17 [History] Tamsulosin [Flomax] 0.4 mg PO DAILY 10/05/17 [History] Megestrol Acetate 20 mg PO BID 02/03/18 [History] Simvastatin [Zocor] 40 mg PO DAILY 02/03/18 [History] traZODone [TraZODone] 50 mg PO HS 02/03/18 [History] Albuterol Sulfate [Ventolin Hfa] 18 gm IH PRN PRN #1 hfa.aer.ad 02/14/18 [Rx] predniSONE [PredniSONE] See Taper PO DAILY #9 tablet 02/17/18 [Rx] Allergy/AdvReac Type Severity Reaction Status Date / Time No Known Allergies Allergy Verified 02/09/18 10:02 All Systems PM: A 10-system review of systems was performed and is negative for pertinent findings except as documented above in the HPI. - Constitutional Constitutional: malaise, no chills, no fever(s), no night sweats - EENT Eyes: no change in vision, no discharge, no pain, no photophobia Ears: no ear discharge, no ear pain, no tinnitus Nose, mouth and throat: no dysphagia, no nasal discharge, no neck pain, no sore throat - Cardiovascular Cardiovascular ROS IM: no chest pain, no diaphoresis, no dyspnea, no lightheadedness, no palpitations, no syncope - Respiratory Respiratory: cough, dyspnea, wheezing, no excessive phlegm production - Gastrointestinal Gastrointestinal: no abdominal pain, no diarrhea, no hematemesis, no hematochezia, no melena, no nausea, no vomiting - Musculoskeletal Musculoskeletal ROS IM: no numbness, no tingling - Integumentary Integumentary IM: no rash, no unusual bruising - Neurological Neurological ROS: no confusion, no convulsions, no focal weakness, no numbness, no tingling, no tremor(s) - Endocrine Endocrine IM: cold intolerance - Hematologic/Lymphatic Hematologic/Lymphatic: no easy bruising - Constitutional Vitals: Temp Pulse Resp BP Pulse Ox 97.6 F 101 26 125/77 93 07/24/18 13:27 07/24/18 15:58 07/24/18 15:58 07/24/18 15:58 07/24/18 15:58 Exam: General: Patient is alert, moderate distress, oriented x 3 ENT: Mucous membranes dry, hoarse voice Eye: normal appearance, PERRL, no scleral icterus, no conjunctival injection Neck: normal inspection, trachea midline, full ROM, no carotid bruits Chest: normal inspection, symmetric chest rise Respiratory: Prolonged expiratory phase, end expiratory rhonchi Cardiovascular: Regular rate and rhythm. s1 and s2 normal but distant heart sounds. systolic murmur. No pedal edema Abdomen: Abdomen is soft, nontender. Bowel sounds are present Musculoskeletal: Spontaneously moving all extremities Skin: warm, dry, intact. Neuro: Alert oriented x 3 normal cranial nerves, no focal deficits Psych: Patient's affect is normal Internal Med - H&P Results - Labs CBC & Chem 7: 07/24/18 13:29 07/24/18 13:29 Labs: Short CBC 07/24/18 Range/Units 13:29 WBC 12.9 H (4.3-11.1) K/mcL Hgb 11.7 L (12.9-16.9) g/dL Hct 38.2 (37.5-50.1) % Plt Count 280 (140-400) K/mcL Neutrophils # 9.6 H (1.6-8.9) K/mcL BMP 07/24/18 13:29 Sodium 144 Potassium 4.1 Chloride 100 Carbon Dioxide 34 H BUN 22 Creatinine 0.78 Glucose 117 H Calcium 9.3 Cardiac Enzymes 07/24/18 Range/Units 13:29 Troponin I < 0.03 (< 0.04) ng/mL - EKG Data -: EKG Interpreted by Myself - EKG Data EKG comments: 07/24/18 17:08 V paced rhythm - Impressions ITS Impressions Chest X-Ray 07/24/18 13:10 IMPRESSION: COPD and chronic interstitial changes are stable. No acute finding. D/ / Tuan Mccracken MD / Tuan Mccracken MD Interpreting Provider: Tuan Mccracken MD - Assessment and Plan (1) COPD exacerbation Current Visit: Yes Status: Acute Assessment and plan: Patient with acute COPD exacerbation. Will place him on steroids, bronchodilators. Monitor vitals closely. Continue O2 supplementation. Check respiratory infection panel. Azithromycin 500 mg daily for 5 days. High risk for complications given underlying COPD and advanced age. (2) CHF (congestive heart failure), NYHA class III Current Visit: Yes Status: Chronic Assessment and plan: Patient has chronic cardiomyopathy. Per last echocardiogram done in 2015, patient had an EF of 35-40%. He already has an AICD and pacemaker in place. Continue home medications. Does not appear to be in acute exacerbation. Qualifiers: Congestive heart failure type: combined Congestive heart failure chronicity: chronic Qualified Code(s): I50.42 - Chronic combined systolic (congestive) and diastolic (congestive) heart failure (3) Chronic respiratory failure with hypoxia Current Visit: Yes Status: Acute Assessment and plan: Continue O2 supplementation. Patient on 4 L O2 supplementation at baseline. Will continue. (4) Anemia Current Visit: Yes Status: Chronic Assessment and plan: Hemoglobin 11.7. We will continue to monitor closely Qualifiers: Anemia type: other cause Other causes of anemia: chronic disease, other Qualified Code(s): D63.8 - Anemia in other chronic diseases classified elsewhere (5) Essential tremor Current Visit: No Status: Chronic - Time Spent With Patient Total time spent is greater than 50% in coordination of care (as documented) at patient's floor/unit and/or counseling patient:
[2018-07-24] MEDS ORDERED: Albuterol 2.5 MG/3 ML NEBULIZER IH PRN (17:12)
[2018-07-24] MEDS: Ipratropium/Albuterol Neb 3 ML IH SCH ×2 (20:08→23:35)
[2018-07-24] MEDS ORDERED: Perflutren Lipid Microsphere 1.3 ML in 0.9 % Sodium Chloride 8.7 ML IVP ONE (21:12)
[2018-07-24] MEDS: *HR* Heparin 5,000 UNIT/ML VIAL SQ SCH (22:12)
[2018-07-25] MEDS ORDERED: methylPREDNISolone 125 MG/2 ML VIAL IVP SCH
[2018-07-25] MEDS: Ipratropium/Albuterol Neb 3 ML IH SCH ×5 (03:46→19:52)
[2018-07-25] MEDS: *HR* Heparin 5,000 UNIT/ML VIAL SQ SCH ×2 (05:06→17:43)
[2018-07-25 07:05] LABS: Basophils % 0.1 %; Hematocrit 33.3 % (37.5-50.1); Hemoglobin 10.4 g/dL (12.9-16.9); Immature Granulocytes % 0.4 % (0-4); Lymphocytes # 0.6 K/mcL (0.6-4.6); Lymphocytes % 6.1 %; Mean Corpuscular HGB Conc 31.2 g/dL (31.6-35.5); Mean Corpuscular Volume 99.4 fL (83.0-100.0); Mean Platelet Volume 10.3 fL (9.4-12.4); Monocytes # 0.5 K/mcL (0.0-1.3); Monocytes % 5.9 %; Platelet Count 241 K/mcL (140-400); Red Blood Count 3.35 M/mcL (4.19-5.50); Red Cell Distribution Width 13.2 % (11.5-14.5); Segmented Neutrophils % 87.5 %
[2018-07-25 07:23] LABS: BUN/Creatinine Ratio 32 (6-26); Blood Urea Nitrogen 24 mg/dL (8-23); Carbon Dioxide 34 mEq/L (23-29); Chloride 97 mEq/L (98-107); Glucose 186 mg/dL (70-105); Osmolality,Calculated 301 (280-300); Potassium 3.6 mEq/L (3.5-5.1); Sodium 141 mEq/L (136-145); eGFR For Non-African Americans > 60 (> 60)
[2018-07-25] MEDS: MethylPREDNISolone 40 MG/ML VIAL IVP SCH ×2 (08:47→20:25)
[2018-07-25] MEDS: Azithromycin 250 MG TABLET PO SCH (08:47)
[2018-07-25 13:26] LABS: Adenovirus Not Detected (Not Detect); Bordetella Pertussis Not Detected (Not Detect); Chlamydophila pneumoniae Not Detected (Not Detect); Coronavirus 229E Not Detected (Not Detect); Coronavirus HKU1 Not Detected (Not Detect); Coronavirus NL63 Not Detected (Not Detect); Coronavirus OC43 Not Detected (Not Detect); Human Metapneumovirus Not Detected (Not Detect); Human Rhinovirus/Enterovirus Not Detected (Not Detect); Influenza A Subtype 2009 H1 Not Detected (Not Detect); Influenza A Untypeable Not Detected (Not Detect); Influenza B Not Detected (Not Detect); Mycoplasma pneumoniae Not Detected (Not Detect); Parainfluenza Virus 1 Not Detected (Not Detect); Parainfluenza Virus 2 Not Detected (Not Detect); Parainfluenza Virus 3 Not Detected (Not Detect); Parainfluenza Virus 4 Not Detected (Not Detect); Respiratory Syncytial Virus Not Detected (Not Detect)
--- NOTE | 2018-07-25 15:26 | Internal Med Progress Note ---
Hospitalist Progress Note - Encounter Date of Encounter: 07/25/18 Time of Encounter: 11:45 - Subjective Interval History: H&P reviewed. Patient with history of oxygen dependent COPD was admitted for acute on chronic hypoxic respiratory failure secondary to COPD exacerbation. Reports mild improvement in his symptoms but continues to experience severe d yspnea on exertion. No chest pain, nausea/vomiting, or diaphoresis. No fever/chills overnight. - Exam Vitals: Temp Pulse Resp BP Pulse Ox 97.5 F L 99 16 115/54 98 07/25/18 11:07 07/25/18 11:07 07/25/18 15:11 07/25/18 11:07 07/25/18 15:11 Exam: General: Patient is alert, mild distress, oriented x 3 Respiratory: Prolonged expiratory phase with end expiratory wheezes bilaterally Cardiovascular: Regular rate and rhythm. s1 and s2 normal but distant heart sounds. systolic murmur. No pedal edema Abdomen: Abdomen is soft, nontender. Bowel sounds are present Neuro: non-focal - Assessment and Plan (1) Acute and chronic respiratory failure with hypoxia Current Visit: Yes Status: Acute Assessment and Plan: Secondary to COPD exacerbation, mx as below Oxygen was weaned to his baseline overnight. (2) COPD exacerbation Current Visit: Yes Status: Acute Assessment and Plan: Clinically improving on steroids, bronchodilators. Will taper steroids Respiratory infection panel -ve. Continue Azithromycin 500 mg daily for 5 days. (3) Chronic respiratory failure with hypoxia Current Visit: Yes Status: Acute Assessment and Plan: Continue O2 supplementation. Patient on 4 L O2 supplementation at baseline. Wi ll continue. (4) CHF (congestive heart failure), NYHA class III Current Visit: Yes Status: Chronic Assessment and Plan: Known history of heart failure with reduced EF , last Echo 2016 showed EF 35-40% Does not appear to be in acute exacerbation. He already has an AICD and pacemaker in place. Continue home medications. Repeat echo showed normalizationof EF, mild LV diastolic dysfunction (5) Essential tremor Current Visit: No Status: Chronic Assessment and Plan: Continue home meds once reconciled DVT Prophylaxis: Subcutaneous heparin - Time Spent with Patient Total time spent is greater than 50% in coordination of care (as documented) at patient's floor/unit and/or counseling patient: 25 - 35 minutes Plan of Care Discussed with: patient Internal Medicine: Result - Labs CBC & Chem 7: 07/25/18 06:40 07/25/18 06:40 Labs: Short CBC 07/25/18 Range/Units 06:40 WBC 9.2 (4.3-11.1) K/mcL Hgb 10.4 L (12.9-16.9) g/dL Hct 33.3 L (37.5-50.1) % Plt Count 241 (140-400) K/mcL Neutrophils # 8.0 (1.6-8.9) K/mcL BMP 07/25/18 06:40 Sodium 141 Potassium 3.6 Chloride 97 L Carbon Dioxide 34 H BUN 24 H Creatinine 0.75 Glucose 186 H Calcium 9.0 - Impressions Impressions Echocardiogram 07/24/18 16:42 Impressions: LVEF 60-65%. Mild left ventricular diastolic dysfunction. Normal right ventricular structure and function. Mild tricuspid regurgitation. Mild pulmonary hypertension. Left Ventricular Wall Motion: Rest Echo Findings All wall segments showed normal motion. Findings: Study Quality * Technically adequate exam. ECG Findings * Paced rhythm. Left Ventricle * LVEF 60-65%. * Normal LV chamber size, wall thickness and systolic function. * Mild left ventricular diastolic dysfunction. * Atypical septal motion consistent with paced rhythm. Right Ventricle * Normal right ventricular structure and function. Left Atrium * Normal left atrial size. Right Atrium * Normal right atrial size. Interatrial Septum * Interatrial septum not well evaluated. Aortic Valve * Mildly calcified aortic valve leaflets. * No aortic stenosis. * No aortic regurgitation. Mitral Valve * Normal mitral valve structure. * No mitral stenosis. * No mitral regurgitation. Tricuspid Valve * Normal tricuspid valve structure. * No tricuspid stenosis. * Mild tricuspid regurgitation. * Estimated RVSP is 45 mmHg. * Estimated RA pressure is 3 mmHg. * Mild pulmonary hypertension. Pulmonic Valve * Pulmonic valve is not well visualized. * No pulmonic stenosis. * No pulmonic regurgitation. Aorta * Normally sized aortic root. Pericardium * The pericardium appears normal. IVC * The IVC is not dilated. * > 50% respiratory change Device lead * A device lead was visualized in the right atrium and right ventricle. Consult Discharge Plan - Plan Referrals: Andres Jensen MD [Primary Care Provider] - (4) CHF (congestive heart failure), NYHA class III Qualifiers: Congestive heart failure type: combined Congestive heart failure chronicity: chronic Qualified Code(s): I50.42 - Chronic combined systolic (congestive) and diastolic (congestive) heart failure
[2018-07-25] MEDS ORDERED: 0.9 % Sodium Chloride 250 ML IVC ONE (17:16)
[2018-07-25] MEDS ORDERED: *HR* Metoprolol 5 MG/5 ML VIAL IVP PRN (18:21)
[2018-07-26] MEDS: Ipratropium/Albuterol Neb 3 ML IH SCH ×3 (00:40→07:14)
[2018-07-26] MEDS: *HR* Heparin 5,000 UNIT/ML VIAL SQ SCH (05:05)
[2018-07-26 07:05] VITALS: BP 116/70
[2018-07-26] MEDS: MethylPREDNISolone 40 MG/ML VIAL IVP SCH (07:17)
[2018-07-26] MEDS: Azithromycin 250 MG TABLET PO SCH (07:17)
--- NOTE | 2018-07-26 10:19 | Discharge Summary ---
- NOTES TO OUTPATIENT PROVIDER Notes to Outpatient Provider: Completed a course of steroid and azithromycin and follow-up with PCP as outpatient Orders not resulted at time of discharge: Pending orders 07/25/18 18:06 EKG [ECG 12 lead ECG] [ECG] Stat Date of Encounter: 07/26/18 Time of Encounter: 07:45 - Discharge Diagnosis (1) Acute and chronic respiratory failure with hypoxia Priority: Primary Status: Acute (2) COPD exacerbation Priority: Secondary Status: Acute (3) Chronic respiratory failure with hypoxia Priority: Secondary Status: Acute (4) CHF (congestive heart failure), NYHA class III Priority: Secondary Status: Chronic Qualifiers: Congestive heart failure type: combined Congestive heart failure chronic ity: chronic Qualified Code(s): I50.42 - Chronic combined systolic (congestive) and diastolic (congestive) heart failure (5) Essential tremor Priority: Secondary Status: Chronic Hospital course: Mr. Jones is a 77 year old male with history of oxygen dependent COPD who was admitted for acute on chronic hypoxic respiratory failure secondary to COPD exacerbation. No evidence of pneumonia on chest x-ray and respiratory viral panel was negative. Patient clinically improved on steroid, azithromycin, and bronchodilators and will be discharged on a tapering course of steroid as well as 5 days of azithromycin. Prescription for a new nebulizer was provided to the patient prior to the discharge as well. Discharge discussed with: patient, nurse - Time Spent with Patient Total time spent providing and/or coordinating discharge services: 31 mins - Discharge Medications Prescriptions: New Ipratropium/Albuterol Neb [Duoneb] 3 ml IH [id number] PRN #120 inhsol PRN Reason: Shortness Of Breath Azithromycin [Zithromax] 500 mg PO DAILY 3 Days #6 tablet predniSONE [PredniSONE] 40 mg PO DAILY #9 tablet Continue Aspirin Enteric Coated [Aspirin EC] 81 mg PO DAILY #0 Nitroglycerin 0.4 mg SL Q5MIN PRN #0 tab.subl PRN Reason: Chest Pain Spironolactone [Aldactone] 12.5 mg PO DAILY #30 tablet Omeprazole [PriLOSEC] 20 mg PO DAILY Tamsulosin [Flomax] 0.4 mg PO DAILY Paroxetine HCl [Paxil] 20 mg PO DAILY Metoprolol Succinate [Toprol Xl] 25 mg PO DAILY Primidone [Mysoline] 50 mg PO HS Mirtazapine [Remeron] 30 mg PO HS Losartan [Cozaar] 25 mg PO DAILY Simvastatin [Zocor] 40 mg PO DAILY traZODone [TraZODone] 50 mg PO HS Megestrol Acetate 20 mg PO BID Albuterol Sulfate [Ventolin Hfa] 18 gm IH PRN PRN #1 hfa.aer.ad PRN Reason: COPD Discontinued predniSONE [PredniSONE] See Taper PO DAILY #9 tablet Home Medications: Aspirin Enteric Coated [Aspirin EC] 81 mg PO DAILY #0 12/07/14 [History] Nitroglycerin 0.4 mg SL Q5MIN PRN #0 tab.subl 08/04/15 [Rx] Spironolactone [Aldactone] 12.5 mg PO DAILY #30 tablet 08/04/15 [Rx] Omeprazole [PriLOSEC] 20 mg PO DAILY 10/28/15 [History] Losartan [Cozaar] 25 mg PO DAILY 10/05/17 [History] Metoprolol Succinate [Toprol Xl] 25 mg PO DAILY 10/05/17 [History] Mirtazapine [Remeron] 30 mg PO HS 10/05/17 [History] Paroxetine HCl [Paxil] 20 mg PO DAILY 10/05/17 [History] Primidone [Mysoline] 50 mg PO HS 10/05/17 [History] Tamsulosin [Flomax] 0.4 mg PO DAILY 10/05/17 [History] Megestrol Acetate 20 mg PO BID 02/03/18 [History] Simvastatin [Zocor] 40 mg PO DAILY 02/03/18 [History] traZODone [TraZODone] 50 mg PO HS 02/03/18 [History] Albuterol Sulfate [Ventolin Hfa] 18 gm IH PRN PRN #1 hfa.aer.ad 02/14/18 [Rx] Azithromycin [Zithromax] 500 mg PO DAILY 3 Days #6 tablet 07/26/18 [Rx] Ipratropium/Albuterol Neb [Duoneb] 3 ml IH [id number] PRN #120 inhsol 07/26/18 [Rx] predniSONE [PredniSONE] 40 mg PO DAILY #9 tablet 07/26/18 [Rx] Allergies/Adverse Reactions: Allergy/AdvReac Type Severity Reaction Status Date / Time No Known Allergies Allergy Verified 02/09/18 10:02 Date of admission: 07/24/18 17:04 Primary care physician: Andres Jensen MD Consults: 07/24/18 20:11 Consult to Nutrition [CONS] Routine Comment: Consulting Provider: NUTRITION Reason for Dietary Consult: Diet Education 07/24/18 20:13 Consult to Nutrition [CONS] Routine Comment: Consulting Provider: NUTRITION Reason for Dietary Consult: Diet Education Consult to Forest Manager [CONS] Routine Reason for SW Consult: needs breathing treatment machine - Constitutional Vitals: Temp Pulse Resp BP Pulse Ox 97.6 F 86 18 116/70 100 07/26/18 07:02 07/26/18 07:20 07/26/18 07:20 07/26/18 07:02 07/26/18 07:20 Exam: General: Patient is alert, not in distress, oriented x 3 Respiratory: Minimal end expiratory wheezes at the lung bases only Cardiovascular: Regular rate and rhythm. s1 and s2 normal but distant heart sounds. systolic murmur. No pedal edema Abdomen: Abdomen is soft, nontender. Bowel sounds are present Neuro: non-focal - Patient Status Disposition: Home Health Service Condition: Fair Functional capacity at discharge: independent ambulation Overall status at discharge: patient is progressing back to baseline - Discharge Instructions Instructions: Acute Respiratory Distress Syndrome (DC), Chronic Obstructive Pulmonary Disease (DC) Follow Up With: Andres Jensen MD [Primary Care Provider] - Additional Instructions: Completed a course of steroid and macrolide as prescribed New nebulizer prescribed Follow up with PCP as an outpatient - Diet and Activity Activity: resume usual activities as tolerated Diet: low salt diet
--- NOTE | 2018-07-26 10:24 | Physician Discharge Referral ---
Home Health/Hosp Referral Info Transfer to: Home Health Provider in Charge Post Discharge: PCP - Diagnosis (1) Acute and chronic respiratory failure with hypoxia Priority: Primary Status: Acute (2) COPD exacerbation Priority: Secondary Status: Acute (3) Chronic respiratory failure with hypoxia Priority: Secondary Status: Acute (4) CHF (congestive heart failure), NYHA class III Priority: Secondary Status: Chronic (5) Essential tremor Priority: Secondary Status: Chronic - Respiratory Orders Oxygen / L per min (4L) Smoking Cessation: Smoking cessation has been advised. For more information, call the [place] Tobacco Quit Line at 3-105-SSIN-NOW. - Services Needed Following services are medically necessary services: Nursing, Home Health Aide - Transfer Medications Prescriptions: Ipratropium/Albuterol Neb [Duoneb] 3 ml IH [id number] PRN #120 inhsol PRN Reason: Shortness Of Breath Azithromycin [Zithromax] 500 mg PO DAILY 3 Days #6 tablet predniSONE [PredniSONE] 40 mg PO DAILY #9 tablet Home Medications: Aspirin Enteric Coated [Aspirin EC] 81 mg PO DAILY #0 12/07/14 [History] Nitroglycerin 0.4 mg SL Q5MIN PRN #0 tab.subl 08/04/15 [Rx] Spironolactone [Aldactone] 12.5 mg PO DAILY #30 tablet 08/04/15 [Rx] Omeprazole [PriLOSEC] 20 mg PO DAILY 10/28/15 [History] Losartan [Cozaar] 25 mg PO DAILY 10/05/17 [History] Metoprolol Succinate [Toprol Xl] 25 mg PO DAILY 10/05/17 [History] Mirtazapine [Remeron] 30 mg PO HS 10/05/17 [History] Paroxetine HCl [Paxil] 20 mg PO DAILY 10/05/17 [History] Primidone [Mysoline] 50 mg PO HS 10/05/17 [History] Tamsulosin [Flomax] 0.4 mg PO DAILY 10/05/17 [History] Megestrol Acetate 20 mg PO BID 02/03/18 [History] Simvastatin [Zocor] 40 mg PO DAILY 02/03/18 [History] traZODone [TraZODone] 50 mg PO HS 02/03/18 [History] Albuterol Sulfate [Ventolin Hfa] 18 gm IH PRN PRN #1 hfa.aer.ad 02/14/18 [Rx] Azithromycin [Zithromax] 500 mg PO DAILY 3 Days #6 tablet 07/26/18 [Rx] Ipratropium/Albuterol Neb [Duoneb] 3 ml IH [id number] PRN #120 inhsol 07/26/18 [Rx] predniSONE [PredniSONE] 40 mg PO DAILY #9 tablet 07/26/18 [Rx] Allergies/Adverse Reactions: Allergy/AdvReac Type Severity Reaction Status Date / Time No Known Allergies Allergy Verified 02/09/18 10:02 Certification: Further, I certify that my clinical findings support that this patient is homebound (i.e. absences from home require considerable and taxing effort and are for medical reasons or protestant services or infrequently or short duration when for other reasons) because: Homebound Reason: Patient requires assistance of a person or device to safely leave home Attestation: My signature below is to certify that this patient is under my care and that I, or nurse practitioner, or a physician's fire assistant working with me, has a [id number] encounter with this patient.
--- NOTE | 2018-07-27 08:55 | Electrocardiograph Report ---
[address] [place], [place] [address] Test Date: 2018-07-25 Pat Name: Kristian Jones Department: 103 Room: [facility] Gender: M Instrument Sterilizer: NETTE : 1940 Requested By: Mario Petersen Order Number: [id number] Reading MD: Martita Fernando Measurements Intervals [place] Rate: 94 P: 69 NV: 169 QRS: 25 QRSD: 126 T: 46 QT: 380 QTc: 432 Interpretive Statements ELECTRONIC VENTRICULAR PACEMAKER Electronically Signed On 07-27-2018 8:53:30 EDT by Martita Fernando
--- NOTE | 2018-07-29 15:57 | Electrocardiograph Report ---
[address] [address] Test Date: 2018-07-25 Pat Name: Kristian Jones Department: 103 Room: [facility] Gender: M Calender Tender: NETTE : 1940 Requested By: Jose F Coffey Order Number: [id number] Reading MD: Arsh Moore Measurements Intervals [place] Rate: 94 P: 65 HI: 169 QRS: -79 QRSD: 135 T: 59 QT: 379 QTc: 430 Interpretive Statements ELECTRONIC VENTRICULAR PACEMAKER ABNORMAL RHYTHM ECG Electronically Signed On 07-29-2018 15:56:03 EDT by Arsh Moore
== END 2018-07-26 11:10 | disposition home health service (06) ==
LOC: EMEROOARM 12:56 → 2SOUTHHOLD 12:56 → SUATTDRO 17:04 → 2SOUTHHOLD 18:40
PROVIDERS: ADMIT Internal Medicine Nephrology; ATTEND Internal Medicine

== ENCOUNTER 2018-09-11 20:57 | Inpatient (IN) ==
[2018-09-11] MEDS ORDERED: Ipratropium/Albuterol Neb 3 ML IH ONE (21:03)
[2018-09-11] MEDS ORDERED: 0.9 % Sodium Chloride 1,000 ML IVC ONE (21:03)
[2018-09-11] MEDS ORDERED: methylPREDNISolone 125 MG/2 ML VIAL IVP ONE (21:03)
[2018-09-11] MEDS ORDERED: 0.9 % Sodium Chloride 500 ML IVC ONE (21:14)
--- NOTE | 2018-09-11 21:18 | Emergency Department Note ---
Disposition Clinical Impression: COPD exacerbation, Hypoxia Sepsis Qualifiers: Sepsis type: sepsis due to unspecified organism Qualified Code(s): A41.9 - Sepsis, unspecified organism Disposition: Admitted As Inpatient Condition: Fair Referrals: NONE,PCP [Primary Care Provider] - Forms: ED Satisfaction Letter Time of Disposition: 22:09 SOB HPI - General Chief Complaint: ED Shortness of Breath/Dyspnea Stated Complaint: SoB Time Seen by Provider: 09/11/18 21:03 Source: patient Mode of arrival: EMS Limitations: no limitations Nursing Notes Reviewed: Yes Vital Signs Reviewed: Yes - History of Present Illness 77-year-old male with a history of COPD oxygen dependent on 5-6 L with a long core presents for evaluation of shortness of breath. Patient drinks via EMS. EMS reported the patient was without any electricity and without any oxygen. Did have portable tanks. Patient's room air oxygen was in the 80s. Patient's oxygen improve with supplemental nonrebreather with aerosols. Patient states is been feeling short of breath with a nonproductive cough. No fevers noted. No chest pain. No nausea vomiting or diaphoresis. Patient denies being on any antibiotics currently. No history of CAD or stents. Patient states he does have a pacemaker. - Related Data Home Medications Medication Instructions Recorded Confirmed Aspirin Enteric Coated [Aspirin EC] 81 mg PO DAILY #0 12/07/14 02/11/18 Omeprazole [PriLOSEC] 20 mg PO DAILY 10/28/15 02/11/18 Losartan [Cozaar] 25 mg PO DAILY 10/05/17 02/11/18 Metoprolol Succinate [Toprol Xl] 25 mg PO DAILY 10/05/17 02/11/18 Mirtazapine [Remeron] 30 mg PO HS 10/05/17 02/11/18 Paroxetine HCl [Paxil] 20 mg PO DAILY 10/05/17 02/11/18 Primidone [Mysoline] 50 mg PO HS 10/05/17 02/11/18 Tamsulosin [Flomax] 0.4 mg PO DAILY 10/05/17 02/11/18 Megestrol Acetate 20 mg PO BID 02/03/18 02/11/18 Simvastatin [Zocor] 40 mg PO DAILY 02/03/18 02/11/18 traZODone [TraZODone] 50 mg PO HS 02/03/18 02/11/18 Previous Rx's Medication Instructions Recorded Nitroglycerin 0.4 mg SL Q5MIN PRN #0 tab.subl 08/04/15 Spironolactone [Aldactone] 12.5 mg PO DAILY #30 tablet 08/04/15 Albuterol Sulfate [Ventolin Hfa] 18 gm IH PRN PRN #1 hfa.aer.ad 02/14/18 Ipratropium/Albuterol Neb [Duoneb] 3 ml IH [id number] PRN #120 inhsol 07/26/18 predniSONE [PredniSONE] 40 mg PO DAILY #9 tablet 07/26/18 Allergies Allergy/AdvReac Type Severity Reaction Status Date / Time No Known Allergies Allergy Verified 02/09/18 10:02 All systems ED: reviewed and negative except as stated. Constitutional: Denies: fever Cardiovascular: Denies: chest pain Respiratory: Reports: cough, dyspnea Gastrointestinal: Denies: abdominal pain, nausea, vomiting Past Medical History - Past Medical History Source: patient Medical history: Reports: cancer, cardiomyopathy, CHF, COPD, coronary artery disease, hepatitis, hyperlipidemia, liver disease, other Surgical history: Reports: pacemaker/AICD Psychiatric history: Reports: anxiety, depression, prior suicide attempt - Social History Smoking Status: Current every day smoker Smokeless Tobacco Status: No Alcohol use: Reports: none Drug use: Reports: none Physical Exam - General Limitations: no limitations General appearance: alert, other - Head Head exam: atraumatic, normocephalic, normal inspection - Eye Eye exam: Present: normal appearance - ENT ENT exam: normal exam, normal oropharynx, mucous membranes moist - Neck Neck exam: Present: normal inspection - Chest Chest inspection: Present: normal inspection, symmetric chest wall rise - Respiratory Respiratory exam: Present: accessory muscle use, prolonged expiratory phase - Cardiovascular Cardiovascular exam: Present: regular rate, normal rhythm. Absent: normal heart sounds - Abdominal Exam Abdominal exam: Present: soft, Non-Tender - Extremities Exam Extremities exam: Present: normal inspection. Absent: pedal edema - Expanded Lower Extremity Exam Neurovascular/Tendon exam: Present: normal capillary refill - Back Exam Back exam: Present: normal inspection - Neurological Exam Neurological exam: Present: alert, oriented X3, CN II-XII intact - Skin Skin exam: Present: warm, dry, intact, normal color Course Course Narrative: Patient seen and examined. Patient does have history of COPD. Does meet SIRS criteria with hypotension tachypnea as well as tachycardia. Patient will get resuscitation with IV crystalloid. Aerosol steroids lactate and blood cultures. Disposition admission. - Reevaluation(s) Reevaluation #1: Patient's lung exam shows better aeration. Given the patient's leukocytosis increased work of breathing as well as recent hospitalization the patient was covered for healthcare associated pneumonia with Vanco and Zosyn. Time: 22:01 Vital Signs Temperature 98.6 F 09/11/18 21:02 Pulse Rate 101 09/11/18 21:02 Respiratory Rate 22 09/11/18 21:02 Blood Pressure 89/50 09/11/18 21:02 O2 Sat by Pulse Oximetry 95 09/11/18 21:02 Temperature 98.6 F 09/11/18 21:02 Pulse Rate 95 09/11/18 22:09 Respiratory Rate 20 09/11/18 22:09 Blood Pressure 116/57 09/11/18 22:09 O2 Sat by Pulse Oximetry 100 09/11/18 22:09 Oxygen Delivery Oxygen Delivery Nasal Cannula Shortness of Breath/Dyspnea - [facility] Narrative Medical decision making narrative: Patient presented for concerns of dyspnea. Patient does have a strong history of COPD oxygen dependent. Patient did meet SIRS criteria and likely sepsis with concerns of clinical pneumonia. Patient was treated with IV fluids IV a ntibiotics and aerosols and steroids. There is no suspicion or concerns for PE. Patient was without his oxygen earlier today. Patient is resting comfortable with interventions in the ED. Looking the patient's records she was recently admitted a month ago for a COPD exacerbation. Patient recovered with healthcare associated coverage. Patient's troponin negative. Electrodes are clinically unremarkable. Patient does have a leukocytosis consistent with concerns of clinical pneumonia. - Lab Data Lab results reviewed: Yes I reviewed the patient's lab results. Result diagrams: 09/11/18 21:30 09/11/18 21:30 Lab Results 09/11/18 09/11/18 09/11/18 Range/Units 21:30 21:30 21:30 WBC 18.2 H (4.3-11.1) K/mcL RBC 3.26 L (4.19-5.50) M/mcL Hgb 10.2 L (12.9-16.9) g/dL Hct 33.9 L (37.5-50.1) % MCV 104.0 H (83.0-100.0) fL MCH 31.3 (28.0-33.3) pg MCHC 30.1 L (31.6-35.5) g/dL RDW 12.8 (11.5-14.5) % Plt Count 289 (140-400) K/mcL MPV 10.5 (9.4-12.4) fL Immature Gran % 0.5 (0-4) % Seg Neutrophils % 87.2 % Lymphocytes % 5.8 % Monocytes % 6.2 % Eosinophils % 0.1 % Basophils % 0.2 % Neutrophils # 15.8 H (1.6-8.9) K/mcL Lymphocytes # 1.1 (0.6-4.6) K/mcL Monocytes # 1.1 (0.0-1.3) K/mcL Eosinophils # 0.0 (0.0-0.6) K/mcL Basophils # 0.0 (0.0-0.2) K/mcL PT (9.4-12.1) Seconds INR Sodium 143 (136-145) mEq/L Potassium 4.6 (3.5-5.1) mEq/L Chloride 99 (98-107) mEq/L Carbon Dioxide 35 H (23-29) mEq/L BUN 24 H (8-23) mg/dL Creatinine 0.70 (0.70-1.30) mg/dL Est GFR ( Amer) > 60 (> 60) Est GFR (Non-Af Amer) > 60 (> 60) BUN/Creatinine Ratio 34 H (6-26) Glucose 138 H (70-105) mg/dL Calculated Osmolality 302 H (280-300) Lactic Acid 1.3 (0.5-2.2) mmol/L Calcium 8.9 (8.6-10.3) mg/dL Total Bilirubin 0.3 (0.3-1.0) mg/dL Direct Bilirubin 0.0 (0.0-0.2) mg/dL Indirect Bilirubin 0.3 (0.0-1.2) mg/dL AST 13 (13-39) Units/L ALT 9 (7-52) Units/L Alkaline Phosphatase 63 (34-104) Units/L Troponin I < 0.03 (< 0.04) ng/mL B-Natriuretic Peptide (Less than 100) pg/mL Serum Total Protein 6.9 (6.4-8.9) g/dL Albumin 3.2 L (3.5-5.7) g/dL Globulin 3.7 H (2.4-3.5) g/dL Albumin/Globulin Ratio 0.9 L (1.1-2.2) 09/11/18 09/11/18 Range/Units 21:30 21:30 WBC (4.3-11.1) K/mcL RBC (4.19-5.50) M/mcL Hgb (12.9-16.9) g/dL Hct (37.5-50.1) % MCV (83.0-100.0) fL MCH (28.0-33.3) pg MCHC (31.6-35.5) g/dL RDW (11.5-14.5) % Plt Count (140-400) K/mcL MPV (9.4-12.4) fL Immature Gran % (0-4) % Seg Neutrophils % % Lymphocytes % % Monocytes % % Eosinophils % % Basophils % % Neutrophils # (1.6-8.9) K/mcL Lymphocytes # (0.6-4.6) K/mcL Monocytes # (0.0-1.3) K/mcL Eosinophils # (0.0-0.6) K/mcL Basophils # (0.0-0.2) K/mcL PT 13.3 H (9.4-12.1) Seconds INR 1.2 Sodium (136-145) mEq/L Potassium (3.5-5.1) mEq/L Chloride (98-107) mEq/L Carbon Dioxide (23-29) mEq/L BUN (8-23) mg/dL Creatinine (0.70-1.30) mg/dL Est GFR ( Amer) (> 60) Est GFR (Non-Af Amer) (> 60) BUN/Creatinine Ratio (6-26) Glucose (70-105) mg/dL Calculated Osmolality (280-300) Lactic Acid (0.5-2.2) mmol/L Calcium (8.6-10.3) mg/dL Total Bilirubin (0.3-1.0) mg/dL Direct Bilirubin (0.0-0.2) mg/dL Indirect Bilirubin (0.0-1.2) mg/dL AST (13-39) Units/L ALT (7-52) Units/L Alkaline Phosphatase (34-104) Units/L Troponin I (< 0.04) ng/mL B-Natriuretic Peptide 73 (Less than 100) pg/mL Serum Total Protein (6.4-8.9) g/dL Albumin (3.5-5.7) g/dL Globulin (2.4-3.5) g/dL Albumin/Globulin Ratio (1.1-2.2) - Radiology Data Radiology results reviewed: Yes I reviewed the patient's radiology results. Chest X-Ray 09/11/18 21:03 IMPRESSION: No acute findings in the chest. Chronic findings in the lung bases are stable. D/ / Nahun Butts MD / Nahun Butts MD Interpreting Provider: Nahun Butts MD - EKG Data EKG attestation: Yes I reviewed and interpreted this EKG. Rate: Reports: normal [place]/QRS: Reports: left axis deviation T wave inversions noted in: Reports: aVR Interpretation: Reports: nonspecific ST-T wave changes (Patient's EKG shows paced rhythm with left axis deviation. No signs of scar Boase's criteria.) Tunde - Tunde Situation: Demographics Background: Presenting Complaint Assessment: Vital Signs, Course and respsone to treatment, Patient/Family Expectation Recommendation: Barrier(s) to disposition, Recommendation based on pending studies, treatments, or consults S.B.Marii Report Given to: Dr. Mary Ann Griffiths Repor Time: 22:12
[2018-09-11 21:42] LABS: Basophils % 0.2 %; Eosinophils % 0.1 %; Hematocrit 33.9 % (37.5-50.1); Hemoglobin 10.2 g/dL (12.9-16.9); Immature Granulocytes % 0.5 % (0-4); Lymphocytes # 1.1 K/mcL (0.6-4.6); Lymphocytes % 5.8 %; Mean Corpuscular HGB Conc 30.1 g/dL (31.6-35.5); Mean Corpuscular Hemoglobin 31.3 pg (28.0-33.3); Mean Platelet Volume 10.5 fL (9.4-12.4); Monocytes # 1.1 K/mcL (0.0-1.3); Monocytes % 6.2 %; Neutrophils # 15.8 K/mcL (1.6-8.9); Platelet Count 289 K/mcL (140-400); Red Blood Count 3.26 M/mcL (4.19-5.50); Red Cell Distribution Width 12.8 % (11.5-14.5); Segmented Neutrophils % 87.2 %
[2018-09-11 21:49] LABS: INR 1.2; Prothrombin Time 13.3 Seconds (9.4-12.1)
[2018-09-11] MEDS ORDERED: Piperacillin/Tazobactam 3.375 GM in 0.9 % Sodium Chloride Mini Bag 100 ML IVPB ONE (21:52)
[2018-09-11 22:04] LABS: Alanine Aminotransferase 9 Units/L (7-52); Albumin 3.2 g/dL (3.5-5.7); Albumin/Globulin Ratio 0.9 (1.1-2.2); Alkaline Phosphatase 63 Units/L (34-104); Aspartate Amino Transferase 13 Units/L (13-39); BUN/Creatinine Ratio 34 (6-26); Bilirubin,Indirect 0.3 mg/dL (0.0-1.2); Bilirubin,Total 0.3 mg/dL (0.3-1.0); Blood Urea Nitrogen 24 mg/dL (8-23); Calcium 8.9 mg/dL (8.6-10.3); Carbon Dioxide 35 mEq/L (23-29); Chloride 99 mEq/L (98-107); Globulin 3.7 g/dL (2.4-3.5); Glucose 138 mg/dL (70-105); Osmolality,Calculated 302 (280-300); Potassium 4.6 mEq/L (3.5-5.1); Sodium 143 mEq/L (136-145); Total Protein 6.9 g/dL (6.4-8.9); Troponin I < 0.03 ng/mL (< 0.04); eGFR For Non-African Americans > 60 (> 60)
--- NOTE | 2018-09-11 22:14 | Internal Med History&Physical ---
<Manuel Fontenot S - Last Filed: 09/12/18 00:20> Date of Encounter: 09/12/18 Time of Encounter: 22:49 Internal Medicine - H&P: HPI Chief complaint: no oxygen Admitted From: Home Plans for Post Hospital Care: Home History of present illness: Mr. Jones is a 77 year old male with a PMH of cardiomyopathy, CHF, COPD on 2.5 L, coronary artery disease, anxiety, depression and essential tremor. He presents today to the ER with the chief complaint of SOB. The pt's caregivers found him without oxygen or electricity. He was found to be in the O2 sat 80's by EMS. Pt was given NRB and breathing tx, which helped improve his breathing status. He has been feeling SOB and denies any worsening from baseline. He isn't sure why he didn't have his oxgen. He denies productive cough, fevers/chills, change in sputum production or color. He denies chest pain or palpiltations. SOB at baseline. Denies N/V/D or abd pain. Does have constipation. According to what EMS told the pt, he has a hx of alcoholism. He was found to have a leukocytosis on evaluation. He was tacycardic and taypnic. XR chest negative for acute abnormality. He was given fluid resuscitation and IV abx. He will be admitted for further treatment. Past Med Surg Social Fam HX - Past Medical History Medical history: cancer, cardiomyopathy, CHF, COPD, coronary artery disease, hepatitis, hyperlipidemia, liver disease, other Additional medical history: Prostate, Hep C Psychiatric history: anxiety, depression, prior suicide attempt - Past Surgical History Surgical History: pacemaker/AICD Additional surgical history: prostate surgery, urethrotomy - Social History Smoking Status: Current every day smoker Smokeless Tobacco Status: No Alcohol use: none Drug use: none - Family History Mother Living Status: Hx Family Cardiac Disorders: Yes (Mother stroke, heart attack) Hx Family Respiratory Disorders: No Hx Family Cancer: No Hx Family GI Disorders: No Hx Family Endocrine Disorder: Yes (grandpa dm) Hx Family Neuromuscular Disorders: No Hx Family Neurologic Disorders: No Hx Family HEENT Disorders: No Hx Family Autoimmune Disorders: No Father Adopted: No Race: Hx Family Cardiac Disorders: Yes Internal Medicine - H&P: Meds Aspirin Enteric Coated [Aspirin EC] 81 mg PO DAILY #0 12/07/14 [History] Nitroglycerin 0.4 mg SL Q5MIN PRN #0 tab.subl 08/04/15 [Rx] Spironolactone [Aldactone] 12.5 mg PO DAILY #30 tablet 08/04/15 [Rx] Omeprazole [PriLOSEC] 20 mg PO DAILY 10/28/15 [History] Losartan [Cozaar] 25 mg PO DAILY 10/05/17 [History] Metoprolol Succinate [Toprol Xl] 25 mg PO DAILY 10/05/17 [History] Mirtazapine [Remeron] 30 mg PO HS 10/05/17 [History] Paroxetine HCl [Paxil] 20 mg PO DAILY 10/05/17 [History] Primidone [Mysoline] 50 mg PO HS 10/05/17 [History] Tamsulosin [Flomax] 0.4 mg PO DAILY 10/05/17 [History] Megestrol Acetate 20 mg PO BID 02/03/18 [History] Simvastatin [Zocor] 40 mg PO DAILY 02/03/18 [History] traZODone [TraZODone] 50 mg PO HS 02/03/18 [History] Albuterol Sulfate [Ventolin Hfa] 18 gm IH PRN PRN #1 hfa.aer.ad 02/14/18 [Rx] Ipratropium/Albuterol Neb [Duoneb] 3 ml IH [id number] PRN #120 inhsol 07/26/18 [Rx] predniSONE [PredniSONE] 40 mg PO DAILY #9 tablet 07/26/18 [Rx] Allergy/AdvReac Type Severity Reaction Status Date / Time No Known Allergies Allergy Verified 02/09/18 10:02 All Systems PM: A 10-system review of systems was performed and is negative for pertinent findings except as documented above in the HPI. - Constitutional Constitutional: lethargy, no chills, no fever(s) - EENT Eyes: no blurry vision, no change in vision Ears: no tinnitus Nose, mouth and throat: no bleeding gums, no epistaxis - Cardiovascular Cardiovascular ROS IM: dyspnea, dyspnea on exertion, no chest pain, no palpitations - Respiratory Respiratory: cough, dyspnea, dyspnea on exertion, no hemoptysis, no chest congestion, no excessive phlegm production - Gastrointestinal Gastrointestinal: constipation, no abdominal pain, no diarrhea, no nausea, no vomiting - Genitourinary Genitourinary ROS male: no dysuria, no hematuria - Musculoskeletal Musculoskeletal ROS IM: back pain, stiffness - Integumentary Integumentary IM: no rash, no skin ulcer - Neurological Neurological ROS: weakness, no dizziness, no tingling - Psychiatric Psychiatric: anxiety, depression - Endocrine Endocrine IM: fatigue - Hematologic/Lymphatic Hematologic/Lymphatic: no easy bleeding, no easy bruising - Constitutional Vitals: Temp Pulse Resp BP Pulse Ox 98.6 F 95 20 116/57 100 09/11/18 21:02 09/11/18 22:09 09/11/18 22:09 09/11/18 22:09 09/11/18 22:09 Exam: general - aox3, mildly uncomfortable, laying in bed, speaking in full sentences heent - MMM, NCAT, no scleral icterus neck - no jvd, trachea midline cardio - tacycardia, s1s2 cta no mrg back - no rash, brusing or tenderness lungs - decreased breath sounds, accessory mm used, breathes thru pursed lips, mild coarse breath sounds abd - soft, ntnd, no peritoneal signs or rebound/guarding extremities - moves all extremities equally, strength 5/5 UE/LE, mild 1-2+ pitting edema of the feet bilaterally neuro - no FND, sensation intact psych - anxious skin - warm,dry,intact, decreased capillary refill Internal Med - H&P Results - Labs CBC & Chem 7: 09/11/18 21:30 09/11/18 21:30 Labs: Short CBC 09/11/18 Range/Units 21:30 WBC 18.2 H (4.3-11.1) K/mcL Hgb 10.2 L (12.9-16.9) g/dL Hct 33.9 L (37.5-50.1) % Plt Count 289 (140-400) K/mcL Neutrophils # 15.8 H (1.6-8.9) K/mcL BMP 09/11/18 21:30 Sodium 143 Potassium 4.6 Chloride 99 Carbon Dioxide 35 H BUN 24 H Creatinine 0.70 Glucose 138 H Calcium 8.9 Cardiac Enzymes 09/11/18 Range/Units 21:30 Troponin I < 0.03 (< 0.04) ng/mL Liver Function 09/11/18 Range/Units 21:30 Total Bilirubin 0.3 (0.3-1.0) mg/dL Direct Bilirubin 0.0 (0.0-0.2) mg/dL AST 13 (13-39) Units/L ALT 9 (7-52) Units/L Alkaline Phosphatase 63 (34-104) Units/L Albumin 3.2 L (3.5-5.7) g/dL - Impressions ITS Impressions Chest X-Ray 09/11/18 21:03 IMPRESSION: No acute findings in the chest. Chronic findings in the lung bases are stable. D/ / Nahun Butts MD / Nahun Butts MD Interpreting Provider: Nahun Butts MD - Assessment and Plan (1) COPD (chronic obstructive pulmonary disease) Current Visit: Yes Status: Acute Assessment and plan: Pt with AECOPD, likely secondary to not having oxygen today Pt meets criteria for SIRS for HR, RR and WBC count - no source of infxn identified - likely meeting criteria secondary to AECOPD - admitted in early July for similar s/s and at that time was tx with 5 days of azithromycin and improved Pt was recently admitted in July 24, 2018 for similar symptoms XR chest at that time showed COPD and chronic interstitial changes that were stable No acute findings XR chest from admission No acute findings in the chest. Chronic findings in the lung bases are stable EKG in the ER showed nonspecific ST-T wave changes with paced rhythm, LAD Plan: - continue 100cc/hr IVF 0.9% NS - blood cx pending - azithromycin x 5 days - duonebs q4hr - solumedrol IV 40mg daily - continue telemetry monitoring - keep O2 sat >88% - FEN: cardiac diet - DVT prohylaxis: sq heparin - dispo: improvement of VQ mismatch and breathing status, will consult PTOT Qualifiers: COPD type: emphysema Emphysema type: centrilobular Qualified Code(s): J43.2 - Centrilobular emphysema (2) Depression Current Visit: No Status: Chronic Assessment and plan: Chronic. Con't home meds once reconciled. Qualifiers: Depression Type: major depressive disorder Major depression recurrence: recurrent Active/Remission status: currently active Major depression episode severity: severe Psychotic features: without psychotic features Qualified Code(s): F33.2 - Major depressive disorder, recurrent severe without psychotic features (3) Acute and chronic respiratory failure with hypoxia Current Visit: Yes Status: Acute Assessment and plan: On 2.5 L baseline. Requiring 4 L O2 saturation currently. See above for COPD. (4) History of pacemaker Current Visit: No Status: Chronic (5) Tremor Current Visit: No Status: Chronic Assessment and plan: On primidone. Con't when meds reconciled. (6) Protein-calorie malnutrition, severe Current Visit: No Status: Chronic Assessment and plan: Nutrition consulted. Ensure TID. (7) Tobacco abuse Current Visit: No Status: Chronic Assessment and plan: con't to smoke 1ppd. Chronic, counseled. (8) DVT prophylaxis Current Visit: Yes Status: Acute Assessment and plan: sq heparin (9) CHF (congestive heart failure) Current Visit: No Status: Chronic Assessment and plan: ECHO from 07/2018 Impressions: LVEF 60-65%. Mild left ventricular diastolic dysfunction. Normal right ventricular structure and function. Mild tricuspid regurgitation. Mild pulmonary hypertension. NOT in acute exacerbation. Continue home meds when reconciled. Qualifiers: Heart failure type: diastolic Heart failure chronicity: chronic Qualified Code(s): I50.32 - Chronic diastolic (congestive) heart failure (10) Alcoholism Current Visit: No Status: Chronic Assessment and plan: Has hx of severe alcoholism. CIWA protocol. HOB elevation. Aspiration precautions. - Time Spent With Patient Total time spent is greater than 50% in coordination of care (as documented) at patient's floor/unit and/or counseling patient: 25 - 35 minutes <Oli Reese - Last Filed: 09/12/18 00:29> Date of Encounter: 09/11/18 All Systems PM: A 10-system review of systems was performed and is negative for pertinent findings except as documented above in the HPI. - Constitutional Vitals: Temp Pulse Resp BP Pulse Ox 98.6 F 82 21 96/54 100 09/11/18 21:02 09/12/18 00:00 09/12/18 00:00 09/12/18 00:00 09/12/18 00:00 Internal Med - H&P Results - Labs CBC & Chem 7: 09/11/18 21:30 09/11/18 21:30 Labs: Short CBC 09/11/18 Range/Units 21:30 WBC 18.2 H (4.3-11.1) K/mcL Hgb 10.2 L (12.9-16.9) g/dL Hct 33.9 L (37.5-50.1) % Plt Count 289 (140-400) K/mcL Neutrophils # 15.8 H (1.6-8.9) K/mcL BMP 09/11/18 21:30 Sodium 143 Potassium 4.6 Chloride 99 Carbon Dioxide 35 H BUN 24 H Creatinine 0.70 Glucose 138 H Calcium 8.9 Cardiac Enzymes 09/11/18 Range/Units 21:30 Troponin I < 0.03 (< 0.04) ng/mL Liver Function 09/11/18 Range/Units 21:30 Total Bilirubin 0.3 (0.3-1.0) mg/dL Direct Bilirubin 0.0 (0.0-0.2) mg/dL AST 13 (13-39) Units/L ALT 9 (7-52) Units/L Alkaline Phosphatase 63 (34-104) Units/L Albumin 3.2 L (3.5-5.7) g/dL - Impressions ITS Impressions Chest X-Ray 09/11/18 21:03 IMPRESSION: No acute findings in the chest. Chronic findings in the lung bases are stable. D/ / Nahun Butts MD / Nahun Butts MD Interpreting Provider: Nahun Butts MD - Assessment and Plan (1) Depression Current Visit: No Status: Chronic Qualifiers: Depression Type: major depressive disorder Major depression recurrence: recurrent Active/Remission status: currently active Major depression episode severity: severe Psychotic features: without psychotic features Qualified Code(s): F33.2 - Major depressive disorder, recurrent severe without psychotic features (2) CHF (congestive heart failure) Current Visit: No Status: Chronic Qualifiers: Heart failure type: diastolic Heart failure chronicity: chronic Qualified Code(s): I50.32 - Chronic diastolic (congestive) heart failure (3) Acute and chronic respiratory failure with hypoxia Current Visit: Yes Status: Acute (4) History of pacemaker Current Visit: No Status: Chronic (5) Tremor Current Visit: No Status: Chronic (6) Protein-calorie malnutrition, severe Current Visit: No Status: Chronic (7) COPD (chronic obstructive pulmonary disease) Current Visit: Yes Status: Acute Qualifiers: COPD type: emphysema Emphysema type: centrilobular Qualified Code(s): J43.2 - Centrilobular emphysema (8) Tobacco abuse Current Visit: No Status: Chronic (9) DVT prophylaxis Current Visit: Yes Status: Acute (10) Alcoholism Current Visit: No Status: Chronic - Time Spent With Patient Total time spent is greater than 50% in coordination of care (as documented) at patient's floor/unit and/or counseling patient: Greater than 35 minutes - Attending Attestation I performed a history and physical exam of the patient on 09/11/18 and discussed management with the resident. I reviewed the resident's note and agree with the documented findings and plan of care. Kristian Jones is a 77 year old man with severe COPD among other comorbidities who presented with increasing dyspnea, found at home to be without oxygen or electricity. He was hypoxic when seen by EMS and placed on NRBM. CXR done here reveals no focal infiltrates and just chronic scarring unchanged from previous studies. Labs reveal leukocytosis of 18.2 which could be explained by his ongoing use of steroids. He also appears to have a macrocytic anemia that could be attributed to his alcoholism noting his B12/folate were within normal limits last year and does not appear to be on medications that could cause this. Will admit for acute on chronic hypoxic respiratory failure in the setting of COPD. No evidence of infection warranting continuation of the broad spectrum antibiotics given in the ER. Advise to continue systemic steroids, standing nebulizer therapy and a short course of azithromycin. JUAN CARLOS PIÑA.
--- NOTE | 2018-09-11 22:26 | Emergency Department Note ---
Disposition Clinical Impression: COPD exacerbation, Hypoxia Sepsis Qualifiers: Sepsis type: sepsis due to unspecified organism Qualified Code(s): A41.9 - Sepsis, unspecified organism Disposition: Admitted As Inpatient Condition: Fair Referrals: NONE,PCP [Primary Care Provider] - Forms: ED Satisfaction Letter Time of Disposition: 22:09 General Adult HPI - General Chief complaint: ED Shortness of Breath/Dyspnea Stated complaint: SoB Time Seen by Provider: 09/11/18 21:03 Source: patient Mode of arrival: EMS Limitations: no limitations Nursing Notes Reviewed: Yes Vital Signs Reviewed: Yes - History of Present Illness Pain Scale: 0 - Related Data Home Medications Medication Instructions Recorded Confirmed Aspirin Enteric Coated [Aspirin EC] 81 mg PO DAILY #0 12/07/14 02/11/18 Omeprazole [PriLOSEC] 20 mg PO DAILY 10/28/15 02/11/18 Losartan [Cozaar] 25 mg PO DAILY 10/05/17 02/11/18 Metoprolol Succinate [Toprol Xl] 25 mg PO DAILY 10/05/17 02/11/18 Mirtazapine [Remeron] 30 mg PO HS 10/05/17 02/11/18 Paroxetine HCl [Paxil] 20 mg PO DAILY 10/05/17 02/11/18 Primidone [Mysoline] 50 mg PO HS 10/05/17 02/11/18 Tamsulosin [Flomax] 0.4 mg PO DAILY 10/05/17 02/11/18 Megestrol Acetate 20 mg PO BID 02/03/18 02/11/18 Simvastatin [Zocor] 40 mg PO DAILY 02/03/18 02/11/18 traZODone [TraZODone] 50 mg PO HS 02/03/18 02/11/18 Previous Rx's Medication Instructions Recorded Nitroglycerin 0.4 mg SL Q5MIN PRN #0 tab.subl 08/04/15 Spironolactone [Aldactone] 12.5 mg PO DAILY #30 tablet 08/04/15 Albuterol Sulfate [Ventolin Hfa] 18 gm IH PRN PRN #1 hfa.aer.ad 02/14/18 Ipratropium/Albuterol Neb [Duoneb] 3 ml IH [id number] PRN #120 inhsol 07/26/18 predniSONE [PredniSONE] 40 mg PO DAILY #9 tablet 07/26/18 Allergies Allergy/AdvReac Type Severity Reaction Status Date / Time No Known Allergies Allergy Verified 02/09/18 10:02 Constitutional: Denies: fever Cardiovascular: Denies: chest pain Respiratory: Reports: cough, dyspnea Gastrointestinal: Denies: abdominal pain, nausea, vomiting Past Medical History - Past Medical History Medical history: Reports: cancer, cardiomyopathy, CHF, COPD, coronary artery disease, hepatitis, hyperlipidemia, liver disease, other Surgical history: Reports: pacemaker/AICD Psychiatric history: Reports: anxiety, depression, prior suicide attempt - Social History Smoking Status: Current every day smoker Smokeless Tobacco Status: No Alcohol use: Reports: none Drug use: Reports: none Physical Exam - General Limitations: no limitations General appearance: alert, other Course Vital Signs Temperature 98.6 F 09/11/18 21:02 Pulse Rate 101 09/11/18 21:02 Respiratory Rate 22 09/11/18 21:02 Blood Pressure 89/50 09/11/18 21:02 O2 Sat by Pulse Oximetry 95 09/11/18 21:02 Temperature 98.6 F 09/11/18 21:02 Pulse Rate 95 09/11/18 22:09 Respiratory Rate 20 09/11/18 22:09 Blood Pressure 116/57 09/11/18 22:09 O2 Sat by Pulse Oximetry 100 09/11/18 22:09 Oxygen Delivery Oxygen Delivery Nasal Cannula Medical Decision Making - Medical Records Medical records reviewed: Yes I reviewed the patient's medical records. - Lab Data Lab results reviewed: Yes I reviewed the patient's lab results. Result diagrams: 09/11/18 21:30 09/11/18 21:30 Lab Results 09/11/18 09/11/18 09/11/18 Range/Units 21:30 21:30 21:30 WBC 18.2 H (4.3-11.1) K/mcL RBC 3.26 L (4.19-5.50) M/mcL Hgb 10.2 L (12.9-16.9) g/dL Hct 33.9 L (37.5-50.1) % MCV 104.0 H (83.0-100.0) fL MCH 31.3 (28.0-33.3) pg MCHC 30.1 L (31.6-35.5) g/dL RDW 12.8 (11.5-14.5) % Plt Count 289 (140-400) K/mcL MPV 10.5 (9.4-12.4) fL Immature Gran % 0.5 (0-4) % Seg Neutrophils % 87.2 % Lymphocytes % 5.8 % Monocytes % 6.2 % Eosinophils % 0.1 % Basophils % 0.2 % Neutrophils # 15.8 H (1.6-8.9) K/mcL Lymphocytes # 1.1 (0.6-4.6) K/mcL Monocytes # 1.1 (0.0-1.3) K/mcL Eosinophils # 0.0 (0.0-0.6) K/mcL Basophils # 0.0 (0.0-0.2) K/mcL PT (9.4-12.1) Seconds INR Sodium 143 (136-145) mEq/L Potassium 4.6 (3.5-5.1) mEq/L Chloride 99 (98-107) mEq/L Carbon Dioxide 35 H (23-29) mEq/L BUN 24 H (8-23) mg/dL Creatinine 0.70 (0.70-1.30) mg/dL Est GFR ( Amer) > 60 (> 60) Est GFR (Non-Af Amer) > 60 (> 60) BUN/Creatinine Ratio 34 H (6-26) Glucose 138 H (70-105) mg/dL Calculated Osmolality 302 H (280-300) Lactic Acid 1.3 (0.5-2.2) mmol/L Calcium 8.9 (8.6-10.3) mg/dL Total Bilirubin 0.3 (0.3-1.0) mg/dL Direct Bilirubin 0.0 (0.0-0.2) mg/dL Indirect Bilirubin 0.3 (0.0-1.2) mg/dL AST 13 (13-39) Units/L ALT 9 (7-52) Units/L Alkaline Phosphatase 63 (34-104) Units/L Troponin I < 0.03 (< 0.04) ng/mL B-Natriuretic Peptide (Less than 100) pg/mL Serum Total Protein 6.9 (6.4-8.9) g/dL Albumin 3.2 L (3.5-5.7) g/dL Globulin 3.7 H (2.4-3.5) g/dL Albumin/Globulin Ratio 0.9 L (1.1-2.2) 09/11/18 09/11/18 Range/Units 21:30 21:30 WBC (4.3-11.1) K/mcL RBC (4.19-5.50) M/mcL Hgb (12.9-16.9) g/dL Hct (37.5-50.1) % MCV (83.0-100.0) fL MCH (28.0-33.3) pg MCHC (31.6-35.5) g/dL RDW (11.5-14.5) % Plt Count (140-400) K/mcL MPV (9.4-12.4) fL Immature Gran % (0-4) % Seg Neutrophils % % Lymphocytes % % Monocytes % % Eosinophils % % Basophils % % Neutrophils # (1.6-8.9) K/mcL Lymphocytes # (0.6-4.6) K/mcL Monocytes # (0.0-1.3) K/mcL Eosinophils # (0.0-0.6) K/mcL Basophils # (0.0-0.2) K/mcL PT 13.3 H (9.4-12.1) Seconds INR 1.2 Sodium (136-145) mEq/L Potassium (3.5-5.1) mEq/L Chloride (98-107) mEq/L Carbon Dioxide (23-29) mEq/L BUN (8-23) mg/dL Creatinine (0.70-1.30) mg/dL Est GFR ( Amer) (> 60) Est GFR (Non-Af Amer) (> 60) BUN/Creatinine Ratio (6-26) Glucose (70-105) mg/dL Calculated Osmolality (280-300) Lactic Acid (0.5-2.2) mmol/L Calcium (8.6-10.3) mg/dL Total Bilirubin (0.3-1.0) mg/dL Direct Bilirubin (0.0-0.2) mg/dL Indirect Bilirubin (0.0-1.2) mg/dL AST (13-39) Units/L ALT (7-52) Units/L Alkaline Phosphatase (34-104) Units/L Troponin I (< 0.04) ng/mL B-Natriuretic Peptide 73 (Less than 100) pg/mL Serum Total Protein (6.4-8.9) g/dL Albumin (3.5-5.7) g/dL Globulin (2.4-3.5) g/dL Albumin/Globulin Ratio (1.1-2.2) - Radiology Data Radiology results reviewed: Yes I reviewed the patient's radiology results. Chest X-Ray 09/11/18 21:03 IMPRESSION: No acute findings in the chest. Chronic findings in the lung bases are stable. D/ / Nahun Butts MD / Nahun Butts MD Interpreting Provider: Nahun Butts MD - EKG Data EKG #1 EKG attestation: Yes I reviewed and interpreted this EKG. EKG results narrative: EKG shows an electronic ventricular pacemaker with a totally paced rhythm. Ventricular rate 97. Critical Care Time Critical Care Time: Yes Total Critical Care Time: 35 Attestation: Critical care performed: Time is exclusive of separately billable procedures. Time includes: direct patient care, patient reassessment, coordination of patient care, interpretation of data (laboratory data, radiology data, and respiratory data), review of patient's medical records, medical consultation and documentation of patient care. Procedures included in critical care time: Procedures excluded from critical care time: Attestation Statement - Attestation Attestation: ICampbell MD, personally evaluated this patient and discussed their management with the resident physician. I reviewed the resident's note and agree with the documented findings, medical decision making, and plan of care. I personally supervised and was present for the arias/critical portions of the following procedures completed by the resident: EKG interpretation. 77-year-old male with history of COPD on chronic home oxygen presents to the emergency department for increased shortness of breath. Apparently his electricity went out and he was without his oxygen for a while. He denies any chest pain. He states he did have some abdominal pain earlier but this has res olved. Some increased cough. No definite fever. On examination patient is a well-developed thin elderly male in mild respiratory distress. He is alert and oriented. No cyanosis or diaphoresis. Breath sounds are markedly decreased bilaterally with some scattered bilateral wheezes. Heart regular rate and rhythm. Abdomen soft and nontender with normal bowel sounds. Trace pedal edema. EKG shows an electronic ventricular pacemaker with a totally paced rhythm. Ventricular rate 97. Chest x-ray shows no acute abnormality. Chronic changes in the lung bases. Labs reviewed. WBC 18.2 with 87% segs. Lactic acid 1.3. Troponin negative. BNP normal at 73. Patient meets severe sepsis criteria. He did receive 1.5 L of normal saline and also received IV vancomycin and Zosyn. Lactic acid normal. He received 2 DuoNeb treatments and IV Solu-Medrol. The hospitalist, Dr. Reese, was consu lted and accepted admission of the patient.
[2018-09-11] MEDS ORDERED: Naloxone 0.4 MG/ML INJ IVP PRN (22:42)
[2018-09-11] MEDS ORDERED: Ipratropium/Albuterol Neb 3 ML IH SCH (22:45)
[2018-09-11] MEDS ORDERED: *HR* LORazepam 2 MG/ML VIAL IVP PRN ×3 (23:06)
[2018-09-12] MEDS ORDERED: methylPREDNISolone 125 MG/2 ML VIAL IVP SCH
[2018-09-12] MEDS: *HR* Heparin 5,000 UNIT/ML VIAL SQ SCH ×3 (01:32→17:03)
[2018-09-12] MEDS: 0.9 % Sodium Chloride 1,000 ML IVC SCH ×3 (01:32→23:19)
[2018-09-12] MEDS: Ipratropium/Albuterol Neb 3 ML IH SCH ×6 (04:12→23:37)
[2018-09-12 04:29] LABS: Hematocrit 31.3 % (37.5-50.1); Hemoglobin 9.3 g/dL (12.9-16.9); Mean Corpuscular HGB Conc 29.7 g/dL (31.6-35.5); Mean Corpuscular Volume 104.3 fL (83.0-100.0); Mean Platelet Volume 11.1 fL (9.4-12.4); Platelet Count 267 K/mcL (140-400); Red Cell Distribution Width 12.8 % (11.5-14.5)
[2018-09-12 04:36] LABS: ABG Base Excess 9 mEq/L (-2 to 3); ABG HCO3 37 mEq/L (21-27); ABG Oxygen Saturation 97 % (95-98); ABG PCO2 76 mmHg (35-45); ABG PO2 108 mmHg (85-104); ABG TCO2 40 mEq/L (20-26)
[2018-09-12 04:52] LABS: BUN/Creatinine Ratio 32 (6-26); Blood Urea Nitrogen 25 mg/dL (8-23); Calcium 8.3 mg/dL (8.6-10.3); Carbon Dioxide 34 mEq/L (23-29); Chloride 105 mEq/L (98-107); Glucose 157 mg/dL (70-105); Osmolality,Calculated 304 (280-300); Sodium 143 mEq/L (136-145); eGFR For Non-African Americans > 60 (> 60)
[2018-09-12] MEDS ORDERED: MethylPREDNISolone 40 MG/ML VIAL IVP SCH (09:00)
[2018-09-12] MEDS: Azithromycin 250 MG TABLET PO SCH (10:05)
[2018-09-12] MEDS: predniSONE 20 MG TABLET PO SCH (14:17)
--- NOTE | 2018-09-12 16:36 | Internal Med Progress Note ---
<Nj Dickerson - Last Filed: 09/12/18 17:47> Hospitalist Progress Note - Encounter Date of Encounter: 09/12/18 - Exam Vitals: Temp Pulse Resp BP Pulse Ox 97.9 F 98 20 102/56 100 09/12/18 06:56 09/12/18 15:24 09/12/18 16:22 09/12/18 15:24 09/12/18 16:22 - Assessment and Plan (1) Respiratory failure Current Visit: Yes Status: Acute (2) Acute and chronic respiratory failure with hypoxia Current Visit: Yes Status: Acute (3) Depression Current Visit: No Status: Chronic (4) CHF (congestive heart failure) Current Visit: No Status: Chronic (5) History of pacemaker Current Visit: No Status: Chronic (6) Tremor Current Visit: No Status: Chronic (7) Protein-calorie malnutrition, severe Current Visit: No Status: Chronic (8) COPD (chronic obstructive pulmonary disease) Current Visit: Yes Status: Acute (9) Tobacco abuse Current Visit: No Status: Chronic (10) DVT prophylaxis Current Visit: Yes Status: Acute (11) Alcoholism Current Visit: No Status: Chronic (12) COPD exacerbation Current Visit: Yes Status: Acute - Time Spent with Patient Total time spent is greater than 50% in coordination of care (as documented) at patient's floor/unit and/or counseling patient: Internal Medicine: Result - Labs CBC & Chem 7: 09/12/18 03:24 09/12/18 03:24 Labs: Short CBC 09/11/18 09/12/18 Range/Units 21:30 03:24 WBC 18.2 H 15.3 H (4.3-11.1) K/mcL Hgb 10.2 L 9.3 L (12.9-16.9) g/dL Hct 33.9 L 31.3 L (37.5-50.1) % Plt Count 289 267 (140-400) K/mcL Neutrophils # 15.8 H (1.6-8.9) K/mcL BMP 09/11/18 09/12/18 21:30 03:24 Sodium 143 143 Potassium 4.6 5.0 Chloride 99 105 Carbon Dioxide 35 H 34 H BUN 24 H 25 H Creatinine 0.70 0.78 Glucose 138 H 157 H Calcium 8.9 8.3 L Cardiac Enzymes 09/11/18 Range/Units 21:30 Troponin I < 0.03 (< 0.04) ng/mL Liver Function 09/11/18 Range/Units 21:30 Total Bilirubin 0.3 (0.3-1.0) mg/dL Direct Bilirubin 0.0 (0.0-0.2) mg/dL AST 13 (13-39) Units/L ALT 9 (7-52) Units/L Alkaline Phosphatase 63 (34-104) Units/L Albumin 3.2 L (3.5-5.7) g/dL - ABG Interpretation ABG results: ABG ABG pH 7.30 pH Units (7.32-7.45) L 09/12/18 04:21 ABG pCO2 76 mmHg (35-45) H* 09/12/18 04:21 ABG pO2 108 mmHg (85-104) H 09/12/18 04:21 ABG O2 Saturation 97 % (95-98) 09/12/18 04:21 PT/INR, D-dimer PT 13.3 Seconds (9.4-12.1) H 09/11/18 21:30 - Impressions Impressions Chest X-Ray 09/11/18 21:03 IMPRESSION: No acute findings in the chest. Chronic findings in the lung bases are stable. D/ / Nahun Butts MD / Nahun Butts MD Interpreting Provider: Nahun Butts MD Consult Discharge Plan - Plan Referrals: NONE,PCP [Primary Care Provider] - - Attending Attestation I examined this patient and my medical decision-making was reviewed with the Resident Physician on 09/12/18. I agree with the documented findings, disposition and treatment plan as described except to the extent set forth below. Mr Jones is currently admitted for resp failure and COPD exacerbation. He remains moderate to high risk due to potential for worsening clinical status. Mr Jones is feeling tired. No fever or chills. No CP. Feels his breathing is somewhat better. No GI issues. Exam alert Comfortable Mucus membranes dry Heart not tachy and regular Lungs diminished - faint wheeze abd soft No edema I/P 1. Resp failure 2. COPD exacerbation - continue current management as above Further diagnoses and plan as above. <Breezy Vazquez - Last Filed: 09/12/18 18:35> Hospitalist Progress Note - Encounter Date of Encounter: 09/12/18 Time of Encounter: 12:25 - Subjective Interval History: Patient is resting in bed at time of examination. He is on BiPAP when I examine him however he does seem somewhat altered. He is extremely anxious when I see him. It is challenging to get an accurate history from him. - Exam Vitals: Temp Pulse Resp BP Pulse Ox 97.9 F 98 20 102/56 100 09/12/18 06:56 09/12/18 15:24 09/12/18 16:22 09/12/18 15:24 09/12/18 16:22 Exam: general - aox3, patient on BiPAP and appears distressed heent - MMM, NCAT, no scleral icterus neck - no jvd, trachea midline cardio - tacycardia, s1s2 cta no mrg back - no rash, brusing or tenderness lungs - decreased breath sounds, accessory mm used, mild coarse breath sounds with some superimposed wheezes abd - soft, ntnd, no peritoneal signs or rebound/guarding extremities - moves all extremities equally, mild 1-2+ pitting edema of the feet bilaterally neuro - no FND, sensation intact psych - anxious skin - warm,dry,intact, decreased capillary refill - Assessment and Plan (1) COPD (chronic obstructive pulmonary disease) Current Visit: Yes Status: Acute Assessment and Plan: COPD with acute exacerbation, possibly secondary to suspected pneumonia however that is unclear at this time Patient is requiring higher oxygen Presented with acute hypercapnia and hypoxia Placed on azithromycin, steroids We will transition to oral steroids Continue BiPAP as needed Titrate oxygen to SPO2 88-92% Monitor for evidence of worsening infection Consider repeat chest x-ray as needed (2) Acute and chronic respiratory failure with hypoxia Current Visit: Yes Status: Acute Assessment and Plan: On 2.5 L baseline. Requiring 4 L O2 saturation currently. See above for COPD. (3) Depression Current Visit: No Status: Chronic Assessment and Plan: Chronic. Con't home meds (4) CHF (congestive heart failure) Current Visit: No Status: Chronic Assessment and Plan: ECHO from 07/2018 Impressions: LVEF 60-65%. Mild left ventricular diastolic dysfunction. Normal right ventricular structure and function. Mild tricuspid regurgitation. Mild pulmonary hypertension. NOT in acute exacerbation. Continue home meds (5) History of pacemaker Current Visit: No Status: Chronic (6) Protein-calorie malnutrition, severe Current Visit: No Status: Chronic Assessment and Plan: Nutrition consulted. Ensure TID. (7) Tobacco abuse Current Visit: No Status: Chronic Assessment and Plan: con't to smoke 1ppd. Chronic, counseled. (8) Alcoholism Current Visit: No Status: Chronic Assessment and Plan: Has hx of severe alcoholism. CIWA protocol. HOB elevation. Aspiration precautions. (9) DVT prophylaxis Current Visit: Yes Status: Acute Assessment and Plan: sq heparin - Time Spent with Patient Total time spent is greater than 50% in coordination of care (as documented) at patient's floor/unit and/or counseling patient: Internal Medicine: Result - Labs CBC & Chem 7: 09/12/18 03:24 09/12/18 03:24 Labs: Short CBC 09/11/18 09/12/18 Range/Units 21:30 03:24 WBC 18.2 H 15.3 H (4.3-11.1) K/mcL Hgb 10.2 L 9.3 L (12.9-16.9) g/dL Hct 33.9 L 31.3 L (37.5-50.1) % Plt Count 289 267 (140-400) K/mcL Neutrophils # 15.8 H (1.6-8.9) K/mcL BMP 09/11/18 09/12/18 21:30 03:24 Sodium 143 143 Potassium 4.6 5.0 Chloride 99 105 Carbon Dioxide 35 H 34 H BUN 24 H 25 H Creatinine 0.70 0.78 Glucose 138 H 157 H Calcium 8.9 8.3 L Cardiac Enzymes 09/11/18 Range/Units 21:30 Troponin I < 0.03 (< 0.04) ng/mL Liver Function 09/11/18 Range/Units 21:30 Total Bilirubin 0.3 (0.3-1.0) mg/dL Direct Bilirubin 0.0 (0.0-0.2) mg/dL AST 13 (13-39) Units/L ALT 9 (7-52) Units/L Alkaline Phosphatase 63 (34-104) Units/L Albumin 3.2 L (3.5-5.7) g/dL - ABG Interpretation ABG results: ABG ABG pH 7.30 pH Units (7.32-7.45) L 09/12/18 04:21 ABG pCO2 76 mmHg (35-45) H* 09/12/18 04:21 ABG pO2 108 mmHg (85-104) H 09/12/18 04:21 ABG O2 Saturation 97 % (95-98) 09/12/18 04:21 PT/INR, D-dimer PT 13.3 Seconds (9.4-12.1) H 09/11/18 21:30 - Impressions Impressions Chest X-Ray 09/11/18 21:03 IMPRESSION: No acute findings in the chest. Chronic findings in the lung bases are stable. D/ / Nahun Butts MD / Nahun Butts MD Interpreting Provider: Nahun Butts MD <Nj Dickerson - Last Filed: 09/12/18 17:47> (1) Respiratory failure Qualifiers: Chronicity: acute Respiratory failure complication: hypercapnia Qualified Code(s): J96.02 - Acute respiratory failure with hypercapnia (3) Depression Qualifiers: Depression Type: major depressive disorder Major depression recurrence: recurrent Active/Remission status: currently active Major depression episode severity: severe Psychotic features: without psychotic features Qualified Code(s): F33.2 - Major depressive disorder, recurrent severe without psychotic features (4) CHF (congestive heart failure) Qualifiers: Heart failure type: diastolic Heart failure chronicity: chronic Qualified Code(s): I50.32 - Chronic diastolic (congestive) heart failure (8) COPD (chronic obstructive pulmonary disease) Qualifiers: COPD type: emphysema Emphysema type: centrilobular Qualified Code(s): J43.2 - Centrilobular emphysema <GeorgeBreezy - Last Filed: 09/12/18 18:35> (1) COPD (chronic obstructive pulmonary disease) Qualifiers: COPD type: emphysema Emphysema type: centrilobular Qualified Code(s): J43.2 - Centrilobular emphysema (3) Depression Qualifiers: Depression Type: major depressive disorder Major depression recurrence: recurrent Active/Remission status: currently active Major depression episode severity: severe Psychotic features: without psychotic features Qualified Code(s): F33.2 - Major depressive disorder, recurrent severe without psychotic features (4) CHF (congestive heart failure) Qualifiers: Heart failure type: diastolic Heart failure chronicity: chronic Qualified Code(s): I50.32 - Chronic diastolic (congestive) heart failure
--- NOTE | 2018-09-12 17:31 | Electrocardiograph Report ---
[address] [address] Test Date: 2018-09-11 Pat Name: Kristian Jones Department: EXAM3 Room: [facility] Gender: M [employer] Department Head: : 1940 Requested By: Sean Kerns Order Number: [id number] Reading MD: Arsh Moore Measurements Intervals [place] Rate: 97 P: 72 UT: 37 QRS: 246 QRSD: 109 T: 67 QT: 368 QTc: 468 Interpretive Statements Atrial-sensed ventricular-paced rhythm No further analysis attempted due to paced rhythm Electronically Signed On 09-12-2018 17:29:57 EDT by Arsh Moore
[2018-09-12] MEDS ORDERED: Ipratropium/Albuterol Neb 3 ML IH PRN (18:25)
[2018-09-12] MEDS ORDERED: traZODone 50 MG TABLET PO PRN (18:25)
[2018-09-12] MEDS: Mirtazapine 15 MG TABLET PO SCH (21:58)
[2018-09-13] MEDS: Ipratropium/Albuterol Neb 3 ML IH SCH ×6 (04:15→23:02)
[2018-09-13 04:46] LABS: Basophils % 0.1 %; Hematocrit 27.3 % (37.5-50.1); Immature Granulocytes % 0.3 % (0-4); Mean Corpuscular HGB Conc 29.3 g/dL (31.6-35.5); Mean Corpuscular Hemoglobin 30.3 pg (28.0-33.3); Mean Corpuscular Volume 103.4 fL (83.0-100.0); Mean Platelet Volume 10.8 fL (9.4-12.4); Monocytes # 0.8 K/mcL (0.0-1.3); Monocytes % 6.9 %; Neutrophils # 9.7 K/mcL (1.6-8.9); Platelet Count 249 K/mcL (140-400); Red Blood Count 2.64 M/mcL (4.19-5.50); Red Cell Distribution Width 12.9 % (11.5-14.5); Segmented Neutrophils % 83.7 %
[2018-09-13 04:47] LABS: VBG HCO3 38 mEq/L (21-27); VBG PCO2 85 mmHg (41-51); VBG PH 7.26 pH Units (7.32-7.42); VBG PO2 68 mmHg (25-50)
[2018-09-13 05:04] LABS: Alanine Aminotransferase 9 Units/L (7-52); Albumin 2.6 g/dL (3.5-5.7); Albumin/Globulin Ratio 0.8 (1.1-2.2); Alkaline Phosphatase 49 Units/L (34-104); Aspartate Amino Transferase 12 Units/L (13-39); BUN/Creatinine Ratio 40 (6-26); Bilirubin,Total 0.2 mg/dL (0.3-1.0); Blood Urea Nitrogen 27 mg/dL (8-23); Calcium 8.3 mg/dL (8.6-10.3); Carbon Dioxide 37 mEq/L (23-29); Chloride 106 mEq/L (98-107); Globulin 3.1 g/dL (2.4-3.5); Glucose 158 mg/dL (70-105); Osmolality,Calculated 306 (280-300); Potassium 4.3 mEq/L (3.5-5.1); Sodium 144 mEq/L (136-145); Total Protein 5.7 g/dL (6.4-8.9); eGFR For Non-African Americans > 60 (> 60)
[2018-09-13] MEDS: *HR* Heparin 5,000 UNIT/ML VIAL SQ SCH ×2 (06:55→18:28)
--- NOTE | 2018-09-13 08:39 | Internal Med Progress Note ---
<Breezy Vazquez - Last Filed: 09/13/18 11:29> Hospitalist Progress Note - Encounter Date of Encounter: 09/13/18 Time of Encounter: 09:30 - Subjective Interval History: Resting comfortably in bed at time of examination on nasal cannula. Patient continues to have significant hypercapnia, however he apparently was not willing to wear bipap for a large majority of the night however he states that this is largely because the mask causes him pain. According to nurse notes, he was not happy with being told to comply with his treatment plan. At my time of examination however, he has very courteous and appears willing to cooperate. - Exam Vitals: Temp Pulse Resp BP Pulse Ox 97.8 F 64 16 116/52 99 09/13/18 07:10 09/13/18 07:10 09/13/18 08:01 09/13/18 07:10 09/13/18 08:01 Exam: general - aox3, patient is in bed and does not appear to be distressed heent - MMM, NCAT, no scleral icterus neck - no jvd, trachea midline cardio - tacycardia, s1s2 cta no mrg back - no rash, brusing or tenderness lungs - decreased breath sounds, accessory mm used, mild coarse breath sounds with some superimposed wheezes abd - soft, ntnd, no peritoneal signs or rebound/guarding extremities - moves all extremities equally, mild 1-2+ pitting edema of the feet bilaterally neuro - no FND, sensation intact psych - anxious skin - warm,dry,intact, decreased capillary refill - Assessment and Plan (1) COPD (chronic obstructive pulmonary disease) Current Visit: Yes Status: Acute Assessment and Plan: COPD with acute exacerbation, possibly secondary to suspected pneumonia however that is unclear at this time Patient is requiring higher oxygen, however his major concern is worsened hypercapnia at this time Presented with acute hypercapnia and hypoxia Placed on azithromycin, steroids We will transition to oral steroids Continue BiPAP as needed Titrate oxygen to SPO2 88-92% Monitor for evidence of worsening infection Consider repeat chest x-ray as needed 40 mg IV Lasix Unclear if failure of hypercapnia to improve is due to poor response to treatment or non-compliance with treatment. May choose to continue to monitor for 24hours more, if no response then possibly escalate steroid treatment. We will attempt to fit different types of masks as the patient says that his mask is currently causing him pain. (2) Acute and chronic respiratory failure with hypoxia Current Visit: Yes Status: Acute Assessment and Plan: On 2.5 L baseline. Requiring 4 L O2 saturation currently. See above for COPD. One time dose 40IVP Lasix (3) Anemia Current Visit: Yes Status: Acute Assessment and Plan: Anemia, etiology is unclear Appears macrocytic in nature, however also is acutely dropping This could partially be due to fluid balance, net +[id number] Will continue to monitor Check B12 + folate (4) Depression Current Visit: No Status: Chronic Assessment and Plan: Chronic. Con't home meds (5) CHF (congestive heart failure) Current Visit: No Status: Chronic Assessment and Plan: ECHO from 07/2018 Impressions: LVEF 60-65%. Mild left ventricular diastolic dysfunction. Normal right ventricular structure and function. Mild tricuspid regurgitation. Mild pulmonary hypertension. NOT in acute exacerbation. Continue home meds One time dose 40IVP Lasix (6) History of pacemaker Current Visit: No Status: Chronic (7) Protein-calorie malnutrition, severe Current Visit: No Status: Chronic Assessment and Plan: Nutrition consulted. Ensure TID. (8) Tobacco abuse Current Visit: No Status: Chronic Assessment and Plan: con't to smoke 1ppd. Chronic, counseled. (9) DVT prophylaxis Current Visit: Yes Status: Acute Assessment and Plan: sq heparin (10) Alcoholism Current Visit: No Status: Chronic Assessment and Plan: Has hx of severe alcoholism. CIWA protocol. HOB elevation. Aspiration precautions. - Time Spent with Patient Total time spent is greater than 50% in coordination of care (as documented) at patient's floor/unit and/or counseling patient: Internal Medicine: Result - Labs CBC & Chem 7: 09/13/18 04:21 09/13/18 04:21 Labs: Short CBC 09/13/18 Range/Units 04:21 WBC 11.6 H (4.3-11.1) K/mcL Hgb 8.0 L (12.9-16.9) g/dL Hct 27.3 L (37.5-50.1) % Plt Count 249 (140-400) K/mcL Neutrophils # 9.7 H (1.6-8.9) K/mcL BMP 09/13/18 04:21 Sodium 144 Potassium 4.3 Chloride 106 Carbon Dioxide 37 H BUN 27 H Creatinine 0.68 L Glucose 158 H Calcium 8.3 L Liver Function 09/13/18 Range/Units 04:21 Total Bilirubin 0.2 L (0.3-1.0) mg/dL AST 12 L (13-39) Units/L ALT 9 (7-52) Units/L Alkaline Phosphatase 49 (34-104) Units/L Albumin 2.6 L (3.5-5.7) g/dL - ABG Interpretation ABG results: ABG ABG pH 7.30 pH Units (7.32-7.45) L 09/12/18 04:21 ABG pCO2 76 mmHg (35-45) H* 09/12/18 04:21 ABG pO2 108 mmHg (85-104) H 09/12/18 04:21 ABG O2 Saturation 97 % (95-98) 09/12/18 04:21 PT/INR, D-dimer PT 13.3 Seconds (9.4-12.1) H 09/11/18 21:30 Consult Discharge Plan - Plan Referrals: NONE,PCP [Primary Care Provider] - <Nj Dickerson - Last Filed: 09/13/18 17:03> Hospitalist Progress Note - Encounter Date of Encounter: 09/13/18 - Exam Vitals: Temp Pulse Resp BP Pulse Ox 97.9 F 82 20 124/90 97 09/13/18 15:27 09/13/18 15:27 09/13/18 15:53 09/13/18 15:27 09/13/18 15:53 - Assessment and Plan (1) Depression Current Visit: No Status: Chronic (2) CHF (congestive heart failure) Current Visit: No Status: Chronic (3) Acute and chronic respiratory failure with hypoxia Current Visit: Yes Status: Acute (4) History of pacemaker Current Visit: No Status: Chronic (5) Anemia Current Visit: Yes Status: Acute (6) Protein-calorie malnutrition, severe Current Visit: No Status: Chronic (7) COPD (chronic obstructive pulmonary disease) Current Visit: Yes Status: Acute (8) Tobacco abuse Current Visit: No Status: Chronic (9) DVT prophylaxis Current Visit: Yes Status: Acute (10) Alcoholism Current Visit: No Status: Chronic - Time Spent with Patient Total time spent is greater than 50% in coordination of care (as documented) at patient's floor/unit and/or counseling patient: Internal Medicine: Result - Labs CBC & Chem 7: 09/13/18 04:21 09/13/18 04:21 Labs: Short CBC 09/13/18 Range/Units 04:21 WBC 11.6 H (4.3-11.1) K/mcL Hgb 8.0 L (12.9-16.9) g/dL Hct 27.3 L (37.5-50.1) % Plt Count 249 (140-400) K/mcL Neutrophils # 9.7 H (1.6-8.9) K/mcL BMP 09/13/18 04:21 Sodium 144 Potassium 4.3 Chloride 106 Carbon Dioxide 37 H BUN 27 H Creatinine 0.68 L Glucose 158 H Calcium 8.3 L Liver Function 09/13/18 Range/Units 04:21 Total Bilirubin 0.2 L (0.3-1.0) mg/dL AST 12 L (13-39) Units/L ALT 9 (7-52) Units/L Alkaline Phosphatase 49 (34-104) Units/L Albumin 2.6 L (3.5-5.7) g/dL - ABG Interpretation ABG results: ABG ABG pH 7.30 pH Units (7.32-7.45) L 09/12/18 04:21 ABG pCO2 76 mmHg (35-45) H* 09/12/18 04:21 ABG pO2 108 mmHg (85-104) H 09/12/18 04:21 ABG O2 Saturation 97 % (95-98) 09/12/18 04:21 PT/INR, D-dimer PT 13.3 Seconds (9.4-12.1) H 09/11/18 21:30 - Attending Attestation I examined this patient and my medical decision-making was reviewed with the Resident Physician on 09/13/18. I agree with the documented findings, disposition and treatment plan as described except to the extent set forth below. Mr Jones is currently admitted for resp failure and COPD exac. He remains moderate to high risk due to potential for worsening clinical status. Mr Jones just finished lunch. Bipap seems to help him but it hurts his face. No CP. Some dyspnea at this time. No GI issues. Exam alert Mild resp distress at rest Mucus membranes dry Heart not tachy No wheeze at this time Abd soft No edema I/P 1. Resp failure 2. COPD exac May need nocturnal bipap study Further diagnoses and plan as above. <Breezy Vazquez - Last Filed: 09/13/18 11:29> (1) COPD (chronic obstructive pulmonary disease) Qualifiers: COPD type: emphysema Emphysema type: centrilobular Qualified Code(s): J43.2 - Centrilobular emphysema (3) Anemia Qualifiers: Anemia type: other cause Other causes of anemia: chronic disease, other Qualified Code(s): D63.8 - Anemia in other chronic diseases classified elsewhere (4) Depression Qualifiers: Depression Type: major depressive disorder Major depression recurrence: recurrent Active/Remission status: currently active Major depression episode severity: severe Psychotic features: without psychotic features Qualified Code(s): F33.2 - Major depressive disorder, recurrent severe without psychotic features (5) CHF (congestive heart failure) Qualifiers: Heart failure type: diastolic Heart failure chronicity: chronic Qualified Code(s): I50.32 - Chronic diastolic (congestive) heart failure <Nj Dickerson - Last Filed: 09/13/18 17:03> (1) Depression Qualifiers: Depression Type: major depressive disorder Major depression recurrence: recurrent Active/Remission status: currently active Major depression episode severity: severe Psychotic features: without psychotic features Qualified Code(s): F33.2 - Major depressive disorder, recurrent severe without psychotic features (2) CHF (congestive heart failure) Qualifiers: Heart failure type: diastolic Heart failure chronicity: chronic Qualified Code(s): I50.32 - Chronic diastolic (congestive) heart failure (5) Anemia Qualifiers: Anemia type: other cause Other causes of anemia: chronic disease, other Qualified Code(s): D63.8 - Anemia in other chronic diseases classified elsewhere (7) COPD (chronic obstructive pulmonary disease) Qualifiers: COPD type: emphysema Emphysema type: centrilobular Qualified Code(s): J43.2 - Centrilobular emphysema
[2018-09-13] MEDS: Spironolactone 25 MG TABLET PO SCH (08:43)
[2018-09-13] MEDS: Primidone 50 MG TABLET PO SCH (08:43)
[2018-09-13] MEDS: predniSONE 20 MG TABLET PO SCH (08:44)
[2018-09-13] MEDS: Azithromycin 250 MG TABLET PO SCH (08:44)
[2018-09-13] MEDS ORDERED: Furosemide 40 MG/4 ML VIAL IVP ONE (08:44)
[2018-09-13] MEDS: Mirtazapine 15 MG TABLET PO SCH (20:28)
[2018-09-14] MEDS: Ipratropium/Albuterol Neb 3 ML IH SCH ×5 (03:50→20:09)
[2018-09-14] MEDS: *HR* Heparin 5,000 UNIT/ML VIAL SQ SCH ×2 (05:24→17:49)
[2018-09-14 07:44] LABS: Basophils % 0.1 %; Eosinophils % 0.1 %; Hematocrit 30.7 % (37.5-50.1); Hemoglobin 9.3 g/dL (12.9-16.9); Immature Granulocytes % 0.8 % (0-4); Lymphocytes # 1.2 K/mcL (0.6-4.6); Lymphocytes % 11.4 %; Mean Corpuscular HGB Conc 30.3 g/dL (31.6-35.5); Mean Corpuscular Hemoglobin 30.9 pg (28.0-33.3); Mean Platelet Volume 10.2 fL (9.4-12.4); Monocytes # 0.8 K/mcL (0.0-1.3); Monocytes % 7.9 %; Neutrophils # 8.4 K/mcL (1.6-8.9); Platelet Count 277 K/mcL (140-400); Red Blood Count 3.01 M/mcL (4.19-5.50); Red Cell Distribution Width 12.9 % (11.5-14.5); Segmented Neutrophils % 79.7 %
[2018-09-14 07:46] LABS: VBG HCO3 38 mEq/L (21-27); VBG PCO2 64 mmHg (41-51); VBG PH 7.38 pH Units (7.32-7.42); VBG PO2 79 mmHg (25-50)
[2018-09-14 08:09] LABS: BUN/Creatinine Ratio 46 (6-26); Blood Urea Nitrogen 30 mg/dL (8-23); Calcium 8.7 mg/dL (8.6-10.3); Carbon Dioxide 36 mEq/L (23-29); Chloride 100 mEq/L (98-107); Glucose 118 mg/dL (70-105); Osmolality,Calculated 301 (280-300); Potassium 3.9 mEq/L (3.5-5.1); Sodium 142 mEq/L (136-145); eGFR For Non-African Americans > 60 (> 60)
[2018-09-14] MEDS ORDERED: Furosemide 40 MG/4 ML VIAL IVP ONE (08:21)
--- NOTE | 2018-09-14 08:25 | Internal Med Progress Note ---
<Nj Dickerson - Last Filed: 09/14/18 16:25> Hospitalist Progress Note - Encounter Date of Encounter: 09/14/18 - Exam Vitals: Temp Pulse Resp BP Pulse Ox 98.8 F 106 15 109/68 94 09/14/18 15:32 09/14/18 15:32 09/14/18 16:07 09/14/18 15:32 09/14/18 16:07 - Assessment and Plan (1) Depression Current Visit: No Status: Chronic (2) CHF (congestive heart failure) Current Visit: No Status: Chronic (3) Acute and chronic respiratory failure with hypoxia Current Visit: Yes Status: Resolved (4) History of pacemaker Current Visit: No Status: Chronic (5) Anemia Current Visit: Yes Status: Acute (6) Protein-calorie malnutrition, severe Current Visit: No Status: Chronic (7) COPD (chronic obstructive pulmonary disease) Current Visit: Yes Status: Acute (8) Tobacco abuse Current Visit: No Status: Chronic (9) DVT prophylaxis Current Visit: Yes Status: Acute (10) Alcoholism Current Visit: No Status: Chronic - Time Spent with Patient Total time spent is greater than 50% in coordination of care (as documented) at patient's floor/unit and/or counseling patient: Internal Medicine: Result - Labs CBC & Chem 7: 09/14/18 07:24 09/14/18 07:24 Labs: Short CBC 09/14/18 Range/Units 07:24 WBC 10.5 (4.3-11.1) K/mcL Hgb 9.3 L (12.9-16.9) g/dL Hct 30.7 L (37.5-50.1) % Plt Count 277 (140-400) K/mcL Neutrophils # 8.4 (1.6-8.9) K/mcL BMP 09/14/18 07:24 Sodium 142 Potassium 3.9 Chloride 100 Carbon Dioxide 36 H BUN 30 H Creatinine 0.65 L Glucose 118 H Calcium 8.7 - ABG Interpretation ABG results: ABG ABG pH 7.30 pH Units (7.32-7.45) L 09/12/18 04:21 ABG pCO2 76 mmHg (35-45) H* 09/12/18 04:21 ABG pO2 108 mmHg (85-104) H 09/12/18 04:21 ABG O2 Saturation 97 % (95-98) 09/12/18 04:21 PT/INR, D-dimer PT 13.3 Seconds (9.4-12.1) H 09/11/18 21:30 Consult Discharge Plan - Plan Referrals: NONE,PCP [Primary Care Provider] - - Attending Attestation I examined this patient and my medical decision-making was reviewed with the Resident Physician on 09/14/18. I agree with the documented findings, dis position and treatment plan as described except to the extent set forth below. Mr Jones is currently admitted for acute resp failure and COPD. He remains moderate to high risk due to potential for worsening clinical status. Mr Jones is wanting to leave. He doesn't like urinating a lot. He is breathing somewhat better. No fever or chills. No CP. Exam ALert Comfortable at rest Mucus membranes dry Heart not tachy Decreased breath sounds, no wheeze abd soft I/P 1. Resp failure - will need bipap study 2. COPD exac - slowly improving. Further diagnoses and plan as above <Breezy Vazquez - Last Filed: 09/14/18 16:34> Hospitalist Progress Note - Encounter Date of Encounter: 09/14/18 Time of Encounter: 12:00 - Subjective Interval History: The patient is resting in bed at time of exam. He is highly anxious and having pelvic discomfort. He states that he has been urinating constantly and that he cannot control it. This has been causing his quite a bit of stress, and he has been anxious as a result. He otherwise has no acute complaints. - Exam Vitals: Temp Pulse Resp BP Pulse Ox 98.2 F 80 16 150/83 98 09/14/18 07:08 09/14/18 07:08 09/14/18 07:27 09/14/18 07:08 09/14/18 07:27 Exam: general - aox3, patient is in bed and does not appear to be distressed heent - MMM, NCAT, no scleral icterus neck - no jvd, trachea midline cardio - tacycardia, s1s2 cta no mrg back - no rash, brusing or tenderness lungs - decreased breath sounds, accessory mm used, mild coarse breath sounds with some superimposed wheezes abd - soft, ntnd, no peritoneal signs or rebound/guarding extremities - moves all extremities equally, mild 1-2+ pitting edema of the feet bilaterally neuro - no FND, sensation intact psych - anxious skin - warm,dry,intact, decreased capillary refill - Assessment and Plan (1) COPD (chronic obstructive pulmonary disease) Current Visit: Yes Status: Acute Assessment and Plan: COPD with acute exacerbation, possibly secondary to suspected pneumonia however that is unclear at this time Patient's O2 demand is down in comparison to time of arrival Presented with acute hypercapnia and hypoxia Placed on azithromycin, steroids We will continue oral steroids Continue BiPAP as needed Titrate oxygen to SPO2 88-92% Monitor for evidence of worsening infection Consider repeat chest x-ray as needed 40 mg IV Lasix We will attempt to fit different types of masks as the patient says that his mask is currently causing him pain. (2) Acute and chronic respiratory failure with hypoxia Current Visit: Yes Status: Resolved Assessment and Plan: On 2.5 L baseline, however O2 demand is improving now that he is on steroids and getting some lasix Will give one more dose lasix (3) Urinary retention Current Visit: Yes Status: Acute Assessment and Plan: Urinary retention with pelvic pain Patient was receiving diuresis and is retaining urine, causing pain Mccoy catheter was inserted and immediately 650 ML's were released from the bladder We can attempt to remove the Mccoy catheter tomorrow when diuresis has stopped We will consider adding Flomax (4) Anemia Current Visit: Yes Status: Acute Assessment and Plan: Anemia, etiology is unclear Appears macrocytic in nature, however also is acutely dropping This could partially be due to fluid balance, net +4300 Will continue to monitor Check B12 + folate (5) Depression Current Visit: No Status: Chronic Assessment and Plan: Chronic. Con't home meds (6) CHF (congestive heart failure) Current Visit: No Status: Chronic Assessment and Plan: ECHO from 07/2018 Impressions: LVEF 60-65%. Mild left ventricular diastolic dysfunction. Normal right ventricular structure and function. Mild tricuspid regurgitation. Mild pulmonary hypertension. Overall +3170 fluid balance Got one time dose lasix yesterday, UOP ~1500 Will dose with lasix one more time (7) History of pacemaker Current Visit: No Status: Chronic (8) Protein-calorie malnutrition, severe Current Visit: No Status: Chronic Assessment and Plan: Nutrition consulted. Ensure TID. (9) Tobacco abuse Current Visit: No Status: Chronic Assessment and Plan: con't to smoke 1ppd. Chronic, counseled. (10) Alcoholism Current Visit: No Status: Chronic Assessment and Plan: Has hx of severe alcoholism. CIWA protocol. HOB elevation. Aspiration precautions. (11) DVT prophylaxis Current Visit: Yes Status: Acute Assessment and Plan: sq heparin - Time Spent with Patient Total time spent is greater than 50% in coordination of care (as documented) at patient's floor/unit and/or counseling patient: Internal Medicine: Result - Labs CBC & Chem 7: 09/14/18 07:24 09/14/18 07:24 Labs: Short CBC 09/14/18 Range/Units 07:24 WBC 10.5 (4.3-11.1) K/mcL Hgb 9.3 L (12.9-16.9) g/dL Hct 30.7 L (37.5-50.1) % Plt Count 277 (140-400) K/mcL Neutrophils # 8.4 (1.6-8.9) K/mcL BMP 09/14/18 07:24 Sodium 142 Potassium 3.9 Chloride 100 Carbon Dioxide 36 H BUN 30 H Creatinine 0.65 L Glucose 118 H Calcium 8.7 - ABG Interpretation ABG results: ABG ABG pH 7.30 pH Units (7.32-7.45) L 09/12/18 04:21 ABG pCO2 76 mmHg (35-45) H* 09/12/18 04:21 ABG pO2 108 mmHg (85-104) H 09/12/18 04:21 ABG O2 Saturation 97 % (95-98) 09/12/18 04:21 PT/INR, D-dimer PT 13.3 Seconds (9.4-12.1) H 09/11/18 21:30 ____ <Nj Dickerson - Last Filed: 09/14/18 16:25> (1) Depression Qualifiers: Depression Type: major depressive disorder Major depression recurrence: r ecurrent Active/Remission status: currently active Major depression episode severity: severe Psychotic features: without psychotic features Qualified Code(s): F33.2 - Major depressive disorder, recurrent severe without psychotic features (2) CHF (congestive heart failure) Qualifiers: Heart failure type: diastolic Heart failure chronicity: chronic Qualified Code(s): I50.32 - Chronic diastolic (congestive) heart failure (5) Anemia Qualifiers: Anemia type: other cause Other causes of anemia: chronic disease, other Qualified Code(s): D63.8 - Anemia in other chronic diseases classified elsewhere (7) COPD (chronic obstructive pulmonary disease) Qualifiers: COPD type: emphysema Emphysema type: centrilobular Qualified Code(s): J43.2 - Centrilobular emphysema <Breezy Vazquez - Last Filed: 09/14/18 16:34> (1) COPD (chronic obstructive pulmonary disease) Qualifiers: COPD type: emphysema Emphysema type: centrilobular Qualified Code(s): J43.2 - Centrilobular emphysema (4) Anemia Qualifiers: Anemia type: other cause Other causes of anemia: chronic disease, other Qualified Code(s): D63.8 - Anemia in other chronic diseases classified elsewhere (5) Depression Qualifiers: Depression Type: major depressive disorder Major depression recurrence: recurrent Active/Remission status: currently active Major depression episode severity: severe Psychotic features: without psychotic features Qualified Code(s): F33.2 - Major depressive disorder, recurrent severe without psychotic features (6) CHF (congestive heart failure) Qualifiers: Heart failure type: diastolic Heart failure chronicity: chronic Qualified Code(s): I50.32 - Chronic diastolic (congestive) heart failure
[2018-09-14 08:46] LABS: Folate 12.5 ng/mL (3.0-16.0)
[2018-09-14] MEDS: Primidone 50 MG TABLET PO SCH (10:16)
[2018-09-14] MEDS: Azithromycin 250 MG TABLET PO SCH (10:16)
[2018-09-14] MEDS: Spironolactone 25 MG TABLET PO SCH (10:17)
[2018-09-14] MEDS: predniSONE 20 MG TABLET PO SCH (10:17)
[2018-09-14] MEDS ORDERED: *HR* LORazepam 2 MG/ML VIAL IVP ONE (12:39)
[2018-09-14] MEDS ORDERED: Ringers Solution, Lactated 1,000 ML IVC SCH (18:23)
[2018-09-14] MEDS: Mirtazapine 15 MG TABLET PO SCH (20:07)
[2018-09-14] MEDS ORDERED: Ringers Solution, Lactated 500 ML IVC SCH (20:15)
[2018-09-15] MEDS: Ipratropium/Albuterol Neb 3 ML IH SCH ×7 (00:05→23:31)
[2018-09-15] MEDS: *HR* Heparin 5,000 UNIT/ML VIAL SQ SCH ×2 (05:24→18:03)
[2018-09-15] MEDS: Spironolactone 25 MG TABLET PO SCH (11:02)
[2018-09-15] MEDS: Azithromycin 250 MG TABLET PO SCH (11:03)
[2018-09-15] MEDS: predniSONE 20 MG TABLET PO SCH (11:03)
[2018-09-15] MEDS: Primidone 50 MG TABLET PO SCH (11:03)
[2018-09-15 13:09] LABS: Basophils % 0.3 %; Eosinophils % 0.4 %; Hematocrit 32.7 % (37.5-50.1); Hemoglobin 9.8 g/dL (12.9-16.9); Immature Granulocytes % 0.8 % (0-4); Lymphocytes % 25.9 %; Mean Corpuscular Hemoglobin 30.1 pg (28.0-33.3); Mean Corpuscular Volume 100.3 fL (83.0-100.0); Mean Platelet Volume 10.4 fL (9.4-12.4); Monocytes # 0.8 K/mcL (0.0-1.3); Monocytes % 9.6 %; Platelet Count 290 K/mcL (140-400); Red Blood Count 3.26 M/mcL (4.19-5.50); Red Cell Distribution Width 13.1 % (11.5-14.5)
[2018-09-15 13:27] LABS: BUN/Creatinine Ratio 41 (6-26); Blood Urea Nitrogen 29 mg/dL (8-23); Calcium 9.1 mg/dL (8.6-10.3); Carbon Dioxide 36 mEq/L (23-29); Chloride 100 mEq/L (98-107); Glucose 93 mg/dL (70-105); Osmolality,Calculated 292 (280-300); Potassium 4.4 mEq/L (3.5-5.1); Sodium 138 mEq/L (136-145); eGFR For Non-African Americans > 60 (> 60)
[2018-09-15] MEDS ORDERED: *HR* LORazepam 0.5 MG TABLET PO PRN (16:40)
--- NOTE | 2018-09-15 16:44 | Internal Med Progress Note ---
<Breezy Vazqeuz - Last Filed: 09/15/18 16:38> Hospitalist Progress Note - Encounter Date of Encounter: 09/15/18 Time of Encounter: 10:20 - Subjective Interval History: the patient is seen and examined at bedside. He says that he is feeling significantly better following the placement of a bruner. He did get 500mL ringers, and that helped with his HR slightly. He is anxious to leave, however he will require new walk test and BiPAP qualification. - Exam Vitals: Temp Pulse Resp BP Pulse Ox 98.3 F 115 18 125/90 93 09/15/18 15:35 09/15/18 15:35 09/15/18 15:35 09/15/18 15:35 09/15/18 15:35 Exam: general - aox3, patient is in bed and does not appear to be distressed heent - MMM, NCAT, no scleral icterus neck - no jvd, trachea midline cardio - tacycardia, s1s2 cta no mrg back - no rash, brusing or tenderness lungs - decreased breath sounds, accessory mm used, mild coarse breath sounds with some superimposed wheezes abd - soft, ntnd, no peritoneal signs or rebound/guarding extremities - moves all extremities equally, mild 1-2+ pitting edema of the feet bilaterally neuro - no FND, sensation intact psych - anxious skin - warm,dry,intact, decreased capillary refill - Assessment and Plan (1) COPD (chronic obstructive pulmonary disease) Current Visit: Yes Status: Acute Assessment and Plan: COPD with acute exacerbation, possibly secondary to suspected pneumonia however that is unclear at this time Patient's O2 demand is down in comparison to time of arrival Presented with acute hypercapnia and hypoxia Placed on azithromycin, steroids We will continue oral steroids Continue BiPAP as needed Titrate oxygen to SPO2 88-92% Monitor for evidence of worsening infection Consider repeat chest x-ray as needed 40 mg IV Lasix We will attempt to fit different types of masks as the patient says that his mask is currently causing him pain. (2) Acute and chronic respiratory failure with hypoxia Current Visit: Yes Status: Resolved Assessment and Plan: On 2.5-3 L baseline, however O2 demand is improving now that he is on steroids and getting some lasix Will give one more dose lasix New walk test will be required. New home O2 script for 2L. (3) Anemia Current Visit: Yes Status: Acute Assessment and Plan: Anemia, etiology is unclear Appears macrocytic in nature, however also is acutely dropping This could partially be due to fluid balance, net +420 Will continue to monitor (4) Depression Current Visit: No Status: Chronic Assessment and Plan: Chronic. Con't home meds (5) CHF (congestive heart failure) Current Visit: No Status: Chronic Assessment and Plan: ECHO from 07/2018 Impressions: LVEF 60-65%. Mild left ventricular diastolic dysfunction. Normal right ventricular structure and function. Mild tricuspid regurgitation. Mild pulmonary hypertension. Overall +420 fluid balance May be mildly intravascularly depleted at this point Will give some gentle fluids (6) History of pacemaker Current Visit: No Status: Chronic (7) Protein-calorie malnutrition, severe Current Visit: No Status: Chronic Assessment and Plan: Nutrition consulted. Ensure TID. (8) Tobacco abuse Current Visit: No Status: Chronic Assessment and Plan: con't to smoke 1ppd. Chronic, counseled. (9) Alcoholism Current Visit: No Status: Chronic Assessment and Plan: Has hx of severe alcoholism. CIWA protocol. HOB elevation. Aspiration precautions. (10) DVT prophylaxis Current Visit: Yes Status: Acute Assessment and Plan: sq heparin (11) Urinary retention Current Visit: Yes Status: Acute Assessment and Plan: Urinary retention with pelvic pain Patient was receiving diuresis and is retaining urine, causing pain Bruner catheter was inserted and immediately 650 ML's were released from the bladder yesterday Continue bruner for now, attempt voiding trial tomorrow - Time Spent with Patient Total time spent is greater than 50% in coordination of care (as documented) at patient's floor/unit and/or counseling patient: Internal Medicine: Result - Labs CBC & Chem 7: 09/15/18 12:12 09/15/18 12:12 Labs: Short CBC 09/15/18 Range/Units 12:12 WBC 7.9 (4.3-11.1) K/mcL Hgb 9.8 L (12.9-16.9) g/dL Hct 32.7 L (37.5-50.1) % Plt Count 290 (140-400) K/mcL Neutrophils # 5.0 (1.6-8.9) K/mcL BMP 09/15/18 12:12 Sodium 138 Potassium 4.4 Chloride 100 Carbon Dioxide 36 H BUN 29 H Creatinine 0.71 Glucose 93 Calcium 9.1 - ABG Interpretation ABG results: ABG ABG pH 7.30 pH Units (7.32-7.45) L 09/12/18 04:21 ABG pCO2 76 mmHg (35-45) H* 09/12/18 04:21 ABG pO2 108 mmHg (85-104) H 09/12/18 04:21 ABG O2 Saturation 97 % (95-98) 09/12/18 04:21 PT/INR, D-dimer PT 13.3 Seconds (9.4-12.1) H 09/11/18 21:30 Consult Discharge Plan - Plan Referrals: NONE,PCP [Primary Care Provider] - <Nj Dickerson - Last Filed: 09/15/18 17:04> Hospitalist Progress Note - Encounter Date of Encounter: 09/15/18 - Exam Vitals: Temp Pulse Resp BP Pulse Ox 98.3 F 115 18 125/90 93 09/15/18 15:35 09/15/18 15:35 09/15/18 15:35 09/15/18 15:35 09/15/18 15:35 - Assessment and Plan (1) Depression Current Visit: No Status: Chronic (2) CHF (congestive heart failure) Current Visit: No Status: Chronic (3) Acute and chronic respiratory failure with hypoxia Current Visit: Yes Status: Resolved (4) History of pacemaker Current Visit: No Status: Chronic (5) Anemia Current Visit: Yes Status: Acute (6) Protein-calorie malnutrition, severe Current Visit: No Status: Chronic (7) COPD (chronic obstructive pulmonary disease) Current Visit: Yes Status: Acute (8) Tobacco abuse Current Visit: No Status: Chronic (9) DVT prophylaxis Current Visit: Yes Status: Acute (10) Alcoholism Current Visit: No Status: Chronic (11) Urinary retention Current Visit: Yes Status: Acute - Time Spent with Patient Total time spent is greater than 50% in coordination of care (as documented) at patient's floor/unit and/or counseling patient: Internal Medicine: Result - Labs CBC & Chem 7: 09/15/18 12:12 09/15/18 12:12 Labs: Short CBC 09/15/18 Range/Units 12:12 WBC 7.9 (4.3-11.1) K/mcL Hgb 9.8 L (12.9-16.9) g/dL Hct 32.7 L (37.5-50.1) % Plt Count 290 (140-400) K/mcL Neutrophils # 5.0 (1.6-8.9) K/mcL BMP 09/15/18 12:12 Sodium 138 Potassium 4.4 Chloride 100 Carbon Dioxide 36 H BUN 29 H Creatinine 0.71 Glucose 93 Calcium 9.1 - ABG Interpretation ABG results: ABG ABG pH 7.30 pH Units (7.32-7.45) L 09/12/18 04:21 ABG pCO2 76 mmHg (35-45) H* 09/12/18 04:21 ABG pO2 108 mmHg (85-104) H 09/12/18 04:21 ABG O2 Saturation 97 % (95-98) 09/12/18 04:21 PT/INR, D-dimer PT 13.3 Seconds (9.4-12.1) H 09/11/18 21:30 - Attending Attestation I examined this patient and my medical decision-making was reviewed with the Resident Physician on 09/15/18. I agree with the documented findings, disposition and treatment plan as described except to the extent set forth below. Mr Jones is currently admitted for acute resp failure. He remains moderate to high risk due to potential for worsening clinical and respiratory status. Mr Jones is resting at this time. No fever or chills. No CP. Breathing about baseline. Needs repeat O2 qualification and bipap study. Exam Alert Comfortable at this time Mucus membranes dry Heart not tachy and regular Lungs diminished Abd soft No edema I/P 1. Resp failure - weaning oxygen. need new walk study. Repeat bipap study. 2. COPD exac Further diagnoses and plan as above. _ <Breezy Vazquez - Last Filed: 09/15/18 16:38> (1) COPD (chronic obstructive pulmonary disease) Qualifiers: COPD type: emphysema Emphysema type: centrilobular Qualified Code(s): J43.2 - Centrilobular emphysema (3) Anemia Qualifiers: Anemia type: other cause Other causes of anemia: chronic disease, other Qualified Code(s): D63.8 - Anemia in other chronic diseases classified elsewhere (4) Depression Qualifiers: Depression Type: major depressive disorder Major depression recurrence: recurrent Active/Remission status: currently active Major depression episode severity: severe Psychotic features: without psychotic features Qualified Code(s): F33.2 - Major depressive disorder, recurrent severe without psychotic features (5) CHF (congestive heart failure) Qualifiers: Heart failure type: diastolic Heart failure chronicity: chronic Qualified Code(s): I50.32 - Chronic diastolic (congestive) heart failure Nj Dumont - Last Filed: 09/15/18 17:04> (1) Depression Qualifiers: Depression Type: major depressive disorder Major depression recurrence: recurrent Active/Remission status: currently active Major depression episode severity: severe Psychotic features: without psychotic features Qualified Code(s): F33.2 - Major depressive disorder, recurrent severe without psychotic features (5) Anemia Qualifiers: Anemia type: other cause Other causes of anemia: chronic disease, other Qualified Code(s): D63.8 - Anemia in other chronic diseases classified elsewhere (7) COPD (chronic obstructive pulmonary disease) Qualifiers: COPD type: emphysema Emphysema type: centrilobular Qualified Code(s): J43.2 - Centrilobular emphysema
[2018-09-15] MEDS ORDERED: Ringers Solution, Lactated 1,000 ML IVC SCH (16:45)
[2018-09-15] MEDS: Nicotine 21 MG PATCH.TD24 TD SCH (20:12)
[2018-09-15] MEDS: Mirtazapine 15 MG TABLET PO SCH (20:13)
[2018-09-16] MEDS: Ipratropium/Albuterol Neb 3 ML IH SCH ×3 (04:21→11:08)
[2018-09-16 04:46] LABS: ABG Base Excess 12 mEq/L (-2 to 3); ABG HCO3 37 mEq/L (21-27); ABG Oxygen Saturation 93 % (95-98); ABG PCO2 51 mmHg (35-45); ABG PH 7.47 pH Units (7.32-7.45); ABG PO2 63 mmHg (85-104); ABG TCO2 39 mEq/L (20-26)
[2018-09-16] MEDS: *HR* Heparin 5,000 UNIT/ML VIAL SQ SCH (06:40)
[2018-09-16] MEDS ORDERED: Isovue-370 500 ML BOTTLE IVP ONE (08:10)
--- NOTE | 2018-09-16 08:10 | Discharge Summary ---
<Nj Dickerson - Last Filed: 09/16/18 15:08> Orders not resulted at time of discharge: Pending orders 09/11/18 21:30 Culture,Blood [BC] Stat 09/16/18 12:30 CTA chest [CT angio chest] [CT] Routine Date of Encounter: 09/16/18 - Discharge Diagnosis (1) Depression Status: Chronic Qualifiers: Depression Type: major depressive disorder Major depression recurrence: recurrent Active/Remission status: currently active Major depression episode severity: severe Psychotic features: without psychotic features Qualified Code(s): F33.2 - Major depressive disorder, recurrent severe without psychotic features (2) CHF (congestive heart failure) Status: Chronic Qualifiers: Heart failure type: diastolic Heart failure chronicity: chronic Qualified Code(s): I50.32 - Chronic diastolic (congestive) heart failure (3) Acute and chronic respiratory failure with hypoxia Status: Resolved (4) History of pacemaker Status: Chronic (5) Anemia Status: Acute Qualifiers: Anemia type: other cause Other causes of anemia: chronic disease, other Qualified Code(s): D63.8 - Anemia in other chronic diseases classified elsewhere (6) Protein-calorie malnutrition, severe Status: Chronic (7) COPD (chronic obstructive pulmonary disease) Status: Acute Qualifiers: COPD type: emphysema Emphysema type: centrilobular Qualified Code(s): J43.2 - Centrilobular emphysema (8) Tobacco abuse Status: Chronic (9) DVT prophylaxis Status: Acute (10) Alcoholism Status: Chronic (11) Urinary retention Status: Acute Hospital course: Mr. Jones is a 77 year old male - Time Spent with Patient Total time spent providing and/or coordinating discharge services: 37min - Discharge Medications Prescriptions: New Metoprolol XL (24 HR) Succ [Toprol XL] 50 mg PO DAILY #30 tab.er.24h Amoxicillin/Clavulanate [Augmentin] 875 mg PO BIDWM #14 tablet Continued Aspirin Enteric Coated [Aspirin EC] 81 mg PO DAILY #0 Nitroglycerin 0.4 mg SL Q5MIN PRN #0 tab.subl PRN Reason: Chest Pain Spironolactone [Aldactone] 12.5 mg PO DAILY #30 tablet Omeprazole [PriLOSEC] 20 mg PO DAILY Tamsulosin [Flomax] 0.4 mg PO HS Paroxetine HCl [Paxil] 20 mg PO QAM Primidone [Mysoline] 50 mg PO DAILY Mirtazapine [Remeron] 30 mg PO HS Losartan [Cozaar] 25 mg PO DAILY Simvastatin [Zocor] 40 mg PO HS traZODone [TraZODone] 50 mg PO HS PRN PRN Reason: Sleep Megestrol Acetate 20 mg PO BID Ipratropium/Albuterol Neb [Duoneb] 3 ml IH [id number] PRN #120 inhsol PRN Reason: Shortness Of Breath Fluticasone/Vilanterol [Breo Ellipta 200-25 Mcg INH] 1 puff IH QAM Albuterol Sulfate [Ventolin Hfa] 1 puff IH Q4H PRN PRN Reason: Shortness Of Breath Discontinued Metoprolol Succinate [Toprol Xl] 25 mg PO DAILY Home Medications: Aspirin Enteric Coated [Aspirin EC] 81 mg PO DAILY #0 12/07/14 [History] Nitroglycerin 0.4 mg SL Q5MIN PRN #0 tab.subl 08/04/15 [Rx] Spironolactone [Aldactone] 12.5 mg PO DAILY #30 tablet 08/04/15 [Rx] Omeprazole [PriLOSEC] 20 mg PO DAILY 10/28/15 [History] Losartan [Cozaar] 25 mg PO DAILY 10/05/17 [History] Mirtazapine [Remeron] 30 mg PO HS 10/05/17 [History] Paroxetine HCl [Paxil] 20 mg PO QAM 10/05/17 [History] Primidone [Mysoline] 50 mg PO DAILY 10/05/17 [History] Tamsulosin [Flomax] 0.4 mg PO HS 10/05/17 [History] Megestrol Acetate 20 mg PO BID 02/03/18 [History] Simvastatin [Zocor] 40 mg PO HS 02/03/18 [History] traZODone [TraZODone] 50 mg PO HS PRN 02/03/18 [History] Ipratropium/Albuterol Neb [Duoneb] 3 ml IH [id number] PRN #120 inhsol 07/26/18 [Rx] Albuterol Sulfate [Ventolin Hfa] 1 puff IH Q4H PRN 09/12/18 [History] Fluticasone/Vilanterol [Breo Ellipta 200-25 Mcg INH] 1 puff IH QAM 09/12/18 [History] Amoxicillin/Clavulanate [Augmentin] 875 mg PO BIDWM #14 tablet 09/16/18 [Rx] Metoprolol XL (24 HR) Succ [Toprol XL] 50 mg PO DAILY #30 tab.er.24h 09/16/18 [Rx] Allergies/Adverse Reactions: Allergy/AdvReac Type Severity Reaction Status Date / Time No Known Allergies Allergy Verified 09/12/18 18:07 Date of admission: 09/12/18 12:54 Primary care physician: PCP NONE Consults: 09/11/18 22:50 Consult to Nutrition [CONS] Routine Comment: Consulting Provider: NUTRITION Reason for Dietary Consult: Diet Education 09/11/18 23:06 Consult to Ground Defence Officer [CONS] Routine Reason for SW Consult: alcoholism 09/12/18 00:21 Consult to Occupational Therapy [CONS] Routine Comment: Evaluate, develop and implement POC Reason for Consult: weakness, end stage copd Does patient have active BEDREST order?: No Is patient medically & hemodynamically stable?: Yes Patient assessed for mobility or mobilized this visit?: No Consult to Physical Therapy [CONS] Routine Comment: Evaluate, develop and implement POC Reason for Consult: weakness, end stage copd Does patient have active BEDREST order?: No Is patient medically & hemodynamically stable?: Yes Patient assessed for mobility or mobilized this visit?: No - Constitutional Vitals: Temp Pulse Resp BP Pulse Ox 98.2 F 112 17 113/70 93 09/16/18 07:14 09/16/18 07:14 09/16/18 11:08 09/16/18 07:45 09/16/18 11:08 - Patient Status Disposition: Home Health Service Condition: Fair - Discharge Instructions Follow Up With: NONE,PCP [Primary Care Provider] - Additional Instructions: Use Oxygen as prescribed. Increase Toprol XL to 50mg Daily. Take Augmentin 875mg Twice a day for 7 days. Return to the ED for recurrent or worsened symptoms. - Attending Attestation I examined this patient and my medical decision-making was reviewed with the Resident Physician on 09/16/18. I agree with the documented findings, disposition and treatment plan as described except to the extent set forth below. Mr Jones has been admitted for acute resp failure and exac COPD. He has steadily improved and is returning to baseline. He did not qualify for bipap at night. He is now afebrile and feels ready for discharge home Exam alert comfortable at rest Mucus membranes dry Heart reg and not tachy No wheeze at this time Abd soft No edema Plan D/C home today Follow up with PCP. <Breezy Vazquez - Last Filed: 09/16/18 16:21> - NOTES TO OUTPATIENT PROVIDER Notes to Outpatient Provider: COPD exacerbation, got 5d prednisone + azityhromycin. Remained tachy, CTA neg for PE, but shows aspiration. D/C on augmentin. Increase Toprol dose. Orders not resulted at time of discharge: Pending orders 09/11/18 21:30 Culture,Blood [BC] Stat 09/16/18 04:00 CMP [Comprehensive Metabolic Panel] AM 0400 Date of Encounter: 09/16/18 Time of Encounter: 09:45 - Discharge Diagnosis (1) COPD (chronic obstructive pulmonary disease) Priority: Primary Status: Acute Qualifiers: COPD type: emphysema Emphysema type: centrilobular Qualified Code(s): J43.2 - Centrilobular emphysema (2) Acute and chronic respiratory failure with hypoxia Priority: Secondary Status: Resolved (3) Urinary retention Priority: Secondary Status: Acute (4) Anemia Priority: Secondary Status: Acute Qualifiers: Anemia type: other cause Other causes of anemia: chronic disease, other Qualified Code(s): D63.8 - Anemia in other chronic diseases classified elsewhere (5) Depression Priority: Secondary Status: Chronic Qualifiers: Depression Type: major depressive disorder Major depression recurrence: recurrent Active/Remission status: currently active Major depression episode severity: severe Psychotic features: without psychotic features Qualified Code(s): F33.2 - Major depressive disorder, recurrent severe without psychotic features (6) CHF (congestive heart failure) Priority: Secondary Status: Chronic Qualifiers: Heart failure type: diastolic Heart failure chronicity: chronic Qualified Code(s): I50.32 - Chronic diastolic (congestive) heart failure (7) History of pacemaker Priority: Secondary Status: Chronic (8) Protein-calorie malnutrition, severe Priority: Secondary Status: Chronic (9) Tobacco abuse Priority: Secondary Status: Chronic (10) Alcoholism Priority: Secondary Status: Chronic Hospital course: Mr. Jones is a 77 year old male with history of cardiomyopathy, CHF, COPD on baseline 2.5 L oxygen who presented to the ED with shortness of breath. He was diagnosed with COPD exacerbation and acute respiratory failure. He was initially treated with azithromycin and prednisone however did have some acute worsening so we did give him Lasix as well. Over the course of his stay the patient did improve as far as his respiratory status was concerned, however he developed acute urinary retention for which she had placement of a Mccoy catheter and he also became more tachycardic. I was concerned at one point that he had been over diuresed, so I gave him some fluids which did not seem to help with his tachycardia. He also had significant anxiety for which she received some Ativan which did seem to help however his tachycardia remained. I finally did get a CTA of his chest which was negative for a PE however showed repeat aspiration and left-sided pleural effusion. The patient was started on antibiotics for aspiration pneumonia, his Toprol was increased, and he will be prepared for discharge. The patient did not qualify for BiPAP at home during this admission. Discharge discussed with: patient, family, nurse, social work, case management - Time Spent with Patient Total time spent providing and/or coordinating discharge services: Date of admission: 09/12/18 12:54 Primary care physician: PCP NONE Consults: 09/11/18 22:50 Consult to Nutrition [CONS] Routine Comment: Consulting Provider: NUTRITION Reason for Dietary Consult: Diet Education 09/11/18 23:06 Consult to Ground Defence Officer [CONS] Routine Reason for SW Consult: alcoholism 09/12/18 00:21 Consult to Occupational Therapy [CONS] Routine Comment: Evaluate, develop and implement POC Reason for Consult: weakness, end stage copd Does patient have active BEDREST order?: No Is patient medically & hemodynamically stable?: Yes Patient assessed for mobility or mobilized this visit?: No Consult to Physical Therapy [CONS] Routine Comment: Evaluate, develop and implement POC Reason for Consult: weakness, end stage copd Does patient have active BEDREST order?: No Is patient medically & hemodynamically stable?: Yes Patient assessed for mobility or mobilized this visit?: No Discharging clinician: Breezy Vazquez Anticipated date of discharge: 09/16/18 - Constitutional Vitals: Temp Pulse Resp BP Pulse Ox 98.2 F 112 17 113/70 97 09/16/18 07:14 09/16/18 07:14 09/16/18 07:14 09/16/18 07:14 09/16/18 07:14 Exam: general - aox3, patient is in bed and does not appear to be distressed heent - MMM, NCAT, no scleral icterus neck - no jvd, trachea midline cardio - tacycardia, s1s2 cta no mrg back - no rash, brusing or tenderness lungs - decreased breath sounds, accessory mm used, mild coarse breath sounds with some superimposed wheezes abd - soft, ntnd, no peritoneal signs or rebound/guarding extremities - moves all extremities equally, mild 1-2+ pitting edema of the fe et bilaterally neuro - no FND, sensation intact psych - anxious skin - warm,dry,intact, decreased capillary refill - Patient Status Functional capacity at discharge: uses cane/walker Overall status at discharge: patient is progressing back to baseline - Diet and Activity Activity: as per physical therapy, resume usual activities as tolerated, wear oxygen at all times Diet: advance to your usual diet, low salt diet
[2018-09-16] MEDS: Spironolactone 25 MG TABLET PO SCH (08:43)
[2018-09-16] MEDS: predniSONE 20 MG TABLET PO SCH (08:43)
[2018-09-16] MEDS: Primidone 50 MG TABLET PO SCH (08:44)
[2018-09-16] MEDS: Azithromycin 250 MG TABLET PO SCH (08:44)
[2018-09-16] MEDS: Nicotine 21 MG PATCH.TD24 TD SCH (08:46)
[2018-09-16] MEDS ORDERED: Metoprolol XL (24 HR) Succ 25 MG TAB.ER.24H PO SCH (09:00)
[2018-09-16 10:01] LABS: ABG Base Excess 12 mEq/L (-2 to 3); ABG HCO3 37 mEq/L (21-27); ABG Oxygen Saturation 93 % (95-98); ABG PCO2 51 mmHg (35-45); ABG PH 7.47 pH Units (7.32-7.45); ABG PO2 63 mmHg (85-104); ABG TCO2 39 mEq/L (20-26)
[2018-09-16 10:05] LABS: ABG Base Excess 12 mEq/L (-2 to 3); ABG HCO3 37 mEq/L (21-27); ABG Oxygen Saturation 93 % (95-98); ABG PCO2 51 mmHg (35-45); ABG PH 7.47 pH Units (7.32-7.45); ABG PO2 63 mmHg (85-104); ABG TCO2 39 mEq/L (20-26)
[2018-09-16 10:51] LABS: Alanine Aminotransferase 90 Units/L (7-52); Albumin 2.9 g/dL (3.5-5.7); Albumin/Globulin Ratio 0.9 (1.1-2.2); Alkaline Phosphatase 58 Units/L (34-104); Aspartate Amino Transferase 47 Units/L (13-39); BUN/Creatinine Ratio 42 (6-26); Bilirubin,Total 0.3 mg/dL (0.3-1.0); Blood Urea Nitrogen 32 mg/dL (8-23); Calcium 8.9 mg/dL (8.6-10.3); Carbon Dioxide 36 mEq/L (23-29); Chloride 97 mEq/L (98-107); Globulin 3.2 g/dL (2.4-3.5); Glucose 110 mg/dL (70-105); Osmolality,Calculated 300 (280-300); Sodium 141 mEq/L (136-145); Total Protein 6.1 g/dL (6.4-8.9); eGFR For Non-African Americans > 60 (> 60)
[2018-09-16] MEDS ORDERED: *HR* Metoprolol 5 MG/5 ML VIAL IVP ONE (15:54)
[2018-09-16] MEDS ORDERED: Levalbuterol Neb 0.63 MG/3 ML IH SCH ×2 (16:00)
[2018-09-16] MEDS ORDERED: Ipratropium/Albuterol Neb 3 ML IH SCH (16:00)
--- NOTE | 2018-09-16 16:23 | Physician Discharge Referral ---
Home Health/Hosp Referral Info Transfer to: [facility] ([facility]) Attending Provider: Tuan Provider in Charge Post Discharge: PCP - Diagnosis (1) COPD (chronic obstructive pulmonary disease) Priority: Primary Status: Acute (2) Acute and chronic respiratory failure with hypoxia Priority: Secondary Status: Resolved (3) Urinary retention Priority: Secondary Status: Acute (4) Anemia Priority: Secondary Status: Acute (5) Depression Priority: Secondary Status: Chronic (6) CHF (congestive heart failure) Priority: Secondary Status: Chronic (7) History of pacemaker Priority: Secondary Status: Chronic (8) Protein-calorie malnutrition, severe Priority: Secondary Status: Chronic (9) Tobacco abuse Priority: Secondary Status: Chronic (10) Alcoholism Priority: Secondary Status: Chronic - Respiratory Orders Oxygen / L per min (3) Smoking Cessation: Smoking cessation has been advised. For more information, call the [place] Tobacco Quit Line at 5-333-LZRR-NOW. - Diet/Nutrition Diet/Nutrition Orders: No Added Salt (DAVID), Cardiac - Activity Activity Orders: Walker - Services Needed Following services are medically necessary services: Nursing, Home Health Aide, Physical Therapy, Occupational Therapy - Transfer Medications Prescriptions: Amoxicillin/Clavulanate [Augmentin] 875 mg PO BIDWM #14 tablet Metoprolol XL (24 HR) Succ [Toprol XL] 50 mg PO DAILY #30 tab.er.24h Home Medications: Aspirin Enteric Coated [Aspirin EC] 81 mg PO DAILY #0 12/07/14 [History] Nitroglycerin 0.4 mg SL Q5MIN PRN #0 tab.subl 08/04/15 [Rx] Spironolactone [Aldactone] 12.5 mg PO DAILY #30 tablet 08/04/15 [Rx] Omeprazole [PriLOSEC] 20 mg PO DAILY 10/28/15 [History] Losartan [Cozaar] 25 mg PO DAILY 10/05/17 [History] Mirtazapine [Remeron] 30 mg PO HS 10/05/17 [History] Paroxetine HCl [Paxil] 20 mg PO QAM 10/05/17 [History] Primidone [Mysoline] 50 mg PO DAILY 10/05/17 [History] Tamsulosin [Flomax] 0.4 mg PO HS 10/05/17 [History] Megestrol Acetate 20 mg PO BID 02/03/18 [History] Simvastatin [Zocor] 40 mg PO HS 02/03/18 [History] traZODone [TraZODone] 50 mg PO HS PRN 02/03/18 [History] Ipratropium/Albuterol Neb [Duoneb] 3 ml IH [id number] PRN #120 inhsol 07/26/18 [Rx] Albuterol Sulfate [Ventolin Hfa] 1 puff IH Q4H PRN 09/12/18 [History] Fluticasone/Vilanterol [Breo Ellipta 200-25 Mcg INH] 1 puff IH QAM 09/12/18 [History] Amoxicillin/Clavulanate [Augmentin] 875 mg PO BIDWM #14 tablet 09/16/18 [Rx] Metoprolol XL (24 HR) Succ [Toprol XL] 50 mg PO DAILY #30 tab.er.24h 09/16/18 [Rx] Allergies/Adverse Reactions: Allergy/AdvReac Type Severity Reaction Status Date / Time No Known Allergies Allergy Verified 09/12/18 18:07 Certification: Further, I certify that my clinical findings support that this patient is homebound (i.e. absences from home require considerable and taxing effort and are for medical reasons or jainism services or infrequently or short duration when for other reasons) because: Homebound Reason: Patient requires assistance of a person or device to safely leave home, Leaving home requires considerable and taxing effort due to condition, Severity of cardiac or pulmonary status limits activity tolerance Attestation: My signature below is to certify that this patient is under my care and that I, or nurse practitioner, or a physician's home health assistant working with me, has a [id number] encounter with this patient.
[2018-09-16 16:32] VITALS: BP 123/81
[2018-09-16] MEDS ORDERED: Ampicillin/Sulbactam 1,500 MG in 0.9 % Sodium Chloride Mini Bag 100 ML IVPB SCH (18:00)
== END 2018-09-16 21:29 | disposition home health service (06) | DRG 177 ==
LOC: EMEROOARM 20:57 → 2NENU 20:57 → SUATTDRO 09-12 00:05 → 2NENU 09-12 00:57 → SUATTDRO 09-12 12:54
PROVIDERS: ADMIT Internal Medicine; ATTEND Internal Medicine

== ENCOUNTER 2018-09-30 12:11 | Inpatient (IN) ==
[2018-09-30] MEDS ORDERED: 0.9 % Sodium Chloride 1,000 ML ONE (12:25)
[2018-09-30] MEDS ORDERED: 0.9 % Sodium Chloride 1,000 ML IVC ONE ×3 (12:31→17:16)
[2018-09-30] MEDS ORDERED: Ipratropium/Albuterol Neb 3 ML IH ONE (12:33)
--- NOTE | 2018-09-30 12:37 | Emergency Department Note ---
Disposition Clinical Impression: Dehydration, Pneumonia, Acute renal failure (ARF) Disposition: Admitted As Inpatient Condition: Fair Forms: ED Satisfaction Letter Time of Disposition: 16:11 General Adult HPI - General Chief complaint: ED Weakness Stated complaint: SHEA Time Seen by Provider: 09/30/18 12:31 Source: EMS Limitations: no limitations - History of Present Illness HPI Narrative: Patient is a 78-year-old male that presented to the emergency room with apparent weakness. The patient. Has been on a couch for the last 2 or 3 days according to EMS. The patient does complain of weakness, patient does complain of some pain into the lower back area. The patient denies any anterior abdominal pain. He has chronic shortness of breath, chronically on oxygen. Patient denies any other chest pain. The patient has focal weakness or numbness. He denies any headache or recent fall or trauma. Patient states the pain is worse with movement. The patient denies any urinary complaints. Patient denies any rashes. Pain Scale: 5 - Related Data Home Medications Medication Instructions Recorded Confirmed Aspirin Enteric Coated [Aspirin EC] 81 mg PO DAILY #0 12/07/14 02/11/18 Omeprazole [PriLOSEC] 20 mg PO DAILY 10/28/15 09/12/18 Losartan [Cozaar] 25 mg PO DAILY 10/05/17 09/12/18 Mirtazapine [Remeron] 30 mg PO HS 10/05/17 09/12/18 Paroxetine HCl [Paxil] 20 mg PO QAM 10/05/17 09/12/18 Primidone [Mysoline] 50 mg PO DAILY 10/05/17 09/12/18 Tamsulosin [Flomax] 0.4 mg PO HS 10/05/17 09/12/18 Megestrol Acetate 20 mg PO BID 02/03/18 09/12/18 Simvastatin [Zocor] 40 mg PO HS 02/03/18 09/12/18 traZODone [TraZODone] 50 mg PO HS PRN 02/03/18 09/12/18 Albuterol Sulfate [Ventolin Hfa] 1 puff IH Q4H PRN 09/12/18 09/12/18 Fluticasone/Vilanterol [Breo 1 puff IH QAM 09/12/18 09/12/18 Ellipta 200-25 Mcg INH] Previous Rx's Medication Instructions Recorded Nitroglycerin 0.4 mg SL Q5MIN PRN #0 tab.subl 08/04/15 Spironolactone [Aldactone] 12.5 mg PO DAILY #30 tablet 08/04/15 Ipratropium/Albuterol Neb [Duoneb] 3 ml IH [id number] PRN #120 inhsol 07/26/18 Amoxicillin/Clavulanate [Augmentin] 875 mg PO BIDWM #14 tablet 09/16/18 Metoprolol XL (24 HR) Succ [Toprol 50 mg PO DAILY #30 tab.er.24h 09/16/18 XL] Allergies Allergy/AdvReac Type Severity Reaction Status Date / Time No Known Allergies Allergy Verified 09/12/18 18:07 Review of Systems: As mentioned per history of present illness and as follows. Constitutional: Negative for chills or fever HENT: Negative for sore throat. Eyes: Negative for visual disturbance Respiratory: Positive for shortness of breath. Cardiovascular: Negative for palpitations. Gastrointestinal: Negative for abdominal pain Genitourinary: Negative for dysuria Musculoskeletal: Positive for back pain. Skin: Negative for rash. Neurological: Negative for focal weakness Psychiatric/Behavioral: Negative for depression Past Medical History - Past Medical History Medical history: Reports: cancer, cardiomyopathy, CHF, COPD, coronary artery disease, hepatitis, hyperlipidemia, liver disease, other Surgical history: Reports: pacemaker/AICD Psychiatric history: Reports: anxiety, depression, prior suicide attempt - Social History Smoking Status: Current every day smoker Smokeless Tobacco Status: No Alcohol use: Reports: none Drug use: Reports: none Physical Exam PHYSICAL EXAM Constitutional: Well developed, cachectic chronically ill-appearing male, overall nontoxic in appearance. HENT: Normocephalic, Atraumatic, Bilateral external ears normal, Oropharynx moist, No oral exudates, Nose normal. Neck- Normal range of motion, No tenderne ss, Supple. Patient talks with a hoarseness. Eyes: PERRL, EOMI, Conjunctiva normal,. Cardiovascular: Regular rate and rhythm without clicks, rubs, gallops or murmurs. Respiratory: Diminished breath sounds bilaterally, mild respiratory distress noted, the patient does have minimal wheezing, no rhonchi or crackles noted. GI: Soft, nontender, no evidence of guarding or peritoneal signs. Bowel sounds are active. Musculoskeletal: Good range of motion in all major joints. No tenderness to palpation or major deformities noted. Diminished however equal strength noted to the lower extremities. The patient does have +4-5 strength of the upper tremors bilaterally.. Integument: Warm, Dry, No erythema, No rash. No edema. Neurologic: Alert & oriented x 3, Normal sensory function, No focal deficits noted. CN II-XII grossly intact. - General Limitations: no limitations General appearance: alert, in no apparent distress Course Vital Signs Temperature 98.2 F 09/30/18 12:14 Pulse Rate 96 09/30/18 12:14 Respiratory Rate 18 09/30/18 12:14 Blood Pressure 93/66 09/30/18 12:14 O2 Sat by Pulse Oximetry 92 09/30/18 12:14 Temperature 98.2 F 09/30/18 12:14 Pulse Rate 74 09/30/18 16:04 Respiratory Rate 29 09/30/18 16:04 Blood Pressure 87/53 09/30/18 16:04 O2 Sat by Pulse Oximetry 96 09/30/18 16:04 Oxygen Delivery Oxygen Delivery Nasal Cannula Medical Decision Making - [facility] Narrative Medical decision making narrative: EKG was obtained that showed evidence of what appears to be paced rhythm at 115 beats a minute, possibly atrial fibrillation however there is a severe and significant amount of artifact seen on EKG. This could be an atrial sensed ventricular paced rhythm. Patient appears to have LVH by voltage criteria. QTc appears to be prolonged at 514 ms. Interpreted by myself. Patient was noted to be somewhat hypotensive upon arrival, patient was started on IV fluids here in the emergency room. Patient was given 2 L of fluid here in the emergency room, blood pressure is stabilized in the emergency room. The patient does have what appears to be acute renal failure most likely prerenal failure. The patient also appears to have pneumonia superimposed on COPD changes on chest x-ray. Blood cultures have been obtained. The patient was given IV antibiotics, blood cultures were obtained as well. The patient at this point time is going to be admitted, case was discussed with the hospitalist and the patient will be admitted in stable condition to the floor. Patient does have a somewhat elevated CPK level. The patient did have a CT scan of the lumbar spine did not show any acute findings that could cause his lower back discomfort. The patient will be admitted for further evaluation and care. The patient will be admitted to a floor bed in otherwise stable condition. At this point in TIME CRITICAL CARE TIME OF 35 MINUTES PERFORMING THIS INDIVIDUAL OUTSIDE OF SEPARATELY BILLABLE PROCEDURES. THIS INCLUDES BEDSIDE EVALUATION, INTERPRETATION OF EKG AND LAB TESTS AND CONSULTATIONS. Final impression 1. Bilateral pneumonia 2. Acute renal failure 3. Dehydration 4. Hypotension resolved - Lab Data Result diagrams: 09/30/18 12:15 09/30/18 12:15 Lab Results 09/30/18 09/30/18 09/30/18 Range/Units 12:15 12:15 12:15 WBC 11.7 H (4.3-11.1) K/mcL RBC 3.72 L (4.19-5.50) M/mcL Hgb 11.3 L (12.9-16.9) g/dL Hct 37.6 (37.5-50.1) % MCV 101.1 H (83.0-100.0) fL MCH 30.4 (28.0-33.3) pg MCHC 30.1 L (31.6-35.5) g/dL RDW 13.6 (11.5-14.5) % Plt Count 246 (140-400) K/mcL MPV 10.5 (9.4-12.4) fL Immature Gran % 0.3 (0-4) % Seg Neutrophils % 81.8 % Lymphocytes % 11.1 % Monocytes % 6.7 % Eosinophils % 0.0 % Basophils % 0.1 % Neutrophils # 9.5 H (1.6-8.9) K/mcL Lymphocytes # 1.3 (0.6-4.6) K/mcL Monocytes # 0.8 (0.0-1.3) K/mcL Eosinophils # 0.0 (0.0-0.6) K/mcL Basophils # 0.0 (0.0-0.2) K/mcL Sodium 140 (136-145) mEq/L Potassium 4.4 (3.5-5.1) mEq/L Chloride 96 L (98-107) mEq/L Carbon Dioxide 37 H (23-29) mEq/L BUN 68 H (8-23) mg/dL Creatinine 2.35 H (0.70-1.30) mg/dL Est GFR ( Amer) 33 L (> 60) Est GFR (Non-Af Amer) 27 L (> 60) BUN/Creatinine Ratio 29 H (6-26) Glucose 114 H (70-105) mg/dL Calculated Osmolality 311 H (280-300) Lactic Acid 1.5 (0.5-2.2) mmol/L Calcium 9.3 (8.6-10.3) mg/dL Total Bilirubin 0.4 (0.3-1.0) mg/dL AST 89 H (13-39) Units/L ALT 28 (7-52) Units/L Alkaline Phosphatase 55 (34-104) Units/L Creatine Kinase 1485 H (30-223) Units/L Troponin I 0.03 (< 0.04) ng/mL Serum Total Protein 6.8 (6.4-8.9) g/dL Albumin 2.9 L (3.5-5.7) g/dL Globulin 3.9 H (2.4-3.5) g/dL Albumin/Globulin Ratio 0.7 L (1.1-2.2)
[2018-09-30 12:50] LABS: Basophils % 0.1 %; Hematocrit 37.6 % (37.5-50.1); Hemoglobin 11.3 g/dL (12.9-16.9); Immature Granulocytes % 0.3 % (0-4); Lymphocytes # 1.3 K/mcL (0.6-4.6); Lymphocytes % 11.1 %; Mean Corpuscular HGB Conc 30.1 g/dL (31.6-35.5); Mean Corpuscular Hemoglobin 30.4 pg (28.0-33.3); Mean Corpuscular Volume 101.1 fL (83.0-100.0); Mean Platelet Volume 10.5 fL (9.4-12.4); Monocytes # 0.8 K/mcL (0.0-1.3); Monocytes % 6.7 %; Neutrophils # 9.5 K/mcL (1.6-8.9); Platelet Count 246 K/mcL (140-400); Red Blood Count 3.72 M/mcL (4.19-5.50); Red Cell Distribution Width 13.6 % (11.5-14.5); Segmented Neutrophils % 81.8 %; White Blood Count 11.7 K/mcL (4.3-11.1)
[2018-09-30 13:11] LABS: Albumin 2.9 g/dL (3.5-5.7); Albumin/Globulin Ratio 0.7 (1.1-2.2); Bilirubin,Total 0.4 mg/dL (0.3-1.0); Calcium 9.3 mg/dL (8.6-10.3); Globulin 3.9 g/dL (2.4-3.5); Potassium 4.4 mEq/L (3.5-5.1); Total Protein 6.8 g/dL (6.4-8.9); Troponin I 0.03 ng/mL (< 0.04)
[2018-09-30] MEDS ORDERED: Azithromycin 500 MG in D5% in Water 250 ML IVPB ONE (15:04)
[2018-09-30] MEDS ORDERED: cefTRIAXone 1,000 MG in Water for inj. (sterile) 20 ML 10 ML IVP ONE (15:04)
[2018-09-30] MEDS ORDERED: Naloxone 0.4 MG/ML INJ IVP PRN (18:23)
[2018-09-30] MEDS ORDERED: Ondansetron 4 MG/2 ML VIAL IVP PRN (18:23)
--- NOTE | 2018-09-30 18:53 | Internal Med History&Physical ---
Date of Encounter: 09/30/18 Time of Encounter: 18:51 Internal Medicine - H&P: HPI Chief complaint: Weekness History of present illness: Robert is a 78 year old male with history of CHF, COPD on baseline 2.5 L oxygen who was just D/C from the hospital after he was treated for COPD exacerbation and acute respiratory failure who presented with generalized weakness for the last 3 days of reported he could not move from the couch. He also complained of lower back pain. The patient chronically short of breath and on home oxygen. The patient was noted to be hypotensive upon arrival and clinical condition met SIRS criteria. Discussed with ER attending placement of central line, however he felt that the patient is responsive to fluid. Laboratory data of the patient revealed leukocytosis, acute kidney injury, and elevated CPK level. Chest x-ray revealed pneumonia superimposed on COPD changes. Blood cultures have been obtained the patient was started on empiric antibiotics with azithromycin and ceftriaxone. While evaluating the patient at bedside he become hypotensive with blood pressure in the range of 70/40, fluid bolus was given and blood pressure improved to 90/50. The patient is non verbal. I signed the patient out to night team to closely monitor the patient in case of the need for pressor support. Past Med Surg Social Fam HX - Past Medical History Medical history: cancer, cardiomyopathy, CHF, COPD, coronary artery disease, hepatitis, hyperlipidemia, liver disease, other Additional medical history: Prostate, Hep C Psychiatric history: anxiety, depression, prior suicide attempt - Past Surgical History Surgical History: pacemaker/AICD Additional surgical history: prostate surgery, urethrotomy - Social History Smoking Status: Current every day smoker Smokeless Tobacco Status: No Alcohol use: none Drug use: none - Family History Father Adopted: No Hx Family Cardiac Disorders: Yes Mother Living Status: Hx Family Cardiac Disorders: Yes ([place]) Hx Family Respiratory Disorders: No Hx Family Cancer: No Hx Family GI Disorders: No Hx Family Endocrine Disorder: Yes (grandpa dm) Hx Family Neuromuscular Disorders: No Hx Family Neurologic Disorders: Yes (CVA) Hx Family HEENT Disorders: No Hx Family Autoimmune Disorders: No Internal Medicine - H&P: Meds Aspirin Enteric Coated [Aspirin EC] 81 mg PO DAILY #0 12/07/14 [History] Nitroglycerin 0.4 mg SL Q5MIN PRN #0 tab.subl 08/04/15 [Rx] Spironolactone [Aldactone] 12.5 mg PO DAILY #30 tablet 08/04/15 [Rx] Omeprazole [PriLOSEC] 20 mg PO DAILY 10/28/15 [History] Losartan [Cozaar] 25 mg PO DAILY 10/05/17 [History] Mirtazapine [Remeron] 30 mg PO HS 10/05/17 [History] Paroxetine HCl [Paxil] 20 mg PO QAM 10/05/17 [History] Primidone [Mysoline] 50 mg PO DAILY 10/05/17 [History] Tamsulosin [Flomax] 0.4 mg PO HS 10/05/17 [History] Megestrol Acetate 20 mg PO BID 02/03/18 [History] Simvastatin [Zocor] 40 mg PO HS 02/03/18 [History] traZODone [TraZODone] 50 mg PO HS PRN 02/03/18 [History] Ipratropium/Albuterol Neb [Duoneb] 3 ml IH [id number] PRN #120 inhsol 07/26/18 [Rx] Albuterol Sulfate [Ventolin Hfa] 1 puff IH Q4H PRN 09/12/18 [History] Fluticasone/Vilanterol [Breo Ellipta 200-25 Mcg INH] 1 puff IH QAM 09/12/18 [History] Metoprolol XL (24 HR) Succ [Toprol XL] 50 mg PO DAILY #30 tab.er.24h 09/16/18 [Rx] Allergy/AdvReac Type Severity Reaction Status Date / Time No Known Allergies Allergy Verified 09/12/18 18:07 ROS unobtainable: due to mental status - Constitutional Vitals: Temp Pulse Resp BP Pulse Ox 98.2 F 97 30 91/50 100 09/30/18 12:14 09/30/18 17:13 09/30/18 17:13 09/30/18 17:13 09/30/18 17:13 General appearance: Present: cachectic, disheveled Exam: ` - Head Head exam: Present: atraumatic, normocephalic - Neck Neck exam general surgery: Present: supple, trachea midline. Absent: lymphadenopathy - Respiratory Respiratory exam: Present: rhonchi, wheezes. Absent: accessory muscle use - Cardiovascular Cardiovascular exam: Present: RRR, +S1, +S2. Absent: diastolic murmur, gallop, rubs, systolic murmur - GI/Abdominal GI/Abdominal exam: Present: normal bowel sounds, soft, no peritoneal signs. Absent: distended, tenderness - Extremities Exam Extremities exam: Present: warm, radial pulses palpable and symmetrical. Absent: calf tenderness, cyanotic, pedal edema Internal Med - H&P Results - Labs CBC & Chem 7: 10/07/18 05:34 10/07/18 05:34 Labs: Short CBC 09/30/18 Range/Units 12:15 WBC 11.7 H (4.3-11.1) K/mcL Hgb 11.3 L (12.9-16.9) g/dL Hct 37.6 (37.5-50.1) % Plt Count 246 (140-400) K/mcL Neutrophils # 9.5 H (1.6-8.9) K/mcL BMP 09/30/18 12:15 Sodium 140 Potassium 4.4 Chloride 96 L Carbon Dioxide 37 H BUN 68 H Creatinine 2.35 H Glucose 114 H Calcium 9.3 Cardiac Enzymes 09/30/18 Range/Units 12:15 Troponin I 0.03 (< 0.04) ng/mL Liver Function 09/30/18 Range/Units 12:15 Total Bilirubin 0.4 (0.3-1.0) mg/dL AST 89 H (13-39) Units/L ALT 28 (7-52) Units/L Alkaline Phosphatase 55 (34-104) Units/L Albumin 2.9 L (3.5-5.7) g/dL - Impressions ITS Impressions Chest X-Ray 09/30/18 12:32 IMPRESSION: Multifocal airspace disease compatible with pneumonia on a background of COPD D/ / Michael Thomas MD / Michael Thomas MD Interpreting Provider: Michael Thomas MD Lumbar Spine CT 09/30/18 12:34 IMPRESSION: Partially imaged bibasilar lung consolidation and trace left pleural effusion. Differential includes aspiration and/or pneumonia. L5-S1 spondylolisthesis with moderate bilateral foraminal stenosis. D/ / 09/30/2018 13:17:13 Christopher Najera MD / carlos Interpreting Provider: Christopher Najera MD - Assessment and Plan (1) Sepsis Current Visit: No Status: Resolved Assessment and plan: Most likely 2/2 Pneumonia Risk for: Pseudomonas- previous ABx Tx Structural lung dz Nosocomial infection MRSA- Hospital stay -Aerosols UD q 4 hr, Robitussin -UA -CBCD, BMP in AM -CPP x 1 more, 8 hr after the 1st one -EKG now and in AM -Tylenol 650 mg PO q 4-6 hr PRN pain or fever -Protonix 40 mg IV QD -Heparin 5000 U SQ BID Qualifiers: Sepsis type: sepsis due to unspecified organism Qualified Code(s): A41.9 - Sepsis, unspecified organism (2) Hospital acquired PNA Current Visit: Yes Status: Acute Assessment and plan: - We will change ABs regimen to Vanc and zosyn - Blood Cx - Urine Legionella antigen - Antibiotics, - CBCD, CMP in AM - Tylenol 650 mg PO q 4-6 hr PRN pain or fever - Heparin 5000 U SQ BID (3) Acute renal failure (ARF) Current Visit: Yes Status: Acute Assessment and plan: Most likely secondary to intravascular volume depletion in the setting of decreased oral intake, and underlying infectious process due to sepsis CPK level is elevated, rhabdomyolysis and pigment nephropathy cannot be excluded however less likely with that level of CPK. We will trend CPK, new cautious IV hydration in the setting of history of diastolic congestive heart failure. Qualifiers: Acute renal failure type: unspecified Qualified Code(s): N17.9 - Acute kidney failure, unspecified (4) COPD (chronic obstructive pulmonary disease) Current Visit: No Status: Chronic Assessment and plan: There is possible exacerbation caused by URTI- infiltrate on CXR PLAN: - Aerosols q 4 hr and PRN SOB - Solu-medrol 40 mg IV q 6 hr - O2 to keep SpO2 higher than 92% (SpO higher than 95% if CAD) - Sputum Gram stain, C+S Qualifiers: COPD type: unspecified COPD Qualified Code(s): J44.9 - Chronic obstructive pulmonary disease, unspecified (5) Elevated CPK Current Visit: Yes Status: Resolved Assessment and plan: We will trend CPK level, continue cautious hydration with isotonic saline (6) Diastolic CHF Current Visit: Yes Status: Chronic Assessment and plan: Last echo obtained revealed diastolic CHF , patient is meeting SIRS criteria, we will cont cautious IV fluid hydration. Qualifiers: Heart failure chronicity: chronic Qualified Code(s): I50.32 - Chronic diastolic (congestive) heart failure (7) Depression Current Visit: No Status: Chronic Qualifiers: Depression Type: unspecified Qualified Code(s): F32.9 - Major depressive disorder, single episode, unspecified - Time Spent With Patient Total time spent is greater than 50% in coordination of care (as documented) at patient's floor/unit and/or counseling patient:
[2018-09-30] MEDS: 0.9 % Sodium Chloride 1,000 ML IVC SCH (19:00)
[2018-09-30] MEDS ORDERED: Vancomycin (wt based) 1,000 MG VIAL IVPB SCH (19:00)
[2018-09-30] MEDS ORDERED: Ipratropium/Albuterol Neb 3 ML ONE (20:02)
[2018-09-30] MEDS: Ipratropium/Albuterol Neb 3 ML IH SCH ×2 (20:06→22:35)
[2018-09-30 20:53] LABS: Basophils % 0.2 %; Hemoglobin 10.1 g/dL (12.9-16.9); Immature Granulocytes % 0.5 % (0-4); Lymphocytes # 1.2 K/mcL (0.6-4.6); Lymphocytes % 13.2 %; Mean Corpuscular HGB Conc 29.7 g/dL (31.6-35.5); Mean Corpuscular Hemoglobin 30.3 pg (28.0-33.3); Mean Corpuscular Volume 102.1 fL (83.0-100.0); Mean Platelet Volume 10.9 fL (9.4-12.4); Monocytes # 0.7 K/mcL (0.0-1.3); Monocytes % 7.5 %; Neutrophils # 7.3 K/mcL (1.6-8.9); Platelet Count 227 K/mcL (140-400); Red Blood Count 3.33 M/mcL (4.19-5.50); Red Cell Distribution Width 13.8 % (11.5-14.5); Segmented Neutrophils % 78.6 %; White Blood Count 9.3 K/mcL (4.3-11.1)
[2018-09-30 21:03] LABS: Activated Partial Thrombo Time 32.1 Seconds (26.0-36.0)
[2018-09-30 21:05] LABS: Albumin 2.7 g/dL (3.5-5.7); Albumin/Globulin Ratio 0.8 (1.1-2.2); Bilirubin,Indirect 0.3 mg/dL (0.0-1.2); Bilirubin,Total 0.3 mg/dL (0.3-1.0); Calcium 8.4 mg/dL (8.6-10.3); Globulin 3.6 g/dL (2.4-3.5); Potassium 4.4 mEq/L (3.5-5.1); Total Protein 6.3 g/dL (6.4-8.9); Troponin I 0.03 ng/mL (< 0.04)
[2018-09-30] MEDS: Piperacillin/Tazobactam 3.375 GM in 0.9 % Sodium Chloride Mini Bag 100 ML IVPB SCH (22:36)
[2018-09-30] MEDS: MethylPREDNISolone 40 MG/ML VIAL IVP SCH (22:37)
--- NOTE | 2018-09-30 23:15 | Event Note ---
<Nikhil Jarrell - Last Filed: 09/30/18 23:25> Date of Encounter: 09/30/18 Time of Encounter: 21:05 Mr. Jones is a 78-year-old male with a PMH of CHF, COPD, CAD, HLD, hepatitis, who presented to [facility] ED on 09/30/18 with chief complaint of generalized weakness for 3 days. He was reportedly unable to move from the couch. He was recently discharged from the hospital, being treated for pneumonia and COPD exacerbation. On arrival, his vital signs were significant for a low BP of 93/66, and an elevated HR of 96 bpm. All other vitals were within normal limits. He was satting at 92% on 3 L via nasal cannula. He normally wears 2.5 L of oxygen at home. Labs were significant for Hb of 10.1, which appears to be baseline, creatinine 1.5, CK 1485, pro-calcitonin 4.92, lactic acid 2.4. CXR demonstrated possible pneumonia with COPD changes. He was initially started on Rocephin and Zithromax. His blood pressure dropped to the 70s over 40s when he was assessed by the admitting hospitalist. He was subsequently treated with a fluid bolus, and his pressure increased to 90s over 50s. Patient will be admitted for sepsis secondary to pneumonia and MAGGI. His MAGGI is likely prerenal in the setting of decreased oral intake and sepsis. He has been started on duo nebs, 40 mg IV Solu-Medrol every 6 hours, vancomycin, and Zosyn. Patient is being given gentle IV fluid hydration in the setting of diastolic CHF. Patient was seen and examined at bedside. He is nonverbal and nonconversant on exam. Currently on supplemental O2 via nasal cannula; does not appear to be in any distress at this time. On physical examination, he has diminished breath sounds any shortened inspiratory phase with faint crackles bilaterally. No signs of volume overload. We will continue to closely monitor patient. <Breezy Hernandez - Last Filed: 10/01/18 00:21> Date of Encounter: 10/01/18 Discussed the patient with the resident and independently examined the patient. I did discuss this patient with the daytime hospitalist. Agree with the resident findings above. Overall the patient appears to be improving. Blood pressure is stable and is not requiring any vasopressor therapy. Continue to closely monitor patient's vital signs.
[2018-10-01 01:01] LABS: Basophils % 0.1 %; Eosinophils % 0.1 %; Hematocrit 31.5 % (37.5-50.1); Hemoglobin 9.3 g/dL (12.9-16.9); Immature Granulocytes % 0.3 % (0-4); Lymphocytes # 0.5 K/mcL (0.6-4.6); Lymphocytes % 7.9 %; Mean Corpuscular HGB Conc 29.5 g/dL (31.6-35.5); Mean Corpuscular Hemoglobin 30.8 pg (28.0-33.3); Mean Corpuscular Volume 104.3 fL (83.0-100.0); Mean Platelet Volume 10.5 fL (9.4-12.4); Monocytes # 0.3 K/mcL (0.0-1.3); Monocytes % 4.3 %; Neutrophils # 5.9 K/mcL (1.6-8.9); Platelet Count 196 K/mcL (140-400); Red Blood Count 3.02 M/mcL (4.19-5.50); Red Cell Distribution Width 13.7 % (11.5-14.5); Segmented Neutrophils % 87.3 %; White Blood Count 6.8 K/mcL (4.3-11.1)
[2018-10-01 01:08] LABS: Prothrombin Time 11.8 Seconds (9.4-12.1)
[2018-10-01 01:11] LABS: Activated Partial Thrombo Time 34.3 Seconds (26.0-36.0)
[2018-10-01 01:19] LABS: Albumin 2.4 g/dL (3.5-5.7); Albumin/Globulin Ratio 0.7 (1.1-2.2); Bilirubin,Total 0.3 mg/dL (0.3-1.0); Calcium 7.9 mg/dL (8.6-10.3); Chol/HDL Ratio 4.8 (0-4.9); Globulin 3.3 g/dL (2.4-3.5); Magnesium 2.2 mg/dL (1.6-2.6); Phosphorous 3.1 mg/dL (2.7-4.5); Total Protein 5.7 g/dL (6.4-8.9)
[2018-10-01] MEDS: Ipratropium/Albuterol Neb 3 ML IH SCH ×4 (04:03→22:38)
[2018-10-01] MEDS: MethylPREDNISolone 40 MG/ML VIAL IVP SCH (05:03)
[2018-10-01 05:21] LABS: Bilirubin,Urine Small (Negative); Blood,Urine Negative (Negative); Clarity,Urine Cloudy (Clear); Color,Urine Dark Yellow (Yellow); Glucose,Urine (UA) Normal (Normal); Ketones,Urine Negative (Negative); Leukocyte Esterase,Urine Negative (Negative); Nitrite,Urine Negative (Negative); PH,Urine 5.5 pH Units (5.0-8.0); Protein,Urine Trace mg/dL (Neg-Trace); Specific Gravity,Urine 1.019 (1.010-1.025); Urobilinogen,Urine Normal (Normal)
[2018-10-01 05:23] LABS: Hyaline Casts,Urine None Seen per lpf (None-Few); RBC,Urine 0-3 per hpf (0-3); Squamous Epithelial Cell,Urine Many per lpf (None-Few); WBC,Urine 0-3 per hpf (0-3)
[2018-10-01 06:01] LABS: Bacteria,Urine Moderate per hpf (None-Few); Yeast,Urine Few per hpf (None Seen)
[2018-10-01] MEDS: 0.9 % Sodium Chloride 1,000 ML IVC SCH ×2 (06:05→10:56)
[2018-10-01 08:35] LABS: Troponin I 0.03 ng/mL (< 0.04)
[2018-10-01] MEDS: Piperacillin/Tazobactam 3.375 GM in 0.9 % Sodium Chloride Mini Bag 100 ML IVPB SCH ×2 (09:08→16:37)
--- NOTE | 2018-10-01 09:21 | Internal Med Progress Note ---
Hospitalist Progress Note - Encounter Date of Encounter: 10/01/18 Time of Encounter: 09:18 - Subjective Interval History: Patient seen and examined earlier this morning with RN present at bedside. Resting in bed and somnolent. He is easily arousable and currently oriented to self and place, which appears to be improvement compared to previous day as per medical records. Pt was recently discharged to home with oral antibiotics for aspiration PNA and was admitted in the same condition as this time. He lives alone and appears to not be able to take care of himself. Will obtain high school social studies tutor evaluation. He did not complain of any pain at this time, however he is somnolent and continues to fall asleep during my evaluation. He is on 3L nasal cannula at home. Reported hx of alcohol abuse, however unable to verify this information at this time. - Exam Vitals: Temp Pulse Resp BP Pulse Ox 97.8 F 74 18 121/66 99 10/01/18 07:13 10/01/18 07:46 10/01/18 07:13 10/01/18 07:13 10/01/18 07:13 Exam: General: No acute distress, AAO x 2, somnolent, diffuse essential tremors in bilateral upper extremities HEENT: EOMI, PERRLA, NC/AT, no scleral icterus Respiratory: Diminished breath sounds, no wheezing, no rales Cardiovascular: Regular, Rate, Rhythm, No murmurs GI: Soft, Non tender, non distended, normal bowel sounds Ext: No edema, no tenderness, positive pulses Neuro: AAO x 2, no focal deficits Rest of the clinical exam is noncontributory - Assessment and Plan (1) Sepsis Current Visit: No Status: Acute Assessment and Plan: Likely secondary to HCAP/Aspiration PNA will continue broad spectrum IV abx f/u respiratory infection panel f/u speech therapy evaluation prior to advancing diet maintain aspiration precautions continue gentle IV fluid resuscitation f/u blood cultures sepsis resolved at this time (2) Hospital acquired PNA Current Visit: Yes Status: Acute Assessment and Plan: Ur. Legionella ag negative continue broad spectrum IV abx at this time will closely monitor respiratory status (3) COPD (chronic obstructive pulmonary disease) Current Visit: No Status: Acute Assessment and Plan: Does not appear to be in acute exacerbation patient recently finished steroid course for COPD exacerbation during his last hospitalization(two weeks ago) will d/c IV steroids and closely monitor continue bronchodilator support (4) Acute renal failure (ARF) Current Visit: Yes Status: Acute Assessment and Plan: likely prerenal secondary to poor PO intake improved from previous day will continue gentle IV fluid resuscitation hold all nephrotoxic agents at this time renally dosing IV abx will closely monitor for signs of volume overload given hx of CHF closely monitor renal function (5) Elevated CPK Current Visit: Yes Status: Acute Assessment and Plan: Improved from previous day will continue to monitor PT/OT eval prior to discharge (6) Diastolic CHF Current Visit: Yes Status: Acute Assessment and Plan: No clinical signs of CHF exacerbation will continue gentle IV fluid resuscitation at this time will hold diuretic therapy but start all other home CHF meds after verification Will closely monitor for signs of volume overload (7) Alcoholism Current Visit: No Status: Chronic Assessment and Plan: reported history no clinical signs of withdrawal present at this time, but will closely monitor continue Folate and Thiamine supplementation (8) Depression Current Visit: No Status: Chronic Assessment and Plan: Will restart home medications after verification DVT Prophylaxis: Heparin SQ - Summary of Assessment and Plan Summary of Assessment and Plan: awaiting home medication reconciliation, will restart necessary home meds after verification - Time Spent with Patient Total time spent is greater than 50% in coordination of care (as documented) at patient's floor/unit and/or counseling patient: Plan of Care Discussed with: patient (patient/RN/case management) Internal Medicine: Result - Labs CBC & Chem 7: 10/01/18 00:39 10/01/18 00:39 Labs: Short CBC 09/30/18 09/30/18 10/01/18 Range/Units 12:15 20:06 00:39 WBC 11.7 H 9.3 6.8 (4.3-11.1) K/mcL Hgb 11.3 L 10.1 L 9.3 L (12.9-16.9) g/dL Hct 37.6 34.0 L 31.5 L (37.5-50.1) % Plt Count 246 227 196 (140-400) K/mcL Neutrophils # 9.5 H 7.3 5.9 (1.6-8.9) K/mcL BMP 09/30/18 09/30/18 10/01/18 12:15 20:06 00:39 Sodium 140 140 141 Potassium 4.4 4.4 4.0 Chloride 96 L 103 103 Carbon Dioxide 37 H 31 H 31 H BUN 68 H 61 H 57 H Creatinine 2.35 H 1.85 H 1.67 H Glucose 114 H 108 H 157 H Calcium 9.3 8.4 L 7.9 L Cardiac Enzymes 09/30/18 09/30/18 10/01/18 Range/Units 12:15 20:06 00:39 Troponin I 0.03 0.03 0.03 (< 0.04) ng/mL 10/01/18 Range/Units 07:53 Troponin I 0.03 (< 0.04) ng/mL Liver Function 09/30/18 09/30/18 10/01/18 Range/Units 12:15 20:06 00:39 Total Bilirubin 0.4 0.3 0.3 (0.3-1.0) mg/dL Direct Bilirubin 0.0 (0.0-0.2) mg/dL AST 89 H 68 H 58 H (13-39) Units/L ALT 28 24 24 (7-52) Units/L Alkaline Phosphatase 55 55 48 (34-104) Units/L Albumin 2.9 L 2.7 L 2.4 L (3.5-5.7) g/dL Urine 10/01/18 Range/Units 05:13 Urine Color Dark Yellow (Yellow) Urine Clarity Cloudy A (Clear) Urine pH 5.5 (5.0-8.0) pH Units Ur Specific [place] 1.019 (1.010-1.025) Urine Protein Trace (Neg-Trace) mg/dL Urine Glucose (UA) Normal (Normal) mg/dL - ABG Interpretation ABG results: PT/INR, D-dimer PT 11.8 Seconds (9.4-12.1) 10/01/18 00:39 - Impressions Impressions Chest X-Ray 09/30/18 12:32 IMPRESSION: Multifocal airspace disease compatible with pneumonia on a background of COPD D/ / Michael Thomas MD / Michael Thomas MD Interpreting Provider: Michael Thomas MD Lumbar Spine CT 09/30/18 12:34 IMPRESSION: Partially imaged bibasilar lung consolidation and trace left pleural effusion. Differential includes aspiration and/or pneumonia. L5-S1 spondylolisthesis with moderate bilateral foraminal stenosis. D/ / 09/30/2018 13:17:13 Christopher Najera MD / carlos Interpreting Provider: Christopher Najera MD Chest X-Ray 09/30/18 20:05 IMPRESSION: Chronic pulmonary change with bibasilar effusions and adjacent bibasilar infiltrates representing atelectasis versus pneumonia. D/ / yT Kate / Ty Kate Interpreting Provider: Ty Kate Consult Discharge Plan - Plan Referrals: NONE,PCP [Primary Care Provider] - (1) Sepsis Qualifiers: Sepsis type: sepsis due to unspecified organism (3) COPD (chronic obstructive pulmonary disease) Qualifiers: COPD type: unspecified COPD Qualified Code(s): J44.9 - Chronic obstructive pulmonary disease, unspecified (4) Acute renal failure (ARF) Qualifiers: Acute renal failure type: unspecified Qualified Code(s): N17.9 - Acute kidney failure, unspecified (6) Diastolic CHF Qualifiers: Heart failure chronicity: chronic Qualified Code(s): I50.32 - Chronic diastolic (congestive) heart failure (8) Depression Qualifiers: Depression Type: unspecified
[2018-10-01] MEDS: Folic Acid 1 MG TABLET PO SCH (10:56)
[2018-10-01] MEDS: Thiamine (B-1) 100 MG TABLET PO SCH (10:56)
[2018-10-01 16:04] LABS: Adenovirus Not Detected (Not Detect); Bordetella Pertussis Not Detected (Not Detect); Chlamydophila pneumoniae Not Detected (Not Detect); Coronavirus 229E Not Detected (Not Detect); Coronavirus HKU1 Not Detected (Not Detect); Coronavirus NL63 Not Detected (Not Detect); Coronavirus OC43 Not Detected (Not Detect); Human Metapneumovirus Not Detected (Not Detect); Human Rhinovirus/Enterovirus Not Detected (Not Detect); Influenza A Subtype 2009 H1 Not Detected (Not Detect); Influenza A Untypeable Not Detected (Not Detect); Influenza B Not Detected (Not Detect); Mycoplasma pneumoniae Not Detected (Not Detect); Parainfluenza Virus 1 Not Detected (Not Detect); Parainfluenza Virus 2 Not Detected (Not Detect); Parainfluenza Virus 3 Not Detected (Not Detect); Parainfluenza Virus 4 Not Detected (Not Detect); Respiratory Syncytial Virus Not Detected (Not Detect)
[2018-10-01] MEDS: *HR* Heparin 5,000 UNIT/ML VIAL SQ SCH (17:27)
[2018-10-02] MEDS: Piperacillin/Tazobactam 3.375 GM in 0.9 % Sodium Chloride Mini Bag 100 ML IVPB SCH ×3 (00:07→16:11)
[2018-10-02] MEDS: Ipratropium/Albuterol Neb 3 ML IH SCH ×4 (03:40→22:14)
[2018-10-02 04:38] LABS: Basophils % 0.1 %; Eosinophils % 0.1 %; Hematocrit 28.8 % (37.5-50.1); Hemoglobin 8.7 g/dL (12.9-16.9); Immature Granulocytes % 0.9 % (0-4); Lymphocytes # 1.4 K/mcL (0.6-4.6); Lymphocytes % 20.4 %; Mean Corpuscular HGB Conc 30.2 g/dL (31.6-35.5); Mean Corpuscular Hemoglobin 30.4 pg (28.0-33.3); Mean Corpuscular Volume 100.7 fL (83.0-100.0); Mean Platelet Volume 10.4 fL (9.4-12.4); Monocytes # 0.7 K/mcL (0.0-1.3); Monocytes % 10.5 %; Neutrophils # 4.7 K/mcL (1.6-8.9); Platelet Count 218 K/mcL (140-400); Red Blood Count 2.86 M/mcL (4.19-5.50); Red Cell Distribution Width 13.7 % (11.5-14.5); White Blood Count 6.9 K/mcL (4.3-11.1)
[2018-10-02 04:57] LABS: Calcium 8.1 mg/dL (8.6-10.3); Magnesium 2.2 mg/dL (1.6-2.6); Phosphorous 2.6 mg/dL (2.7-4.5); Potassium 4.2 mEq/L (3.5-5.1)
[2018-10-02] MEDS: 0.9 % Sodium Chloride 1,000 ML IVC SCH (06:07)
[2018-10-02] MEDS: *HR* Heparin 5,000 UNIT/ML VIAL SQ SCH ×2 (06:07→17:11)
[2018-10-02] MEDS: Folic Acid 1 MG TABLET PO SCH (08:43)
[2018-10-02] MEDS: Thiamine (B-1) 100 MG TABLET PO SCH (08:43)
--- NOTE | 2018-10-02 10:04 | Internal Med Progress Note ---
Hospitalist Progress Note - Encounter Date of Encounter: 10/02/18 Time of Encounter: 09:45 - Subjective Interval History: Patient seen and examined at bedside. Patient resting in bed and is AAO x 3. He denies any shortness of breath or pain but states he feels too weak to even take care of himself. He expressed to the RN that he wishes to . I had an extensive conversation with him in regards to that statement. He states he wants to get better but feels too weak and debilitated to even take care of himself so does not know what to do. Patient is willing to go to SNF and get help to get better. He wants to be compliant with his medications but states because of him feeling so weak, he hasn't been able to take them. No overnight events reported. Ten point ROS is negative except as listed above - Exam Vitals: Temp Pulse Resp BP Pulse Ox 97.8 F 75 18 116/62 97 10/02/18 06:39 10/02/18 06:39 10/02/18 06:39 10/02/18 06:39 10/02/18 06:39 Exam: General: No acute distress, AAO x 3, frail appearing elderly male HEENT: EOMI, NC/AT, no scleral icterus Respiratory: bibasilar rales, no wheezing, equal air entry bilaterally Cardiovascular: Regular, Rate, Rhythm, No murmurs GI: Soft, Non tender, non distended, normal bowel sounds Ext: No edema, no tenderness, positive pulses Neuro: AAO x 3, no focal deficits Rest of the clinical exam is noncontributory - Assessment and Plan (1) Sepsis Current Visit: No Status: Resolved Assessment and Plan: Likely secondary to HCAP/Aspiration PNA Sepsis resolved will continue IV abx Will d/c IV Vancomycin, continue IV Zosyn Respiratory infection panel: negative Speech therapy evaluation appreciated, diet started as per speech therapist's recommendations maintain aspiration precautions Blood cultures reporting no growth thus far (2) Hospital acquired PNA Current Visit: Yes Status: Acute Assessment and Plan: Ur. Legionella ag negative continue IV abx at this time will closely monitor respiratory status (3) COPD (chronic obstructive pulmonary disease) Current Visit: No Status: Chronic Assessment and Plan: Does not appear to be in acute exacerbation patient recently finished steroid course for COPD exacerbation during his last hospitalization(two weeks ago) continue bronchodilator support (4) Acute renal failure (ARF) Current Visit: Yes Status: Acute Assessment and Plan: likely prerenal secondary to poor PO intake improved from previous day will hold IV fluids at this time as patient is noted to have bibasilar rales on clinical exam with given hx of CHF. Pt is tolerating PO intake hold all nephrotoxic agents at this time renally dosing IV abx closely monitor renal function (5) Elevated CPK Current Visit: Yes Status: Acute Assessment and Plan: Improved from previous day will continue to monitor PT/OT eval appreciated, SNF recommended, case management consulted for placement on discharge (6) Diastolic CHF Current Visit: Yes Status: Chronic Assessment and Plan: No clinical signs of CHF exacerbation noted to have bibasilar rales on clinical exam will hold IV fluids at this time resume home medications after verification (7) Alcoholism Current Visit: No Status: Chronic Assessment and Plan: reported history no clinical signs of withdrawal present at this time, but will closely monitor continue Folate and Thiamine supplementation (8) Depression Current Visit: No Status: Chronic Assessment and Plan: Will restart home medications after verification DVT Prophylaxis: Heparin SQ - Summary of Assessment and Plan Summary of Assessment and Plan: awaiting home medication reconciliation, will restart necessary home meds after verification Will obtain palliative care evaluation to establish goals of care and code status - Time Spent with Patient Total time spent is greater than 50% in coordination of care (as documented) at patient's floor/unit and/or counseling patient: Plan of Care Discussed with: patient (patient/RN/pharmacist/case management) Internal Medicine: Result - Labs CBC & Chem 7: 10/02/18 04:09 10/02/18 04:09 Labs: Short CBC 10/02/18 Range/Units 04:09 WBC 6.9 (4.3-11.1) K/mcL Hgb 8.7 L (12.9-16.9) g/dL Hct 28.8 L (37.5-50.1) % Plt Count 218 (140-400) K/mcL Neutrophils # 4.7 (1.6-8.9) K/mcL BMP 10/02/18 04:09 Sodium 142 Potassium 4.2 Chloride 106 Carbon Dioxide 31 H BUN 54 H Creatinine 1.56 H Glucose 129 H Calcium 8.1 L - ABG Interpretation ABG results: PT/INR, D-dimer PT 11.8 Seconds (9.4-12.1) 10/01/18 00:39 Consult Discharge Plan - Plan Referrals: Lalito Pollack MD [Partnered Physician] - 10/09/18 10:15 am NONE,PCP [Primary Care Provider] - (1) Sepsis Qualifiers: Sepsis type: sepsis due to unspecified organism (3) COPD (chronic obstructive pulmonary disease) Qualifiers: COPD type: unspecified COPD Qualified Code(s): J44.9 - Chronic obstructive pulmonary disease, unspecified (4) Acute renal failure (ARF) Qualifiers: Acute renal failure type: unspecified Qualified Code(s): N17.9 - Acute kidney failure, unspecified (6) Diastolic CHF Qualifiers: Heart failure chronicity: chronic Qualified Code(s): I50.32 - Chronic diastolic (congestive) heart failure (8) Depression Qualifiers: Depression Type: unspecified
[2018-10-02] MEDS ORDERED: traZODone 50 MG TABLET PO PRN (10:19)
[2018-10-02] MEDS: Budesonide/Formoterol 160/4.5 1 PUFF INH IH SCH ×2 (11:43→22:14)
[2018-10-02] MEDS: Aspirin Enteric Coated 81 MG Tablet PO SCH (12:10)
--- NOTE | 2018-10-02 12:46 | Electrocardiograph Report ---
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
--- NOTE | 2018-10-02 16:25 | Palliative - Consult Note ---
Date of Encounter: 10/02/18 Time of Encounter: 03:30 - Assessment and Plan (1) Goals of care, counseling/discussion Current Visit: No Status: Acute Assessment and plan: Patient is knows to palliative care from 02/13/19, palliative care was consulted for similar reasons. At the time he decided to be DNRCCA and DNI, and was disch arged to rehab. Patient states he did not like rehab due to nonsmoking rule. today discussed goal of care. Patient confirmed DNRCCA/DNI code status. He is aware that he is even more debilitated now and is willing to go to rehab, and requested a nicotine patch to help with the craving. Discussed that with his severe protein caloric malnutrition and advanced COPD he would be a hospice candidate. Patient is willing to consider hospice if he fails to improve in rehab. Patient has a son Kristian Decker that is his NOK, and he agrees for son to be called to inform of decisions. Called pt's son, no response. voicemail left with call back number. (2) Depression Current Visit: No Status: Chronic Assessment and plan: Patient is on several medication at home, all were restarted. Qualifiers: Depression Type: major depressive disorder Major depression recurrence: recurrent Active/Remission status: currently active Major depression episode severity: severe Psychotic features: without psychotic features Qualified Code(s): F33.2 - Major depressive disorder, recurrent severe without psychotic features (3) Tobacco abuse Current Visit: No Status: Chronic Assessment and plan: patient smokes up to 1 ppd. Nicotine patch 21mg qd ordered. (4) Palliative care encounter Current Visit: Yes Status: Acute (5) COPD (chronic obstructive pulmonary disease) Current Visit: No Status: Chronic Qualifiers: COPD type: unspecified COPD Qualified Code(s): J44.9 - Chronic obstructive pulmonary disease, unspecified Palliative-CN HPI - Data of Consult Patient: known to practice within the last 3 years Consult date: 10/02/18 Requesting Physician: Patsy Preston MD Primary Care Provider: PCP NONE - Consult Narrative Palliative Care/Comfort Measures: Palliative care Reason for consult: goals of care History of present illness: Mr. Jones is a 78 year old male with history of CHF, COPD on baseline 2.5 L oxygen who was just D/C from the hospital after he was treated for COPD exacerbation and acute respiratory failure who presented with generalized weakness for the last 3 days. Patient lives alone and reports he is no longer able to care for self at home. Patient being treated for sepsis. Palliative care consult for [facility]. At the time of exam, patient was AAOx3, in bed, complaining of sacral pain, denies chest pain, cough, worsening SOB. He has good appetite, no nausea or vomiting. CC: Patsy Preston MD - Time Spent with Patient Time: Total time spent is greater than 50% in coordination of care (as documented) at patient's floor/unit and/or counseling patient: Past Med Surg Social Fam HX - Past Medical History Medical history: cancer, cardiomyopathy, CHF, COPD, coronary artery disease, hepatitis, hyperlipidemia, liver disease, other Additional medical history: Prostate, Hep C Psychiatric history: anxiety, depression, prior suicide attempt - Past Surgical History Surgical History: pacemaker/AICD Additional surgical history: prostate surgery, urethrotomy - Social History Smoking Status: Current every day smoker Smokeless Tobacco Status: No Alcohol use: none Drug use: none - Family History Father Adopted: No Hx Family Cardiac Disorders: Yes Mother Living Status: Hx Family Cardiac Disorders: Yes ([place]) Hx Family Respiratory Disorders: No Hx Family Cancer: No Hx Family GI Disorders: No Hx Family Endocrine Disorder: Yes (grandpa dm) Hx Family Neuromuscular Disorders: No Hx Family Neurologic Disorders: Yes (CVA) Hx Family HEENT Disorders: No Hx Family Autoimmune Disorders: No Medications and Allergies Aspirin Enteric Coated [Aspirin EC] 81 mg PO DAILY #0 12/07/14 [History] Nitroglycerin 0.4 mg SL Q5MIN PRN #0 tab.subl 08/04/15 [Rx] Spironolactone [Aldactone] 12.5 mg PO DAILY #30 tablet 08/04/15 [Rx] Omeprazole [PriLOSEC] 20 mg PO DAILY 10/28/15 [History] Losartan [Cozaar] 25 mg PO DAILY 10/05/17 [History] Mirtazapine [Remeron] 30 mg PO HS 10/05/17 [History] Paroxetine HCl [Paxil] 20 mg PO QAM 10/05/17 [History] Primidone [Mysoline] 50 mg PO DAILY 10/05/17 [History] Tamsulosin [Flomax] 0.4 mg PO HS 10/05/17 [History] Megestrol Acetate 20 mg PO BID 02/03/18 [History] Simvastatin [Zocor] 40 mg PO HS 02/03/18 [History] traZODone [TraZODone] 50 mg PO HS PRN 02/03/18 [History] Ipratropium/Albuterol Neb [Duoneb] 3 ml IH [id number] PRN #120 inhsol 07/26/18 [Rx] Albuterol Sulfate [Ventolin Hfa] 1 puff IH Q4H PRN 09/12/18 [History] Fluticasone/Vilanterol [Breo Ellipta 200-25 Mcg INH] 1 puff IH QAM 09/12/18 [History] Metoprolol XL (24 HR) Succ [Toprol XL] 50 mg PO DAILY #30 tab.er.24h 09/16/18 [Rx] Allergy/AdvReac Type Severity Reaction Status Date / Time No Known Allergies Allergy Verified 09/12/18 18:07 - Constitutional Constitutional ROS PAL: fatigue - EENT Additional comments: negative - Cardiovascular Cardiovascular ROS: dyspnea on exertion, no chest pain, no chest pain at rest - Respiratory Respiratory: dyspnea on exertion - Gastrointestinal Gastrointestinal: no abdominal pain, no change in bowel habits - Genitourinary Genitourinary ROS male: no difficulty urinating, no dysuria - Musculoskeletal Musculoskeletal ROS IM: muscle weakness - Integumentary Additional comments: negative - Neurological Neurological ROS: no abnormal speech, no focal weakness, no numbness Additional comments: negative - Psychiatric Psychiatric general PM: depression Palliative Care-Exam - Constitutional Vitals: Temp Pulse Resp BP Pulse Ox 97.5 F L 79 18 118/70 98 10/02/18 12:10 10/02/18 12:10 10/02/18 12:10 10/02/18 12:10 10/02/18 12:10 Exam: General: No acute distress, AAO x 3, frail appearing elderly male HEENT: EOMI, NC/AT, no scleral icterus Respiratory: bibasilar rales, no wheezing, equal air entry bilaterally Cardiovascular: Regular, Rate, Rhythm, No murmurs GI: Soft, Non tender, non distended, normal bowel sounds Ext: No edema, no tenderness, positive pulses Neuro: AAO x 3, no focal deficits Rest of the clinical exam is noncontributory Internal Medicine - CN: Reslt - Labs CBC & Chem 7: 10/02/18 04:09 10/02/18 04:09 Labs: Short CBC 10/02/18 Range/Units 04:09 WBC 6.9 (4.3-11.1) K/mcL Hgb 8.7 L (12.9-16.9) g/dL Hct 28.8 L (37.5-50.1) % Plt Count 218 (140-400) K/mcL Neutrophils # 4.7 (1.6-8.9) K/mcL BMP 10/02/18 04:09 Sodium 142 Potassium 4.2 Chloride 106 Carbon Dioxide 31 H BUN 54 H Creatinine 1.56 H Glucose 129 H Calcium 8.1 L - ABG Interpretation ABG results: PT/INR, D-dimer PT 11.8 Seconds (9.4-12.1) 10/01/18 00:39 - Impressions Impressions Lumbar Spine CT 09/30/18 12:34 IMPRESSION: Partially imaged bibasilar lung consolidation and trace left pleural effusion. Differential includes aspiration and/or pneumonia. L5-S1 spondylolisthesis with moderate bilateral foraminal stenosis. D/ / 09/30/2018 13:17:13 Christopher Najera MD / [facility] Interpreting Provider: Christopher Najera MD Consult Discharge Plan - Plan Referrals: Lalito Pollack MD [Partnered Physician] - 10/09/18 10:15 am NONE,PCP [Primary Care Provider] - Palliative Quality Palliative Quality: Screen for Code Status: Yes, Screen for Goals of Care: Yes, Screen for Pain: Yes, If Pain Regimen Started, Initiate Bowel Regimen: NA Code Status: 09/30/18 18:23 Resuscitation Status: Active [RES] Routine Comment: Resuscitation Status: Full Code 10/02/18 15:31 CODE [Resuscitation Status: Active] [RES] Routine Comment: Resuscitation Status: [id number] Palliative Scale - Palliative Performance Scale How ambulatory is this patient?: Mainly sit / lie What is patient's level of activity and evidence of disease?: Unable to do any work, Extensive disease How much self-care assistance does patient require?: Considerable assistance required How much oral intake does the patient have?: Normal or reduced What is this patient's level of consciousness?: Full Palliative Performance Score: 40 %
[2018-10-02] MEDS: Nicotine 21 MG PATCH.TD24 TD SCH (17:13)
[2018-10-02] MEDS: Leptospermum Honey Gel 44 ML TUBE TP SCH (17:13)
[2018-10-02] MEDS: Mirtazapine 15 MG TABLET PO SCH (20:22)
[2018-10-03] MEDS: Piperacillin/Tazobactam 3.375 GM in 0.9 % Sodium Chloride Mini Bag 100 ML IVPB SCH ×3 (00:45→17:55)
[2018-10-03] MEDS: Ipratropium/Albuterol Neb 3 ML IH SCH ×4 (04:00→22:21)
[2018-10-03] MEDS: *HR* Heparin 5,000 UNIT/ML VIAL SQ SCH ×2 (07:15→17:55)
[2018-10-03 08:40] LABS: Calcium 8.5 mg/dL (8.6-10.3); Magnesium 2.1 mg/dL (1.6-2.6); Phosphorous 3.1 mg/dL (2.7-4.5); Potassium 4.3 mEq/L (3.5-5.1)
[2018-10-03 08:42] LABS: Basophils % 0.4 %; Eosinophils # 0.1 K/mcL (0.0-0.6); Eosinophils % 1.7 %; Hematocrit 29.9 % (37.5-50.1); Immature Granulocytes % 1.3 % (0-4); Lymphocytes # 1.2 K/mcL (0.6-4.6); Lymphocytes % 22.2 %; Mean Corpuscular HGB Conc 30.1 g/dL (31.6-35.5); Mean Corpuscular Hemoglobin 30.9 pg (28.0-33.3); Mean Corpuscular Volume 102.7 fL (83.0-100.0); Mean Platelet Volume 10.3 fL (9.4-12.4); Monocytes # 0.9 K/mcL (0.0-1.3); Monocytes % 16.2 %; Neutrophils # 3.1 K/mcL (1.6-8.9); Platelet Count 231 K/mcL (140-400); Red Blood Count 2.91 M/mcL (4.19-5.50); Segmented Neutrophils % 58.2 %; White Blood Count 5.4 K/mcL (4.3-11.1)
[2018-10-03] MEDS: Thiamine (B-1) 100 MG TABLET PO SCH (09:32)
[2018-10-03] MEDS: Primidone 50 MG TABLET PO SCH (09:32)
[2018-10-03] MEDS: Folic Acid 1 MG TABLET PO SCH (09:32)
[2018-10-03] MEDS: Aspirin Enteric Coated 81 MG Tablet PO SCH (09:32)
[2018-10-03] MEDS: Metoprolol XL (24 HR) Succ 50 MG TAB.ER.24H PO SCH (09:32)
[2018-10-03] MEDS: Leptospermum Honey Gel 44 ML TUBE TP SCH (09:33)
[2018-10-03] MEDS: Nicotine 21 MG PATCH.TD24 TD SCH (09:33)
[2018-10-03] MEDS ORDERED: Aminoglycoside Consult 1 EACH MC ONE (09:40)
--- NOTE | 2018-10-03 10:36 | Palliative Progress Note ---
Date of Encounter: 10/03/18 Time of Encounter: 10:20 - Assessment and plan (1) Depression Current Visit: No Status: Chronic Assessment and plan: Home medications were restarted. Patient reports Depression stable. Qualifiers: Depression Type: major depressive disorder Major depression recurrence: recurrent Active/Remission status: currently active Major depression episode severity: severe Psychotic features: without psychotic features Qualified Code(s): F33.2 - Major depressive disorder, recurrent severe without psychotic features (2) COPD (chronic obstructive pulmonary disease) Current Visit: No Status: Chronic Qualifiers: COPD type: emphysema Emphysema type: panlobular Qualified Code(s): J43.1 - Panlobular emphysema (3) Tobacco abuse Current Visit: No Status: Chronic Assessment and plan: Patient reports the lack of ability to smoke will not be a problem any longer, as he has had to restrict his smoking any ways. Continue Nicotine Patch. (4) Goals of care, counseling/discussion Current Visit: No Status: Acute Assessment and plan: Met with patient. Patient confirmed CODE STATUS as DNRCCA/DNI. Per Chart review, SW has spoke with patient's son regarding discharge planning. Patient was refused from [facility], patient is aware. Per chart review, son is agreeable to anywhere in [place]. [facility] has sent referral to [place] and patient has been accepted. Patient is agreeable to this location as long as son in agreement. Dr. Yoon with Palliative care team has attempted reaching patient's son by telephone confirming agreement; however, no answer or return phone call. Patient is awake, alert and oriented. Spoke with patient regarding discharge plan and results of PT/OT yesterday, patient reports he still desire to go to rehab. Education provided for hospice eligibility, patient is aware and refuses at this time in favor or rehab. Appears discharge plan is established. Palliative care will sign off. Please reconsult as needed. Thank you for this consult. (5) Palliative care encounter Current Visit: Yes Status: Acute - Time Spent With Patient Total time spent is greater than 50% in coordination of care (as documented) at patient's floor/unit and/or counseling patient: 25 - 35 minutes - Subjective Interval history: Patient resting in bed upon arrival. Alert and oriented times 3. Was resting on arrival, but aroused easily with verbal stimuli. Denies pain, anxiety, dyspnea, nausea, and vomiting. Patient c/o increased episodic periods of incontinence, requested catheter placement. Education provided on risks of infection, patient agreeable to brief, nursing notified. - Constitutional Vitals: Abnormal lab results WBC 11.7 K/mcL (4.3-11.1) H 09/30/18 12:15 RBC 2.91 M/mcL (4.19-5.50) L 10/03/18 07:27 Hgb 9.0 g/dL (12.9-16.9) L 10/03/18 07:27 Hct 29.9 % (37.5-50.1) L 10/03/18 07:27 MCV 102.7 fL (83.0-100.0) H 10/03/18 07:27 MCHC 30.1 g/dL (31.6-35.5) L 10/03/18 07:27 9.5 K/mcL (1.6-8.9) H 09/30/18 12:15 0.5 K/mcL (0.6-4.6) L 10/01/18 00:39 Chloride 96 mEq/L (98-107) L 09/30/18 12:15 Carbon Dioxide 35 mEq/L (23-29) H 10/03/18 07:27 BUN 44 mg/dL (8-23) H 10/03/18 07:27 1.50 mg/dL (0.70-1.30) H 10/03/18 07:27 Est GFR ( Amer) 55 (> 60) L 10/03/18 07:27 Est GFR (Non-Af Amer) 45 (> 60) L 10/03/18 07:27 29 (6-26) H 10/03/18 07:27 Glucose 129 mg/dL (70-105) H 10/02/18 04:09 311 (280-300) H 10/03/18 07:27 Lactic Acid 2.4 mmol/L (0.5-2.2) H 09/30/18 22:47 Calcium 8.5 mg/dL (8.6-10.3) L 10/03/18 07:27 Phosphorus 2.6 mg/dL (2.7-4.5) L 10/02/18 04:09 AST 58 Units/L (13-39) H 10/01/18 00:39 265 Units/L (30-223) H 10/02/18 04:09 5.7 g/dL (6.4-8.9) L 10/01/18 00:39 2.4 g/dL (3.5-5.7) L 10/01/18 00:39 3.6 g/dL (2.4-3.5) H 09/30/18 20:06 0.7 (1.1-2.2) L 10/01/18 00:39 19 mg/dL (40-59) L 10/01/18 00:39 4.92 ng/mL (0.00-0.15) H 09/30/18 20:06 Cloudy (Clear) A 10/01/18 05:13 Small (Negative) H 10/01/18 05:13 Ur Squamous Epith Cells Many per lpf (None-Few) H 10/01/18 05:13 Moderate per hpf (None-Few) H 10/01/18 05:13 Few per hpf (None Seen) H 10/01/18 05:13 Ur Culture Indicated? YES (NO) A 10/01/18 05:13 General appearance: Present: cooperative, no acute distress - Head Head exam: Present: atraumatic, normal inspection - Eye Eye exam: Present: normal appearance. Absent: periorbital swelling, periorbital tenderness Pupils: Present: normal accommodation - ENT ENT exam: Present: mucous membranes dry, normal external ear exam - Neck Neck exam: Present: full ROM, normal inspection - Respiratory Respiratory exam: Present: accessory muscle use, decreased breath sounds, rhonchi - Cardiovascular Cardiovascular exam: Present: +S1, +S2 - GI/Abdominal GI/Abdominal exam: Present: normal bowel sounds, soft. Absent: tenderness - Rectal Rectal exam: Present: deferred - exam: Present: normal inspection - Extremities Exam Extremities exam: Present: normal inspection. Absent: pedal edema - Back Exam Back exam: Present: normal inspection - Neurological Exam Neurological exam: Present: alert, oriented X3, strengths equal and symetr throughout. Absent: altered, facial droop, speech deficit - Psychiatric Psychiatric exam: Present: flat affect, normal mood - Skin Skin exam: Present: intact, normal color, warm Palliative Quality Palliative Quality: Screen for Code Status: Yes, Screen for Goals of Care: Yes, Screen for Pain: Yes, If Pain Regimen Started, Initiate Bowel Regimen: NA, Screen for Nausea/Vomitting: Yes Code Status: 09/30/18 18:23 Resuscitation Status: Active [RES] Routine Comment: Resuscitation Status: Full Code 10/02/18 15:31 CODE [Resuscitation Status: Active] [RES] Routine Comment: Resuscitation Status: [id number] - Labs CBC & Chem 7: 10/03/18 07:27 10/03/18 07:27 Labs: Laboratory Results - last 24 hr 10/03/18 10/03/18 07:27 07:27 WBC 5.4 RBC 2.91 L Hgb 9.0 L Hct 29.9 L MCV 102.7 H MCH 30.9 MCHC 30.1 L RDW 14.0 Plt Count 231 MPV 10.3 Immature Gran % 1.3 Seg Neutrophils % 58.2 Lymphocytes % 22.2 Monocytes % 16.2 Eosinophils % 1.7 Basophils % 0.4 Neutrophils # 3.1 Lymphocytes # 1.2 Monocytes # 0.9 Eosinophils # 0.1 Basophils # 0.0 Sodium 145 Potassium 4.3 Chloride 104 Carbon Dioxide 35 H BUN 44 H Creatinine 1.50 H Est GFR ( Amer) 55 L Est GFR (Non-Af Amer) 45 L BUN/Creatinine Ratio 29 H Glucose 92 Calculated Osmolality 311 H Calcium 8.5 L Phosphorus 3.1 Magnesium 2.1 Creatine Kinase 207 - Impressions Impressions Lumbar Spine CT 09/30/18 12:34 IMPRESSION: Partially imaged bibasilar lung consolidation and trace left pleural effusion. Differential includes aspiration and/or pneumonia. L5-S1 spondylolisthesis with moderate bilateral foraminal stenosis. D/ / 09/30/2018 13:17:13 Christopher Najera MD / [email or web address] Interpreting Provider: Christopher Najera MD - ABG Interpretation ABG results: PT/INR, D-dimer PT 11.8 Seconds (9.4-12.1) 10/01/18 00:39 Palliative Scale - Palliative Performance Scale How ambulatory is this patient?: Mainly sit / lie What is patient's level of activity and evidence of disease?: Unable to do any work, Extensive disease How much self-care assistance does patient require?: Considerable assistance required How much oral intake does the patient have?: Normal or reduced What is this patient's level of consciousness?: Full Palliative Performance Score: 40 % Consult Discharge Plan - Plan Referrals: Lalito Pollack MD [Partnered Physician] - 10/09/18 10:15 am NONE,PCP [Primary Care Provider] -
[2018-10-03] MEDS: Budesonide/Formoterol 160/4.5 1 PUFF INH IH SCH ×2 (10:41→22:21)
--- NOTE | 2018-10-03 12:17 | Internal Med Progress Note ---
Hospitalist Progress Note - Encounter Date of Encounter: 10/03/18 Time of Encounter: 12:14 - Subjective Interval History: Patient seen and examined earlier today. Resting in bed and saturating well on nasal cannula. Patient had initially refused to get out of bed to chair earlier this morning is agreeable at this time. He is more somnolent compared to previous day, but easily arousable, AAO x 3. States he feels tired. Denies any shortness of breath, chest pain, fever, or chills. No overnight events reported. Ten point ROS is negative except as listed above - Exam Vitals: Temp Pulse Resp BP Pulse Ox 98.0 F 78 32 116/63 98 10/03/18 11:22 10/03/18 11:22 10/03/18 11:22 10/03/18 11:22 10/03/18 11:22 Exam: General: No acute distress, AAO x 3, frail appearing elderly male HEENT: EOMI, NC/AT, no scleral icterus Respiratory: decreased breath sounds, no wheezing, equal air entry bilaterally Cardiovascular: Regular, Rate, Rhythm, No murmurs GI: Soft, Non tender, non distended, normal bowel sounds Ext: No edema, no tenderness, positive pulses Neuro: AAO x 3, no focal deficits Rest of the clinical exam is noncontributory - Assessment and Plan (1) Sepsis Current Visit: No Status: Resolved Assessment and Plan: Likely secondary to HCAP/Aspiration PNA Sepsis resolved will continue IV abx continue IV Zosyn Respiratory infection panel: negative Speech therapy evaluation appreciated, diet started as per speech therapist's recommendations maintain aspiration precautions Blood cultures reporting no growth thus far (2) Hospital acquired PNA Current Visit: Yes Status: Acute Assessment and Plan: Ur. Legionella ag negative continue IV abx at this time will closely monitor respiratory status f/u repeat CXR (3) COPD (chronic obstructive pulmonary disease) Current Visit: No Status: Chronic Assessment and Plan: Does not appear to be in acute exacerbation patient recently finished steroid course for COPD exacerbation during his last hospitalization(two weeks ago) continue bronchodilator support (4) Acute renal failure (ARF) Current Visit: Yes Status: Acute Assessment and Plan: likely prerenal secondary to poor PO intake improved from previous day will hold IV fluids at this time due to concern for volume overload with hx of CHF Pt is tolerating PO intake hold all nephrotoxic agents at this time renally dosing IV abx closely monitor renal function (5) Elevated CPK Current Visit: Yes Status: Acute Assessment and Plan: Improved from previous day will continue to monitor PT/OT eval appreciated, SNF recommended, case management consulted for placement on discharge (6) Diastolic CHF Current Visit: Yes Status: Chronic Assessment and Plan: No clinical signs of CHF exacerbation continue home medications (7) Alcoholism Current Visit: No Status: Chronic Assessment and Plan: reported history no clinical signs of withdrawal present at this time, but will closely monitor continue Folate and Thiamine supplementation (8) Depression Current Visit: No Status: Chronic Assessment and Plan: continue home meds DVT Prophylaxis: Heparin SQ - Summary of Assessment and Plan Summary of Assessment and Plan: Palliative care evaluation appreciated pt's code status changed to DNR/DNI case management on board for placement, discharge planning started, tentative d/c in am to SNF (pending placement) - Time Spent with Patient Total time spent is greater than 50% in coordination of care (as documented) at patient's floor/unit and/or counseling patient: Plan of Care Discussed with: patient (patient/RN/case management/pharmacist) Internal Medicine: Result - Labs CBC & Chem 7: 10/03/18 07:27 10/03/18 07:27 Labs: Short CBC 10/03/18 Range/Units 07:27 WBC 5.4 (4.3-11.1) K/mcL Hgb 9.0 L (12.9-16.9) g/dL Hct 29.9 L (37.5-50.1) % Plt Count 231 (140-400) K/mcL Neutrophils # 3.1 (1.6-8.9) K/mcL BMP 10/03/18 07:27 Sodium 145 Potassium 4.3 Chloride 104 Carbon Dioxide 35 H BUN 44 H Creatinine 1.50 H Glucose 92 Calcium 8.5 L - ABG Interpretation ABG results: PT/INR, D-dimer PT 11.8 Seconds (9.4-12.1) 10/01/18 00:39 - Impressions Impressions Lumbar Spine CT 09/30/18 12:34 IMPRESSION: Partially imaged bibasilar lung consolidation and trace left pleural effusion. Differential includes aspiration and/or pneumonia. L5-S1 spondylolisthesis with moderate bilateral foraminal stenosis. D/ / 09/30/2018 13:17:13 Christopher Najera MD / [facility] Interpreting Provider: Christopher Najera MD Consult Discharge Plan - Plan Referrals: Lalito Pollack MD [Partnered Physician] - 10/09/18 10:15 am NONE,PCP [Primary Care Provider] - (1) Sepsis Qualifiers: Sepsis type: sepsis due to unspecified organism (3) COPD (chronic obstructive pulmonary disease) Qualifiers: COPD type: unspecified COPD Qualified Code(s): J44.9 - Chronic obstructive pulmonary disease, unspecified (4) Acute renal failure (ARF) Qualifiers: Acute renal failure type: unspecified Qualified Code(s): N17.9 - Acute kidney failure, unspecified (6) Diastolic CHF Qualifiers: Heart failure chronicity: chronic Qualified Code(s): I50.32 - Chronic diastolic (congestive) heart failure (8) Depression Qualifiers: Depression Type: unspecified
[2018-10-03] MEDS ORDERED: Furosemide 20 MG/2 ML VIAL IVP ONE (18:18)
[2018-10-03 18:43] LABS: ABG Base Excess 12 mEq/L (-2 to 3); ABG HCO3 39 mEq/L (21-27); ABG Oxygen Saturation 92 % (95-98); ABG PCO2 67 mmHg (35-45); ABG PH 7.37 pH Units (7.32-7.45); ABG PO2 69 mmHg (85-104); ABG TCO2 41 mEq/L (20-26)
[2018-10-03] MEDS: Mirtazapine 15 MG TABLET PO SCH (21:13)
[2018-10-04] MEDS: Piperacillin/Tazobactam 3.375 GM in 0.9 % Sodium Chloride Mini Bag 100 ML IVPB SCH ×4 (00:25→23:57)
[2018-10-04 03:45] LABS: Basophils % 0.3 %; Eosinophils # 0.2 K/mcL (0.0-0.6); Hematocrit 30.3 % (37.5-50.1); Lymphocytes # 1.2 K/mcL (0.6-4.6); Lymphocytes % 16.2 %; Mean Corpuscular HGB Conc 29.7 g/dL (31.6-35.5); Mean Corpuscular Hemoglobin 30.8 pg (28.0-33.3); Mean Corpuscular Volume 103.8 fL (83.0-100.0); Mean Platelet Volume 10.1 fL (9.4-12.4); Monocytes # 0.8 K/mcL (0.0-1.3); Monocytes % 11.1 %; Neutrophils # 5.1 K/mcL (1.6-8.9); Platelet Count 242 K/mcL (140-400); Red Blood Count 2.92 M/mcL (4.19-5.50); Segmented Neutrophils % 68.4 %; White Blood Count 7.4 K/mcL (4.3-11.1)
[2018-10-04 04:04] LABS: BUN/Creatinine Ratio 32 (6-26); Blood Urea Nitrogen 44 mg/dL (8-23); Calcium 8.4 mg/dL (8.6-10.3); Carbon Dioxide 38 mEq/L (23-29); Chloride 99 mEq/L (98-107); Glucose 120 mg/dL (70-105); Magnesium 1.8 mg/dL (1.6-2.6); Osmolality,Calculated 312 (280-300); Phosphorous 3.3 mg/dL (2.7-4.5); Potassium 4.3 mEq/L (3.5-5.1); Sodium 145 mEq/L (136-145); eGFR For African Americans > 60 (> 60); eGFR For Non-African Americans 51 (> 60)
[2018-10-04] MEDS: Ipratropium/Albuterol Neb 3 ML IH SCH ×4 (04:39→23:12)
[2018-10-04] MEDS: *HR* Heparin 5,000 UNIT/ML VIAL SQ SCH ×2 (06:11→16:47)
[2018-10-04] MEDS: Aspirin Enteric Coated 81 MG Tablet PO SCH (08:51)
[2018-10-04] MEDS: Primidone 50 MG TABLET PO SCH (08:51)
[2018-10-04] MEDS: Metoprolol XL (24 HR) Succ 50 MG TAB.ER.24H PO SCH (08:51)
[2018-10-04] MEDS: Folic Acid 1 MG TABLET PO SCH (08:51)
[2018-10-04] MEDS: Thiamine (B-1) 100 MG TABLET PO SCH (08:51)
[2018-10-04] MEDS: Nicotine 21 MG PATCH.TD24 TD SCH (08:52)
[2018-10-04] MEDS: Leptospermum Honey Gel 44 ML TUBE TP SCH (08:52)
[2018-10-04] MEDS: Budesonide/Formoterol 160/4.5 1 PUFF INH IH SCH ×2 (10:03→23:12)
[2018-10-04] MEDS ORDERED: Furosemide 20 MG/2 ML VIAL IVP ONE (13:16)
--- NOTE | 2018-10-04 13:22 | Internal Med Progress Note ---
Hospitalist Progress Note - Encounter Date of Encounter: 10/04/18 Time of Encounter: 13:19 - Subjective Interval History: Patient seen and examined earlier today. Yesterday evening, patient was noted to be tachypneic and lethargic, ABG was done and pt was placed on bipap support. He was also given a dose of lasix 20mg IV. Today patient is awake and alert but reports of being very tired. Respiratory status improved from yesterday evening. No tachypnea present at this time He reports of being very weak and feels exhausted. Denies any pain or shortness of breath at this time. No fever, or chills reported. Ten point ROS is negative except as listed above - Exam Vitals: Temp Pulse Resp BP Pulse Ox 98.2 F 79 16 108/46 96 10/04/18 11:48 10/04/18 11:48 10/04/18 11:48 10/04/18 11:48 10/04/18 11:48 Exam: General: No acute distress, AAO x 3, frail appearing elderly male HEENT: EOMI, NC/AT, no scleral icterus Respiratory: decreased breath sounds, no wheezing, equal air entry bilaterally, scattered rales Cardiovascular: Regular, Rate, Rhythm, No murmurs GI: Soft, Non tender, non distended, normal bowel sounds Ext: No edema, no tenderness, positive pulses Neuro: AAO x 3, no focal deficits Rest of the clinical exam is noncontributory - Assessment and Plan (1) Sepsis Current Visit: No Status: Resolved Assessment and Plan: Likely secondary to HCAP/Aspiration PNA Sepsis resolved will continue IV abx continue IV Zosyn Respiratory infection panel: negative Speech therapy evaluation appreciated, diet started as per speech therapist's recommendations maintain aspiration precautions Blood cultures reporting no growth thus far (2) Hospital acquired PNA Current Visit: Yes Status: Acute Assessment and Plan: Ur. Legionella ag negative continue IV abx at this time will closely monitor respiratory status repeat CXR reviewed, one time dose of Lasix 20mg IV to be administered (3) COPD (chronic obstructive pulmonary disease) Current Visit: No Status: Chronic Assessment and Plan: Does not appear to be in acute exacerbation patient recently finished steroid course for COPD exacerbation during his last hospitalization(two weeks ago) continue bronchodilator support (4) Acute renal failure (ARF) Current Visit: Yes Status: Acute Assessment and Plan: likely prerenal secondary to poor PO intake improved from previous day will hold IV fluids at this time due to concern for volume overload with hx of CHF Pt is tolerating PO intake hold all nephrotoxic agents at this time renally dosing IV abx closely monitor renal function (5) Elevated CPK Current Visit: Yes Status: Resolved Assessment and Plan: resolved will continue to monitor PT/OT eval appreciated, SNF recommended, case management consulted for placement on discharge (6) Diastolic CHF Current Visit: Yes Status: Chronic Assessment and Plan: Will administer one time dose of lasix 20mg IV today continue home meds (7) Alcoholism Current Visit: No Status: Chronic Assessment and Plan: reported history no clinical signs of withdrawal present at this time, but will closely monitor continue Folate and Thiamine supplementation (8) Depression Current Visit: No Status: Chronic Assessment and Plan: continue home meds DVT Prophylaxis: Heparin SQ - Time Spent with Patient Total time spent is greater than 50% in coordination of care (as documented) at patient's floor/unit and/or counseling patient: Plan of Care Discussed with: patient (patient/RN) Internal Medicine: Result - Labs CBC & Chem 7: 10/04/18 02:50 10/04/18 02:50 Labs: Short CBC 10/04/18 Range/Units 02:50 WBC 7.4 (4.3-11.1) K/mcL Hgb 9.0 L (12.9-16.9) g/dL Hct 30.3 L (37.5-50.1) % Plt Count 242 (140-400) K/mcL Neutrophils # 5.1 (1.6-8.9) K/mcL BMP 10/04/18 02:50 Sodium 145 Potassium 4.3 Chloride 99 Carbon Dioxide 38 H BUN 44 H Creatinine 1.36 H Glucose 120 H Calcium 8.4 L - ABG Interpretation ABG results: ABG ABG pH 7.37 pH Units (7.32-7.45) 10/03/18 18:38 ABG pCO2 67 mmHg (35-45) H 10/03/18 18:38 ABG pO2 69 mmHg (85-104) L 10/03/18 18:38 ABG O2 Saturation 92 % (95-98) L 10/03/18 18:38 PT/INR, D-dimer PT 11.8 Seconds (9.4-12.1) 10/01/18 00:39 - Impressions Impressions Chest X-Ray 10/03/18 12:19 IMPRESSION: Small pleural effusions, increased as compared to prior, left greater than right. Background pulmonary edema. D/ / Hunter Victoria MD / Hunter Victoria MD Interpreting Provider: Hunter Victoria MD Consult Discharge Plan - Plan Referrals: Lalito Pollack MD [Partnered Physician] - 10/09/18 10:15 am NONE,PCP [Primary Care Provider] - (1) Sepsis Qualifiers: Sepsis type: sepsis due to unspecified organism (3) COPD (chronic obstructive pulmonary disease) Qualifiers: COPD type: unspecified COPD Qualified Code(s): J44.9 - Chronic obstructive pulmonary disease, unspecified (4) Acute renal failure (ARF) Qualifiers: Acute renal failure type: unspecified Qualified Code(s): N17.9 - Acute kidney failure, unspecified (6) Diastolic CHF Qualifiers: Heart failure chronicity: chronic Qualified Code(s): I50.32 - Chronic diastolic (congestive) heart failure (8) Depression Qualifiers: Depression Type: unspecified
[2018-10-04] MEDS: Mirtazapine 15 MG TABLET PO SCH (20:54)
[2018-10-05 03:02] LABS: Basophils % 0.4 %; Eosinophils # 0.3 K/mcL (0.0-0.6); Eosinophils % 2.3 %; Hematocrit 29.3 % (37.5-50.1); Hemoglobin 8.9 g/dL (12.9-16.9); Immature Granulocytes % 2.9 % (0-4); Lymphocytes % 17.7 %; Mean Corpuscular HGB Conc 30.4 g/dL (31.6-35.5); Mean Corpuscular Hemoglobin 30.5 pg (28.0-33.3); Mean Corpuscular Volume 100.3 fL (83.0-100.0); Mean Platelet Volume 10.3 fL (9.4-12.4); Monocytes # 1.3 K/mcL (0.0-1.3); Monocytes % 11.2 %; Platelet Count 272 K/mcL (140-400); Red Blood Count 2.92 M/mcL (4.19-5.50); Red Cell Distribution Width 14.1 % (11.5-14.5); Segmented Neutrophils % 65.5 %
[2018-10-05 03:09] LABS: Neutrophils # 7.3 K/mcL (1.6-8.9); White Blood Count 11.2 K/mcL (4.3-11.1)
[2018-10-05 03:14] LABS: Calcium 8.3 mg/dL (8.6-10.3); Magnesium 1.8 mg/dL (1.6-2.6); Phosphorous 3.2 mg/dL (2.7-4.5); Potassium 4.5 mEq/L (3.5-5.1)
[2018-10-05] MEDS: Ipratropium/Albuterol Neb 3 ML IH SCH ×4 (04:27→22:42)
[2018-10-05] MEDS: *HR* Heparin 5,000 UNIT/ML VIAL SQ SCH ×2 (05:47→16:59)
[2018-10-05] MEDS: Thiamine (B-1) 100 MG TABLET PO SCH (08:31)
[2018-10-05] MEDS: Piperacillin/Tazobactam 3.375 GM in 0.9 % Sodium Chloride Mini Bag 100 ML IVPB SCH ×2 (08:32→15:40)
[2018-10-05] MEDS: Primidone 50 MG TABLET PO SCH (08:32)
[2018-10-05] MEDS: Folic Acid 1 MG TABLET PO SCH (08:32)
[2018-10-05] MEDS: Leptospermum Honey Gel 44 ML TUBE TP SCH (08:32)
[2018-10-05] MEDS: Aspirin Enteric Coated 81 MG Tablet PO SCH (08:32)
[2018-10-05] MEDS: Nicotine 21 MG PATCH.TD24 TD SCH (08:32)
[2018-10-05] MEDS: Metoprolol XL (24 HR) Succ 50 MG TAB.ER.24H PO SCH (08:33)
[2018-10-05] MEDS: Budesonide/Formoterol 160/4.5 1 PUFF INH IH SCH ×2 (10:48→22:42)
--- NOTE | 2018-10-05 12:02 | Internal Med Progress Note ---
Hospitalist Progress Note - Encounter Date of Encounter: 10/05/18 Time of Encounter: 11:59 - Subjective Interval History: Patient seen and examined earlier this morning. Resting in bed, more awake today. Reports of having three loose BM this morning. states he feels weak but denies any chest pain, sob, abd pain, n/v, fever, or chills at this time. Concern for C-diff, stool studies ordered to rule out C-diff Ten point ROS is negative except as listed above - Exam Vitals: Temp Pulse Resp BP Pulse Ox 97.9 F 85 16 105/52 98 10/05/18 11:13 10/05/18 11:13 10/05/18 11:13 10/05/18 11:13 10/05/18 11:13 Exam: General: No acute distress, AAO x 3, frail appearing elderly male HEENT: EOMI, NC/AT, no scleral icterus Respiratory: decreased breath sounds, no wheezing, equal air entry bilaterally, No rales Cardiovascular: Regular, Rate, Rhythm, No murmurs GI: Soft, Non tender, non distended, normal bowel sounds Ext: No edema, no tenderness, positive pulses Neuro: AAO x 3, no focal deficits Rest of the clinical exam is noncontributory - Assessment and Plan (1) Sepsis Current Visit: No Status: Resolved Assessment and Plan: Likely secondary to HCAP/Aspiration PNA Sepsis resolved will continue IV abx continue IV Zosyn Respiratory infection panel: negative Speech therapy evaluation appreciated, diet started as per speech therapist's recommendations maintain aspiration precautions Blood cultures reporting no growth thus far (2) Hospital acquired PNA Current Visit: Yes Status: Acute Assessment and Plan: Ur. Legionella ag negative continue IV abx at this time will closely monitor respiratory status (3) COPD (chronic obstructive pulmonary disease) Current Visit: No Status: Chronic Assessment and Plan: Does not appear to be in acute exacerbation patient recently finished steroid course for COPD exacerbation during his last hospitalization(two weeks ago) continue bronchodilator support (4) Acute renal failure (ARF) Current Visit: Yes Status: Acute Assessment and Plan: likely prerenal secondary to poor PO intake worsened from previous day likely secondary to diuretic therapy will hold off an administering any lasix dose at this time Pt is tolerating PO intake hold all nephrotoxic agents at this time renally dosing IV abx closely monitor renal function (5) Elevated CPK Current Visit: Yes Status: Resolved Assessment and Plan: resolved will continue to monitor PT/OT eval appreciated, SNF recommended, case management consulted for placement on discharge (6) Diastolic CHF Current Visit: Yes Status: Chronic Assessment and Plan: continue home meds (7) Alcoholism Current Visit: No Status: Chronic Assessment and Plan: reported history no clinical signs of withdrawal present at this time, but will closely monitor continue Folate and Thiamine supplementation (8) Depression Current Visit: No Status: Chronic Assessment and Plan: continue home meds DVT Prophylaxis: Heparin SQ - Summary of Assessment and Plan Summary of Assessment and Plan: Palliative care evaluation appreciated pt's code status changed to DNR/DNI case management on board for placement, discharge planning started, tentative d/c in am to SNF (pending placement) - Time Spent with Patient Total time spent is greater than 50% in coordination of care (as documented) at patient's floor/unit and/or counseling patient: Internal Medicine: Result - Labs CBC & Chem 7: 10/05/18 01:58 10/05/18 01:58 Labs: Short CBC 10/05/18 Range/Units 01:58 WBC 11.2 H D (4.3-11.1) K/mcL Hgb 8.9 L (12.9-16.9) g/dL Hct 29.3 L (37.5-50.1) % Plt Count 272 (140-400) K/mcL Neutrophils # 7.3 (1.6-8.9) K/mcL BMP 10/05/18 01:58 Sodium 141 Potassium 4.5 Chloride 96 L Carbon Dioxide 38 H BUN 46 H Creatinine 1.60 H Glucose 102 Calcium 8.3 L - ABG Interpretation ABG results: ABG ABG pH 7.37 pH Units (7.32-7.45) 10/03/18 18:38 ABG pCO2 67 mmHg (35-45) H 10/03/18 18:38 ABG pO2 69 mmHg (85-104) L 10/03/18 18:38 ABG O2 Saturation 92 % (95-98) L 10/03/18 18:38 PT/INR, D-dimer PT 11.8 Seconds (9.4-12.1) 10/01/18 00:39 Consult Discharge Plan - Plan Referrals: Lalito Pollack MD [Partnered Physician] - 10/09/18 10:15 am NONE,PCP [Primary Care Provider] - (1) Sepsis Qualifiers: Sepsis type: sepsis due to unspecified organism (3) COPD (chronic obstructive pulmonary disease) Qualifiers: COPD type: unspecified COPD Qualified Code(s): J44.9 - Chronic obstructive pulmonary disease, unspecified (4) Acute renal failure (ARF) Qualifiers: Acute renal failure type: unspecified Qualified Code(s): N17.9 - Acute kidney failure, unspecified (6) Diastolic CHF Qualifiers: Heart failure chronicity: chronic Qualified Code(s): I50.32 - Chronic diastolic (congestive) heart failure (8) Depression Qualifiers: Depression Type: unspecified
[2018-10-05] MEDS: Mirtazapine 15 MG TABLET PO SCH (20:21)
[2018-10-06] MEDS: Piperacillin/Tazobactam 3.375 GM in 0.9 % Sodium Chloride Mini Bag 100 ML IVPB SCH ×2 (00:27→09:18)
[2018-10-06] MEDS: Ipratropium/Albuterol Neb 3 ML IH SCH ×4 (04:39→22:48)
[2018-10-06] MEDS: *HR* Heparin 5,000 UNIT/ML VIAL SQ SCH ×2 (05:22→17:58)
[2018-10-06 06:01] LABS: Basophils % 0.2 %; Eosinophils # 0.4 K/mcL (0.0-0.6); Eosinophils % 3.7 %; Hematocrit 28.9 % (37.5-50.1); Hemoglobin 8.8 g/dL (12.9-16.9); Lymphocytes # 2.1 K/mcL (0.6-4.6); Lymphocytes % 21.4 %; Mean Corpuscular HGB Conc 30.4 g/dL (31.6-35.5); Mean Corpuscular Volume 101.8 fL (83.0-100.0); Mean Platelet Volume 9.9 fL (9.4-12.4); Monocytes # 1.1 K/mcL (0.0-1.3); Monocytes % 11.6 %; Neutrophils # 5.7 K/mcL (1.6-8.9); Platelet Count 300 K/mcL (140-400); Red Blood Count 2.84 M/mcL (4.19-5.50); Red Cell Distribution Width 14.2 % (11.5-14.5); Segmented Neutrophils % 59.1 %; White Blood Count 9.6 K/mcL (4.3-11.1)
[2018-10-06 06:24] LABS: Calcium 8.4 mg/dL (8.6-10.3); Magnesium 1.9 mg/dL (1.6-2.6); Phosphorous 3.5 mg/dL (2.7-4.5); Potassium 4.3 mEq/L (3.5-5.1)
[2018-10-06] MEDS: Nicotine 21 MG PATCH.TD24 TD SCH (09:18)
[2018-10-06] MEDS: Primidone 50 MG TABLET PO SCH (09:18)
[2018-10-06] MEDS: Folic Acid 1 MG TABLET PO SCH (09:18)
[2018-10-06] MEDS: Metoprolol XL (24 HR) Succ 50 MG TAB.ER.24H PO SCH (09:18)
[2018-10-06] MEDS: Aspirin Enteric Coated 81 MG Tablet PO SCH (09:18)
[2018-10-06] MEDS: Thiamine (B-1) 100 MG TABLET PO SCH (09:18)
[2018-10-06] MEDS ORDERED: Acetaminophen 325 MG TABLET PO ONE (10:12)
[2018-10-06 11:02] LABS: ABG Base Excess 16 mEq/L (-2 to 3); ABG HCO3 43 mEq/L (21-27); ABG Oxygen Saturation 94 % (95-98); ABG PCO2 67 mmHg (35-45); ABG PH 7.41 pH Units (7.32-7.45); ABG PO2 75 mmHg (85-104); ABG TCO2 45 mEq/L (20-26)
[2018-10-06] MEDS: Budesonide/Formoterol 160/4.5 1 PUFF INH IH SCH ×2 (11:03→22:48)
--- NOTE | 2018-10-06 14:58 | Internal Med Progress Note ---
Hospitalist Progress Note - Encounter Date of Encounter: 10/06/18 Time of Encounter: 14:56 - Subjective Interval History: Patient seen and examined earlier this morning. Resting in bed and reports of back pain. Pt reports of not wearing the bipap for last two nights which is consistent with the hypercapnia noted on patient's lab work. Extensive counseling provided in regards to being compliant with bipap support. Pt reports resolution of diarrhea. He is encouraged to get out of bed to chair and increase activity as tolerated. Ten point ROS is negative except as listed above - Exam Vitals: Temp Pulse Resp BP Pulse Ox 97.9 F 96 18 123/56 100 10/06/18 11:56 10/06/18 11:56 10/06/18 11:56 10/06/18 11:56 10/06/18 11:56 Exam: General: No acute distress, AAO x 3, frail appearing elderly male HEENT: EOMI, NC/AT, no scleral icterus Respiratory: decreased breath sounds, no wheezing, equal air entry bilaterally, No rales Cardiovascular: Regular, Rate, Rhythm, No murmurs GI: Soft, Non tender, non distended, normal bowel sounds Ext: No edema, no tenderness, positive pulses Neuro: AAO x 3, no focal deficits Rest of the clinical exam is noncontributory - Assessment and Plan (1) Sepsis Current Visit: No Status: Resolved Assessment and Plan: Likely secondary to HCAP/Aspiration PNA Sepsis resolved will continue IV abx will d/c Zosyn and start IV unasyn Respiratory infection panel: negative Speech therapy evaluation appreciated, diet started as per speech therapist's recommendations maintain aspiration precautions Blood cultures reporting no growth thus far (2) Hospital acquired PNA Current Visit: Yes Status: Acute Assessment and Plan: Ur. Legionella ag negative continue IV abx at this time will closely monitor respiratory status (3) COPD (chronic obstructive pulmonary disease) Current Visit: No Status: Chronic Assessment and Plan: Does not appear to be in acute exacerbation patient recently finished steroid course for COPD exacerbation during his last hospitalization(two weeks ago) continue bronchodilator support bipap support at bedtime, pt willing to comply (4) Acute renal failure (ARF) Current Visit: Yes Status: Acute Assessment and Plan: likely prerenal secondary to poor PO intake improved from previous day likely secondary to diuretic therapy will hold off an administering any lasix dose at this time Pt is tolerating PO intake hold all nephrotoxic agents at this time renally dosing IV abx closely monitor renal function (5) Elevated CPK Current Visit: Yes Status: Resolved Assessment and Plan: resolved will continue to monitor PT/OT eval appreciated, SNF recommended, case management consulted for placement on discharge (6) Diastolic CHF Current Visit: Yes Status: Chronic Assessment and Plan: continue home meds (7) Alcoholism Current Visit: No Status: Chronic Assessment and Plan: reported history no clinical signs of withdrawal present at this time, but will closely monitor continue Folate and Thiamine supplementation (8) Depression Current Visit: No Status: Chronic Assessment and Plan: continue home meds DVT Prophylaxis: Heparin SQ - Time Spent with Patient Total time spent is greater than 50% in coordination of care (as documented) at patient's floor/unit and/or counseling patient: Plan of Care Discussed with: patient (patient/RN/pharmacist/case management) Internal Medicine: Result - Labs CBC & Chem 7: 10/06/18 05:15 10/06/18 05:15 Labs: Short CBC 10/06/18 Range/Units 05:15 WBC 9.6 (4.3-11.1) K/mcL Hgb 8.8 L (12.9-16.9) g/dL Hct 28.9 L (37.5-50.1) % Plt Count 300 (140-400) K/mcL Neutrophils # 5.7 (1.6-8.9) K/mcL BMP 10/06/18 05:15 Sodium 142 Potassium 4.3 Chloride 96 L Carbon Dioxide 41 H* BUN 44 H Creatinine 1.52 H Glucose 100 Calcium 8.4 L - ABG Interpretation ABG results: ABG ABG pH 7.41 pH Units (7.32-7.45) 10/06/18 10:56 ABG pCO2 67 mmHg (35-45) H 10/06/18 10:56 ABG pO2 75 mmHg (85-104) L 10/06/18 10:56 ABG O2 Saturation 94 % (95-98) L 10/06/18 10:56 PT/INR, D-dimer PT 11.8 Seconds (9.4-12.1) 10/01/18 00:39 Consult Discharge Plan - Plan Referrals: Lalito Pollack MD [Partnered Physician] - 10/09/18 10:15 am NONE,PCP [Primary Care Provider] - (1) Sepsis Qualifiers: Sepsis type: sepsis due to unspecified organism (3) COPD (chronic obstructive pulmonary disease) Qualifiers: COPD type: unspecified COPD Qualified Code(s): J44.9 - Chronic obstructive pulmonary disease, unspecified (4) Acute renal failure (ARF) Qualifiers: Acute renal failure type: unspecified Qualified Code(s): N17.9 - Acute kidney failure, unspecified (6) Diastolic CHF Qualifiers: Heart failure chronicity: chronic Qualified Code(s): I50.32 - Chronic diastolic (congestive) heart failure (8) Depression Qualifiers: Depression Type: unspecified
[2018-10-06] MEDS: Leptospermum Honey Gel 44 ML TUBE TP SCH ×2 (15:35→20:47)
[2018-10-06] MEDS: Ampicillin/Sulbactam 3,000 MG in 0.9 % Sodium Chloride Mini Bag 100 ML IVPB SCH (17:58)
[2018-10-06] MEDS: Mirtazapine 15 MG TABLET PO SCH (20:46)
[2018-10-06] MEDS ORDERED: Furosemide 20 MG/2 ML VIAL IVP ONE (22:15)
[2018-10-07] MEDS: Ampicillin/Sulbactam 3,000 MG in 0.9 % Sodium Chloride Mini Bag 100 ML IVPB SCH ×4 (00:06→18:08)
[2018-10-07] MEDS: Ipratropium/Albuterol Neb 3 ML IH SCH ×4 (04:22→23:27)
--- NOTE | 2018-10-07 05:39 | Event Note ---
Date of Encounter: 10/06/18 Time of Encounter: 21:10 Alerted by patient's nurse RAYRAY Solorio that patient had coarse crackles on examination. Concern for possible aspiration d/t pts. difficulty w/swallowing fluids while taking pills. Patient has history of cardiomyopathy, CHF, COPD, and CAD. Stat 1V Portable CXR ordered which showed increased vascular congestion with diffuse interstitial opacity also increased. Trace amount right pleural fluid. This is unchanged. Small to moderate left pleural effusion also unchanged. Bibasilar airspace disease greater on the left is unchanged. Superimposed aspiration may be present. Aspiration precautions, elevation of the head of bed, and consult to speech therapy for swallow evaluation ordered. NPO for now until swallow evaluation completed. One-time dose of 20 mg IVP Lasix ordered along with strict I&Os. Nurse instructed to continue monitoring pt. closely for signs of worsening SOB/dyspnea and alert me immediately of any adverse changes.
[2018-10-07] MEDS: *HR* Heparin 5,000 UNIT/ML VIAL SQ SCH ×2 (05:47→18:07)
[2018-10-07 05:57] LABS: Basophils % 0.3 %; Eosinophils # 0.4 K/mcL (0.0-0.6); Eosinophils % 3.2 %; Hemoglobin 8.8 g/dL (12.9-16.9); Lymphocytes # 2.2 K/mcL (0.6-4.6); Mean Corpuscular HGB Conc 30.3 g/dL (31.6-35.5); Mean Corpuscular Hemoglobin 30.2 pg (28.0-33.3); Mean Corpuscular Volume 99.7 fL (83.0-100.0); Mean Platelet Volume 9.7 fL (9.4-12.4); Monocytes # 1.3 K/mcL (0.0-1.3); Monocytes % 11.4 %; Neutrophils # 7.4 K/mcL (1.6-8.9); Platelet Count 345 K/mcL (140-400); Red Blood Count 2.91 M/mcL (4.19-5.50); Red Cell Distribution Width 14.6 % (11.5-14.5); Segmented Neutrophils % 64.1 %; White Blood Count 11.5 K/mcL (4.3-11.1)
[2018-10-07 06:19] LABS: Calcium 8.6 mg/dL (8.6-10.3); Phosphorous 3.6 mg/dL (2.7-4.5); Potassium 4.4 mEq/L (3.5-5.1)
[2018-10-07] MEDS: Aspirin Enteric Coated 81 MG Tablet PO SCH (09:03)
[2018-10-07] MEDS: Metoprolol XL (24 HR) Succ 50 MG TAB.ER.24H PO SCH (09:03)
[2018-10-07] MEDS: Nicotine 21 MG PATCH.TD24 TD SCH (09:03)
[2018-10-07] MEDS: Primidone 50 MG TABLET PO SCH (09:03)
[2018-10-07] MEDS: Thiamine (B-1) 100 MG TABLET PO SCH (09:03)
[2018-10-07] MEDS: Folic Acid 1 MG TABLET PO SCH (09:03)
--- NOTE | 2018-10-07 10:41 | Internal Med Progress Note ---
Hospitalist Progress Note - Encounter Date of Encounter: 10/07/18 Time of Encounter: 10:38 - Subjective Interval History: Patient seen and examined at bedside. Resting in bed and remains frail and weak. He states he does not like to wear the bipap at night because it hurts his face. Overnight there was a concern for aspiration for which speech therapy was consulted, no change in diet was recommended by speech therapy. Pt continues to remain hypercapneic. He denies any shortness of breath or chest pain but states he is tired and feels extremely weak to care for himself. He is not compliant with treatment and does not want to be compliant with bipap support. Ten point ROS is negative except as listed above Palliative care evaluation requested to establish goals of care and possibly discuss hospice care at this time - Exam Vitals: Temp Pulse Resp BP Pulse Ox 98.0 F 90 18 109/67 99 10/07/18 08:00 10/07/18 08:00 10/07/18 08:00 10/07/18 08:00 10/07/18 08:00 Exam: ` General: No acute distress, AAO x 3, frail appearing elderly male HEENT: EOMI, NC/AT, no scleral icterus Respiratory: decreased breath sounds, no wheezing, equal air entry bilaterally, No rales Cardiovascular: Regular, Rate, Rhythm, No murmurs GI: Soft, Non tender, non distended, normal bowel sounds Ext: No edema, no tenderness, positive pulses Neuro: AAO x 3, no focal deficits Rest of the clinical exam is noncontributory - Assessment and Plan (1) Sepsis Current Visit: No Status: Resolved (2) Hospital acquired PNA Current Visit: Yes Status: Acute (3) Acute renal failure (ARF) Current Visit: Yes Status: Acute (4) COPD (chronic obstructive pulmonary disease) Current Visit: No Status: Chronic (5) Elevated CPK Current Visit: Yes Status: Resolved (6) Diastolic CHF Current Visit: Yes Status: Chronic (7) Depression Current Visit: No Status: Chronic - Summary of Assessment and Plan Summary of Assessment and Plan: Palliative care evaluation reconsulted to establish goals of care and hospice care pt's code status changed to DNR/DNI - Assessment and Plan (1) Sepsis Current Visit: No Status: Resolved Assessment and Plan: Likely secondary to HCAP/Aspiration PNA Sepsis resolved continue IV unasyn Respiratory infection panel: negative Speech therapy evaluation appreciated, diet started as per speech therapist's recommendations maintain aspiration precautions Blood cultures reporting no growth thus far (2) Hospital acquired PNA Current Visit: Yes Status: Acute Assessment and Plan: Ur. Legionella ag negative continue IV abx at this time will closely monitor respiratory status (3) COPD (chronic obstructive pulmonary disease) Current Visit: No Status: Chronic Assessment and Plan: Does not appear to be in acute exacerbation patient recently finished steroid course for COPD exacerbation during his last hospitalization(two weeks ago) continue bronchodilator support worsening hypercapnia, pt continues to refuse bipap support Palliative care evaluation requested to establish goals of care and evaluate for hospice care (4) Acute renal failure (ARF) Current Visit: Yes Status: Acute Assessment and Plan: likely prerenal secondary to poor PO intake likely secondary to diuretic therapy will hold off an administering any lasix dose at this time Pt is tolerating PO intake hold all nephrotoxic agents at this time renally dosing IV abx closely monitor renal function (5) Elevated CPK Current Visit: Yes Status: Resolved Assessment and Plan: resolved will continue to monitor PT/OT eval appreciated, SNF recommended, case management consulted for placement on discharge (6) Diastolic CHF Current Visit: Yes Status: Chronic Assessment and Plan: continue home meds (7) Alcoholism Current Visit: No Status: Chronic Assessment and Plan: reported history no clinical signs of withdrawal present at this time, but will closely monitor continue Folate and Thiamine supplementation (8) Depression Current Visit: No Status: Chronic Assessment and Plan: continue home meds DVT Prophylaxis: Heparin SQ - Time Spent with Patient Total time spent is greater than 50% in coordination of care (as documented) at patient's floor/unit and/or counseling patient: Plan of Care Discussed with: patient (patient/RN/pharmacist/consulting provider/case management) Internal Medicine: Result - Labs CBC & Chem 7: 10/07/18 05:34 10/07/18 05:34 Labs: Short CBC 10/07/18 Range/Units 05:34 WBC 11.5 H (4.3-11.1) K/mcL Hgb 8.8 L (12.9-16.9) g/dL Hct 29.0 L (37.5-50.1) % Plt Count 345 (140-400) K/mcL Neutrophils # 7.4 (1.6-8.9) K/mcL BMP 06/18/19 05:34 Sodium 146 H Potassium 4.4 Chloride 97 L Carbon Dioxide 41 H* BUN 45 H Creatinine 1.58 H Glucose 101 Calcium 8.6 - ABG Interpretation ABG results: ABG ABG pH 7.41 pH Units (7.32-7.45) 10/06/18 10:56 ABG pCO2 67 mmHg (35-45) H 10/06/18 10:56 ABG pO2 75 mmHg (85-104) L 10/06/18 10:56 ABG O2 Saturation 94 % (95-98) L 10/06/18 10:56 PT/INR, D-dimer PT 11.8 Seconds (9.4-12.1) 10/01/18 00:39 - Impressions Impressions Chest X-Ray 10/06/18 21:13 IMPRESSION: Increased vascular congestion and interstitial edema. Unchanged small to moderate left and trace right pleural effusion with adjacent bibasilar atelectasis and edema. Superimposed aspiration may be present. D/ / Eleazar Florez MD / Eleazar Florez MD Interpreting Provider: Eleazar Florez MD Consult Discharge Plan - Plan Referrals: Lalito Pollack MD [Partnered Physician] - 10/09/18 10:15 am NONE,PCP [Primary Care Provider] - (1) Sepsis Qualifiers: Sepsis type: sepsis due to unspecified organism Qualified Code(s): A41.9 - Sepsis, unspecified organism (3) Acute renal failure (ARF) Qualifiers: Acute renal failure type: unspecified Qualified Code(s): N17.9 - Acute kidney failure, unspecified (4) COPD (chronic obstructive pulmonary disease) Qualifiers: COPD type: unspecified COPD Qualified Code(s): J44.9 - Chronic obstructive pulmonary disease, unspecified (6) Diastolic CHF Qualifiers: Heart failure chronicity: chronic Qualified Code(s): I50.32 - Chronic diastolic (congestive) heart failure (7) Depression Qualifiers: Depression Type: unspecified Qualified Code(s): F32.9 - Major depressive disorder, single episode, unspecified
[2018-10-07] MEDS: Budesonide/Formoterol 160/4.5 1 PUFF INH IH SCH ×2 (11:16→23:28)
--- NOTE | 2018-10-07 14:40 | Palliative Progress Note ---
Date of Encounter: 10/07/18 Time of Encounter: 13:45 - Assessment and plan (1) Goals of care, counseling/discussion Current Visit: Yes Status: Acute Assessment and plan: Conducted bedside discussion with patient. Discussed patient desires for discharge. Patient currently refusing bipap here at night despite low night sats. Discussed that PC goals is to help him feel better and breath better. Patient initially reluctant to discuss hospice care as an option for comfort with breathing. Consulted [facility] care, RN Amarilis Vera to provide education with patient about benefits and quality of care goals. I called [id number] Nai [phone] and updated on patients POC. Nai agrees to support patient on any decision for discharge planning. Nai agrees that patient should be in ECF to facilitate care. Amarilis Vera RN, [facility], met with patient and educated on hospice care. Patient agree to transition to ECF with hospice care. Called SANDRO Kennedy and she confirmed that be is available at [facility]CF and that patient can transition with Hospice care. F/U with patient and patient agree to hospice transition. Bipap settings obtained and referral called to Renetta at [facility]. Plan for DC tomorrow if cleared with Dr. Preston. Patient is DNRCC - A, DNI. (2) COPD exacerbation Current Visit: Yes Status: Acute Assessment and plan: Patient with end-stage COPD. Requiring Bipap at night but refuses to utilize it. Will add hospice care at [place] for comfort. (3) Pneumonia Current Visit: Yes Status: Acute Assessment and plan: Management per hospitalist Qualifiers: Pneumonia type: due to unspecified organism (4) Protein-calorie malnutrition, severe Current Visit: No Status: Chronic Assessment and plan: Dietary following (5) Depression Current Visit: Yes Status: Chronic Assessment and plan: Patient started on Paxil. Qualifiers: Depression Type: unspecified Qualified Code(s): F32.9 - Major depressive disorder, single episode, unspecified (6) Palliative care encounter Current Visit: Yes Status: Acute (7) Chronic respiratory failure with hypoxia and hypercapnia Current Visit: No Status: Chronic - Time Spent With Patient Total time spent is greater than 50% in coordination of care (as documented) at patient's floor/unit and/or counseling patient: - Subjective Interval history: Palliative care asked to reassess patient and re-address goals of care. Patient sleeping, opens eyes to name. Appears fragile. Currently on [place] oxygen at 3.5 L with bedside continued sat at 92%. Patient agree to talking about goals of care. - Constitutional Vitals: Abnormal lab results WBC 11.5 K/mcL (4.3-11.1) H 10/07/18 05:34 RBC 2.91 M/mcL (4.19-5.50) L 10/07/18 05:34 Hgb 8.8 g/dL (12.9-16.9) L 10/07/18 05:34 Hct 29.0 % (37.5-50.1) L 10/07/18 05:34 MCV 101.8 fL (83.0-100.0) H 10/06/18 05:15 MCHC 30.3 g/dL (31.6-35.5) L 10/07/18 05:34 RDW 14.6 % (11.5-14.5) H 10/07/18 05:34 9.5 K/mcL (1.6-8.9) H 09/30/18 12:15 0.5 K/mcL (0.6-4.6) L 10/01/18 00:39 ABG pCO2 67 mmHg (35-45) H 10/06/18 10:56 ABG pO2 75 mmHg (85-104) L 10/06/18 10:56 ABG HCO3 43 mEq/L (21-27) H 10/06/18 10:56 ABG Total CO2 45 mEq/L (20-26) H 10/06/18 10:56 ABG O2 Saturation 94 % (95-98) L 10/06/18 10:56 ABG Base Excess 16 mEq/L (-2 to 3) H 10/06/18 10:56 Sodium 146 mEq/L (136-145) H 10/07/18 05:34 Chloride 97 mEq/L (98-107) L 10/07/18 05:34 Carbon Dioxide 41 mEq/L (23-29) H* 10/07/18 05:34 BUN 45 mg/dL (8-23) H 10/07/18 05:34 1.58 mg/dL (0.70-1.30) H 10/07/18 05:34 Est GFR ( Amer) 52 (> 60) L 10/07/18 05:34 Est GFR (Non-Af Amer) 43 (> 60) L 10/07/18 05:34 28 (6-26) H 10/07/18 05:34 Glucose 120 mg/dL (70-105) H 10/04/18 02:50 POC Glucose 121 mg/dL (70-99) H 10/03/18 11:25 314 (280-300) H 10/07/18 05:34 Lactic Acid 2.4 mmol/L (0.5-2.2) H 09/30/18 22:47 Calcium 8.4 mg/dL (8.6-10.3) L 10/06/18 05:15 Phosphorus 2.6 mg/dL (2.7-4.5) L 10/02/18 04:09 AST 58 Units/L (13-39) H 10/01/18 00:39 265 Units/L (30-223) H 10/02/18 04:09 5.7 g/dL (6.4-8.9) L 10/01/18 00:39 2.4 g/dL (3.5-5.7) L 10/01/18 00:39 3.6 g/dL (2.4-3.5) H 09/30/18 20:06 0.7 (1.1-2.2) L 10/01/18 00:39 19 mg/dL (40-59) L 10/01/18 00:39 4.92 ng/mL (0.00-0.15) H 09/30/18 20:06 Cloudy (Clear) A 10/01/18 05:13 Small (Negative) H 10/01/18 05:13 Ur Squamous Epith Cells Many per lpf (None-Few) H 10/01/18 05:13 Moderate per hpf (None-Few) H 10/01/18 05:13 Few per hpf (None Seen) H 10/01/18 05:13 Ur Culture Indicated? YES (NO) A 10/01/18 05:13 - Head Head exam: Present: atraumatic, normal inspection, normocephalic - Eye Eye exam: Present: PERRL - ENT ENT exam: Present: mucous membranes moist - Neck Neck exam: Present: full ROM - Respiratory Respiratory exam: Present: decreased breath sounds - Expanded Respiratory Exam Location: decreased breath sounds: Left, Right, Lower - Cardiovascular Cardiovascular exam: Present: RRR, +S1, +S2 - GI/Abdominal GI/Abdominal exam: Present: normal bowel sounds, soft - Extremities Exam Extremities exam: Present: normal inspection - Back Exam Back exam: Present: tenderness - Neurological Exam Neurological exam: Present: alert, oriented X3 - Psychiatric Psychiatric exam: Present: flat affect - Skin Skin exam: Present: pallor, warm Palliative Quality Palliative Quality: Screen for Code Status: Yes, Screen for Goals of Care: Yes, Screen for Pain: Yes, If Pain Regimen Started, Initiate Bowel Regimen: NA, Screen for Nausea/Vomitting: Yes Code Status: 09/30/18 18:23 Resuscitation Status: Active [RES] Routine Comment: Resuscitation Status: Full Code 10/02/18 15:31 CODE [Resuscitation Status: Active] [RES] Routine Comment: Resuscitation Status: [id number] - Labs CBC & Chem 7: 10/07/18 05:34 10/07/18 05:34 Labs: Laboratory Results - last 24 hr 10/07/18 10/07/18 05:34 05:34 WBC 11.5 H RBC 2.91 L Hgb 8.8 L Hct 29.0 L MCV 99.7 MCH 30.2 MCHC 30.3 L RDW 14.6 H Plt Count 345 MPV 9.7 Immature Gran % 2.0 Seg Neutrophils % 64.1 Lymphocytes % 19.0 Monocytes % 11.4 Eosinophils % 3.2 Basophils % 0.3 Neutrophils # 7.4 Lymphocytes # 2.2 Monocytes # 1.3 Eosinophils # 0.4 Basophils # 0.0 Sodium 146 H Potassium 4.4 Chloride 97 L Carbon Dioxide 41 H* BUN 45 H Creatinine 1.58 H Est GFR ( Amer) 52 L Est GFR (Non-Af Amer) 43 L BUN/Creatinine Ratio 28 H Glucose 101 Calculated Osmolality 314 H Calcium 8.6 Phosphorus 3.6 Magnesium 2.0 - Impressions Impressions Chest X-Ray 10/06/18 21:13 IMPRESSION: Increased vascular congestion and interstitial edema. Unchanged small to moderate left and trace right pleural effusion with adjacent bibasilar atelectasis and edema. Superimposed aspiration may be present. D/ / Eleazar Florez MD / Eleazar Florez MD Interpreting Provider: Eleazar Florez MD - ABG Interpretation ABG results: ABG ABG pH 7.41 pH Units (7.32-7.45) 10/06/18 10:56 ABG pCO2 67 mmHg (35-45) H 10/06/18 10:56 ABG pO2 75 mmHg (85-104) L 10/06/18 10:56 ABG O2 Saturation 94 % (95-98) L 10/06/18 10:56 PT/INR, D-dimer PT 11.8 Seconds (9.4-12.1) 10/01/18 00:39 Palliative Scale - Palliative Performance Scale How ambulatory is this patient?: Mainly sit / lie What is patient's level of activity and evidence of disease?: Unable to do any work, Extensive disease How much self-care assistance does patient require?: Considerable assistance required How much oral intake does the patient have?: Normal or reduced What is this patient's level of consciousness?: Full Palliative Performance Score: 40 % Consult Discharge Plan - Plan Referrals: Lalito Pollack MD [Partnered Physician] - 10/09/18 10:15 am NONE,PCP [Primary Care Provider] -
[2018-10-07] MEDS ORDERED: OXYCODONE Oral CONC 10 MG/0.5 ML ORAL.SYG SL PRN (15:32)
[2018-10-07] MEDS ORDERED: *HR* LORazepam Oral Conc 2 MG/ML SL PRN (15:34)
--- NOTE | 2018-10-07 16:31 | Electrocardiograph Report ---
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
[2018-10-07] MEDS: Mirtazapine 15 MG TABLET PO SCH (20:23)
[2018-10-08] MEDS: Leptospermum Honey Gel 44 ML TUBE TP SCH (00:21)
[2018-10-08] MEDS: Ampicillin/Sulbactam 3,000 MG in 0.9 % Sodium Chloride Mini Bag 100 ML IVPB SCH ×2 (00:21→05:16)
[2018-10-08] MEDS: Ipratropium/Albuterol Neb 3 ML IH SCH ×2 (04:27→11:20)
[2018-10-08] MEDS: *HR* Heparin 5,000 UNIT/ML VIAL SQ SCH (05:16)
[2018-10-08 07:28] VITALS: BP 116/69
[2018-10-08] MEDS: Aspirin Enteric Coated 81 MG Tablet PO SCH (09:45)
[2018-10-08] MEDS: Folic Acid 1 MG TABLET PO SCH (09:45)
[2018-10-08] MEDS: Primidone 50 MG TABLET PO SCH (09:45)
[2018-10-08] MEDS: Thiamine (B-1) 100 MG TABLET PO SCH (09:45)
[2018-10-08] MEDS: Metoprolol XL (24 HR) Succ 50 MG TAB.ER.24H PO SCH (09:45)
[2018-10-08] MEDS: Nicotine 21 MG PATCH.TD24 TD SCH (09:46)
--- NOTE | 2018-10-08 10:01 | Palliative Progress Note ---
Date of Encounter: 10/08/18 Time of Encounter: 09:59 - Assessment and plan (1) Goals of care, counseling/discussion Current Visit: Yes Status: Acute Assessment and plan: confirmed plan of care with patient: - discharge today to [facility] with hospice care, DMEs were to be delivered by [facility], hospice diagnosis of Advanced COPD. comfort medication Oxycodone prn and Ativan prn ordered. Medication discussed with Dr. Preston. - patient remains DNRCCA and DNI Called and reached pt's [id number]-vbg Nai [phone] and updated on patients POC. She is agreeable with discharge plan. She states she spoke to patient later yesterday and was informed. Also pt agreed to use Bipap with a loose mask at night. (2) Depression Current Visit: No Status: Chronic Assessment and plan: On trazodone and Mirtazapine, Paroxetine was added yesterday. Nai is concerned about the amount of antidepressant medication that pt takes. Encouraged to voice her concern with SNF and hospice physician for medication review. Qualifiers: Depression Type: major depressive disorder Major depression recurrence: recurrent Active/Remission status: currently active Major depression episode severity: severe Psychotic features: without psychotic features Qualified Code(s): F33.2 - Major depressive disorder, recurrent severe without psychotic features (3) Tobacco abuse Current Visit: No Status: Chronic Assessment and plan: Nicotine patch in place (4) Palliative care encounter Current Visit: Yes Status: Acute (5) COPD (chronic obstructive pulmonary disease) Current Visit: No Status: Chronic Assessment and plan: Patient with end-stage COPD. Requiring Bipap at night but refuses to utilize it. Will add hospice care at [place] for comfort. Discontinue ABX on discharge. Qualifiers: COPD type: unspecified COPD Qualified Code(s): J44.9 - Chronic obstructive pulmonary disease, unspecified - Time Spent With Patient Total time spent is greater than 50% in coordination of care (as documented) at patient's floor/unit and/or counseling patient: - Subjective Interval history: Patient appears very weak, opens eyes to name calling, states to be feeling not too good. He remains AAOx3, answering questions appropriately. - Constitutional Vitals: Abnormal lab results WBC 11.5 K/mcL (4.3-11.1) H 10/07/18 05:34 RBC 2.91 M/mcL (4.19-5.50) L 10/07/18 05:34 Hgb 8.8 g/dL (12.9-16.9) L 10/07/18 05:34 Hct 29.0 % (37.5-50.1) L 10/07/18 05:34 MCV 101.8 fL (83.0-100.0) H 10/06/18 05:15 MCHC 30.3 g/dL (31.6-35.5) L 10/07/18 05:34 RDW 14.6 % (11.5-14.5) H 10/07/18 05:34 9.5 K/mcL (1.6-8.9) H 09/30/18 12:15 0.5 K/mcL (0.6-4.6) L 10/01/18 00:39 ABG pCO2 67 mmHg (35-45) H 10/06/18 10:56 ABG pO2 75 mmHg (85-104) L 10/06/18 10:56 ABG HCO3 43 mEq/L (21-27) H 10/06/18 10:56 ABG Total CO2 45 mEq/L (20-26) H 10/06/18 10:56 ABG O2 Saturation 94 % (95-98) L 10/06/18 10:56 ABG Base Excess 16 mEq/L (-2 to 3) H 10/06/18 10:56 Sodium 146 mEq/L (136-145) H 10/07/18 05:34 Chloride 97 mEq/L (98-107) L 10/07/18 05:34 Carbon Dioxide 41 mEq/L (23-29) H* 10/07/18 05:34 BUN 45 mg/dL (8-23) H 10/07/18 05:34 1.58 mg/dL (0.70-1.30) H 10/07/18 05:34 Est GFR ( Amer) 52 (> 60) L 10/07/18 05:34 Est GFR (Non-Af Amer) 43 (> 60) L 10/07/18 05:34 28 (6-26) H 10/07/18 05:34 Glucose 120 mg/dL (70-105) H 10/04/18 02:50 POC Glucose 127 mg/dL (70-99) H 10/06/18 20:29 314 (280-300) H 10/07/18 05:34 Lactic Acid 2.4 mmol/L (0.5-2.2) H 09/30/18 22:47 Calcium 8.4 mg/dL (8.6-10.3) L 10/06/18 05:15 Phosphorus 2.6 mg/dL (2.7-4.5) L 10/02/18 04:09 AST 58 Units/L (13-39) H 10/01/18 00:39 265 Units/L (30-223) H 10/02/18 04:09 5.7 g/dL (6.4-8.9) L 10/01/18 00:39 2.4 g/dL (3.5-5.7) L 10/01/18 00:39 3.6 g/dL (2.4-3.5) H 09/30/18 20:06 0.7 (1.1-2.2) L 10/01/18 00:39 19 mg/dL (40-59) L 10/01/18 00:39 4.92 ng/mL (0.00-0.15) H 09/30/18 20:06 Cloudy (Clear) A 10/01/18 05:13 Small (Negative) H 10/01/18 05:13 Ur Squamous Epith Cells Many per lpf (None-Few) H 10/01/18 05:13 Moderate per hpf (None-Few) H 10/01/18 05:13 Few per hpf (None Seen) H 10/01/18 05:13 Ur Culture Indicated? YES (NO) A 10/01/18 05:13 Palliative Quality Palliative Quality: Screen for Code Status: Yes, Screen for Goals of Care: Yes, Screen for Pain: Yes, If Pain Regimen Started, Initiate Bowel Regimen: NA, Screen for Nausea/Vomitting: Yes Code Status: 09/30/18 18:23 Resuscitation Status: Active [RES] Routine Comment: Resuscitation Status: Full Code 10/02/18 15:31 CODE [Resuscitation Status: Active] [RES] Routine Comment: Resuscitation Status: [id number] - Labs CBC & Chem 7: 10/07/18 05:34 10/07/18 05:34 Labs: Laboratory Results - last 24 hr 10/06/18 20:29 POC Glucose 127 H - ABG Interpretation ABG results: ABG ABG pH 7.41 pH Units (7.32-7.45) 10/06/18 10:56 ABG pCO2 67 mmHg (35-45) H 10/06/18 10:56 ABG pO2 75 mmHg (85-104) L 10/06/18 10:56 ABG O2 Saturation 94 % (95-98) L 10/06/18 10:56 PT/INR, D-dimer PT 11.8 Seconds (9.4-12.1) 10/01/18 00:39 Palliative Scale - Palliative Performance Scale How ambulatory is this patient?: Mainly sit / lie What is patient's level of activity and evidence of disease?: Unable to do any work, Extensive disease How much self-care assistance does patient require?: Considerable assistance required How much oral intake does the patient have?: Normal or reduced What is this patient's level of consciousness?: Full Palliative Performance Score: 40 % Consult Discharge Plan - Plan Referrals: Lalito Pollack MD [Partnered Physician] - 10/09/18 10:15 am NONE,PCP [Primary Care Provider] - Prescriptions: LORazepam Oral Conc [Ativan Oral Conc] 1 mg PO Q4HR PRN 4 Days #30 mls PRN Reason: Anxiety OXYCODONE Oral CONC [Oxycodone Oral Conc] 5 mg SL Q4H PRN 4 Days #15 ml PRN Reason: Pain
--- NOTE | 2018-10-08 10:08 | Physician Discharge Referral ---
ExtendedCare Referral Info Transfer To: ECF with hospice Provider in Charge after Transfer: PCP Institutional Level of Care: Skilled - Diagnosis (1) Sepsis Priority: Primary Status: Resolved (2) Hospital acquired PNA Priority: Primary Status: Acute (3) Acute renal failure (ARF) Priority: Secondary Status: Acute (4) COPD (chronic obstructive pulmonary disease) Priority: Secondary Status: Chronic (5) Elevated CPK Priority: Secondary Status: Resolved (6) Diastolic CHF Priority: Secondary Status: Chronic (7) Depression Priority: Secondary Status: Chronic - Transfer Medications Prescriptions: LORazepam Oral Conc [Ativan Oral Conc] 1 mg PO Q4HR PRN 4 Days #30 mls PRN Reason: Anxiety OXYCODONE Oral CONC [Oxycodone Oral Conc] 5 mg SL Q4H PRN 4 Days #15 ml PRN Reason: Pain Home Medications: Aspirin Enteric Coated [Aspirin EC] 81 mg PO DAILY #0 12/07/14 [History] Nitroglycerin 0.4 mg SL Q5MIN PRN #0 tab.subl 08/04/15 [Rx] Spironolactone [Aldactone] 12.5 mg PO DAILY #30 tablet 08/04/15 [Rx] Omeprazole [PriLOSEC] 20 mg PO DAILY 10/28/15 [History] Losartan [Cozaar] 25 mg PO DAILY 10/05/17 [History] Mirtazapine [Remeron] 30 mg PO HS 10/05/17 [History] Paroxetine HCl [Paxil] 20 mg PO QAM 10/05/17 [History] Primidone [Mysoline] 50 mg PO DAILY 10/05/17 [History] Tamsulosin [Flomax] 0.4 mg PO HS 10/05/17 [History] Megestrol Acetate 20 mg PO BID 02/03/18 [History] Simvastatin [Zocor] 40 mg PO HS 02/03/18 [History] traZODone [TraZODone] 50 mg PO HS PRN 02/03/18 [History] Ipratropium/Albuterol Neb [Duoneb] 3 ml IH [id number] PRN #120 inhsol 07/26/18 [Rx] Albuterol Sulfate [Ventolin Hfa] 1 puff IH Q4H PRN 09/12/18 [History] Fluticasone/Vilanterol [Breo Ellipta 200-25 Mcg INH] 1 puff IH QAM 09/12/18 [History] Metoprolol XL (24 HR) Succ [Toprol Xl] 50 mg PO DAILY #30 tab.er.24h 09/16/18 [Rx] LORazepam Oral Conc [Ativan Oral Conc] 1 mg PO Q4HR PRN 4 Days #30 mls 10/07/18 [Rx] OXYCODONE Oral CONC [Oxycodone Oral Conc] 5 mg SL Q4H PRN 4 Days #15 ml 10/07/18 [Rx] Folic Acid 1 mg PO DAILY tablet 10/08/18 [Rx] Nicotine Patch [Nicoderm] 21 mg TD DAILY patch.td24 10/08/18 [Rx] Thiamine (B-1) [Vitamin B-1] 100 mg PO DAILY tablet 10/08/18 [Rx] Allergies/Adverse Reactions: Allergy/AdvReac Type Severity Reaction Status Date / Time No Known Allergies Allergy Verified 09/12/18 18:07 - Respiratory Orders Oxygen / L per min (3L Oxygen bipap at bedtime) Smoking Cessation: Smoking cessation has been advised. For more information, call the [place] Tobacco Quit Line at 4-376-SLWZ-NOW. CERTIFICATION: I certify that the transfer of the above named patient to an Extended Care Facility is necessary for the continuing treatment of the diagnosis listed. The above information is true and accurate reflection of patient's current condition. Confidential - Redisclosure prohibited without a patient's written consent.
--- NOTE | 2018-10-08 10:15 | Discharge Summary ---
- NOTES TO OUTPATIENT PROVIDER Notes to Outpatient Provider: patient is being discharged to SNF with hospice care. Orders not resulted at time of discharge: Pending orders 09/30/18 19:50 Culture,Sputum with Gram Stain [RM] Routine Date of Encounter: 10/08/18 Time of Encounter: 10:08 - Discharge Diagnosis (1) Sepsis Priority: Primary Status: Resolved Qualifiers: Sepsis type: sepsis due to unspecified organism Qualified Code(s): A41.9 - Sepsis, unspecified organism (2) Hospital acquired PNA Priority: Secondary Status: Acute (3) Acute renal failure (ARF) Priority: Secondary Status: Acute Qualifiers: Acute renal failure type: unspecified Qualified Code(s): N17.9 - Acute kidney failure, unspecified (4) COPD (chronic obstructive pulmonary disease) Priority: Secondary Status: Chronic Qualifiers: COPD type: unspecified COPD Qualified Code(s): J44.9 - Chronic obstructive pulmonary disease, unspecified (5) Elevated CPK Priority: Secondary Status: Resolved (6) Diastolic CHF Priority: Secondary Status: Chronic Qualifiers: Heart failure chronicity: chronic Qualified Code(s): I50.32 - Chronic diastolic (congestive) heart failure (7) Depression Priority: Secondary Status: Chronic Qualifiers: Depression Type: unspecified Qualified Code(s): F32.9 - Major depressive disorder, single episode, unspecified Hospital course: Mr. Jones is a 78 year old male with PMH of COPD on home oxygen, CHF, CKD, tobacco abuse who was admitted for sepsis secondary to HCAP. He was started on broad spectrum IV abx. There was concern for volume overload for which he received IV Lasix which then lead to MAGGI on CKD. Renal function improved with di scontinuation of diuretics. He remained frail and lethargic throughout the course of the hospitalization. Even though patient was lethargic, he remained AAO x 3. Palliative care evaluation was requested and patient decided to pursue hospice care. He has finished abx treatment for HCAP. Respiratory status is at baseline. He will be discharged to SNF with hospice care. Patient and family in agreement with the discharge care and plan. Pt was seen and examined earlier today. Discharge discussed with: patient, nurse, social work, case management, netsuite consultant - Time Spent with Patient Total time spent providing and/or coordinating discharge services:35 minutes Time spent: Greater than 30 minutes - Discharge Medications Prescriptions: New LORazepam Oral Conc [Ativan Oral Conc] 1 mg PO Q4HR PRN 4 Days #30 mls PRN Reason: Anxiety OXYCODONE Oral CONC [Oxycodone Oral Conc] 5 mg SL Q4H PRN 4 Days #15 ml PRN Reason: Pain Nicotine Patch [Nicoderm] 21 mg TD DAILY patch.td24 Folic Acid 1 mg PO DAILY tablet Thiamine (B-1) [Vitamin B-1] 100 mg PO DAILY tablet Continued Aspirin Enteric Coated [Aspirin EC] 81 mg PO DAILY #0 Nitroglycerin 0.4 mg SL Q5MIN PRN #0 tab.subl PRN Reason: Chest Pain Spironolactone [Aldactone] 12.5 mg PO DAILY #30 tablet Omeprazole [PriLOSEC] 20 mg PO DAILY Tamsulosin [Flomax] 0.4 mg PO HS Paroxetine HCl [Paxil] 20 mg PO QAM Primidone [Mysoline] 50 mg PO DAILY Mirtazapine [Remeron] 30 mg PO HS Losartan [Cozaar] 25 mg PO DAILY Simvastatin [Zocor] 40 mg PO HS traZODone [TraZODone] 50 mg PO HS PRN PRN Reason: Sleep Megestrol Acetate 20 mg PO BID Ipratropium/Albuterol Neb [Duoneb] 3 ml IH [id number] PRN #120 inhsol PRN Reason: Shortness Of Breath Fluticasone/Vilanterol [Breo Ellipta 200-25 Mcg INH] 1 puff IH QAM Albuterol Sulfate [Ventolin Hfa] 1 puff IH Q4H PRN PRN Reason: Shortness Of Breath Metoprolol XL (24 HR) Succ [Toprol Xl] 50 mg PO DAILY #30 tab.er.24h Home Medications: Aspirin Enteric Coated [Aspirin EC] 81 mg PO DAILY #0 12/07/14 [History] Nitroglycerin 0.4 mg SL Q5MIN PRN #0 tab.subl 08/04/15 [Rx] Spironolactone [Aldactone] 12.5 mg PO DAILY #30 tablet 08/04/15 [Rx] Omeprazole [PriLOSEC] 20 mg PO DAILY 10/28/15 [History] Losartan [Cozaar] 25 mg PO DAILY 10/05/17 [History] Mirtazapine [Remeron] 30 mg PO HS 10/05/17 [History] Paroxetine HCl [Paxil] 20 mg PO QAM 10/05/17 [History] Primidone [Mysoline] 50 mg PO DAILY 10/05/17 [History] Tamsulosin [Flomax] 0.4 mg PO HS 10/05/17 [History] Megestrol Acetate 20 mg PO BID 02/03/18 [History] Simvastatin [Zocor] 40 mg PO HS 02/03/18 [History] traZODone [TraZODone] 50 mg PO HS PRN 02/03/18 [History] Ipratropium/Albuterol Neb [Duoneb] 3 ml IH [id number] PRN #120 inhsol 07/26/18 [Rx] Albuterol Sulfate [Ventolin Hfa] 1 puff IH Q4H PRN 09/12/18 [History] Fluticasone/Vilanterol [Breo Ellipta 200-25 Mcg INH] 1 puff IH QAM 09/12/18 [History] Metoprolol XL (24 HR) Succ [Toprol Xl] 50 mg PO DAILY #30 tab.er.24h 09/16/18 [Rx] LORazepam Oral Conc [Ativan Oral Conc] 1 mg PO Q4HR PRN 4 Days #30 mls 10/07/18 [Rx] OXYCODONE Oral CONC [Oxycodone Oral Conc] 5 mg SL Q4H PRN 4 Days #15 ml 10/07/18 [Rx] Folic Acid 1 mg PO DAILY tablet 10/08/18 [Rx] Nicotine Patch [Nicoderm] 21 mg TD DAILY patch.td24 10/08/18 [Rx] Thiamine (B-1) [Vitamin B-1] 100 mg PO DAILY tablet 10/08/18 [Rx] Allergies/Adverse Reactions: Allergy/AdvReac Type Severity Reaction Status Date / Time No Known Allergies Allergy Verified 09/12/18 18:07 Date of admission: 10/03/18 17:10 Primary care physician: PCP NONE Consults: 09/30/18 19:50 Consult to Nurse Navigator [CONS] Routine Comment: 09/30/18 23:16 Consult to Nutrition [CONS] Routine Comment: Consulting Provider: NUTRITION Reason for Dietary Consult: MST Score Consult to Senior It Business Analyst [CONS] Routine Reason for SW Consult: Advanced Directive henok up and after D/C Care . 10/01/18 00:04 Consult to Wound Care [CONS] Routine Reason for Consult: Coccyx Deep tissue injury Call Completed: No 10/01/18 08:28 PT [Consult to Physical Therapy] [CONS] Routine Comment: Evaluate, develop and implement POC Reason for Consult: came from home deconditioned Does patient have active BEDREST order?: No Is patient medically & hemodynamically stable?: Yes Patient assessed for mobility or mobilized this visit?: Yes 10/01/18 08:29 OT [Consult to Occupational Therapy] [CONS] Routine Comment: Evaluate, develop and implement POC Reason for Consult: pt deconditioned from home Does patient have active BEDREST order?: No Is patient medically & hemodynamically stable?: Yes Patient assessed for mobility or mobilized this visit?: Yes 10/02/18 09:25 Consult to Palliative Care [CONS] Routine Comment: Consulting Provider: [facility] Reason for Consult: Chronic CHF/PNA, weakness, lives home alone Time Notified: 09:26 Call Completed: No 10/07/18 09:45 Consult to Palliative Care [CONS] Routine Comment: Consulting Provider: [facility] Reason for Consult: decline in condition Call Completed: Yes Discharging clinician: Patsy Preston Anticipated date of discharge: 10/08/18 - Constitutional Vitals: Temp Pulse Resp BP Pulse Ox 98.5 F 97 20 116/69 100 10/08/18 07:27 10/08/18 07:27 10/08/18 07:27 10/08/18 07:27 10/08/18 07:27 Exam: ` General: No acute distress, AAO x 3, frail appearing elderly male HEENT: EOMI, NC/AT, no scleral icterus Respiratory: decreased breath sounds, no wheezing, equal air entry bilaterally, No rales Cardiovascular: Regular, Rate, Rhythm, No murmurs GI: Soft, Non tender, non distended, normal bowel sounds Ext: No edema, no tenderness, positive pulses Neuro: AAO x 3, no focal deficits Rest of the clinical exam is noncontributory - Patient Status Disposition: Hospice - Medical Facility - Discharge Instructions Follow Up With: Lalito Pollack MD [Partnered Physician] - 10/09/18 10:15 am NONE,PCP [Primary Care Provider] - Additional Instructions: Please continue bipap support at bedtime and O2 support during the day - Diet and Activity Activity: wear oxygen at all times, wear oxygen at night (bipap at bedtime )
[2018-10-08] MEDS: Budesonide/Formoterol 160/4.5 1 PUFF INH IH SCH (11:20)
== END 2018-10-08 12:01 | disposition hospice, inpatient (51) | DRG 871 ==
LOC: EMEROOARM 12:11 → 2ANU 12:11 → SUATTDRO 18:48 → ICNU 19:11 → 2NNU 19:59 → 2ANU 10-02 20:17
PROVIDERS: ADMIT Internal Medicine Nephrology; ATTEND Internal Medicine

== ENCOUNTER 2019-02-13 21:47 | Inpatient (IN) ==
[2019-02-13] MEDS ORDERED: Ipratropium/Albuterol Neb 3 ML IH ONE (22:03)
[2019-02-13] MEDS ORDERED: *HR* HYDROcodone/Acet 5/325 mg TABLET PO ONE (22:03)
[2019-02-14 00:35] LABS: Basophils # 0.1 K/mcL (0.0-0.2); Basophils % 0.2 %; Eosinophils % 0.1 %; Hematocrit 33.2 % (37.5-50.1); Immature Granulocytes % 0.8 % (0-4); Lymphocytes # 0.7 K/mcL (0.6-4.6); Lymphocytes % 2.6 %; Mean Corpuscular HGB Conc 30.1 g/dL (31.6-35.5); Mean Corpuscular Hemoglobin 30.9 pg (28.0-33.3); Mean Corpuscular Volume 102.5 fL (83.0-100.0); Mean Platelet Volume 10.1 fL (9.4-12.4); Monocytes # 1.1 K/mcL (0.0-1.3); Neutrophils # 24.2 K/mcL (1.6-8.9); Platelet Count 297 K/mcL (140-400); Red Blood Count 3.24 M/mcL (4.19-5.50); Red Cell Distribution Width 12.9 % (11.5-14.5); Segmented Neutrophils % 92.3 %; White Blood Count 26.2 K/mcL (4.3-11.1)
[2019-02-14 00:51] LABS: Prothrombin Time 11.6 Seconds (9.4-12.1)
[2019-02-14 00:54] LABS: Activated Partial Thrombo Time 33.1 Seconds (26.0-36.0); BUN/Creatinine Ratio 30 (6-26); Blood Urea Nitrogen 33 mg/dL (8-23); Calcium 8.3 mg/dL (8.6-10.3); Carbon Dioxide 31 mEq/L (23-29); Chloride 101 mEq/L (98-107); Glucose 154 mg/dL (70-105); Osmolality,Calculated 302 (280-300); Platelet Estimate Normal (Normal); Potassium 4.1 mEq/L (3.5-5.1); Sodium 141 mEq/L (136-145); eGFR For African Americans > 60 (> 60); eGFR For Non-African Americans > 60 (> 60)
[2019-02-14 03:39] LABS: Bilirubin,Urine Moderate (Negative); Blood,Urine Negative (Negative); Clarity,Urine Cloudy (Clear); Color,Urine Dark Yellow (Yellow); Glucose,Urine (UA) Normal (Normal); Ketones,Urine Trace mg/dL (Negative); Leukocyte Esterase,Urine Small (Negative); Nitrite,Urine Negative (Negative); Protein,Urine 30 mg/dL (Neg-Trace); Specific Gravity,Urine 1.029 (1.010-1.025); Urobilinogen,Urine Normal (Normal)
[2019-02-14 03:48] LABS: RBC,Urine 0-3 per hpf (0-3); Squamous Epithelial Cell,Urine Few per lpf (None-Few)
[2019-02-14 03:49] LABS: Bacteria,Urine Few per hpf (None-Few); Hyaline Casts,Urine Few per lpf (None-Few); Mucus,Urine Few (Few); WBC,Urine 0-3 per hpf (0-3)
[2019-02-14] MEDS ORDERED: Naloxone 0.4 MG/ML INJ IVP PRN (04:35)
[2019-02-14] MEDS ORDERED: traMADol 50 MG TABLET PO PRN (04:35)
[2019-02-14] MEDS ORDERED: Ondansetron 4 MG/2 ML VIAL IVP PRN (04:35)
[2019-02-14] MEDS ORDERED: *HR* OxyCODONE Immed Rel 5 MG TABLET PO ONE (04:45)
[2019-02-14 05:17] LABS: Alanine Aminotransferase 12 Units/L (7-52); Albumin 2.8 g/dL (3.5-5.7); Albumin/Globulin Ratio 0.9 (1.1-2.2); Alkaline Phosphatase 62 Units/L (34-104); Amylase 35 Units/L (29-103); Aspartate Amino Transferase 12 Units/L (13-39); Bilirubin,Direct 0.1 mg/dL (0.0-0.2); Bilirubin,Indirect 0.2 mg/dL (0.0-1.0); Bilirubin,Total 0.3 mg/dL (0.3-1.0); Lipase < 3 Units/L (11-82); Total Protein 5.8 g/dL (6.4-8.9)
[2019-02-14 05:57] LABS: Hepatitis B Surface Antigen Nonreactive (Nonreactive)
[2019-02-14] MEDS: 0.9 % Sodium Chloride 1,000 ML IVC SCH ×2 (05:57→23:26)
[2019-02-14 06:26] LABS: Hepatitis C Virus Antibody Nonreactive (Nonreactive)
[2019-02-14 06:27] LABS: Hepatitis B Core IgM Nonreactive (Nonreactive)
[2019-02-14 06:28] LABS: Hepatitis A Antibody IgM Nonreactive (Nonreactive)
[2019-02-14 06:39] LABS: Adenovirus Not Detected (Not Detect); Bordetella Pertussis Not Detected (Not Detect); Chlamydophila pneumoniae Not Detected (Not Detect); Coronavirus 229E Not Detected (Not Detect); Coronavirus HKU1 Not Detected (Not Detect); Coronavirus NL63 Not Detected (Not Detect); Coronavirus OC43 Not Detected (Not Detect); Human Metapneumovirus Not Detected (Not Detect); Human Rhinovirus/Enterovirus DETECTED (Not Detect); Influenza A Subtype 2009 H1 Not Detected (Not Detect); Influenza A Untypeable Not Detected (Not Detect); Influenza B Not Detected (Not Detect); Mycoplasma pneumoniae Not Detected (Not Detect); Parainfluenza Virus 1 Not Detected (Not Detect); Parainfluenza Virus 2 Not Detected (Not Detect); Parainfluenza Virus 3 Not Detected (Not Detect); Parainfluenza Virus 4 Not Detected (Not Detect); Respiratory Syncytial Virus Not Detected (Not Detect)
[2019-02-14] MEDS ORDERED: Furosemide 20 MG/2 ML VIAL IVP ONE (16:47)
[2019-02-14] MEDS ORDERED: Ipratropium/Albuterol Neb 3 ML ONE ×2 (17:25→19:31)
[2019-02-14] MEDS ORDERED: Ipratropium/Albuterol Neb 3 ML AER PRN (19:53)
[2019-02-14] MEDS ORDERED: *HR* LORazepam 0.5 MG TABLET PO PRN (22:54)
[2019-02-15 00:46] LABS: ABG Base Excess 17 mEq/L (-2 to 3); ABG HCO3 41 mEq/L (21-27); ABG Oxygen Saturation 96 % (95-98); ABG PCO2 48 mmHg (35-45); ABG PH 7.54 pH Units (7.32-7.45); ABG PO2 71 mmHg (85-104); ABG TCO2 43 mEq/L (20-26)
[2019-02-15] MEDS: traMADol 50 MG TABLET PO PRN (01:18)
[2019-02-15] MEDS ORDERED: Acetaminophen IV 500 MG/50 ML INFUS..BTL IVPB ONE (02:24)
[2019-02-15 04:30] LABS: Hematocrit 27.8 % (37.5-50.1); Hemoglobin 8.7 g/dL (12.9-16.9); Mean Corpuscular HGB Conc 31.3 g/dL (31.6-35.5); Mean Corpuscular Volume 98.9 fL (83.0-100.0); Mean Platelet Volume 10.5 fL (9.4-12.4); Platelet Count 228 K/mcL (140-400); Red Blood Count 2.81 M/mcL (4.19-5.50); Red Cell Distribution Width 13.4 % (11.5-14.5); White Blood Count 14.1 K/mcL (4.3-11.1)
[2019-02-15 04:47] LABS: BUN/Creatinine Ratio 29 (6-26); Blood Urea Nitrogen 28 mg/dL (8-23); Calcium 7.9 mg/dL (8.6-10.3); Carbon Dioxide 36 mEq/L (23-29); Chloride 100 mEq/L (98-107); Glucose 109 mg/dL (70-105); Osmolality,Calculated 302 (280-300); Potassium 3.5 mEq/L (3.5-5.1); Sodium 143 mEq/L (136-145); eGFR For African Americans > 60 (> 60); eGFR For Non-African Americans > 60 (> 60)
[2019-02-15] MEDS ORDERED: Lidocaine -MPF 2% 2 ML VIAL ONE (07:27)
[2019-02-15] MEDS ORDERED: Neostigmine Methylsulfate 3 MG/3 ML SYRINGE ONE (07:27)
[2019-02-15] MEDS ORDERED: *HR* FentaNYL (PF) 100 MCG/2 ML VIAL ONE (07:27)
[2019-02-15] MEDS ORDERED: *HR* Propofol 200 MG/20 ML VIAL IVP ONE (07:27)
[2019-02-15] MEDS ORDERED: Dexamethasone 4 MG/ML VIAL ONE (07:27)
[2019-02-15] MEDS ORDERED: *HR* Rocuronium Bromide 50 MG/5 ML VIAL ONE (07:27)
[2019-02-15] MEDS ORDERED: Ondansetron 4 MG/2 ML VIAL ONE (07:27)
[2019-02-15] MEDS ORDERED: Acetaminophen IV 1,000 MG/100 ML INFUS..BTL IVPB ONE (07:48)
[2019-02-15] MEDS ORDERED: *HR* Meperidine 25 MG/ML SYRINGE IVP PRN (07:48)
[2019-02-15] MEDS ORDERED: *HR* Midazolam HCl 2 MG/2 ML VIAL IVP PRN (07:48)
[2019-02-15] MEDS ORDERED: *HR* OxyCODONE Immed Rel 5 MG TABLET PO PRN (07:48)
[2019-02-15] MEDS ORDERED: *HR* Promethazine 25 MG/ML VIAL IVP PRN (07:48)
[2019-02-15] MEDS ORDERED: *HR* FentaNYL (PF) 100 MCG/2 ML VIAL IVP PRN (07:48)
[2019-02-15] MEDS ORDERED: *HR* HYDROmorphone (PF) 1 MG/ML SYRINGE IVP PRN (07:48)
[2019-02-15] MEDS ORDERED: Ringers Solution, Lactated 1,000 ML IVC SCH (08:00)
[2019-02-15] MEDS ORDERED: Nitroglycerin 0.4 MG TAB.SUBL SL PRN (08:03)
[2019-02-15] MEDS ORDERED: Ropivacaine/PF 0.5% 30 ML VIAL ONE (08:04)
[2019-02-15] MEDS ORDERED: ROPIVACAINE/PF/NS 0.25% 1 EACH SYRINGE INTRAART ONE (08:04)
[2019-02-15] MEDS: Metoprolol XL (24 HR) Succ 50 MG TAB.ER.24H PO SCH (08:34)
[2019-02-15] MEDS ORDERED: ceFAZolin 2,000 MG in Water for inj. (sterile) 20 ML IVP ONE (09:19)
[2019-02-15] MEDS ORDERED: *HR* PHENYLEPHRINE 1,000 MCG/10 ML SYRINGE IVP ONE (09:55)
[2019-02-15] MEDS ORDERED: Ethanol\\Acetic Acid\\Na Ace\\Ben 1,000 ML IRRIG.SOLN IR ONE (10:11)
[2019-02-15] MEDS: Budesonide/Formoterol 160/4.5 1 PUFF INH IH SCH ×2 (14:05→21:16)
[2019-02-15] MEDS: Azithromycin 500 MG in 0.9 % Sodium Chloride 250 ML IVPB SCH (14:13)
[2019-02-15] MEDS: rOPINIRole 0.25 MG TABLET PO SCH (20:41)
[2019-02-15] MEDS: cefTRIAXone 1,000 MG in Water for inj. (sterile) 10 ML IVP SCH (20:41)
[2019-02-15] MEDS ORDERED: FLUTICASONE IH SCH (21:00)
[2019-02-15] MEDS ORDERED: SALMETEROL IH SCH (21:00)
[2019-02-15] MEDS ORDERED: [UNRECOGNIZED DRUG - OTHER] IH SCH (21:00)
[2019-02-16 01:07] LABS: Hematocrit 23.3 % (37.5-50.1); Mean Corpuscular HGB Conc 29.6 g/dL (31.6-35.5); Mean Corpuscular Hemoglobin 30.7 pg (28.0-33.3); Mean Corpuscular Volume 103.6 fL (83.0-100.0); Mean Platelet Volume 10.9 fL (9.4-12.4); Platelet Count 198 K/mcL (140-400); Red Blood Count 2.25 M/mcL (4.19-5.50); Red Cell Distribution Width 13.5 % (11.5-14.5); White Blood Count 14.6 K/mcL (4.3-11.1)
[2019-02-16 01:10] LABS: Hemoglobin 6.9 g/dL (12.9-16.9)
[2019-02-16 01:29] LABS: BUN/Creatinine Ratio 31 (6-26); Blood Urea Nitrogen 26 mg/dL (8-23); Calcium 7.7 mg/dL (8.6-10.3); Carbon Dioxide 35 mEq/L (23-29); Chloride 102 mEq/L (98-107); Glucose 115 mg/dL (70-105); Osmolality,Calculated 298 (280-300); Potassium 4.2 mEq/L (3.5-5.1); Sodium 141 mEq/L (136-145); eGFR For African Americans > 60 (> 60); eGFR For Non-African Americans > 60 (> 60)
[2019-02-16] MEDS: Budesonide/Formoterol 160/4.5 1 PUFF INH IH SCH ×2 (07:13→19:46)
[2019-02-16] MEDS: rOPINIRole 0.25 MG TABLET PO SCH ×3 (09:35→20:17)
[2019-02-16] MEDS: dexAMETHasone 4 MG TABLET PO SCH (09:36)
[2019-02-16] MEDS: Metoprolol XL (24 HR) Succ 50 MG TAB.ER.24H PO SCH (09:36)
[2019-02-16] MEDS: Primidone 50 MG TABLET PO SCH (09:36)
[2019-02-16] MEDS: Fluticasone Propionate Nasal 50 MCG/SPRAY BOTTLE NS SCH (09:36)
[2019-02-16] MEDS ORDERED: Calcium Gluconate 1,000 MG/10 ML VIAL IVPB ONE (09:36)
[2019-02-16] MEDS: Aspirin Enteric Coated 81 MG Tablet PO SCH (09:36)
[2019-02-16] MEDS: Nicotine 14 MG PATCH.TD24 TD SCH (10:49)
[2019-02-16] MEDS: Azithromycin 500 MG in 0.9 % Sodium Chloride 250 ML IVPB SCH (11:11)
[2019-02-16] MEDS: Calcium Gluconate 1gm/50mL 1 GM/50 ML BAG IVPB SCH ×2 (11:11→12:12)
[2019-02-16] MEDS ORDERED: 0.9 % Sodium Chloride 250 ML ONE ×2 (12:40→17:58)
[2019-02-16] MEDS ORDERED: Furosemide 20 MG/2 ML VIAL IVP ONE (16:28)
[2019-02-16] MEDS: cefTRIAXone 1,000 MG in Water for inj. (sterile) 10 ML IVP SCH (20:17)
[2019-02-17 04:45] LABS: Basophils % 0.2 %; Eosinophils # 0.2 K/mcL (0.0-0.6); Eosinophils % 1.5 %; Hematocrit 28.9 % (37.5-50.1); Immature Granulocytes % 0.5 % (0-4); Lymphocytes # 1.3 K/mcL (0.6-4.6); Lymphocytes % 10.6 %; Mean Corpuscular HGB Conc 31.1 g/dL (31.6-35.5); Mean Corpuscular Hemoglobin 30.4 pg (28.0-33.3); Mean Corpuscular Volume 97.6 fL (83.0-100.0); Neutrophils # 9.8 K/mcL (1.6-8.9); Platelet Count 209 K/mcL (140-400); Red Blood Count 2.96 M/mcL (4.19-5.50); Red Cell Distribution Width 15.4 % (11.5-14.5); Segmented Neutrophils % 79.2 %; White Blood Count 12.3 K/mcL (4.3-11.1)
[2019-02-17 04:56] LABS: BUN/Creatinine Ratio 32 (6-26); Blood Urea Nitrogen 25 mg/dL (8-23); Carbon Dioxide 34 mEq/L (23-29); Chloride 100 mEq/L (98-107); Glucose 112 mg/dL (70-105); Osmolality,Calculated 295 (280-300); Potassium 3.5 mEq/L (3.5-5.1); Sodium 140 mEq/L (136-145); eGFR For African Americans > 60 (> 60); eGFR For Non-African Americans > 60 (> 60)
[2019-02-17] MEDS: Budesonide/Formoterol 160/4.5 1 PUFF INH IH SCH ×2 (07:18→20:42)
[2019-02-17] MEDS: Aspirin Enteric Coated 81 MG Tablet PO SCH (09:28)
[2019-02-17] MEDS: Metoprolol XL (24 HR) Succ 50 MG TAB.ER.24H PO SCH (09:28)
[2019-02-17] MEDS: dexAMETHasone 4 MG TABLET PO SCH (09:28)
[2019-02-17] MEDS: Primidone 50 MG TABLET PO SCH (09:28)
[2019-02-17] MEDS: rOPINIRole 0.25 MG TABLET PO SCH ×3 (09:28→19:41)
[2019-02-17] MEDS: Fluticasone Propionate Nasal 50 MCG/SPRAY BOTTLE NS SCH (09:29)
[2019-02-17] MEDS: Nicotine 14 MG PATCH.TD24 TD SCH (09:29)
[2019-02-17] MEDS: traMADol 50 MG TABLET PO PRN (09:29)
[2019-02-17] MEDS: Azithromycin 500 MG in 0.9 % Sodium Chloride 250 ML IVPB SCH (11:42)
[2019-02-17] MEDS ORDERED: Haloperidol Lactate 5 MG/ML VIAL IVP ONE (16:25)
[2019-02-17] MEDS ORDERED: HydrOXYzine 100 MG/2 ML VIAL IM ONE (17:48)
[2019-02-17] MEDS ORDERED: Haloperidol Lactate 5 MG/ML VIAL IVP PRN (18:16)
[2019-02-17] MEDS: cefTRIAXone 1,000 MG in Water for inj. (sterile) 10 ML IVP SCH (19:42)
[2019-02-17] MEDS ORDERED: Haloperidol Lactate 5 MG/ML VIAL IVP SCH (20:00)
[2019-02-17] MEDS ORDERED: Haloperidol Lactate 5 MG/ML VIAL IM SCH (20:00)
[2019-02-18 05:42] LABS: Basophils % 0.2 %; Eosinophils # 0.2 K/mcL (0.0-0.6); Eosinophils % 1.5 %; Hematocrit 28.8 % (37.5-50.1); Immature Granulocytes % 0.8 % (0-4); Lymphocytes # 1.3 K/mcL (0.6-4.6); Lymphocytes % 12.5 %; Mean Corpuscular HGB Conc 31.3 g/dL (31.6-35.5); Mean Corpuscular Hemoglobin 30.5 pg (28.0-33.3); Mean Corpuscular Volume 97.6 fL (83.0-100.0); Mean Platelet Volume 10.7 fL (9.4-12.4); Neutrophils # 8.1 K/mcL (1.6-8.9); Platelet Count 255 K/mcL (140-400); Red Blood Count 2.95 M/mcL (4.19-5.50); Red Cell Distribution Width 14.6 % (11.5-14.5); White Blood Count 10.7 K/mcL (4.3-11.1)
[2019-02-18 05:44] LABS: Hematocrit 28.5 % (37.5-50.1); Hemoglobin 9.3 g/dL (12.9-16.9); Mean Corpuscular HGB Conc 32.6 g/dL (31.6-35.5); Mean Corpuscular Hemoglobin 30.6 pg (28.0-33.3); Mean Corpuscular Volume 93.8 fL (83.0-100.0); Mean Platelet Volume 10.7 fL (9.4-12.4); Platelet Count 267 K/mcL (140-400); Red Blood Count 3.04 M/mcL (4.19-5.50); Red Cell Distribution Width 14.4 % (11.5-14.5)
[2019-02-18 06:24] LABS: BUN/Creatinine Ratio 34 (6-26); Blood Urea Nitrogen 25 mg/dL (8-23); Calcium 8.2 mg/dL (8.6-10.3); Carbon Dioxide 36 mEq/L (23-29); Chloride 97 mEq/L (98-107); Glucose 81 mg/dL (70-105); Osmolality,Calculated 295 (280-300); Potassium 3.1 mEq/L (3.5-5.1); Sodium 141 mEq/L (136-145); eGFR For African Americans > 60 (> 60); eGFR For Non-African Americans > 60 (> 60)
[2019-02-18] MEDS: Budesonide/Formoterol 160/4.5 1 PUFF INH IH SCH (08:07)
[2019-02-18] MEDS: traMADol 50 MG TABLET PO PRN (08:39)
[2019-02-18] MEDS: Nicotine 14 MG PATCH.TD24 TD SCH (08:40)
[2019-02-18] MEDS: Metoprolol XL (24 HR) Succ 50 MG TAB.ER.24H PO SCH (08:42)
[2019-02-18] MEDS: rOPINIRole 0.25 MG TABLET PO SCH ×2 (08:42→13:51)
[2019-02-18] MEDS: dexAMETHasone 4 MG TABLET PO SCH (08:43)
[2019-02-18] MEDS: Aspirin Enteric Coated 81 MG Tablet PO SCH (08:43)
[2019-02-18] MEDS: Primidone 50 MG TABLET PO SCH (08:43)
[2019-02-18] MEDS: Fluticasone Propionate Nasal 50 MCG/SPRAY BOTTLE NS SCH (08:49)
[2019-02-18] MEDS ORDERED: Lactobacillus 1 EACH CAP.SPRINK PO SCH (09:00)
[2019-02-18 11:45] VITALS: BP 109/48
[2019-02-18] MEDS ORDERED: Doxycycline 100 MG CAPSULE PO ONE (12:53)
[2019-02-18] MEDS ORDERED: FLU Vac QV 19-20 (6Month+)/PF 0.5 ML SYRINGE IM ONE (15:12)
== END 2019-02-18 17:15 | DRG 853 ==
LOC: 3NENU 21:47 → EMEROOARM 21:47 → 3NENU 02-14 02:07 → SUATTDRO 02-14 04:35 → 3NENU 02-17 17:38
PROVIDERS: ADMIT Internal Medicine; ATTEND Internal Medicine

== ENCOUNTER 2019-04-13 15:02 | Inpatient (IN) ==
[2019-04-13] MEDS ORDERED: methylPREDNISolone 125 MG/2 ML VIAL IVP ONE (15:26)
[2019-04-13] MEDS ORDERED: Ipratropium/Albuterol Neb 3 ML ONE (15:26)
[2019-04-13] MEDS ORDERED: Ipratropium/Albuterol Neb 3 ML IH ONE (15:26)
[2019-04-13] MEDS ORDERED: 0.9 % Sodium Chloride 250 ML IVC ONE (15:28)
[2019-04-13 15:38] LABS: Basophils % 0.2 %; Hematocrit 35.5 % (37.5-50.1); Hemoglobin 10.9 g/dL (12.9-16.9); Immature Granulocytes % 0.6 % (0-4); Lymphocytes # 0.2 K/mcL (0.6-4.6); Mean Corpuscular HGB Conc 30.7 g/dL (31.6-35.5); Mean Corpuscular Hemoglobin 29.9 pg (28.0-33.3); Mean Corpuscular Volume 97.5 fL (83.0-100.0); Mean Platelet Volume 9.7 fL (9.4-12.4); Monocytes % 0.3 %; Neutrophils # 10.7 K/mcL (1.6-8.9); Platelet Count 319 K/mcL (140-400); Red Blood Count 3.64 M/mcL (4.19-5.50); Red Cell Distribution Width 14.3 % (11.5-14.5); Segmented Neutrophils % 96.9 %
[2019-04-13 15:40] LABS: INR 1.2; Prothrombin Time 13.3 Seconds (9.4-12.1)
[2019-04-13 15:43] LABS: Activated Partial Thrombo Time 37.2 Seconds (26.0-36.0)
[2019-04-13 15:58] LABS: Alanine Aminotransferase 28 Units/L (7-52); Alkaline Phosphatase 142 Units/L (34-104); Aspartate Amino Transferase 77 Units/L (13-39); BUN/Creatinine Ratio 28 (6-26); Bilirubin,Total 0.6 mg/dL (0.3-1.0); Blood Urea Nitrogen 32 mg/dL (8-23); Calcium 8.6 mg/dL (8.6-10.3); Carbon Dioxide 26 mEq/L (23-29); Chloride 101 mEq/L (98-107); Glucose 111 mg/dL (70-105); Osmolality,Calculated 304 (280-300); Phosphorous 3.1 mg/dL (2.7-4.5); Potassium 4.2 mEq/L (3.5-5.1); Sodium 143 mEq/L (136-145); Troponin I 0.03 ng/mL (< 0.04); eGFR For African Americans > 60 (> 60); eGFR For Non-African Americans > 60 (> 60)
[2019-04-13] MEDS ORDERED: Piperacillin/Tazobactam 3.375 GM in 0.9 % Sodium Chloride Mini Bag 100 ML IVPB ONE (16:17)
[2019-04-13] MEDS ORDERED: 0.9 % Sodium Chloride 500 ML IVC ONE (16:46)
[2019-04-13 17:07] LABS: Bilirubin,Urine Negative (Negative); Blood,Urine Negative (Negative); Clarity,Urine Clear (Clear); Color,Urine Dark Yellow (Yellow); Glucose,Urine (UA) Normal (Normal); Ketones,Urine Negative (Negative); Leukocyte Esterase,Urine Negative (Negative); Nitrite,Urine Positive (Negative); PH,Urine 6.5 pH Units (5.0-8.0); Protein,Urine Negative (Neg-Trace); Specific Gravity,Urine < 1.005 (1.010-1.025); Urobilinogen,Urine Normal (Normal)
[2019-04-13 17:08] LABS: Bacteria,Urine None Seen per hpf (None-Few); Hyaline Casts,Urine None Seen per lpf (None-Few); Squamous Epithelial Cell,Urine None Seen per lpf (None-Few); WBC,Urine 0-3 per hpf (0-3)
[2019-04-13] MEDS ORDERED: 0.9 % Sodium Chloride 1,000 ML IVC ONE ×2 (17:13→20:21)
[2019-04-13] MEDS ORDERED: Naloxone 0.4 MG/ML INJ IVP PRN (17:41)
[2019-04-13] MEDS ORDERED: Ondansetron ODT 4 MG TAB.RAPDIS SL PRN (17:41)
[2019-04-13] MEDS ORDERED: Ringers Solution, Lactated 1,000 ML IVC ONE (17:47)
[2019-04-13] MEDS ORDERED: Morphine Sulfate 2 MG/ML SYRINGE IVP ONE (19:02)
[2019-04-13 19:04] LABS: ABG Base Excess 0 mEq/L (-2 to 3); ABG HCO3 25 mEq/L (21-27); ABG Oxygen Saturation 100 % (95-98); ABG PCO2 44 mmHg (35-45); ABG PH 7.37 pH Units (7.32-7.45); ABG PO2 534 mmHg (85-104); ABG TCO2 27 mEq/L (20-26); Blood Gas Modality BiLevel
[2019-04-13] MEDS: Ipratropium/Albuterol Neb 3 ML IH SCH ×2 (20:13→23:22)
[2019-04-14] MEDS: MethylPREDNISolone 40 MG/ML VIAL IVP SCH ×3 (00:18→16:38)
[2019-04-14 00:24] LABS: Influenza A PCR Negative (Negative); Influenza B PCR Negative (Negative)
[2019-04-14] MEDS ORDERED: 0.9 % Sodium Chloride 500 ML IVC ONE (00:37)
[2019-04-14] MEDS: Ipratropium/Albuterol Neb 3 ML IH SCH ×6 (03:26→23:18)
[2019-04-14] MEDS: Piperacillin/Tazobactam 3.375 GM in 0.9 % Sodium Chloride Mini Bag 100 ML IVPB SCH ×3 (04:17→19:26)
[2019-04-14 05:39] LABS: Hematocrit 27.5 % (37.5-50.1); Hemoglobin 8.2 g/dL (12.9-16.9); Mean Corpuscular HGB Conc 29.8 g/dL (31.6-35.5); Mean Corpuscular Hemoglobin 30.8 pg (28.0-33.3); Mean Corpuscular Volume 103.4 fL (83.0-100.0); Mean Platelet Volume 10.2 fL (9.4-12.4); Platelet Count 204 K/mcL (140-400); Red Blood Count 2.66 M/mcL (4.19-5.50); Red Cell Distribution Width 14.9 % (11.5-14.5)
[2019-04-14 05:44] LABS: White Blood Count 42.4 K/mcL (4.3-11.1)
[2019-04-14 05:51] LABS: Calcium 7.4 mg/dL (8.6-10.3); Magnesium 1.8 mg/dL (1.6-2.6); Phosphorous 3.6 mg/dL (2.7-4.5); Potassium 3.7 mEq/L (3.5-5.1)
[2019-04-14 06:18] LABS: Hematocrit 28.1 % (37.5-50.1); Hemoglobin 8.4 g/dL (12.9-16.9); Mean Corpuscular HGB Conc 29.9 g/dL (31.6-35.5); Mean Corpuscular Hemoglobin 30.9 pg (28.0-33.3); Mean Corpuscular Volume 103.3 fL (83.0-100.0); Mean Platelet Volume 10.3 fL (9.4-12.4); Platelet Count 212 K/mcL (140-400); Red Blood Count 2.72 M/mcL (4.19-5.50); Red Cell Distribution Width 14.9 % (11.5-14.5)
[2019-04-14 06:22] LABS: White Blood Count 42.8 K/mcL (4.3-11.1)
[2019-04-14] MEDS ORDERED: Ringers Solution, Lactated 1,000 ML IVC ONE ×3 (07:27→15:32)
[2019-04-14 08:01] LABS: Albumin 2.4 g/dL (3.5-5.7); Bilirubin,Direct 0.1 mg/dL (0.0-0.2); Bilirubin,Indirect 0.3 mg/dL (0.0-1.0); Bilirubin,Total 0.4 mg/dL (0.3-1.0); Globulin 2.4 g/dL (2.4-3.5); Total Protein 4.8 g/dL (6.4-8.9)
[2019-04-14 09:22] LABS: Acinetobacter baumannii by PCR Not Detected (Not Detect); Candida albicans by PCR Not Detected (Not Detect); Candida glabrata by PCR Not Detected (Not Detect); Candida krusei by PCR Not Detected (Not Detect); Candida parapsilosis by PCR Not Detected (Not Detect); Candida tropicalis by PCR Not Detected (Not Detect); Enterobacter cloacae Cmplx PCR Not Detected (Not Detect); Enterobacteriaceae by PCR Not Detected (Not Detect); Enterococcus by PCR DETECTED (Not Detect); Escherichia coli by PCR Not Detected (Not Detect); Klebsiella oxytoca by PCR Not Detected (Not Detect); Klebsiella pneumoniae by PCR Not Detected (Not Detect); Proteus by PCR Not Detected (Not Detect); Pseudomonas aeruginosa by PCR DETECTED (Not Detect); Serratia marcescens by PCR Not Detected (Not Detect); Staphylococcus aureus by PCR Not Detected (Not Detect); Staphylococcus by PCR Not Detected (Not Detect); Streptococcus agalactiae(B)PCR Not Detected (Not Detect); Streptococcus by PCR Not Detected (Not Detect); Streptococcus pneumoniae PCR Not Detected (Not Detect); Streptococcus pyogenes (A) PCR Not Detected (Not Detect); blaKPC Carbapenem-Resist Gene Not Detected (Not Detect); vanA/B Vancomycin-Resist Genes Not Detected (Not Detect)
[2019-04-14] MEDS: Nicotine 21 MG PATCH.TD24 TD SCH (13:02)
[2019-04-14] MEDS: *HR* Heparin 5,000 UNIT/ML VIAL SQ SCH (16:38)
[2019-04-15] MEDS: MethylPREDNISolone 40 MG/ML VIAL IVP SCH ×3 (00:15→20:29)
[2019-04-15 02:29] LABS: Hematocrit 25.2 % (37.5-50.1); Hemoglobin 7.7 g/dL (12.9-16.9); Mean Corpuscular HGB Conc 30.6 g/dL (31.6-35.5); Mean Corpuscular Hemoglobin 30.4 pg (28.0-33.3); Mean Corpuscular Volume 99.6 fL (83.0-100.0); Mean Platelet Volume 10.7 fL (9.4-12.4); Platelet Count 165 K/mcL (140-400); Red Blood Count 2.53 M/mcL (4.19-5.50); Red Cell Distribution Width 14.8 % (11.5-14.5)
[2019-04-15 02:31] LABS: White Blood Count 31.5 K/mcL (4.3-11.1)
[2019-04-15 02:42] LABS: Blood Urea Nitrogen 37 mg/dL (8-23); Calcium 7.5 mg/dL (8.6-10.3); Carbon Dioxide 26 mEq/L (23-29); Chloride 108 mEq/L (98-107); Glucose 183 mg/dL (70-105); Osmolality,Calculated 305 (280-300); Potassium 4.2 mEq/L (3.5-5.1); Sodium 141 mEq/L (136-145)
[2019-04-15 03:40] LABS: BUN/Creatinine Ratio 36 (6-26); eGFR For African Americans > 60 (> 60); eGFR For Non-African Americans > 60 (> 60)
[2019-04-15] MEDS: Ipratropium/Albuterol Neb 3 ML IH SCH ×5 (03:45→19:56)
[2019-04-15] MEDS: *HR* Heparin 5,000 UNIT/ML VIAL SQ SCH ×2 (04:50→17:04)
[2019-04-15] MEDS: Piperacillin/Tazobactam 3.375 GM in 0.9 % Sodium Chloride Mini Bag 100 ML IVPB SCH ×3 (04:50→20:30)
[2019-04-15 06:39] LABS: Hematocrit 24.7 % (37.5-50.1); Hemoglobin 8.1 g/dL (12.9-16.9)
[2019-04-15] MEDS: Nicotine 21 MG PATCH.TD24 TD SCH (08:31)
[2019-04-15] MEDS ORDERED: *HR* LORazepam 0.5 MG TABLET PO PRN (10:16)
[2019-04-15 13:55] LABS: Hematocrit 25.3 % (37.5-50.1); Hemoglobin 8.2 g/dL (12.9-16.9)
[2019-04-15 19:38] LABS: Hematocrit 25.4 % (37.5-50.1); Hemoglobin 8.1 g/dL (12.9-16.9)
[2019-04-15] MEDS: Budesonide/Formoterol 160/4.5 1 PUFF INH IH SCH (19:57)
[2019-04-16] MEDS: Ipratropium/Albuterol Neb 3 ML IH SCH ×6 (00:20→19:40)
[2019-04-16 00:50] LABS: Hematocrit 24.8 % (37.5-50.1); Hemoglobin 7.8 g/dL (12.9-16.9); Mean Corpuscular HGB Conc 31.5 g/dL (31.6-35.5); Mean Corpuscular Volume 98.4 fL (83.0-100.0); Mean Platelet Volume 10.5 fL (9.4-12.4); Platelet Count 153 K/mcL (140-400); Red Blood Count 2.52 M/mcL (4.19-5.50); Red Cell Distribution Width 14.9 % (11.5-14.5); White Blood Count 28.5 K/mcL (4.3-11.1)
[2019-04-16 01:11] LABS: BUN/Creatinine Ratio 37 (6-26); Blood Urea Nitrogen 37 mg/dL (8-23); Calcium 7.8 mg/dL (8.6-10.3); Carbon Dioxide 28 mEq/L (23-29); Chloride 108 mEq/L (98-107); Glucose 171 mg/dL (70-105); Osmolality,Calculated 305 (280-300); Sodium 141 mEq/L (136-145); eGFR For African Americans > 60 (> 60); eGFR For Non-African Americans > 60 (> 60)
[2019-04-16 01:16] LABS: Lymphocytes # 0.6 K/mcL (0.6-4.6); Monocytes # 1.1 K/mcL (0.0-1.3); Neutrophils # 26.8 K/mcL (1.6-8.9); Platelet Estimate Normal (Normal); Reactive Lymphocytes Present (Not Present)
[2019-04-16 01:18] LABS: Anisocytosis 1+ (Not Present); Large Platelets Present (Not Present)
[2019-04-16] MEDS: *HR* Heparin 5,000 UNIT/ML VIAL SQ SCH ×2 (05:04→17:15)
[2019-04-16] MEDS: Piperacillin/Tazobactam 3.375 GM in 0.9 % Sodium Chloride Mini Bag 100 ML IVPB SCH ×3 (05:05→20:09)
[2019-04-16] MEDS: Budesonide/Formoterol 160/4.5 1 PUFF INH IH SCH ×2 (07:07→19:40)
[2019-04-16] MEDS: Primidone 50 MG TABLET PO SCH (10:02)
[2019-04-16] MEDS: Aspirin Enteric Coated 81 MG Tablet PO SCH (10:02)
[2019-04-16] MEDS: MethylPREDNISolone 40 MG/ML VIAL IVP SCH ×2 (10:04→20:10)
[2019-04-16] MEDS: Nicotine 21 MG PATCH.TD24 TD SCH (10:04)
[2019-04-16] MEDS: Fluticasone Propionate Nasal 50 MCG/SPRAY BOTTLE NS SCH (10:05)
[2019-04-17] MEDS: Ipratropium/Albuterol Neb 3 ML IH SCH ×7 (00:33→23:30)
[2019-04-17] MEDS: Piperacillin/Tazobactam 3.375 GM in 0.9 % Sodium Chloride Mini Bag 100 ML IVPB SCH ×3 (04:57→21:46)
[2019-04-17] MEDS: *HR* Heparin 5,000 UNIT/ML VIAL SQ SCH ×2 (05:00→17:54)
[2019-04-17 06:58] LABS: Basophils % 0.1 %; Hematocrit 26.4 % (37.5-50.1); Hemoglobin 8.2 g/dL (12.9-16.9); Immature Granulocytes % 0.6 % (0-4); Lymphocytes # 0.4 K/mcL (0.6-4.6); Lymphocytes % 1.9 %; Mean Corpuscular HGB Conc 31.1 g/dL (31.6-35.5); Mean Corpuscular Hemoglobin 30.8 pg (28.0-33.3); Mean Corpuscular Volume 99.2 fL (83.0-100.0); Mean Platelet Volume 11.2 fL (9.4-12.4); Monocytes # 0.2 K/mcL (0.0-1.3); Monocytes % 1.1 %; Platelet Count 163 K/mcL (140-400); Red Blood Count 2.66 M/mcL (4.19-5.50); Red Cell Distribution Width 14.8 % (11.5-14.5); Segmented Neutrophils % 96.3 %; White Blood Count 20.8 K/mcL (4.3-11.1)
[2019-04-17 07:07] LABS: BUN/Creatinine Ratio 35 (6-26); Blood Urea Nitrogen 32 mg/dL (8-23); Calcium 8.3 mg/dL (8.6-10.3); Carbon Dioxide 27 mEq/L (23-29); Chloride 104 mEq/L (98-107); Glucose 162 mg/dL (70-105); Osmolality,Calculated 306 (280-300); Potassium 4.2 mEq/L (3.5-5.1); Sodium 143 mEq/L (136-145); eGFR For African Americans > 60 (> 60); eGFR For Non-African Americans > 60 (> 60)
[2019-04-17] MEDS: Aspirin Enteric Coated 81 MG Tablet PO SCH (09:17)
[2019-04-17] MEDS: MethylPREDNISolone 40 MG/ML VIAL IVP SCH (09:17)
[2019-04-17] MEDS: Primidone 50 MG TABLET PO SCH (09:17)
[2019-04-17] MEDS: Nicotine 21 MG PATCH.TD24 TD SCH (09:18)
[2019-04-17] MEDS: Fluticasone Propionate Nasal 50 MCG/SPRAY BOTTLE NS SCH (09:28)
[2019-04-17] MEDS: Budesonide/Formoterol 160/4.5 1 PUFF INH IH SCH ×2 (10:37→20:26)
[2019-04-18] MEDS ORDERED: 0.9 % Sodium Chloride 500 ML IVC ONE ×2 (01:11→05:42)
[2019-04-18 03:07] LABS: Basophils % 0.1 %; Hematocrit 25.4 % (37.5-50.1); Hemoglobin 8.3 g/dL (12.9-16.9); Lymphocytes # 0.7 K/mcL (0.6-4.6); Lymphocytes % 4.7 %; Mean Corpuscular HGB Conc 32.7 g/dL (31.6-35.5); Mean Corpuscular Volume 94.8 fL (83.0-100.0); Mean Platelet Volume 10.8 fL (9.4-12.4); Monocytes # 0.5 K/mcL (0.0-1.3); Monocytes % 3.3 %; Neutrophils # 13.3 K/mcL (1.6-8.9); Platelet Count 158 K/mcL (140-400); Red Blood Count 2.68 M/mcL (4.19-5.50); Red Cell Distribution Width 14.9 % (11.5-14.5); Segmented Neutrophils % 90.9 %; White Blood Count 14.7 K/mcL (4.3-11.1)
[2019-04-18 03:27] LABS: BUN/Creatinine Ratio 30 (6-26); Blood Urea Nitrogen 29 mg/dL (8-23); Calcium 8.1 mg/dL (8.6-10.3); Carbon Dioxide 28 mEq/L (23-29); Chloride 103 mEq/L (98-107); Glucose 152 mg/dL (70-105); Osmolality,Calculated 301 (280-300); Potassium 3.8 mEq/L (3.5-5.1); Sodium 141 mEq/L (136-145); eGFR For African Americans > 60 (> 60); eGFR For Non-African Americans > 60 (> 60)
[2019-04-18] MEDS: Ipratropium/Albuterol Neb 3 ML IH SCH ×6 (04:04→23:04)
[2019-04-18] MEDS: Piperacillin/Tazobactam 3.375 GM in 0.9 % Sodium Chloride Mini Bag 100 ML IVPB SCH ×3 (04:54→20:26)
[2019-04-18] MEDS: *HR* Heparin 5,000 UNIT/ML VIAL SQ SCH ×2 (05:24→17:22)
[2019-04-18] MEDS: Nicotine 21 MG PATCH.TD24 TD SCH (08:42)
[2019-04-18] MEDS: MethylPREDNISolone 40 MG/ML VIAL IVP SCH (08:43)
[2019-04-18] MEDS: Fluticasone Propionate Nasal 50 MCG/SPRAY BOTTLE NS SCH (08:43)
[2019-04-18] MEDS: Aspirin Enteric Coated 81 MG Tablet PO SCH (08:47)
[2019-04-18] MEDS: Primidone 50 MG TABLET PO SCH (08:48)
[2019-04-18] MEDS: Budesonide/Formoterol 160/4.5 1 PUFF INH IH SCH ×2 (11:05→19:59)
[2019-04-19] MEDS: Ipratropium/Albuterol Neb 3 ML IH SCH ×6 (00:14→19:44)
[2019-04-19] MEDS: Piperacillin/Tazobactam 3.375 GM in 0.9 % Sodium Chloride Mini Bag 100 ML IVPB SCH ×2 (04:34→11:48)
[2019-04-19 05:24] LABS: Eosinophils # 0.1 K/mcL (0.0-0.6); Eosinophils % 0.7 %; Hematocrit 27.4 % (37.5-50.1); Hemoglobin 8.7 g/dL (12.9-16.9); Lymphocytes # 0.9 K/mcL (0.6-4.6); Lymphocytes % 11.1 %; Mean Corpuscular HGB Conc 31.8 g/dL (31.6-35.5); Mean Corpuscular Hemoglobin 29.8 pg (28.0-33.3); Mean Corpuscular Volume 93.8 fL (83.0-100.0); Mean Platelet Volume 10.3 fL (9.4-12.4); Monocytes # 0.6 K/mcL (0.0-1.3); Monocytes % 7.7 %; Neutrophils # 6.4 K/mcL (1.6-8.9); Platelet Count 182 K/mcL (140-400); Red Blood Count 2.92 M/mcL (4.19-5.50); Red Cell Distribution Width 14.7 % (11.5-14.5); Segmented Neutrophils % 79.5 %
[2019-04-19 05:44] LABS: BUN/Creatinine Ratio 25 (6-26); Blood Urea Nitrogen 25 mg/dL (8-23); Calcium 8.1 mg/dL (8.6-10.3); Carbon Dioxide 31 mEq/L (23-29); Chloride 103 mEq/L (98-107); Glucose 127 mg/dL (70-105); Osmolality,Calculated 298 (280-300); Potassium 3.5 mEq/L (3.5-5.1); Sodium 141 mEq/L (136-145); eGFR For African Americans > 60 (> 60); eGFR For Non-African Americans > 60 (> 60)
[2019-04-19] MEDS: *HR* Heparin 5,000 UNIT/ML VIAL SQ SCH ×2 (06:20→17:50)
[2019-04-19] MEDS: Budesonide/Formoterol 160/4.5 1 PUFF INH IH SCH ×2 (07:30→19:44)
[2019-04-19] MEDS: Nicotine 21 MG PATCH.TD24 TD SCH (07:54)
[2019-04-19] MEDS: Aspirin Enteric Coated 81 MG Tablet PO SCH (07:55)
[2019-04-19] MEDS: Fluticasone Propionate Nasal 50 MCG/SPRAY BOTTLE NS SCH (07:55)
[2019-04-19] MEDS: MethylPREDNISolone 40 MG/ML VIAL IVP SCH (07:55)
[2019-04-19] MEDS: Primidone 50 MG TABLET PO SCH ×2 (07:55→12:18)
[2019-04-19] MEDS ORDERED: Aminoglycoside Consult 1 EACH MC ONE (08:03)
[2019-04-19] MEDS ORDERED: Acetaminophen 325 MG TABLET PO PRN (12:08)
[2019-04-19] MEDS ORDERED: *HR* OxyCODONE Immed Rel 5 MG TABLET PO PRN (16:07)
[2019-04-20] MEDS: Ipratropium/Albuterol Neb 3 ML IH SCH ×4 (00:05→11:24)
[2019-04-20] MEDS: *HR* Heparin 5,000 UNIT/ML VIAL SQ SCH (04:26)
[2019-04-20] MEDS: Budesonide/Formoterol 160/4.5 1 PUFF INH IH SCH (07:33)
[2019-04-20] MEDS: Nicotine 21 MG PATCH.TD24 TD SCH (10:26)
[2019-04-20] MEDS: Primidone 50 MG TABLET PO SCH (10:27)
[2019-04-20] MEDS: Aspirin Enteric Coated 81 MG Tablet PO SCH (10:27)
[2019-04-20] MEDS: MethylPREDNISolone 40 MG/ML VIAL IVP SCH (10:28)
[2019-04-20] MEDS: Fluticasone Propionate Nasal 50 MCG/SPRAY BOTTLE NS SCH (10:29)
[2019-04-20 13:13] VITALS: BP 137/65
== END 2019-04-20 14:10 | disposition hospice, inpatient (51) | DRG 871 ==
LOC: 2ANU 15:02 → EMEROOARM 15:02 → SUATTDRO 18:37 → 2ANU 19:36
PROVIDERS: ADMIT Internal Medicine; ATTEND Internal Medicine